=== PATIENT | male | born 1955 | race Caucasian/White ===

== ENCOUNTER 2018-02-09 13:23 | Inpatient (IN) | payer MEDICARE, MEDICAID, SELFPAY ==
[2018-02-09] VITALS (22 sets, daily range): BP systolic 91–143; BP diastolic 47–75; PULSE 83–105; RESP 16–24; TEMP 36–37.1; O2SAT 92–99
--- NOTE | 2018-02-09 13:55 | DI.RAD_ITS ---
SYMPTOMS/DIAGNOSIS: COUGH, SHORTNESS OF BREATH, ? PNEUMONIA PA AND LATERAL CHEST: The heart is not enlarged. The lungs appear hyperinflated consistent with COPD. No pulmonary consolidation or pleural effusion. No change from examination of 07/23/17. CONCLUSION: No evidence of acute disease.
--- NOTE | 2018-02-09 13:58 | ED.GENADUL_ITS ---
Discharge Plan Disposition Patient Disposition: [facility] INPATIENT Condition: Stable Discharge Details Chief Complaint: SOB Clinical Impression: Acute exacerbation of chronic obstructive pulmonary disease (COPD) Primary Care Provider: DANITA ROMERO ED Provider: Joya Degroot Home Meds and New Rx's Prescriptions: No Action multivitamin [Men's Multi-Vitamin] 1 EACH tablet 1 ea PO DAILY RF: 0 citalopram 40 MG tablet 20 mg PO DAILY RF: 0 tamsulosin 0.4 MG capsule 0.4 mg PO DAILY RF: 0 budesonide-formoterol [Symbicort] 10.2 GM HFA aerosol inhaler 2 puff Inhalation BID RF: 0 ipratropium-albuterol 3 ML solution for nebulization 3 ml Inhalation Q4H PRN (Reason: dyspnea or wheezing) Qty: 0 RF: 0 aspirin [Aspir-81] 81 MG tablet,delayed release (DR/EC) 81 mg PO DAILY AM RF: 0 metoprolol succinate 100 MG tablet extended release 24 hr 100 mg PO DAILY RF: 0 acetaminophen 325 MG tablet 650 mg PO PRN PRNRF: 0 clonazepam 1 MG tablet 1 mg PO BID RF: 0 melatonin 3 MG tablet 3 mg PO HS RF: 0 docusate sodium [Colace] 100 MG capsule 100 mg PO BID RF: 0 rosuvastatin [Crestor] 20 MG tablet 80 mg PO 1800 RF: 0 acetylcysteine 600 MG capsule 600 mg PO BID RF: 0 lisinopril 10 MG tablet 20 mg PO DAILY RF: 0 mupirocin 22 GM ointment 1 applic Topical TID RF: 0 guaifenesin [Mucinex] 600 MG tablet extended release 12hr 1,200 mg PO BID Qty: 14 RF: 0 rivaroxaban [Xarelto] 20 MG tablet 20 mg PO DAILY Qty: 30 RF: 0 loratadine 10 MG tablet 10 mg PO HS PRN PRNQty: 30 RF: 0 clopidogrel [Plavix] 75 mg Tablet 75 mg PO DAILY RF: 0 Medical Decision Making 62-year-old male with a history of COPD chronically on 2 L of home O2 who presents for worsening shortness of breath, and cough for the past few days. Last on redness on his Zithromax 1 month ago. Restarted prednisone 60mg yesterday and today and took 1 dose of clindamycin at home left over today. Family hypertensive. Heart rate 102. Normal respiratory rate, oxygen saturation on 2 L and no fever. Patient unable to speak in full sentences. He has mild respiratory distress. Patient states he cannot take albuterol due to tachycardia. Is an IV, labs, EKG , chest x-ray and give a dose of Xopenex and 60 g IV Solu-Medrol. EKG notes a rate of 82, sinus, no acute ST elevation or depression. QTc 423. QRS 110. 1520 --patient denies any relief after Xopenex. Labs reviewed and notes normal white blood cell count. Normal electrolytes. Troponin negative. 1725 --pt denies any relief after 2 xopenex. Labs and imaging reviewed. White blood cell count 10. Electrolytes within normal limits. Troponin negative. Chest x-ray negative. Patient states he feels like he has a difficult time talking and states this is usually the start of a significant COPD exacerbation. Patient does not feel comfortable going home. Discussed with respiratory and they will use patient's Atrovent inhaler with spacer for treatment. Will admit for observation, IV steroids, and continued neb treatments as needed. 1930 --delay in reaching hospitalist - lost pager - accepts pt for admission. Patient admits to mainly clear sputum but states it has been occasionally green. Although he has no fever and normal white blood cell count, will give a dose of Levaquin IV. There is an interaction with Celexa and Levaquin for risk of QT prolongation which can be monitored on telemetry. HPI General Mode of arrival: ambulatory . Date/Time Provider Initiated Documentation: 02/09/18 13:25 . Limitations to Documentation: no limitations . Information obtained by: patient . HPI Narrative: 62-year-old male with a history of COPD chronically on 2 L of home O2 who presents for worsening shortness of breath, and cough for the past few days. States he was recently treated with Zithromax and prednisone 1 month ago. States he is followed at the [facility] and he thought he had 3 refills on his prednisone and Zithromax but only had a refill on his prednisone. States he restarted prednisone yesterday and took 60 mg yesterday and 60 mg a day. States he had clindamycin left over from previous prescription and took 1 dose this morning. He admits to left-sided chest pain that occurs with coughing. He denies any chest pain at present. He denies any known fever. Past medical history: CAD, COPD, PVD, depression, hypertension, atrial for ablation, hyperlipidemia, anxiety, BPH Surgical history: Previous tracheostomy with reversal, G-tube with reversal, knee surgery, 1 cardiac stent Social history: Quit tobacco 3 years ago, denies alcohol or drugs Medications: See list Allergies: Albuterol (tachycardia) [facility] Home Medications Medication Instructions Recorded Confirmed citalopram 20 mg PO DAILY 05/09/15 02/09/18 multivitamin [Men's Multi-Vitamin] 1 ea PO DAILY 05/09/15 02/09/18 tamsulosin 0.4 mg PO DAILY 05/09/15 02/09/18 budesonide-formoterol [Symbicort] 2 puff INHALATION BID 11/25/15 02/09/18 ipratropium-albuterol 3 ml INHALATION Q4H PRN #0 11/28/15 02/09/18 aspirin [Aspir-81] 81 mg PO DAILY AM 07/19/16 02/09/18 acetaminophen 650 mg PO PRN PRN 06/16/17 02/09/18 acetylcysteine 600 mg PO BID 06/16/17 02/09/18 clonazepam 1 mg PO BID 06/16/17 02/09/18 docusate sodium [Colace] 100 mg PO BID 06/16/17 02/09/18 melatonin 3 mg PO HS 06/16/17 02/09/18 rosuvastatin [Crestor] 80 mg PO 1800 06/16/17 02/09/18 guaifenesin [Mucinex] 1,200 mg PO BID #14 tabcr 06/23/17 02/09/18 lisinopril 20 mg PO DAILY tab 06/23/17 02/09/18 mupirocin 1 applic TOPICAL TID tube 06/23/17 02/09/18 rivaroxaban [Xarelto] 20 mg PO DAILY #30 tablet 06/23/17 02/09/18 loratadine 10 mg PO HS PRN PRN #30 tab 07/23/17 02/09/18 metoprolol succinate 100 mg PO DAILY 09/05/17 02/09/18 clopidogrel [Plavix] 75 mg PO DAILY 02/09/18 02/09/18 Previous Rx's Medication Instructions Recorded ipratropium-albuterol 3 ml INHALATION Q4H PRN #0 11/28/15 guaifenesin [Mucinex] 1,200 mg PO BID #14 tabcr 06/23/17 lisinopril 20 mg PO DAILY tab 06/23/17 mupirocin 1 applic TOPICAL TID tube 06/23/17 rivaroxaban [Xarelto] 20 mg PO DAILY #30 tablet 06/23/17 loratadine 10 mg PO HS PRN PRN #30 tab 07/23/17 Allergies Allergy/AdvReac Type Severity Reaction Status Date / Time albuterol Allergy Verified 02/09/18 13:34 General Stated Complaint: SOB DANETTE: 2 Review of Systems Review of Systems All systems reviewed & are unremarkable except as noted in HPI and below Constitutional Denies chills, Denies excessive sweating, Denies fatigue, Denies fever(s), Denies weakness and Denies weight loss Eyes Reports system reviewed and no additional complaints, except as docu and Denies blurry vision ENT Denies vertigo, Denies dizziness, Denies otalgia, Denies nasal congestion, Denies sore throat and Denies throat swelling Cardiovascular Denies chest pain, Denies syncope, Denies rapid heart rate and Reports dyspnea Respiratory Reports chest congestion, Reports cough and Reports dyspnea Gastrointestinal Denies abdominal pain, Denies diarrhea and Denies vomiting Genitourinary Denies hematuria, Denies dysuria and Denies flank pain Musculoskeletal Denies back pain and Denies joint swelling Integumentary/Breasts Denies lesions and Denies rash Neurologic Denies behavioral changes, Denies confusion, Denies vertigo, Denies dizziness, Denies syncope and Denies weakness Psychiatric Denies behavioral changes, Denies confusion and Denies depression Endocrine Denies excessive sweating and Denies fatigue Hematologic/Lymphatic Denies easy bruising and Denies lymphadenopathy Allergic/Immunologic Denies throat swelling [facility] Medical History Anxiety Atrial fibrillation BPH (benign prostatic hyperplasia) COPD (chronic obstructive pulmonary disease) with emphysema Depression Essential hypertension Social History Smoking/Tobacco Use Status: Current every day Surgical History Arthroplasty of knee Gastrostomy Tube Placement tracheostomy Exam Const General: cooperative and healthy appearing Orientation: alert and awake [facility] Head: normal to inspection Ears: hearing grossly normal bilaterally and external ears normal General nose exam: external nose normal Face and sinus: normal facial exam Mouth: oral mucosae normal Eyes General: appearance normal, both eyes and all related structures Eyelids: eyelids normal EOM: EOM intact bilaterally Neck Neck: normal visual inspection Lymphatic: no lymphadenopathy noted Chest Chest: normal inspection of the chest Resp Effort & Inspection: not able to speak in complete sentences Auscultation: diminished lung sounds bilaterally Cardio Rate: tachycardic Rhythm: regular rhythm GI Inspection: normal to inspection Palpation: soft, not firm, no guarding, no hepatosplenomegaly, no masses and nontender Auscultation: normal bowel sounds Skin General skin exam: no rashes or lesions noted Neuro General: alert and awake Cognition: normal cognition Speech: speech normal Gait: normal gait Motor: muscle tone normal throughout Sensory Exam: no sensory deficits noted Extrem General: normal to inspection, full ROM and no edema Psych Appearance: grossly normal Mental Status: mental status grossly normal Speech and Movement: speech and movement normal Affect: normal affect Thought Process: normal Course Vital Signs Temperature 96.8 F L 02/09/18 13:29 Pulse 102 H 02/09/18 13:29 Respiratory Rate 20 02/09/18 13:29 Blood Pressure 143/75 H 02/09/18 13:29 Pulse Oximetry 97 02/09/18 13:29 Temperature 96.8 F L 02/09/18 13:29 Temperature Source Skin 02/09/18 13:29 Pulse 102 H 02/09/18 13:29 Respiratory Rate 20 02/09/18 13:29 Respiratory Effort 02/09/18 13:29 Blood Pressure 143/75 H 02/09/18 13:29 Blood Pressure Position Sitting 02/09/18 13:29 Pulse Oximetry 97 02/09/18 13:29 Oxygen Delivery Method Nasal Cannula 02/09/18 13:29 Oxygen Flow Rate 2.5 02/09/18 13:29 Pain Level 0 02/09/18 13:29
[2018-02-09 14:28] LABS: Abs Immature Grans 0.01 k/cumm (0.0-0.09); Absolute Lymphocyte Count 0.36 k/cumm (1.2-3.4); Absolute Monocyte Count 0.11 k/cumm (0.11-0.7); HCT 35.1 % (40.0-50.0); HGB 11.5 g/dL (13.5-17.5); Immature Grans % 0.1; Lymphocytes % 3.4; Mean Corp. HGB Concentration 32.8 g/dL (32.0-36.0); Mean Corpuscular Hemoglobin 30.4 pg (27.0-33.0); Mean Corpuscular Volume 92.9 fL (80-95); Mean Platelet Volume 9.3 fL (8.0-11.0); Neutrophils % 95.5; Platelet Count 258 x1000/uL (130-400); RBC 3.78 m/cumm (4.50-6.00); RBC Distribution Width 13.5 % (11.8-14.1); White Blood Cell Count 10.48 k/cumm (4.4-10.8)
[2018-02-09] MEDS: Levalbuterol 1.25 MG/3 ML UPD VIAL UPD ×2 (14:35→15:42)
[2018-02-09] MEDS: methylPREDNISolone SUCC 125 MG VIAL 60 MG IVP (14:36)
[2018-02-09 14:42] LABS: ALT 43 U/L (12-78); AST 30 U/L (15-37); Albumin 3.5 g/dL (3.4-5.0); Alkaline Phosphatase 74 U/L (46-116); Anion Gap 9.2 mmol/L (3-11); BUN 16 mg/dL (7-18); Bilirubin, Total 0.2 mg/dL (0.2-1.0); CO2 28.8 mmol/L (21.0-32.0); CREATININE 1.06 mg/dL (0.70-1.30); Chloride 98 mmol/L (98-107); Glucose 171 mg/dL (70-100); Magnesium 1.8 mg/dL (1.8-2.4); Potassium 4.5 mmol/L (3.5-5.1); Sodium 136 mmol/L (136-145)
[2018-02-09 14:45] LABS: Troponin I < 0.02 ng/mL (0.00-0.06)
[2018-02-09] MEDS: Normal Saline 250 ML IV (16:39)
--- NOTE | 2018-02-09 18:31 | RESPIRATORY ---
Worked with patient using spacer with his Atrovent inhaler. He stated he uses this inhaler at home without the spacer. I strongly encouraged his to iuse the spacer in the future. His technique with the spacer was adequate.
[2018-02-09] MEDS: LEVOFLOXACIN 750 MG/150 ML BAG 150 MG IVPB (20:23)
[2018-02-09 20:55] LABS: Hemoglobin A1C 5.6 % (4.5-6.2)
--- NOTE | 2018-02-09 21:26 | HPE_ITS ---
Date of service: 02/09/18 Time of Service: 21:25 Assessment and Plan (1) COPD exacerbation: Current visit: Yes Status: Acute continue prn xopenex aerosol treatments, iv solumedrol, po levaquin w/ close telemetry monitoring given his concomittant use of Citalopram for anxiety/ depression. encourage use of Acapella for mobilization of sputum. Per patient he is current on his influenza and pneumovax vaccines. continue his home dose of Symbicort (2) Acute purulent bronchitis: Current visit: Yes Status: Deleted as above History of Present Illness Chief Complaint: shortness of breath Narrative: 62-year-old male with a history of COPD chronically on 2 L of oxygen at home presents with worsening shortness of breath and increased cough for last few days. Patient started on prednisone 60 mg yesterday and took another dose today as well as started 1 dose of clindamycin today that was left over from a previous prescription. He states that his primary care provider had previously given him a standing prescription for prednisone and azithromycin but there is no refills on the azithromycin. Patient has been intolerant of albuterol due to severe tachycardia. Does use Atrovent at home as well as Symbicort. Workup in the emergency room revealed that he is afebrile chest x- ray showed no acute infiltrates and CBC showed no leukocytosis. Rest of his labs were unremarkable. He was treated in the emergency room with Xopenex aerosol treatments as well as his Atrovent inhaler. Patient was started on Levaquin in the emergency room For an acute purulent bronchitis. He is now admitted on observation status for treatment of COPD exacerbation. Patient has been under evaluation for potential lung transplant. He has been awaiting word on his final tests as to whether or not he will be accepted Review of Systems Constitutional Denies chills and Denies fever(s) Cardiovascular Reports system reviewed and no additional complaints, except as docu, Reports dyspnea and Reports dyspnea on exertion Respiratory Reports as per HPI, Reports change in phlegm color, Reports chest congestion, Reports cough, Denies hemoptysis, Reports excessive phlegm production, Reports dyspnea, Reports dyspnea on exertion and Reports wheezing Gastrointestinal Reports system reviewed and no additional complaints, except as docu Genitourinary Reports system reviewed and no additional complaints, except as docu Musculoskeletal Reports system reviewed and no additional complaints, except as docu Integumentary/Breasts Reports system reviewed and no additional complaints, except as docu Neurologic Reports system reviewed and no additional complaints, except as docu Psychiatric Reports system reviewed and no additional complaints, except as docu Endocrine Reports system reviewed and no additional complaints, except as docu Hematologic/Lymphatic Reports system reviewed and no additional complaints, except as docu Allergic/Immunologic Reports system reviewed and no additional complaints, except as docu and Reports wheezing PFSH Medical History Anxiety Atrial fibrillation BPH (benign prostatic hyperplasia) COPD (chronic obstructive pulmonary disease) with emphysema Depression Essential hypertension Social History marital status: Smoking/Tobacco Use Status: Former Tobacco Use how long ago did patient quit smokin years ago Surgical History Arthroplasty of knee Gastrostomy Tube Placement tracheostomy Meds Home Medications Medication Instructions Recorded Confirmed Type citalopram 20 mg PO DAILY 05/09/15 02/09/18 History multivitamin [Men's Multi-Vitamin] 1 ea PO DAILY 05/09/15 02/09/18 History tamsulosin 0.4 mg PO DAILY 05/09/15 02/09/18 History budesonide-formoterol [Symbicort] 2 puff INHALATION BID 11/25/15 02/09/18 History ipratropium-albuterol 3 ml INHALATION Q4H PRN #0 11/28/15 02/09/18 Rx aspirin [Aspir-81] 81 mg PO DAILY AM 07/19/16 02/09/18 History acetaminophen 650 mg PO PRN PRN 06/16/17 02/09/18 History acetylcysteine 600 mg PO BID 06/16/17 02/09/18 History clonazepam 1 mg PO BID 06/16/17 02/09/18 History docusate sodium [Colace] 100 mg PO BID 06/16/17 02/09/18 History melatonin 3 mg PO HS 06/16/17 02/09/18 History rosuvastatin [Crestor] 80 mg PO 1800 06/16/17 02/09/18 History guaifenesin [Mucinex] 1,200 mg PO BID #14 tabcr 06/23/17 02/09/18 Rx lisinopril 20 mg PO DAILY tab 06/23/17 02/09/18 Rx mupirocin 1 applic TOPICAL TID tube 06/23/17 02/09/18 Rx rivaroxaban [Xarelto] 20 mg PO DAILY #30 tablet 06/23/17 02/09/18 Rx loratadine 10 mg PO HS PRN PRN #30 tab 07/23/17 02/09/18 Rx metoprolol succinate 100 mg PO DAILY 09/05/17 02/09/18 History clopidogrel [Plavix] 75 mg PO DAILY 02/09/18 02/09/18 History Allergies Allergy/AdvReac Type Severity Reaction Status Date / Time albuterol Allergy Verified 02/09/18 13:34 Exam Const General: cooperative and anxious Nutritional Appearance: average body habitus Orientation: alert and oriented x3 HENMT Head: normal to inspection, no palpable skull fracture, normocephalic and atraumatic Ears: hearing grossly normal bilaterally and TM's normal bilaterally General nose exam: external nose normal, nares normal, nasal mucous membranes and turbinates normal and no nasal discharge Face and sinus: normal facial exam Mouth: oral mucosae normal Teeth and gingiva: dentures Throat: posterior oropharynx normal Eyes General: appearance normal, both eyes and all related structures Visual Cortes: normal visual cortes by confrontation Alignment and Position: alignment normal Periorbital: periorbital findings normal Eyelids: eyelids normal Conjunctivae: conjunctivae normal Sclera: sclerae normal Cornea: corneas normal Pupils: PERRL EOM: EOM intact bilaterally Neck Neck: normal visual inspection, full ROM, no lymphadenopathy, trachea midline and no JVD Thyroid: thyroid normal Carotids: normal carotid upstroke and bruit bilaterally Lymphatic: no lymphadenopathy noted Chest Chest: normal inspection of the chest Resp Effort & Inspection: able to speak in complete sentences and tachypneic Auscultation: wheezes expiratory wheezes and scattered wheezes Cardio Jugular venous pressure: no JVD Palpation: normal PMI Rate: regular rate Rhythm: regular rhythm Heart Sounds: S1 normal and S2 normal Bruits: carotid bruit bilaterally Pulses: normal peripheral pulses GI Inspection: normal to inspection Palpation: soft, no hepatosplenomegaly and nontender Percussion: normal to percussion Auscultation: normal bowel sounds Extrem General: normal to inspection, full ROM, normal capillary refill, no joint enlargement and no clubbing, cyanosis or edema Psych Appearance: grossly normal and well kempt Mental Status: mental status grossly normal Speech and Movement: speech and movement normal Mood: congruent mood Affect: anxious affect Attitude: cooperative Thought Process: normal Thought Content: normal Insight: insight good Judgment: judgment good Results Imaging Chest x-ray: report reviewed (PA AND LATERAL CHEST: The heart is not enlarged. The lungs appear hyperinflated consistent with COPD. No pulmonary consolidation or pleural effusion. No change from examination of 07/23/17. CONCLUSION: No evidence of acute disease.) Labs : 02/09/18 14:20 02/09/18 14:20 Laboratory Results - last 24 hr 02/09/18 02/09/18 02/09/18 14:20 14:20 14:20 WBC 10.48 RBC 3.78 L Hgb 11.5 L Hct 35.1 L MCV 92.9 MCH 30.4 MCHC 32.8 RDW 13.5 Plt Count 258 MPV 9.3 Immature Gran % 0.1 Neutrophils % 95.5 Lymphocytes % 3.4 Monocytes % 1.0 Eosinophils % 0.0 Basophils % 0.0 Absolute Neutrophils 10.00 H Absolute Lymphocytes 0.36 L Absolute Monocytes 0.11 Absolute Eosinophils 0.00 Absolute Basophils 0.00 Sodium 136 Potassium 4.5 Chloride 98 Carbon Dioxide 28.8 Anion Gap 9.2 BUN 16 Creatinine 1.06 Estimated GFR/1.73 m2 >= 60.00 Glucose 171 H Hemoglobin A1c 5.6 Calcium 9.0 Magnesium 1.8 Total Bilirubin 0.2 AST 30 ALT 43 Alkaline Phosphatase 74 Troponin I < 0.02 Total Protein 7.0 Albumin 3.5 Last Vital Signs Temp 36.7 C 02/09/18 20:32 Pulse 92 H 02/09/18 20:32 Resp 16 02/09/18 20:32 BP 130/56 L 02/09/18 20:32 Pulse Ox 96 02/09/18 20:32
[2018-02-09] MEDS: Budesonide/Formoterol 160/4.5 6 GM 60 PUFF INH IH (22:06)
[2018-02-09] MEDS: clonazePAM 1 MG TAB PO (22:07)
[2018-02-09] MEDS: Melatonin 3 MG TAB PO (22:07)
[2018-02-09] MEDS: Normal Saline Flush 10 ML SYR IVP ×2 (22:09→23:10)
[2018-02-09] MEDS: methylPREDNISolone SUCC 125 MG VIAL 80 MG IVP (23:11)
[2018-02-09] MEDS: guaiFENesin 600 MG TABCR 1200 MG PO (23:11)
[2018-02-10] MEDS: methylPREDNISolone SUCC 125 MG VIAL 80 MG IVP ×3 (06:05→22:52)
[2018-02-10] MEDS: Normal Saline Flush 10 ML SYR IVP ×2 (06:05→22:53)
[2018-02-10 07:52] VITALS: BP 116/69; PULSE 87; RESP 20; TEMP 36.2; O2SAT 95
[2018-02-10] MEDS: Lisinopril 10 MG TAB 20 MG PO (07:54)
[2018-02-10] MEDS: clonazePAM 1 MG TAB PO ×2 (07:55→19:23)
[2018-02-10] MEDS: Multivitamin TAB 1 TAB PO (07:55)
[2018-02-10] MEDS: Citalopram 20 MG TAB PO (07:55)
[2018-02-10] MEDS: Clopidogrel 75 MG TAB PO (07:55)
[2018-02-10] MEDS: guaiFENesin 600 MG TABCR 1200 MG PO ×2 (07:55→19:23)
[2018-02-10] MEDS: Metoprolol CR 100 MG TABCR PO (07:55)
[2018-02-10] MEDS: Tamsulosin 0.4 MG CAPCR PO (07:55)
[2018-02-10] MEDS: Nystatin 500000 UNITS/5 ML SUSP 5ML CUP PO ×3 (07:56→19:24)
--- NOTE | 2018-02-10 07:58 | PDOC.CMIN ---
Care Management Initial Assess REASON FOR HOSPITALIZATION:: COPD Exacerbation PAST MEDICAL HISTORY/PAST SURGICAL HISTORY:: Severe COPD, Treated for pneumonia, Depression with anxiety disorder, H/O coronary artery disease, H/O hypertension, Benign prostatic hypertrophy, Rectal dysfunction, Seasonal allergies, (R) knee arthroscopy PREVIOUS FUNCTIONAL STATUS/SOCIAL/FAMILY SUPPORTS:: Javier resides with his , Claire in [place], [place]. He has a long history of hospitalizations and SNF stays for recovery due to end stage COPD. He is on disability, and has a good support system of family and friends. CURRENT FUNCTIONAL STATUS:: Javier is lying in bed, elevated when CM meets with him. He reports improvement, appears alert and oriented and is gracious and kind in interaction, reporting you all are all a blessing. He reports anticipating discharge tomorrow, 02/11/18. ADVANCE DIRECTIVES:: None on file at [facility]; Claire reports document is at home. Has patient been provided with information about the portal?: Yes Did the patient sign up for the portal?: No CODE STATUS:: Full Code INSURANCE COVERAGE / FINANCIAL ISSUES:: Medicare CURRENT HOME[facility]COMMUNITY [facility] [place]. PRIMARY CARE PHYSICIAN:: Marvin Hallman POTENTIAL DISCHARGE NEEDS:: Evaluation for further needs. PATIENT/FAMILY EDUCATION NEEDS:: Review of instructions, discuss Ask Me Three. ANTICIPATED BARRIERS TO DISCHARGE:: None identified. TRANSPORTATION:: Via private vehicle with his , Claire. PLAN:: Javier will return home when ready per MD. He will be evaluated for further needs prior to discharge; CM will continue to follow and support discharge planning considerations. He will follow up with his [facility] resume home O2 and plan of care as prescribed. Javier will transport via private vehicle with his , Claire.
--- NOTE | 2018-02-10 08:09 | INITIAL_ITS ---
Care Management Initial Assess REASON FOR HOSPITALIZATION:: COPD Exacerbation PAST MEDICAL HISTORY/PAST SURGICAL HISTORY:: Severe COPD, Treated for pneumonia , Depression with anxiety disorder, H/O coronary artery disease, H/O hypertension, Benign prostatic hypertrophy, Rectal dysfunction, Seasonal allergies, (R) knee arthroscopy PREVIOUS FUNCTIONAL STATUS/SOCIAL/FAMILY SUPPORTS:: Javier resides with his , Claire in [place], [place]. He has a long history of hospitalizations and SNF stays for recovery due to end stage COPD. He is on disability, and has a good support system of family and friends. CURRENT FUNCTIONAL STATUS:: Javier is lying in bed, elevated when CM meets with him. He reports improvement, appears alert and oriented and is gracious and kind in interaction, reporting you all are all a blessing. He reports anticipating discharge tomorrow, 02/11/18. ADVANCE DIRECTIVES:: None on file at [facility]; Claire reports document is at home. Has patient been provided with information about the portal?: Yes Did the patient sign up for the portal?: No CODE STATUS:: Full Code INSURANCE COVERAGE / FINANCIAL ISSUES:: Medicare CURRENT HOME/COMMUNITY SERVICES/EQUIPMENT:: [facility] in [place] PRIMARY CARE PHYSICIAN:: Marvin Hallman POTENTIAL DISCHARGE NEEDS:: Evaluation for further needs. PATIENT/FAMILY EDUCATION NEEDS:: Review of instructions, discuss Ask Me Three. ANTICIPATED BARRIERS TO DISCHARGE:: None identified. TRANSPORTATION:: Via private vehicle with his , Claire. PLAN:: Javier will return home when ready per MD. He will be evaluated for further needs prior to discharge; CM will continue to follow and support discharge planning considerations. He will follow up with his [facility] PCP resume home O2 and plan of care as prescribed. Javier will transport via private vehicle with his , Claire.
[2018-02-10 08:10] VITALS: O2SAT 95
[2018-02-10] MEDS: Budesonide/Formoterol 160/4.5 6 GM 60 PUFF INH IH ×2 (08:11→22:53)
[2018-02-10 08:44] VITALS: PULSE 86
[2018-02-10 10:02] VITALS: RESP 8
[2018-02-10] MEDS: Levalbuterol 1.25 MG/3 ML UPD VIAL UPD (10:02)
--- NOTE | 2018-02-10 12:39 | W.PM.PROGNOT ---
Date of Service Date of service: 02/10/18 Time of Service: 12:40 Assessment and Plan (1) COPD exacerbation: Current visit: Yes Status: Acute Improving with Xopenex aerosol treatments, iv solumedrol, levaquin, will continue this therapy. He is on telemetry monitoring given his concomittant use of Citalopram for anxiety/depression, a prolonged QT noted. Encourage use of Acapella for mobilization of sputum, working with respiratory therapy. (2) Coronary artery disease: Current visit: No Status: Chronic Stable. Continue chronic cardiac regimen. Rosuvastatin changed to 40 mg as this day is the maximum dose. (3) Essential hypertension: Current visit: No Status: Chronic Blood pressure controlled, continue chronic medication. (4) Anemia: Current visit: No Status: Acute Mild anemia, stable from last hemoglobin drawn in June. A likely contributing to her shortness of breath. (5) DVT prophylaxis: Current visit: Yes Status: Acute On rivaroxaban chronically. Subjective Patient reports: no new complaints, feels better, tolerating a regular diet and shortness of breath; denies diarrhea, nausea, vomiting and fever Interval history since last seen: Feeling significantly better than when he came in, but still not back to normal. He feels short of breath when up to use the bathroom and when speaking in long sentences. He denies fevers, but is coughing up some green sputum. Exam Narrative Exam Narrative: General: Alert and oriented, sitting up, mildly dyspneic with full sentences. HEENT: Moist mucous membranes, oropharynx benign Lungs: Diffuse diminished breath sounds bilaterally. No wheezes or rales. Cardia vascular: Regular rate and rhythm, no murmurs. Abdomen: Soft, nontender, nondistended Extremities: No cyanosis, clubbing, or edema. Nontender. Objective Objective Clinical Data: Abnormal lab results 02/09/18 02/09/18 Range/Units 14:20 14:20 RBC 3.78 L (4.50-6.00) m/cumm Hgb 11.5 L (13.5-17.5) g/dL Hct 35.1 L (40.0-50.0) % Absolute Neutrophils 10.00 H (1.2-6.7) k/cumm Absolute Lymphocytes 0.36 L (1.2-3.4) k/cumm Glucose 171 H (70-100) mg/dL Vital Signs Temperature 36.2 C L 02/10/18 07:52 Temperature Source Tympanic 02/10/18 07:52 Pulse 86 02/10/18 08:44 Pulse Rhythm Regular 02/10/18 07:59 Pulse 92 H 02/09/18 15:31 Respiratory Rate 20 02/10/18 07:52 Respiratory Effort Incrsd Work of Breathing 02/09/18 20:48 Respiratory Depth Normal 02/10/18 07:59 Respiratory Pattern Normal 02/10/18 07:59 Blood Pressure 116/69 02/10/18 07:52 Blood Pressure Mean 60 02/09/18 15:30 Blood Pressure Position Sitting 02/09/18 13:29 Pulse Oximetry 95 02/10/18 08:10 Oxygen Delivery Method Room Air 02/10/18 08:10 Oxygen Flow Rate 0 02/10/18 08:10 Pain Level 0 02/10/18 07:52 Intake & Output 02/09/18 02/10/18 02/10/18 23:59 11:59 23:59 Intake Total 400 / 400 Balance 400 / 400 Weight 61.235 kg Intake: IV 400 / 400 Other: Urine Appearance Clear Laboratory Results WBC 10.48 k/cumm (4.4-10.8) 02/09/18 14:20 RBC 3.78 m/cumm (4.50-6.00) L 02/09/18 14:20 Hgb 11.5 g/dL (13.5-17.5) L 02/09/18 14:20 Hct 35.1 % (40.0-50.0) L 02/09/18 14:20 MCV 92.9 fL (80-95) 02/09/18 14:20 MCH 30.4 pg (27.0-33.0) 02/09/18 14:20 MCHC 32.8 g/dL (32.0-36.0) 02/09/18 14:20 RDW 13.5 % (11.8-14.1) 02/09/18 14:20 Plt Count 258 x1000/uL (130-400) 02/09/18 14:20 MPV 9.3 fL (8.0-11.0) 02/09/18 14:20 Immature Gran % 0.1 02/09/18 14:20 Neutrophils % 95.5 02/09/18 14:20 Lymphocytes % 3.4 02/09/18 14:20 Monocytes % 1.0 02/09/18 14:20 Eosinophils % 0.0 02/09/18 14:20 Basophils % 0.0 02/09/18 14:20 Absolute Neutrophils 10.00 k/cumm (1.2-6.7) H 02/09/18 14:20 Absolute Lymphocytes 0.36 k/cumm (1.2-3.4) L 02/09/18 14:20 Absolute Monocytes 0.11 k/cumm (0.11-0.7) 02/09/18 14:20 Absolute Eosinophils 0.00 k/cumm (0.0-0.7) 02/09/18 14:20 Absolute Basophils 0.00 k/cumm (0.0-0.2) 02/09/18 14:20 Sodium 136 mmol/L (136-145) 02/09/18 14:20 Potassium 4.5 mmol/L (3.5-5.1) 02/09/18 14:20 Chloride 98 mmol/L (98-107) 02/09/18 14:20 Carbon Dioxide 28.8 mmol/L (21.0-32.0) 02/09/18 14:20 Anion Gap 9.2 mmol/L (3-11) 02/09/18 14:20 BUN 16 mg/dL (7-18) 02/09/18 14:20 Creatinine 1.06 mg/dL (0.70-1.30) 02/09/18 14:20 Estimated GFR/1.73 m2 >= 60.00 (mL/min/1.73m2) 02/09/18 14:20 Glucose 171 mg/dL (70-100) H 02/09/18 14:20 Hemoglobin A1c 5.6 % (4.5-6.2) 02/09/18 14:20 Calcium 9.0 mg/dL (8.5-10.1) 02/09/18 14:20 Magnesium 1.8 mg/dL (1.8-2.4) 02/09/18 14:20 Total Bilirubin 0.2 mg/dL (0.2-1.0) 02/09/18 14:20 AST 30 U/L (15-37) 02/09/18 14:20 ALT 43 U/L (12-78) 02/09/18 14:20 Alkaline Phosphatase 74 U/L (46-116) 02/09/18 14:20 Troponin I < 0.02 ng/mL (0.00-0.06) 02/09/18 14:20 Total Protein 7.0 g/dL (6.4-8.2) 02/09/18 14:20 Albumin 3.5 g/dL (3.4-5.0) 02/09/18 14:20
--- NOTE | 2018-02-10 13:11 | PHARADMIT ---
Addendum entered by Sandip Meléndez III 02/11/18 10:27: Pharmacy Note Subjective COPD improving. Objective VS-OK No Labs, Wgt-60.8 kg No BM yet Assessment Steroid taper to PO, Levaquin PO continues Xarelto continues, Plan Continue acapella with RT Original Note: Admission Pharmacy Clinical Review COPD EXACERBATION Code Status Full Code Current Weight 61.235 kg Renally Cleared and Narrow Therapeutic Index Meds CRCL ~50ML/MIN QTc Value / Action Taken 423 BP Control, Fever 116/69 AFEBRILE Electrolytes reviewed OK DVT Prophylaxis RIVAROXABAN Opiate Usage / Scheduled Bowel Regimen Ordered NO/PRN Plt/SCr for Heparin / Enoxaparin 258/1.06 INR for Warfarin NA H/H stable, WBC/Bands 11.5/35.1 WBC 10.48 Antibiotic appropriateness LEVOFLOXACIN PO Cultures and Sensitivities NA Surgical ABX d/c within 24 hr NA DM control / Insulin Dosing NA Heart Failure (Check EF%) (RADHA's, B-Block, Diuretics) IV to PO Switch Home Meds Reviewed Home Meds Not Ordered ipratropium-albuterol 3 ml INHALATION Q4H PRN #0 11/28/15 acetylcysteine 600 mg PO BID 06/16/17 [History Confirmed 02/09/18] mupirocin 1 applic TOPICAL TID tube 06/23/17 [Rx Confirmed 02/09/18] Comments Pt ON LUNG TRANSPLANT LIST, home med list stated crestor 80mg... changed to 40mg with MD permission
[2018-02-10 15:57] VITALS: BP 132/71; PULSE 92; PULSE 94; RESP 22; TEMP 36.6; O2SAT 96
[2018-02-10] MEDS: Rosuvastatin 10 MG TAB 40 MG PO (17:26)
[2018-02-10] MEDS: Rivaroxaban 10 MG TABLET 20 MG PO (17:26)
[2018-02-10] MEDS: LEVOFLOXACIN 500 MG, LEVOFLOXACIN 250 MG 750 MG PO (19:23)
[2018-02-10] MEDS: Melatonin 3 MG TAB PO (22:52)
[2018-02-11] VITALS (8 sets, daily range): BP systolic 96–140; BP diastolic 53–76; PULSE 61–82; RESP 17–20; TEMP 36–36.7; O2SAT 96–98
[2018-02-11] MEDS: methylPREDNISolone SUCC 125 MG VIAL 80 MG IVP ×3 (06:03→23:55)
[2018-02-11] MEDS: Normal Saline Flush 10 ML SYR IVP ×4 (06:04→23:56)
[2018-02-11] MEDS: Budesonide/Formoterol 160/4.5 6 GM 60 PUFF INH IH ×2 (08:59→20:01)
[2018-02-11] MEDS: Lisinopril 10 MG TAB 20 MG PO (09:41)
[2018-02-11] MEDS: Citalopram 20 MG TAB PO (09:41)
[2018-02-11] MEDS: Multivitamin TAB 1 TAB PO (09:41)
[2018-02-11] MEDS: Nystatin 500000 UNITS/5 ML SUSP 5ML CUP PO ×3 (09:41→20:00)
[2018-02-11] MEDS: Clopidogrel 75 MG TAB PO (09:42)
[2018-02-11] MEDS: guaiFENesin 600 MG TABCR 1200 MG PO ×2 (09:42→20:00)
[2018-02-11] MEDS: Metoprolol CR 100 MG TABCR PO (09:42)
[2018-02-11] MEDS: Docusate Sodium 100 MG CAP PO (09:42)
[2018-02-11] MEDS: Tamsulosin 0.4 MG CAPCR PO (09:42)
[2018-02-11] MEDS: clonazePAM 1 MG TAB PO ×2 (09:42→20:01)
--- NOTE | 2018-02-11 12:35 | W.PM.PROGNOT ---
Date of Service Date of service: 02/11/18 Time of Service: 12:35 Assessment and Plan (1) COPD exacerbation: Current visit: Yes Status: Acute Continues to improve with Xopenex aerosol treatments, iv solumedrol, levaquin. will continue this therapy. He is on telemetry due to use of Levaquin with citalopram to monitor QT. QTc this morning is not prolonged after 2 days of therapy, will discontinue telemetry. Encourage use of Acapella for mobilization of sputum, working with respiratory therapy. Restarted Spiriva this morning. After discussion with patient and Indira from respiratory therapy who knows the patient well, we will plan to observe again overnight, and transition to oral steroids overnight with likely discharge tomorrow. (2) Coronary artery disease: Current visit: No Status: Chronic Stable. Continue chronic cardiac regimen. (3) Essential hypertension: Current visit: No Status: Chronic Blood pressure controlled, continue chronic medication. (4) Anemia: Current visit: No Status: Acute Mild anemia, stable. Not likely contributing to his shortness of breath. (5) DVT prophylaxis: Current visit: Yes Status: Acute On rivaroxaban chronically. Subjective Patient reports: no new complaints, feels better, tolerating a regular diet and shortness of breath; denies nausea, vomiting and fever Interval history since last seen: Patient states he continues to feel better, but is short of breath with a lot of speaking or any walking. He does not feel right at his baseline, is not sure about going home today given this. Respiratory therapy, not getting his Spiriva, which he gets as an outpatient. Exam Narrative Exam Narrative: General: Alert and oriented, sitting up, less dyspneic with full sentences. HEENT: Moist mucous membranes, oropharynx benign Lungs: Diffuse diminished breath sounds bilaterally, but improved air movement. No wheezes or rales. Cardia vascular: Regular rate and rhythm, no murmurs. Abdomen: Soft, nontender, nondistended Extremities: No cyanosis, clubbing, or edema. Nontender. Objective Objective Clinical Data: Vital Signs Temperature 36.1 C L 02/11/18 07:40 Temperature Source Tympanic 02/11/18 07:40 Pulse 61 02/11/18 07:40 Pulse Rhythm Regular 02/11/18 05:30 Pulse 92 H 02/09/18 15:31 Respiratory Rate 18 02/11/18 07:40 Respiratory Effort 02/11/18 05:30 Respiratory Depth Normal 02/11/18 05:30 Respiratory Pattern Normal 02/11/18 05:30 Blood Pressure 133/57 L 02/11/18 07:40 Blood Pressure Mean 60 02/09/18 15:30 Blood Pressure Position Sitting 02/09/18 13:29 Pulse Oximetry 96 02/11/18 07:40 Oxygen Delivery Method Nasal Cannula 02/11/18 07:40 Oxygen Flow Rate 2 02/11/18 07:40 Pain Level 0 02/11/18 07:40 Intake & Output 02/10/18 02/11/18 02/11/18 23:59 11:59 23:59 Intake Total 560 / 560 960 / 960 Balance 560 / 560 960 / 960 Weight 60.8 kg Intake: IV Oral 540 / 540 960 / 960 Other: Comment voiding independently throughout shift Laboratory Results WBC 10.48 k/cumm (4.4-10.8) 02/09/18 14:20 RBC 3.78 m/cumm (4.50-6.00) L 02/09/18 14:20 Hgb 11.5 g/dL (13.5-17.5) L 02/09/18 14:20 Hct 35.1 % (40.0-50.0) L 02/09/18 14:20 MCV 92.9 fL (80-95) 02/09/18 14:20 MCH 30.4 pg (27.0-33.0) 02/09/18 14:20 MCHC 32.8 g/dL (32.0-36.0) 02/09/18 14:20 RDW 13.5 % (11.8-14.1) 02/09/18 14:20 Plt Count 258 x1000/uL (130-400) 02/09/18 14:20 MPV 9.3 fL (8.0-11.0) 02/09/18 14:20 Immature Gran % 0.1 02/09/18 14:20 Neutrophils % 95.5 02/09/18 14:20 Lymphocytes % 3.4 02/09/18 14:20 Monocytes % 1.0 02/09/18 14:20 Eosinophils % 0.0 02/09/18 14:20 Basophils % 0.0 02/09/18 14:20 Absolute Neutrophils 10.00 k/cumm (1.2-6.7) H 02/09/18 14:20 Absolute Lymphocytes 0.36 k/cumm (1.2-3.4) L 02/09/18 14:20 Absolute Monocytes 0.11 k/cumm (0.11-0.7) 02/09/18 14:20 Absolute Eosinophils 0.00 k/cumm (0.0-0.7) 02/09/18 14:20 Absolute Basophils 0.00 k/cumm (0.0-0.2) 02/09/18 14:20 Sodium 136 mmol/L (136-145) 02/09/18 14:20 Potassium 4.5 mmol/L (3.5-5.1) 02/09/18 14:20 Chloride 98 mmol/L (98-107) 02/09/18 14:20 Carbon Dioxide 28.8 mmol/L (21.0-32.0) 02/09/18 14:20 Anion Gap 9.2 mmol/L (3-11) 02/09/18 14:20 BUN 16 mg/dL (7-18) 02/09/18 14:20 Creatinine 1.06 mg/dL (0.70-1.30) 02/09/18 14:20 Estimated GFR/1.73 m2 >= 60.00 (mL/min/1.73m2) 02/09/18 14:20 Glucose 171 mg/dL (70-100) H 02/09/18 14:20 Hemoglobin A1c 5.6 % (4.5-6.2) 02/09/18 14:20 Calcium 9.0 mg/dL (8.5-10.1) 02/09/18 14:20 Magnesium 1.8 mg/dL (1.8-2.4) 02/09/18 14:20 Total Bilirubin 0.2 mg/dL (0.2-1.0) 02/09/18 14:20 AST 30 U/L (15-37) 02/09/18 14:20 ALT 43 U/L (12-78) 02/09/18 14:20 Alkaline Phosphatase 74 U/L (46-116) 02/09/18 14:20 Troponin I < 0.02 ng/mL (0.00-0.06) 02/09/18 14:20 Total Protein 7.0 g/dL (6.4-8.2) 02/09/18 14:20 Albumin 3.5 g/dL (3.4-5.0) 02/09/18 14:20
[2018-02-11] MEDS: Aspirin E.C. 81 MG TABEC PO (13:14)
--- NOTE | 2018-02-11 15:04 | PDOC.CMPRO ---
- If Service Date Differs Date of service: 02/11/18 Time of Service: 15:04 Care Management Progress Note S/O: Javier is doing well this afternoon, his Claire is in the room with him. Javier remains on telemetry at this time, and states that he continues to feel short of breath with activity. Javier is feeling better and hopeful that he will be able to return home this weekend. No change in DC plan at this time. A: 62 y/o male admitted 02/09/18 for COPD exacerbation. P: Javier will return home with no anticipated services once medically cleared. He will F/U with PCP and plan of care as prescribed. [facility] at [place]. lCaire to transport.
--- NOTE | 2018-02-11 15:38 | RESPIRATORY ---
02/11/18- RT Navigator discussed with Pt the [facility] and made an COPD Action Plan with him and his , Claire. Pt will give copy to his PCP, Dr. [place] at the [place] at his next appt.
[2018-02-11] MEDS: Rivaroxaban 10 MG TABLET 20 MG PO (16:46)
[2018-02-11] MEDS: Rosuvastatin 10 MG TAB 40 MG PO (17:56)
[2018-02-11] MEDS: LEVOFLOXACIN 500 MG, LEVOFLOXACIN 250 MG 750 MG PO (20:00)
[2018-02-11] MEDS: Melatonin 3 MG TAB PO (22:14)
[2018-02-12 07:40] VITALS: BP 110/71; PULSE 70; RESP 19; TEMP 37.1; O2SAT 96
[2018-02-12] MEDS: Budesonide/Formoterol 160/4.5 6 GM 60 PUFF INH IH (07:55)
--- NOTE | 2018-02-12 08:23 | PDOC.CMDIS ---
- If Service Date Differs Date of service: 02/12/18 Time of Service: 08:23 LACE Index Scoring Tool - Questions: Length of Stay (in days): 4 - 6 Acuity (Admit via E.D.?): Yes Comorbidities: Chronic Pulmonary Disease E.D. Visits: 5 - Answers: Total Score: 13 Risk of Readmission: High Risk Care Management Discharge Reason for Hospitalization: COPD Exacerbation Discharge Plan: Javier feels that he is ready to return home his spouse will be picking him up at time of discharge. Javier will resume DME services including home oxygen at time of discharge. He denies any addtional needs or services. Patient/Family Education Needs: Discharge education, limitations, follow-up plan of care, ask me 3 discussion and self-management. Services Needed at Discharge: DME Agency
[2018-02-12] MEDS: guaiFENesin 600 MG TABCR 1200 MG PO (08:24)
[2018-02-12] MEDS: Nystatin 500000 UNITS/5 ML SUSP 5ML CUP PO (08:24)
[2018-02-12] MEDS: Normal Saline Flush 10 ML SYR IVP (08:24)
[2018-02-12] MEDS: methylPREDNISolone SUCC 125 MG VIAL 80 MG IVP (08:24)
[2018-02-12] MEDS: clonazePAM 1 MG TAB PO (08:25)
[2018-02-12] MEDS: Multivitamin TAB 1 TAB PO (08:25)
[2018-02-12] MEDS: Lisinopril 10 MG TAB 20 MG PO (08:25)
[2018-02-12] MEDS: Tamsulosin 0.4 MG CAPCR PO (08:25)
[2018-02-12] MEDS: Metoprolol CR 100 MG TABCR PO (08:25)
[2018-02-12] MEDS: predniSONE 20 MG TAB 60 MG PO (08:25)
[2018-02-12] MEDS: Citalopram 20 MG TAB PO (08:25)
[2018-02-12] MEDS: Clopidogrel 75 MG TAB PO (08:25)
[2018-02-12] MEDS: Aspirin E.C. 81 MG TABEC PO (08:25)
--- NOTE | 2018-02-12 12:30 | DSE_ITS ---
Date of service: 02/12/18 Time of Service: 12:21 DS: Diagnosis Discharge Diagnosis (1) COPD exacerbation: Status: Acute Discharge Plan Disposition Patient Disposition: HOME Condition: Stable Discharge Details Reason For Visit: CODP EXACERBATION Admit Date/Time: 02/11/18 07:40 Admit Provider: Shane Vieira Attending Provider: Shane Vieira Primary Care Provider: DANITA ROMERO Hospital Course Hospital Course: CC: Dyspnea HPI: 62-year-old man with a prior history of COPD chronically on home Oxygen therapy presents to [facility] Emergency Department with worsening shortness of breath and increased cough. Mr. Bautista has a significant history of COPD, with prior respiratory distress requiring intubation and mechanical ventilation. Has been trached in the past for this. He reported at time of admission initating prednisone the day prior along with 1 dose of clindamycin that he had left over from a previous prescription. He states that his primary care provider had previously given him a standing orders for prednisone and azithromycin, but there is no refills on the antibiotic left. He also reported an intolerance of albuterol due to severe tachycardia/Afib. Workup in the emergency room was notable for a lack of fever, chest x-ray that, showed no acute infiltrates, and a CBC without leukocytosis. He was treated in the emergency department with Xopenexas well as his ownAtrovent inhaler. Patient was started on Levaquin for a reported acute purulent bronchitis, and referred for admission or treatment of a presumed COPD exacerbation. Hospital Course: (1) COPD exacerbation: Has Continued to improve with Xopenex nebs, steroids, and antibiotic therapy given his complaint of a purulent cough. He was maintained on telemetry due to use of Levaquin with his home SSRI therapy without mention of QT prolongation after 2 days of therapy. Plan will be for discharge home with a slow prednisone taper and completion of antibiotic course, along with resumption of his home Oxygen. (2) Coronary artery disease: Quiescent. The patient was maintained on his chronic cardiac regimen. (3) Essential hypertension: Continue chronic medication. (4) Disposition: Appears safe for discharge. Encouraged to return to the hospital if he experiences any worsening symptoms. Home Meds and New Rx's Prescriptions: New levofloxacin 500 mg tablet 500 mg PO DAILY Qty: 5 RF: 0 prednisone 10 mg tablet 10 mg PO DAILY Qty: 45 RF: 0 Continue multivitamin [Men's Multi-Vitamin] 1 EACH tablet 1 ea PO DAILY RF: 0 citalopram 40 MG tablet 20 mg PO DAILY RF: 0 tamsulosin 0.4 MG capsule 0.4 mg PO DAILY RF: 0 budesonide-formoterol [Symbicort] 10.2 GM HFA aerosol inhaler 2 puff Inhalation BID RF: 0 ipratropium-albuterol 3 ML solution for nebulization 3 ml Inhalation Q4H PRN (Reason: dyspnea or wheezing) Qty: 0 RF: 0 aspirin [Aspir-81] 81 MG tablet,delayed release (DR/EC) 81 mg PO DAILY AM RF: 0 metoprolol succinate 100 MG tablet extended release 24 hr 100 mg PO DAILY RF: 0 acetaminophen 325 MG tablet 650 mg PO PRN PRNRF: 0 clonazepam 1 MG tablet 1 mg PO BID RF: 0 melatonin 3 MG tablet 3 mg PO HS RF: 0 docusate sodium [Colace] 100 MG capsule 100 mg PO BID RF: 0 rosuvastatin [Crestor] 20 MG tablet 80 mg PO 1800 RF: 0 acetylcysteine 600 MG capsule 600 mg PO BID RF: 0 lisinopril 10 MG tablet 20 mg PO DAILY RF: 0 mupirocin 22 GM ointment 1 applic Topical TID RF: 0 guaifenesin [Mucinex] 600 MG tablet extended release 12hr 1,200 mg PO BID Qty: 14 RF: 0 rivaroxaban [Xarelto] 20 MG tablet 20 mg PO DAILY Qty: 30 RF: 0 loratadine 10 MG tablet 10 mg PO HS PRN PRNQty: 30 RF: 0 clopidogrel [Plavix] 75 mg Tablet 75 mg PO DAILY RF: 0 Discharge Instructions Instructions: COPD (Chronic Obstructive Pulmonary Disease) (DC), COPD (Chronic Obstructive Pulmonary Disease) (GEN) Additional Instructions: Please see your Primary doctor in 1 week, and your multiskill operator within 2 weeks of discharge. Activity:: No strenuous Activity Equipment/Supplies:: No Equipment Needed Diet:: Heart Healthy Discharge Orders Discharge Orders: Discharge Order (Routine); Ordered 02/12/18 Ordered By: Marcelo Vieira Exam Narrative Exam Narrative: General: Patient appears comfortable, AAOX3, NAD Neck: Supple CV: Regular, nontachycardic, S1S2, No rubs, murmurs, or gallops. Pulmonary: Decreased breath sounds diffusely but Clear to auscultation bilaterally, no wheezing noted with good air entry. Abdomen: + Bowel Sounds, soft, nontender, nondistended Vascular: No lower extremity edema Psych: Normal mood and affect. DS: Data Vitals/I&O Vitals and I&O: Vital Signs Temperature 37.1 C 02/12/18 07:40 Temperature Source Tympanic 02/12/18 07:40 Pulse 70 02/12/18 07:40 Pulse Rhythm Regular 02/12/18 08:32 Pulse 92 H 02/09/18 15:31 Respiratory Rate 19 02/12/18 07:40 Respiratory Effort 02/12/18 08:32 Respiratory Depth Normal 02/12/18 08:32 Respiratory Pattern Normal 02/12/18 08:32 Blood Pressure 110/71 02/12/18 07:40 Blood Pressure Mean 60 02/09/18 15:30 Blood Pressure Position Sitting 02/09/18 13:29 Pulse Oximetry 96 02/12/18 07:40 Oxygen Delivery Method Nasal Cannula 02/12/18 07:40 Oxygen Flow Rate 2 02/12/18 07:40 Pain Level 0 02/12/18 07:40 Intake & Output 02/11/18 02/12/18 02/12/18 23:59 11:59 23:59 Intake Total 740 / 740 Balance 740 / 740 Intake: IV Oral 740 / 740 Other: Comment toilets independently, denies abnormality Voiding Methods Toilet Completed studies during hospitalization [Text1]: PA AND LATERAL CHEST: The heart is not enlarged. The lungs appear hyperinflated consistent with COPD. No pulmonary consolidation or pleural effusion. No change from examination of 07/23/17. CONCLUSION: No evidence of acute disease. [facility] Medical History Anxiety Atrial fibrillation BPH (benign prostatic hyperplasia) COPD (chronic obstructive pulmonary disease) with emphysema Depression Essential hypertension Social History marital status: Smoking/Tobacco Use Status: Former Tobacco Use how long ago did patient quit smokin years ago Surgical History Arthroplasty of knee Gastrostomy Tube Placement tracheostomy
== END 2018-02-12 14:30 | disposition home or self-care (01) | DRG 192 ==
LOC: ER 19:49 → MS 20:42
PROVIDERS: Admitting Provider Internal Medicine; Emergency Provider Physician Assistant; PCP Surgery Vascular Surgery; Referring Provider Internal Medicine; Visit Provider Internal Medicine
DX: J44.1 Chronic obstructive pulmonary disease with (acute) exacerbation (principal)
CPT/HCPCS: 36415; 80053; 93005; 94640; 96361; 96374; 96375; 99219; 99232; 99239; 99285; 71046; 83036; 83735; 84484; 85025; 93010; G0378; J1956; J2930; J7512; J7614

== ENCOUNTER 2018-06-23 11:33 | Inpatient (IN) | payer MEDICARE, SELFPAY ==
[2018-06-23] VITALS (57 sets, daily range): BP systolic 69–126; BP diastolic 38–83; PULSE 79–139; RESP 4–30; TEMP 36.6–37.6; O2SAT 92–100
--- NOTE | 2018-06-23 12:15 | W.ED.GENAD ---
Discharge Plan Disposition Patient Disposition: [facility] INPATIENT Condition: Fair Discharge Details Chief Complaint: SOB Clinical Impression: COPD with acute exacerbation, Hypotension Primary Care Provider: DANITA ROMERO ED Provider: Joya Degroot Home Meds and New Rx's Prescriptions: No Action multivitamin [Men's Multi-Vitamin] 1 EACH tablet 1 ea PO DAILY RF: 0 citalopram 40 MG tablet 20 mg PO DAILY RF: 0 tamsulosin 0.4 MG capsule 0.4 mg PO DAILY RF: 0 Symbicort 10.2 GM HFA aerosol inhaler 2 puff Inhalation BID RF: 0 ipratropium-albuterol 3 ML solution for nebulization 3 ml Inhalation Q4H PRN (Reason: dyspnea or wheezing) Qty: 0 RF: 0 metoprolol succinate 100 MG tablet extended release 24 hr 100 mg PO DAILY RF: 0 acetaminophen 325 MG tablet 650 mg PO PRN PRNRF: 0 clonazepam 1 MG tablet 1 mg PO BID RF: 0 melatonin 3 MG tablet 3 mg PO HS RF: 0 docusate sodium [Colace] 100 MG capsule 100 mg PO BID RF: 0 rosuvastatin [Crestor] 20 MG tablet 80 mg PO 1800 RF: 0 acetylcysteine 600 MG capsule 600 mg PO BID RF: 0 lisinopril 10 MG tablet 20 mg PO DAILY RF: 0 guaifenesin [Mucinex] 600 MG tablet extended release 12hr 1,200 mg PO BID Qty: 14 RF: 0 Xarelto 20 MG tablet 20 mg PO DAILY Qty: 30 RF: 0 clopidogrel [Plavix] 75 mg Tablet 75 mg PO DAILY RF: 0 Medical Decision Making 62-year-old male with a history of COPD chronically on 2 L of home O2, atrial fibrillation on Xarelto, hypertension, anxiety and depression who presents with cough with yellow sputum and shortness of breath for the past few days, with worsening shortness of breath since 330 this morning. Finished Z-Maco today for symptoms. His baseline oxygen saturation is between 94-96% on 2 L. Oxygen saturation 96% on 2 L on arrival. Blood pressure 99/83. Respiratory rate 28. Patient able to speak in full sentences. He has diffuse wheezing and rhonchi throughout. No lower extremity edema. No crackles, rales. Patient unable to tolerate albuterol due to tachycardia. Will give a dose of Xopenex, Solu-Medrol, labs, EKG, chest x-ray and bolus IV fluids. EKG notes a rate of 102, sinus, no acute ST findings. QTc 435. QRS 92. 1308 -- labs reviewed. Normal white blood cell count. Normal electrolytes. Troponin negative. BNP 427. Influenza negative. Patient appears more comfortable. He is eating chocolate in the room. He is requesting another neb treatment. 1400 --imaging reviewed and appears unremarkable. Pt feels a little better. Breath sounds mildly improved, still diminished with wheezing throughout. O2 sat 96% on 2 L. is concerned about pt being home alone tomorrow. Systolic BP improved to high 90s, but now low again. Repeat BP 83/57. Upon review of vitals since arrival, system blood pressures 60s-70s. I do not have a source for his hypotension at this point, but it may be dehydration as it was fluid responsive. He did have a fever 101 this morning at home. He has a normal white blood cell count, negative influenza, negative chest x-ray. Will obtain a urinalysis, lactate and blood cultures. Will admit for observations, nebs and fluids. 1515 -- d/w hospitalist -accepts pt for admission. Medical Records Medical records reviewed: Yes I reviewed the patient's medical records. Imaging Data Radiologic Study: Radiologist's impression: PA AND LATERAL CHEST: The heart is normal in size. The lungs are clear. The mediastinal structures and pleura appear intact. SUMMARY: No evidence of acute cardiopulmonary disease. Lab Data Lab results reviewed: Yes I reviewed the patient's lab results. 06/23/18 12:30 Nasopharynx Influenza Types A,B Antigen - Final Laboratory Tests Range/Units 06/23/18 06/23/18 06/23/18 12:54 12:54 12:54 WBC (4.4-10.8) k/cumm 5.48 RBC (4.50-6.00) m/cumm 3.51 L Hgb (13.5-17.5) g/dL 10.3 L Hct (40.0-50.0) % 33.1 L MCV (80-95) fL 94.3 MCH (27.0-33.0) pg 29.3 MCHC (32.0-36.0) g/dL 31.1 L RDW (11.8-14.1) % 13.8 Plt Count (130-400) x1000/uL 169 MPV (8.0-11.0) fL 10.0 Immature Gran % 0.2 Neutrophils % 72.1 Lymphocytes % 10.9 Monocytes % 16.4 Eosinophils % 0.2 Basophils % 0.2 Absolute Neutrophils (1.2-6.7) k/cumm 3.95 Absolute Lymphocytes (1.2-3.4) k/cumm 0.60 L Absolute Monocytes (0.11-0.7) k/cumm 0.90 H Absolute Eosinophils (0.0-0.7) k/cumm 0.01 Absolute Basophils (0.0-0.2) k/cumm 0.01 Sodium (136-145) mmol/L 141 Potassium (3.5-5.1) mmol/L 3.9 Chloride (98-107) mmol/L 101 Carbon Dioxide (21.0-32.0) mmol/L 32.1 H Anion Gap (3-11) mmol/L 7.9 BUN (7-18) mg/dL 12 Creatinine (0.70-1.30) mg/dL 0.89 Estimated GFR/1.73 m2 (mL/min/1.73m2) >= 60.00 Glucose (70-100) mg/dL 84 Calcium (8.5-10.1) mg/dL 8.4 L Magnesium (1.8-2.4) mg/dL 1.6 L Total Bilirubin (0.2-1.0) mg/dL 0.4 AST (15-37) U/L 28 ALT (12-78) U/L 33 Alkaline Phosphatase (46-116) U/L 72 Troponin I (0.00-0.06) ng/mL < 0.02 NT-Pro-B Natriuret Pep ( - 299) pg/mL 427 H Total Protein (6.4-8.2) g/dL 5.9 L Albumin (3.4-5.0) g/dL 3.1 L ECG Data Attestation: I personally reviewed and interpreted this ECG (s) as follows: Interpretation: Rate of 102, sinus, no acute ST elevation or depression. QTc 435. QRS 92. HPI General Mode of arrival: ambulatory. Date/Time Provider Initiated Documentation: 04/04/19 11:54. Limitations to Documentation: no limitations. Information obtained by: patient. HPI Narrative: Patient is a 62-year-old male with a history of COPD chronically on 2 L of home O2, atrial fibrillation on Xarelto who presents with shortness of breath since 330 this morning. Admits to intermittent fevers over the past few days, T-max of 101 this morning. Also admits to occasional chest pain with coughing. States he has been occasionally coughing up yellow sputum. He states he was exposed to cold like symptoms with a family member recently and he developed some cough and shortness of breath over the last few days for which she finished a Z-Maco today. Patient states he has a standing prescription for Z-Maco as needed. He states his oxygen saturation is chronically 94-96% on 2 L. He states he has been eating and drinking normally. He states he did receive the flu shot this year. Related Data Home Medications Medication Instructions Recorded Confirmed citalopram 20 mg PO DAILY 05/09/15 06/23/18 multivitamin [Men's Multi-Vitamin] 1 ea PO DAILY 05/09/15 06/23/18 tamsulosin 0.4 mg PO DAILY 05/09/15 06/23/18 Symbicort 2 puff INHALATION BID 11/25/15 06/23/18 ipratropium-albuterol 3 ml INHALATION Q4H PRN #0 11/28/15 06/23/18 acetaminophen 650 mg PO PRN PRN 06/16/17 06/23/18 acetylcysteine 600 mg PO BID 06/16/17 02/09/18 clonazepam 1 mg PO BID 06/16/17 06/23/18 docusate sodium [Colace] 100 mg PO BID 06/16/17 06/23/18 melatonin 3 mg PO HS 06/16/17 06/23/18 rosuvastatin [Crestor] 80 mg PO 1800 06/16/17 06/23/18 Xarelto 20 mg PO DAILY #30 tablet 06/23/17 06/23/18 guaifenesin [Mucinex] 1,200 mg PO BID #14 tabcr 06/23/17 02/09/18 lisinopril 20 mg PO DAILY tab 06/23/17 06/23/18 metoprolol succinate 100 mg PO DAILY 06/17/18 04/04/19 clopidogrel [Plavix] 75 mg PO DAILY 02/09/18 02/09/18 Previous Rx's Medication Instructions Recorded ipratropium-albuterol 3 ml INHALATION Q4H PRN #0 11/28/15 Xarelto 20 mg PO DAILY #30 tablet 06/23/17 guaifenesin [Mucinex] 1,200 mg PO BID #14 tabcr 06/23/17 lisinopril 20 mg PO DAILY tab 06/23/17 Allergies Allergy/AdvReac Type Severity Reaction Status Date / Time albuterol Allergy Verified 02/09/18 13:34 General Stated Complaint: SOB DANETTE: 2 Review of Systems Review of Systems All systems reviewed & are unremarkable except as noted in HPI and below Constitutional Reports as per HPI, Denies chills and Reports fever(s) Eyes Denies blurry vision ENT Denies dizziness, Denies sore throat and Denies throat swelling Cardiovascular Denies chest pain and Reports dyspnea Respiratory Denies cough and Reports dyspnea Gastrointestinal Denies abdominal pain, Denies diarrhea and Denies vomiting Genitourinary Denies hematuria and Denies dysuria Musculoskeletal Denies back pain and Denies numbness Integumentary/Breasts Denies lesions and Denies rash Neurologic Denies dizziness, Denies focal weakness and Denies numbness Allergic/Immunologic Denies throat swelling PFSH Medical History Anxiety Atrial fibrillation BPH (benign prostatic hyperplasia) COPD (chronic obstructive pulmonary disease) with emphysema Depression Essential hypertension Surgical History Arthroplasty of knee Gastrostomy Tube Placement tracheostomy Social History Smoking/Tobacco Use Status: Former Tobacco Use Alcohol Intake: never Drug use: Never Do you feel safe at home: Yes Do you feel safe in your relationship?: Yes Exam Const General: cooperative and no acute distress HENMT Head: normal to inspection Face and sinus: normal facial exam Eyes General: appearance normal, both eyes and all related structures Pupils: PERRL EOM: EOM intact bilaterally Neck Neck: normal visual inspection and No submandibular swelling Lymphatic: no lymphadenopathy noted Chest Chest: normal inspection of the chest and no tenderness Resp Effort & Inspection: normal respiratory effort and able to speak in complete sentences Auscultation: rhonchi upper bilaterally and lower bilaterally and wheezes expiratory wheezes and inspiratory wheezes Cardio Rate: tachycardic Rhythm: regular rhythm GI Inspection: normal to inspection Palpation: soft, not firm, not rigid and nontender Auscultation: normal bowel sounds Male General Exam: Yes normal external exam Skin General skin exam: no rashes or lesions noted Neuro General: alert, awake and oriented x3 Cognition: normal cognition Speech: speech normal Motor: muscle tone normal throughout Sensory Exam: no sensory deficits noted Extrem General: normal to inspection, full ROM and no edema Psych Appearance: grossly normal Mental Status: mental status grossly normal Speech and Movement: speech and movement normal Affect: normal affect Course Vital Signs Temperature 98.1 F 06/23/18 11:40 Pulse 102 H 06/23/18 11:40 Respiratory Rate 28 H 06/23/18 11:40 Blood Pressure 99/83 L 06/23/18 11:40 Pulse Oximetry 96 06/23/18 11:40 Temperature 98.1 F 06/23/18 11:40 Temperature Source Temporal Artery Scan 06/23/18 11:40 Pulse 102 H 06/23/18 11:40 Respiratory Rate 28 H 06/23/18 11:40 Respiratory Effort Pursed Lip 06/23/18 11:44 Blood Pressure 99/83 L 06/23/18 11:40 Blood Pressure Position Sitting 06/23/18 11:40 Pulse Oximetry 96 06/23/18 11:40 Oxygen Delivery Method Nasal Cannula 06/23/18 11:40 Oxygen Flow Rate 2.5 06/23/18 11:40 Pain Level 0 06/23/18 11:40
[2018-06-23] MEDS: methylPREDNISolone SUCC 125 MG VIAL IVP (12:26)
[2018-06-23] MEDS: Levalbuterol 1.25 MG/3 ML UPD VIAL UPD ×3 (12:26→14:49)
[2018-06-23] MEDS: Normal Saline 250 ML IV (12:27)
[2018-06-23 13:15] LABS: Abs Immature Grans 0.01 k/cumm (0.0-0.09); Absolute Basophil Count 0.01 k/cumm (0.0-0.2); Absolute Eosinophil Count 0.01 k/cumm (0.0-0.7); Absolute Neutrophil Count 3.95 k/cumm (1.2-6.7); Basophils % 0.2; Eosinophils % 0.2; HCT 33.1 % (40.0-50.0); HGB 10.3 g/dL (13.5-17.5); Immature Grans % 0.2; Lymphocytes % 10.9; Mean Corp. HGB Concentration 31.1 g/dL (32.0-36.0); Mean Corpuscular Hemoglobin 29.3 pg (27.0-33.0); Mean Corpuscular Volume 94.3 fL (80-95); Monocytes % 16.4; Neutrophils % 72.1; Platelet Count 169 x1000/uL (130-400); RBC 3.51 m/cumm (4.50-6.00); RBC Distribution Width 13.8 % (11.8-14.1); White Blood Cell Count 5.48 k/cumm (4.4-10.8)
[2018-06-23 13:23] LABS: ALT 33 U/L (12-78); AST 28 U/L (15-37); Albumin 3.1 g/dL (3.4-5.0); Alkaline Phosphatase 72 U/L (46-116); Anion Gap 7.9 mmol/L (3-11); BUN 12 mg/dL (7-18); Bilirubin, Total 0.4 mg/dL (0.2-1.0); CO2 32.1 mmol/L (21.0-32.0); CREATININE 0.89 mg/dL (0.70-1.30); Calcium 8.4 mg/dL (8.5-10.1); Chloride 101 mmol/L (98-107); Glucose 84 mg/dL (70-100); Potassium 3.9 mmol/L (3.5-5.1); Sodium 141 mmol/L (136-145); Total Protein 5.9 g/dL (6.4-8.2)
[2018-06-23 13:29] LABS: Magnesium 1.6 mg/dL (1.8-2.4); NT-proBNP 427 pg/mL
[2018-06-23 13:30] LABS: Troponin I < 0.02 ng/mL (0.00-0.06)
--- NOTE | 2018-06-23 13:38 | NUR.NOTE ---
Nursing Note: Pt off unit to XR. neb tx given.
--- NOTE | 2018-06-23 13:52 | DI.RAD_ITS ---
SYMPTOMS/DIAGNOSIS: SHORTNESS OF BREATH, HYPOXIA, ? ACUTE DISEASE PA AND LATERAL CHEST: The heart is normal in size. The lungs are clear. The mediastinal structures and pleura appear intact. SUMMARY: No evidence of acute cardiopulmonary disease.
--- NOTE | 2018-06-23 14:34 | NUR.NOTE ---
Nursing Note: after 250cc bolus pt had rest of liter for a total of 1 liter infused
[2018-06-23 16:27] LABS: Bilirubin Negative (Negative); Blood Negative (Negative); Clarity Clear; Glucose Negative (Negative); Ketones Trace mg/dL (Negative); Leukocyte Esterase Negative (Negative); Nitrite Negative (Negative); Urobilinogen 0.2 EU/dL (Up TO 0.2)
--- NOTE | 2018-06-23 16:38 | NUR.NOTE ---
Nursing Note: Pt given turkey sandwich.
[2018-06-23 17:14] LABS: Lactate-non-spesis 1.5 mmol/l (0.6-1.4)
--- NOTE | 2018-06-23 19:31 | W.PM.HP.N ---
Date of service: 06/23/18 Time of Service: 19:31 Assessment and Plan (1) COPD exacerbation: Current visit: Yes Status: Chronic Evidence of acute exacerbation of underlying chronic obstructive pulmonary disease. Patient is oxygen dependent at baseline, and apparently on a transplant list out of [place]. His COPD is significant and potentially end-stage. Currently with reported worsening dyspnea, cough, and fever, but with negative appearance for chest x-ray. Urinalysis was negative. Blood cultures have been drawn. Patient is also hypotensive at time of admission. Suspect potential pulmonary source - given recent antibiotic use with azithromycin as an outpatient (just concluded his course today) will cover broadly with levofloxacin, and given history of MRSA will cover with Levaquin as well. As he reports an intolerance to albuterol, will ensure Xopenex instead. High-dose IV steroids ordered as well. Sputum cultures if able. Monitor symptoms closely. (2) Atrial fibrillation: Current visit: Yes Status: Chronic Continue beta-lizet, anticoagulation with rivaroxaban. (3) Coronary artery disease: Current visit: Yes Status: Chronic Appears quiescent. Patient will be maintained on his chronic cardiac regimen. (4) BPH (benign prostatic hyperplasia): Current visit: Yes Status: Chronic Continue alpha-lizet. (5) DVT prophylaxis: Current visit: Yes Status: Chronic On chronic anticoagulation. Will initiate PPI therapy for GI prophylaxis as well. History of Present Illness Chief Complaint: Fever, dyspnea Narrative: Very pleasant 62-year-old man with a prior medical history significant for COPD on home oxygen therapy, admitted from [facility] Emergency Department with acute onset dyspnea and fevers. Mr. Bautista has a significant history of Oxygen dependent COPD, with prior respiratory distress requiring intubation and mechanical ventilation. Has been trached in the past for this. He also reported an intolerance of albuterol due to severe tachycardia/Afib. He presented to the ED with complaints of onset of dyspnea worse than his baseline, essentially overnight, along with a fever documented at home as per his . Workup in the emergency room was notable for a lack of fever, chest x-ray that, showed no acute infiltrates, and a CBC without leukocytosis. He was however noted to be significantly hypotensive. His lactate was minimally elevated, and his urinalysis was negative for any evidence of infection. He was referred for admission for further evaluation and treatment. Review of Systems Review of Systems All systems reviewed & are unremarkable except as noted in HPI and below PFSH Medical History BPH (benign prostatic hyperplasia) (Chronic) History of MRSA infection (Chronic) DVT prophylaxis (Chronic) COPD exacerbation (Chronic) Anemia (Chronic) History of depression (Chronic) Essential hypertension (Chronic) Coronary artery disease (Chronic) Bronchiectasis (Chronic) COPD (chronic obstructive pulmonary disease) (Chronic) Anxiety Atrial fibrillation BPH (benign prostatic hyperplasia) COPD (chronic obstructive pulmonary disease) with emphysema Depression Essential hypertension Surgical History Arthroplasty of knee Gastrostomy Tube Placement tracheostomy Social History Smoking/Tobacco Use Status: Former Tobacco Use Alcohol Intake: never Drug use: Never Do you feel safe at home: Yes Do you feel safe in your relationship?: Yes Meds Home Medications Medication Instructions Recorded Confirmed Type citalopram 20 mg PO DAILY 05/09/15 06/23/18 History multivitamin [Men's Multi-Vitamin] 1 ea PO DAILY 05/09/15 06/23/18 History tamsulosin 0.4 mg PO DAILY 05/09/15 06/23/18 History Symbicort 2 puff INHALATION BID 11/25/15 06/23/18 History ipratropium-albuterol 3 ml INHALATION Q4H PRN #0 11/28/15 06/23/18 Rx acetaminophen 650 mg PO PRN PRN 06/16/17 06/23/18 History acetylcysteine 600 mg PO BID 06/16/17 02/09/18 History clonazepam 1 mg PO BID 06/16/17 06/23/18 History docusate sodium [Colace] 100 mg PO BID 06/16/17 06/23/18 History melatonin 3 mg PO HS 06/16/17 06/23/18 History rosuvastatin [Crestor] 80 mg PO 1800 06/16/17 06/23/18 History Xarelto 20 mg PO DAILY #30 tablet 06/23/17 06/23/18 Rx guaifenesin [Mucinex] 1,200 mg PO BID #14 tabcr 06/23/17 02/09/18 Rx lisinopril 20 mg PO DAILY tab 06/23/17 06/23/18 Rx metoprolol succinate 100 mg PO DAILY 09/05/17 06/23/18 History clopidogrel [Plavix] 75 mg PO DAILY 02/09/18 02/09/18 History Allergies Allergy/AdvReac Type Severity Reaction Status Date / Time albuterol Allergy Verified 02/09/18 13:34 Exam Narrative Exam Narrative: General: Patient appears comfortable, AAOX3, NAD Neck: Supple CV: Regular, nontachycardic, S1S2, No rubs, murmurs, or gallops. Pulmonary: Significantly decreased breath sounds diffusely but Clear to auscultation bilaterally. Mild diffuse wheezing noted. Abdomen: + Bowel Sounds, soft, nontender, nondistended Vascular: No lower extremity edema Neuro: CN II-XII Grossly intact. No focal deficits. Psych: Normal mood and affect. Results Labs : 06/23/18 12:54 06/23/18 12:54 Laboratory Results - last 24 hr 06/23/18 06/23/18 06/23/18 12:54 12:54 12:54 WBC 5.48 RBC 3.51 L Hgb 10.3 L Hct 33.1 L MCV 94.3 MCH 29.3 MCHC 31.1 L RDW 13.8 Plt Count 169 MPV 10.0 Immature Gran % 0.2 Neutrophils % 72.1 Lymphocytes % 10.9 Monocytes % 16.4 Eosinophils % 0.2 Basophils % 0.2 Absolute Neutrophils 3.95 Absolute Lymphocytes 0.60 L Absolute Monocytes 0.90 H Absolute Eosinophils 0.01 Absolute Basophils 0.01 Sodium 141 Potassium 3.9 Chloride 101 Carbon Dioxide 32.1 H Anion Gap 7.9 BUN 12 Creatinine 0.89 Estimated GFR/1.73 m2 >= 60.00 Glucose 84 Lactate Calcium 8.4 L Magnesium 1.6 L Total Bilirubin 0.4 AST 28 ALT 33 Alkaline Phosphatase 72 Troponin I < 0.02 NT-Pro-B Natriuret Pep 427 H Total Protein 5.9 L Albumin 3.1 L Urine Color Urine Clarity Urine pH Ur Specific [place] Urine Protein Urine Ketones Urine Blood Urine Nitrite Urine Bilirubin Urine Urobilinogen Ur Leukocyte Esterase Urine Glucose 06/23/18 06/23/18 16:16 17:01 WBC RBC Hgb Hct MCV MCH MCHC RDW Plt Count MPV Immature Gran % Neutrophils % Lymphocytes % Monocytes % Eosinophils % Basophils % Absolute Neutrophils Absolute Lymphocytes Absolute Monocytes Absolute Eosinophils Absolute Basophils Sodium Potassium Chloride Carbon Dioxide Anion Gap BUN Creatinine Estimated GFR/1.73 m2 Glucose Lactate 1.5 H Calcium Magnesium Total Bilirubin AST ALT Alkaline Phosphatase Troponin I NT-Pro-B Natriuret Pep Total Protein Albumin Urine Color Yellow Urine Clarity Clear Urine pH 6.0 Ur Specific [place] 1.010 Urine Protein Negative Urine Ketones Trace H Urine Blood Negative Urine Nitrite Negative Urine Bilirubin Negative Urine Urobilinogen 0.2 Ur Leukocyte Esterase Negative Urine Glucose Negative Last Vital Signs Temp 36.6 C 06/23/18 19:28 Pulse 82 06/23/18 19:28 Resp 22 06/23/18 19:28 BP 126/70 06/23/18 19:28 Pulse Ox 96 06/23/18 19:28
[2018-06-23] MEDS: guaiFENesin 600 MG TABCR 1200 MG PO (20:26)
[2018-06-23] MEDS: clonazePAM 1 MG TAB PO (20:26)
[2018-06-23] MEDS: Docusate Sodium 100 MG CAP PO (20:26)
[2018-06-23] MEDS: Levalbuterol 0.63 MG/3 ML UPD VIAL UPD ×2 (20:27→23:46)
[2018-06-23] MEDS: methylPREDNISolone SUCC 125 MG VIAL 60 MG IVP (21:05)
[2018-06-23] MEDS: Normal Saline Flush 10 ML SYR IVP ×2 (21:07→21:34)
[2018-06-23] MEDS: Melatonin 3 MG TAB PO (21:07)
[2018-06-23] MEDS: levoFLOXacin 750 MG/150 ML BAG 100 MG IVPB (21:33)
[2018-06-23] MEDS: VANCOMYCIN 1,000 MG in Normal Saline 250 ML 166.667 MG IVPB (23:17)
[2018-06-23] MEDS: Rosuvastatin 10 MG TAB 80 MG PO (23:45)
[2018-06-24] VITALS (18 sets, daily range): BP systolic 112–121; BP diastolic 62–68; PULSE 74–105; RESP 3–22; TEMP 35.9–36.9; O2SAT 85–98
[2018-06-24] MEDS: Budesonide/Formoterol 160/4.5 6 GM 60 PUFF INH IH ×3 (01:16→17:00)
[2018-06-24] MEDS: methylPREDNISolone SUCC 125 MG VIAL 60 MG IVP ×3 (03:51→21:17)
[2018-06-24] MEDS: Levalbuterol 0.63 MG/3 ML UPD VIAL UPD ×6 (03:52→23:50)
[2018-06-24] MEDS: Normal Saline Flush 10 ML SYR IVP ×4 (03:52→12:11)
[2018-06-24 06:56] LABS: Abs Immature Grans 0.01 k/cumm (0.0-0.09); Absolute Basophil Count 0.01 k/cumm (0.0-0.2); Absolute Lymphocyte Count 0.28 k/cumm (1.2-3.4); Absolute Monocyte Count 0.18 k/cumm (0.11-0.7); Basophils % 0.1; HCT 35.4 % (40.0-50.0); HGB 11.3 g/dL (13.5-17.5); Immature Grans % 0.1; Lymphocytes % 3.6; Mean Corp. HGB Concentration 31.9 g/dL (32.0-36.0); Mean Corpuscular Hemoglobin 30.1 pg (27.0-33.0); Mean Corpuscular Volume 94.4 fL (80-95); Mean Platelet Volume 9.8 fL (8.0-11.0); Monocytes % 2.3; Neutrophils % 93.9; Platelet Count 187 x1000/uL (130-400); RBC 3.75 m/cumm (4.50-6.00); RBC Distribution Width 13.7 % (11.8-14.1); White Blood Cell Count 7.74 k/cumm (4.4-10.8)
[2018-06-24 07:01] LABS: Absolute Neutrophil Count 7.27 k/cumm (1.2-6.7)
[2018-06-24 07:03] LABS: Anion Gap 6.7 mmol/L (3-11); BUN 12 mg/dL (7-18); CO2 32.3 mmol/L (21.0-32.0); CREATININE 0.82 mg/dL (0.70-1.30); Calcium 8.7 mg/dL (8.5-10.1); Chloride 102 mmol/L (98-107); Glucose 135 mg/dL (70-100); Magnesium 1.9 mg/dL (1.8-2.4); Potassium 4.1 mmol/L (3.5-5.1); Sodium 141 mmol/L (136-145)
[2018-06-24] MEDS: Pantoprazole 40 MG VIAL IVP (08:22)
[2018-06-24] MEDS: Rivaroxaban 10 MG TABLET 20 MG PO (08:23)
[2018-06-24] MEDS: clonazePAM 1 MG TAB PO ×2 (08:23→21:13)
[2018-06-24] MEDS: Docusate Sodium 100 MG CAP PO ×2 (08:23→21:13)
[2018-06-24] MEDS: Tamsulosin 0.4 MG CAPCR PO (08:23)
[2018-06-24] MEDS: Lisinopril 10 MG TAB 20 MG PO (08:24)
[2018-06-24] MEDS: guaiFENesin 600 MG TABCR 1200 MG PO ×2 (08:25→21:13)
[2018-06-24] MEDS: Clopidogrel 75 MG TAB PO (08:25)
[2018-06-24] MEDS: Citalopram 20 MG TAB PO (08:25)
[2018-06-24] MEDS: VANCOMYCIN 1,000 MG in Normal Saline 250 ML 166.667 MG IVPB ×3 (08:26→23:49)
[2018-06-24] MEDS: Multivitamin TAB 1 TAB PO (08:26)
[2018-06-24] MEDS: Metoprolol CR 100 MG TABCR PO (08:26)
--- NOTE | 2018-06-24 10:42 | PHARADMIT ---
Addendum entered by Sasha Garcia 07/04/18 16:31: Pharmacy Note Subjective looking much better/slept all night per morning report Objective BP-144/74 other VS okay wbc-15.14(up) Assessment PO K+ replacement given repeat chest xray due to increased WBC, negative per progress note Plan continue to watch VS, labs and for med changes. watch for change to PO steroids prior to discharge Addendum entered by Lana Dalton 07/03/18 13:46: Pharmacy Note Subjective new breathing treatment machine trilogy(sp?) started and pt tolerated last night with good results Objective bp 141/73, wt stable Assessment updrafts have been retimed to be during waking hours for pt compliance, linezolid stopped Plan Md plans to start to wean steroids and change to PO with a slow taper Addendum entered by Sandip Meléndez III 07/01/18 16:16: Pharmacy Note Subjective MD notes MRSA clearing with Linezolid Day3, following 7 days Vanco & 6 days Levaquin. Requiring BiPAP and multiple updrafts and steroids Objective BP-172/78 Lytes,SCr, H&H,Plts,WBC-OK Assessment On Symbicort, Pulmicort, Xopenex and MAUREEN Atovent. Linezolid switched to PO today and to continue through Wednesday evening. Plan MD reports patient is better today and will possibly be discharged home on . Addendum entered by Yudelka Hein 06/26/18 10:17: Pharmacy Note Subjective Severe end stage COPD, c/o cough, MD would like us to order plain Ipratropium for nebs without Albuterol-on order for Wednesday (? allergy to Albuterol, using Xopenex in the short term) per RT-tight,wheezy, Sats goal 88% Micro sputum: MRSA (Nare screening was negative, has a history of MRSA) Objective BP 167/75, afebrile, weight up 2.9kg in 2 days, I/O +, lytes ok, BG 138 Assessment BP seems to fluctuate lilian since was so hypotensive on admission, maybe steroids & inhalations driving this, no BP med adjustments at this time Pt is on Vanco/Levaquin-maybe d/c Levaquin? although depends on respiratory status Added Tessalon, Robitussin w/codeine IVF's dc'd Protonix IV to oral due to shortage Plan Midline consult for Wednesday-difficult IV access Is on Lung transplant list Vanco trough ordered for Wednesday06/27/18 @ 0700, watch weight/I&O Original Note: Admission Pharmacy Clinical Review ACUTE COPD EXCERBATION, HYPOTENSION Code Status Full Code Current Weight Wgt- 62 kg Renally Cleared and Narrow Therapeutic Index Meds CrCl~ 80 mL/min Meds-OK QTc Value / Action Taken QTc-435 na BP Control, Fever BP- 112/62 Tmax- 36.6C Electrolytes reviewed Na- 141 K+4.1 Mag-1.9 DVT Prophylaxis Plavix, Xarelto, Opiate Usage / Scheduled Bowel Regimen Ordered No Yes Plt/SCr for Heparin / Enoxaparin Plts-187 SCr-0.82 INR for Warfarin NA H/H stable, WBC/Bands H&H- 11.3/35.4 WBC- 7.74 Antibiotic appropriateness Levaquin, Vancomycin Cultures and Sensitivities Nose-MRSA, Blood -Pending, Flu-neg Surgical ABX d/c within 24 hr NA DM control / Insulin Dosing BG- 135 Heart Failure (Check EF%) (RADHA's, B-Block, Diuretics) Lisinopril, Toprol-XL, IV to PO Switch No Home Meds Reviewed Yes Home Meds Not Ordered Ordered Comments
[2018-06-24] MEDS: LORazepam 1 MG TAB PO (13:05)
[2018-06-24 14:21] LABS: Lactate-non-spesis 1.8 mmol/l (0.6-1.4)
--- NOTE | 2018-06-24 15:01 | PGE_ITS ---
Date of Service Date of service: 06/24/18 Time of Service: 14:51 Assessment and Plan (1) COPD exacerbation: Current visit: Yes Status: Chronic Evidence of acute exacerbation of underlying chronic obstructive pulmonary disease. Patient is oxygen dependent at baseline and with significant underlying disease, with very little apparent reserve despite relatively young age. Currently with reported worsening dyspnea, cough, and fever, but with negative appearance on chest x-ray. Urinalysis was negative. Blood cultures have been drawn and still pending. Influenza negative, and sputum cultures pending. Patient was also significantly hypotensive at time of admission (Systolic in the 60's) now improved. Suspect potential pulmonary source - given recent antibiotic use with azithromycin as an outpatient (just concluded his course on day of admission) will cover broadly with levofloxacin, and given history of MRSA will cover with Levaquin as well. As he reports an intolerance to albuterol, will ensure Xopenex instead. High-dose IV steroids and inhaled budesonide ordered as well. Ensure BiPAP if and as needed. Monitor symptoms closely as patient has a history of rapid decompensation. (2) Atrial fibrillation: Current visit: Yes Status: Chronic Continue beta-lizet, anticoagulation with rivaroxaban. (3) Coronary artery disease: Current visit: Yes Status: Chronic Appears quiescent. Patient will be maintained on his chronic cardiac regimen. (4) BPH (benign prostatic hyperplasia): Current visit: Yes Status: Chronic Continue alpha-lizet. (5) DVT prophylaxis: Current visit: Yes Status: Chronic On chronic anticoagulation. Continue PPI therapy for GI prophylaxis as well. Subjective Interval history since last seen: Fever, dyspnea Narrative: Very pleasant 62-year-old man with a prior medical history significant for COPD on home oxygen therapy, admitted from [facility] ED with acute onset dyspnea and fevers. Mr. 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 Has been trached in the past for this, and is currently on a transplant list per verbal history. He also reported an intolerance of albuterol due to severe tachycardia/Afib. He presented to the ED with complaints of onset of dyspnea overnight that was worse than his baseline, along with a fever documented at home as per his . Workup in the emergency room was notable for a lack of fever, chest x-ray that showed no acute infiltrates, and a CBC without leukocytosis. He was however noted to be significantly hypotensive. His lactate was minimally elevated, and his urinalysis was negative for any evidence of infection. He was referred for admission for further evaluation and treatment. This morning Mr. Bautista reports minimal improvement in his symptoms. He remains on IVFs, antibiotics, and steroids. No overnight events reported. Remains afebrile. Exam Narrative Exam Narrative: General: Patient appears comfortable but anxious appearing, AAOX3, NAD Neck: Supple CV: Regular, mildly tachycardic, S1S2, No rubs, murmurs, or gallops. Pulmonary: Significantly decreased breath sounds diffusely with diffuse wheezing noted, essentially unchanged from prior exam. Abdomen: + Bowel Sounds, soft, nontender, nondistended Vascular: No lower extremity edema Psych: Normal mood and affect. Objective Objective Clinical Data: Abnormal lab results 06/23/18 06/23/18 06/24/18 Range/Units 16:16 17:01 06:40 RBC (4.50-6.00) m/cumm Hgb (13.5-17.5) g/dL Hct (40.0-50.0) % MCHC (32.0-36.0) g/dL Absolute Neutrophils (1.2-6.7) k/cumm Absolute Lymphocytes (1.2-3.4) k/cumm Carbon Dioxide 32.3 H (21.0-32.0) mmol/L Glucose 135 H (70-100) mg/dL Lactate 1.5 H (0.6-1.4) mmol/l Urine Ketones Trace H (Negative) mg/dL 06/24/18 06/24/18 06/24/18 Range/Units 06:40 06:40 14:10 RBC 3.75 L (4.50-6.00) m/cumm Hgb 11.3 L (13.5-17.5) g/dL Hct 35.4 L (40.0-50.0) % MCHC 31.9 L (32.0-36.0) g/dL Absolute Neutrophils 7.27 H (1.2-6.7) k/cumm Absolute Lymphocytes 0.28 L (1.2-3.4) k/cumm Carbon Dioxide (21.0-32.0) mmol/L Glucose (70-100) mg/dL Lactate 2.0 H 1.8 H (0.6-1.4) mmol/l Urine Ketones (Negative) mg/dL Vital Signs Temperature 36.5 C 06/24/18 08:00 Temperature Source Tympanic 06/24/18 08:00 Pulse 100 H 06/24/18 13:42 Pulse Rhythm Regular 06/24/18 11:35 Pulse 81 06/23/18 16:00 Respiratory Rate 20 06/24/18 13:42 Respiratory Effort 06/24/18 11:35 Respiratory Depth Shallow 06/24/18 11:35 Respiratory Pattern Normal 06/24/18 11:35 Blood Pressure 112/62 06/24/18 08:00 Blood Pressure Mean 68 06/23/18 15:47 Blood Pressure Position Sitting 06/23/18 11:40 Pulse Oximetry 96 06/24/18 13:42 Oxygen Delivery Method Nasal Cannula 06/24/18 13:08 Oxygen Flow Rate 2 06/24/18 13:08 Fraction of Inspired Oxygen (FIO2) 30 06/24/18 13:42 Pain Level 2 06/24/18 03:30 Comment 06/24/18 03:30 Intake & Output 06/23/18 06/24/18 06/24/18 23:59 11:59 23:59 Intake Total 250 / 250 960 / 960 Output Total 480 / 480 Balance 250 / 250 960 / 480 -480 / 480 Weight 61.235 kg 62 kg Intake: IV 250 / 250 250 / 250 Oral 710 / 710 Output: Urine 480 / 480 Other: Urine Color Pale Urine Appearance Clear Clear Clear Urine Odor None Comment patient is indepandant, denies symptoms Voiding Methods Urinal Laboratory Results WBC 7.74 k/cumm (4.4-10.8) D 06/24/18 06:40 RBC 3.75 m/cumm (4.50-6.00) L 06/24/18 06:40 Hgb 11.3 g/dL (13.5-17.5) L 06/24/18 06:40 Hct 35.4 % (40.0-50.0) L 06/24/18 06:40 MCV 94.4 fL (80-95) 06/24/18 06:40 MCH 30.1 pg (27.0-33.0) 06/24/18 06:40 MCHC 31.9 g/dL (32.0-36.0) L 06/24/18 06:40 RDW 13.7 % (11.8-14.1) 06/24/18 06:40 Plt Count 187 x1000/uL (130-400) 06/24/18 06:40 MPV 9.8 fL (8.0-11.0) 06/24/18 06:40 Immature Gran % 0.1 06/24/18 06:40 Neutrophils % 93.9 06/24/18 06:40 Lymphocytes % 3.6 06/24/18 06:40 Monocytes % 2.3 06/24/18 06:40 Eosinophils % 0.0 06/24/18 06:40 Basophils % 0.1 06/24/18 06:40 Absolute Neutrophils 7.27 k/cumm (1.2-6.7) H 06/24/18 06:40 Absolute Lymphocytes 0.28 k/cumm (1.2-3.4) L 06/24/18 06:40 Absolute Monocytes 0.18 k/cumm (0.11-0.7) 06/24/18 06:40 Absolute Eosinophils 0.00 k/cumm (0.0-0.7) 06/24/18 06:40 Absolute Basophils 0.01 k/cumm (0.0-0.2) 06/24/18 06:40 Sodium 141 mmol/L (136-145) 06/24/18 06:40 Potassium 4.1 mmol/L (3.5-5.1) 06/24/18 06:40 Chloride 102 mmol/L (98-107) 06/24/18 06:40 Carbon Dioxide 32.3 mmol/L (21.0-32.0) H 06/24/18 06:40 Anion Gap 6.7 mmol/L (3-11) 06/24/18 06:40 BUN 12 mg/dL (7-18) 06/24/18 06:40 Creatinine 0.82 mg/dL (0.70-1.30) 06/24/18 06:40 Estimated GFR/1.73 m2 >= 60.00 (mL/min/1.73m2) 06/24/18 06:40 Glucose 135 mg/dL (70-100) H 06/24/18 06:40 Lactate 1.8 mmol/l (0.6-1.4) H 06/24/18 14:10 Calcium 8.7 mg/dL (8.5-10.1) 06/24/18 06:40 Magnesium 1.9 mg/dL (1.8-2.4) 06/24/18 06:40 Total Bilirubin 0.4 mg/dL (0.2-1.0) 06/23/18 12:54 AST 28 U/L (15-37) 06/23/18 12:54 ALT 33 U/L (12-78) 06/23/18 12:54 Alkaline Phosphatase 72 U/L (46-116) 06/23/18 12:54 Troponin I < 0.02 ng/mL (0.00-0.06) 06/23/18 12:54 NT-Pro-B Natriuret Pep 427 pg/mL (-299) H 06/23/18 12:54 Total Protein 5.9 g/dL (6.4-8.2) L 06/23/18 12:54 Albumin 3.1 g/dL (3.4-5.0) L 06/23/18 12:54 Urine Color Yellow (Yellow) 06/23/18 16:16 Urine Clarity Clear 06/23/18 16:16 Urine pH 6.0 (5-8) 06/23/18 16:16 Ur Specific [place] 1.010 (1.005-1.025) 06/23/18 16:16 Urine Protein Negative mg/dL (Negative) 06/23/18 16:16 Urine Ketones Trace mg/dL (Negative) H 06/23/18 16:16 Urine Blood Negative (Negative) 06/23/18 16:16 Urine Nitrite Negative (Negative) 06/23/18 16:16 Urine Bilirubin Negative (Negative) 06/23/18 16:16 Urine Urobilinogen 0.2 EU/dL (Up TO 0.2) 06/23/18 16:16 Ur Leukocyte Esterase Negative (Negative) 06/23/18 16:16 Urine Glucose Negative mg/dL (Negative) 06/23/18 16:16
--- NOTE | 2018-06-24 15:35 | NUR.NOTE ---
Nursing Note: 1300 found patient sitting upright in bed face was deep red colored, could not speak attempting to clear with a cough, sat 85 percent. paged rt, while awaiting them encouraged patient to reapply bipap, he adamantly refused had him breath in through nose, and exhale through purse lips, after a few tries, he is able to bring up a large amount ofg thick yellow sputum. RT arrives, patient is put on bipap, and given 1 mg ativan,. both had positive effect patient is calmer with a good respiratory effort
--- NOTE | 2018-06-24 16:17 | PDOC.CMIN ---
Care Management Initial Assess REASON FOR HOSPITALIZATION:: Acute COPD Exacerbation PAST MEDICAL HISTORY/PAST SURGICAL HISTORY:: Severe COPD, Treated for pneumonia, Depression with anxiety disorder, H/O coronary artery disease, H/O hypertension, Benign prostatic hypertrophy, Rectal dysfunction, Seasonal allergies, (R) knee arthroscopy PREVIOUS FUNCTIONAL STATUS/SOCIAL/FAMILY SUPPORTS:: Javier resides with his , Claire in [place], [place]. He has a long history of hospitalizations and SNF stays for recovery due to end stage COPD. He is on disability, and has a good support system of family and friends. CURRENT FUNCTIONAL STATUS:: Javier is lying in bed, elevated with BIPAP on, eyes closed when CM enters the room. ADVANCE DIRECTIVES:: None on file at [facility]; Claire reports document is at home. Has patient been provided with information about the portal?: Yes Did the patient sign up for the portal?: No CODE STATUS:: Full Code INSURANCE COVERAGE / FINANCIAL ISSUES:: Medicare CURRENT HOME/COMMUNITY SERVICES/EQUIPMENT:: [facility] in [place]. PRIMARY CARE PHYSICIAN:: Marvin Hallman POTENTIAL DISCHARGE NEEDS:: Evaluation for further needs. PATIENT/FAMILY EDUCATION NEEDS:: Review of instructions, discuss Ask Me Three. ANTICIPATED BARRIERS TO DISCHARGE:: None identified. TRANSPORTATION:: Via private vehicle with his , Claire. PLAN:: Javier will return home when ready per MD. He will be evaluated for further needs prior to discharge; CM will continue to follow and support discharge planning considerations. He will follow up with his [facility] PCP, resume home O2 and plan of care as prescribed. Javier will transport via private vehicle with his , Claire.
--- NOTE | 2018-06-24 16:54 | INITIAL_ITS ---
Care Management Initial Assess REASON FOR HOSPITALIZATION:: Acute COPD Exacerbation PAST MEDICAL HISTORY/PAST SURGICAL HISTORY:: Severe COPD, Treated for pneumonia, Depression with anxiety disorder, H/O coronary artery disease, H/O hypertension, Benign prostatic hypertrophy, Rectal dysfunction, Seasonal allergies, (R) knee arthroscopy PREVIOUS FUNCTIONAL STATUS/SOCIAL/FAMILY SUPPORTS:: Javier resides with his , Claire in [place], [place]. He has a long history of hospitalizations and SNF stays for recovery due to end stage COPD. He is on disability, and has a good support system of family and friends. CURRENT FUNCTIONAL STATUS:: Javier is lying in bed, elevated with BIPAP on, eyes closed when CM enters the room. ADVANCE DIRECTIVES:: None on file at [facility]; Claire reports document is at home. Has patient been provided with information about the portal?: Yes Did the patient sign up for the portal?: No CODE STATUS:: Full Code INSURANCE COVERAGE / FINANCIAL ISSUES:: Medicare CURRENT HOME/COMMUNITY SERVICES/EQUIPMENT:: [facility]: [facility] in [place]. [facility]. PRIMARY CARE PHYSICIAN:: Marvin Hallman POTENTIAL DISCHARGE NEEDS:: Evaluation for further needs. PATIENT/FAMILY EDUCATION NEEDS:: Review of instructions, discuss Ask Me Three. ANTICIPATED BARRIERS TO DISCHARGE:: None identified. TRANSPORTATION:: Via private vehicle with his , Claire. PLAN:: Javier will return home when ready per MD. He will be evaluated for further needs prior to discharge; CM will continue to follow and support discharge planning considerations. He will follow up with his [facility] PCP, resume home O2 and plan of care as prescribed. Javier will transport via private vehicle with his , Claire.
[2018-06-24] MEDS: Melatonin 3 MG TAB PO (21:13)
[2018-06-24] MEDS: Rosuvastatin 10 MG TAB 80 MG PO (21:14)
[2018-06-24] MEDS: levoFLOXacin 750 MG/150 ML BAG 100 MG IVPB (21:17)
[2018-06-25] VITALS (14 sets, daily range): BP systolic 129–161; BP diastolic 60–77; PULSE 60–90; RESP 12–21; TEMP 34–37.1; O2SAT 92–98
[2018-06-25] MEDS: methylPREDNISolone SUCC 125 MG VIAL 60 MG IVP ×3 (03:55→20:03)
[2018-06-25] MEDS: Normal Saline Flush 10 ML SYR IVP ×3 (03:55→20:02)
[2018-06-25] MEDS: Levalbuterol 0.63 MG/3 ML UPD VIAL UPD ×5 (04:07→20:02)
[2018-06-25] MEDS: Budesonide 0.5 MG/2 ML UPD VIAL UPD ×2 (04:07→16:32)
[2018-06-25 07:26] LABS: Lactate-non-spesis 0.7 mmol/l (0.6-1.4)
[2018-06-25 07:30] LABS: Abs Immature Grans 0.03 k/cumm (0.0-0.09); Absolute Monocyte Count 0.44 k/cumm (0.11-0.7); HCT 32.8 % (40.0-50.0); HGB 10.3 g/dL (13.5-17.5); Immature Grans % 0.2; Lymphocytes % 2.5; Mean Corp. HGB Concentration 31.4 g/dL (32.0-36.0); Mean Corpuscular Hemoglobin 30.2 pg (27.0-33.0); Mean Corpuscular Volume 96.2 fL (80-95); Mean Platelet Volume 9.7 fL (8.0-11.0); Monocytes % 3.4; Neutrophils % 93.9; Platelet Count 193 x1000/uL (130-400); RBC 3.41 m/cumm (4.50-6.00); White Blood Cell Count 12.97 k/cumm (4.4-10.8)
[2018-06-25 07:40] LABS: Anion Gap 6.1 mmol/L (3-11); BUN 17 mg/dL (7-18); CO2 31.9 mmol/L (21.0-32.0); CREATININE 0.75 mg/dL (0.70-1.30); Calcium 8.6 mg/dL (8.5-10.1); Chloride 105 mmol/L (98-107); Glucose 132 mg/dL (70-100); Magnesium 2.1 mg/dL (1.8-2.4); Potassium 4.2 mmol/L (3.5-5.1); Sodium 143 mmol/L (136-145)
[2018-06-25 07:43] LABS: Vancomycin, Trough 19.9 ug/mL (10.0-20.0)
[2018-06-25 07:48] LABS: Absolute Lymphocyte Count 0.32 k/cumm (1.2-3.4); Absolute Neutrophil Count 12.18 k/cumm (1.2-6.7)
[2018-06-25] MEDS: Budesonide/Formoterol 160/4.5 6 GM 60 PUFF INH IH ×2 (07:56→20:02)
[2018-06-25] MEDS: VANCOMYCIN 1,000 MG in Normal Saline 250 ML 166.67 MG IVPB ×2 (08:34→16:09)
[2018-06-25] MEDS: Pantoprazole 40 MG VIAL IVP (08:35)
[2018-06-25] MEDS: Normal Saline 1,000 ML 150 ML IV (08:35)
[2018-06-25] MEDS: Docusate Sodium 100 MG CAP PO ×2 (08:35→20:04)
[2018-06-25] MEDS: guaiFENesin 600 MG TABCR 1200 MG PO ×2 (08:35→20:03)
[2018-06-25] MEDS: Multivitamin TAB 1 TAB PO (08:35)
[2018-06-25] MEDS: Citalopram 20 MG TAB PO (08:36)
[2018-06-25] MEDS: clonazePAM 1 MG TAB PO ×2 (08:36→20:03)
[2018-06-25] MEDS: Rivaroxaban 10 MG TABLET 20 MG PO (08:36)
[2018-06-25] MEDS: Lisinopril 10 MG TAB 20 MG PO (08:36)
[2018-06-25] MEDS: Tamsulosin 0.4 MG CAPCR PO (08:36)
[2018-06-25] MEDS: Metoprolol CR 100 MG TABCR PO (08:36)
[2018-06-25] MEDS: Clopidogrel 75 MG TAB PO (08:36)
--- NOTE | 2018-06-25 11:40 | W.PM.PROGNOT ---
Date of Service Date of service: 06/25/18 Time of Service: 11:40 Assessment and Plan (1) COPD exacerbation: Current visit: Yes Status: Chronic Slow to improve. Continues to require intermittent BiPAP/high flow NC. Will continue vancomycin/levofloxacin, solumedrol at current dose, symbicort, pulmicort, prn xopenex. Continue mucinex; add a capella and reculture sputum. I have inquired with the pharmacy re addition of atrovent nebs (without the albuterol). They will get back to me. (2) Acute on chronic respiratory failure with hypoxia and hypercapnia: Current visit: Yes Status: Acute As above (3) Bronchiectasis: Current visit: Yes Status: Chronic As above (4) Atrial fibrillation: Current visit: Yes Status: Chronic Continue beta-lizet, anticoagulation with rivaroxaban. HR reasonable. (5) Coronary artery disease: Current visit: Yes Status: Chronic Appears quiescent. Patient will be maintained on his chronic cardiac regimen. (6) BPH (benign prostatic hyperplasia): Current visit: Yes Status: Chronic Continue alpha-lizet. (7) DVT prophylaxis: Current visit: Yes Status: Chronic On chronic anticoagulation. Continue PPI therapy for GI prophylaxis as well. (8) Discharge planning issues: Current visit: Yes Status: Acute Discussed with case management. Patient may benefit from inpatient pulmonary rehab on discharge. Ultimately, awaiting a lung transplant. Full code. Subjective Interval history since last seen: Mr Bautista states he is feeling a little better today. Shortness of breath is a little better. Spent the night on BiPAP and got sleep. Desaturated to 81% on 2 1/2 L while ambulating to the bathroom. Continues to alternate between BiPAP and heated humidified high flow NC during the day. He states he continues to cough up green sputum, but sputum production has been difficult. He reports dizziness when his oxygen is low and when he is coughing. He reports rib cage pain when coughing. Denies nausea. Exam Narrative Exam Narrative: General: very pleasant middle aged male, in bed, wearing BiPAP. With it on, able to speak in 2-3 word phrases before needing to take a breath HEENT: EOMI, MMM Heart: RRR, tachycardic, distant heart sounds Lungs: Diminished breath sounds B with expiratory wheezing; coughs whenever trying to take a deep breath GI: Abdomen is soft, mildly distended, nontender, + BS Extremities: no edema/clubbing/cyanosis Objective Objective Clinical Data: Abnormal lab results 06/24/18 06/25/18 06/25/18 Range/Units 14:10 07:15 07:15 WBC 12.97 H D (4.4-10.8) k/cumm RBC 3.41 L (4.50-6.00) m/cumm Hgb 10.3 L (13.5-17.5) g/dL Hct 32.8 L (40.0-50.0) % MCV 96.2 H (80-95) fL MCHC 31.4 L (32.0-36.0) g/dL Absolute Neutrophils 12.18 H (1.2-6.7) k/cumm Absolute Lymphocytes 0.32 L (1.2-3.4) k/cumm Glucose 132 H (70-100) mg/dL Lactate 1.8 H (0.6-1.4) mmol/l Vital Signs Temperature 36.3 C L 06/25/18 07:26 Temperature Source Tympanic 06/25/18 07:26 Pulse 90 06/25/18 07:26 Pulse Rhythm Regular 06/25/18 11:11 Pulse 81 06/23/18 16:00 Respiratory Rate 20 06/25/18 09:55 Respiratory Effort Labored 06/25/18 11:11 Respiratory Depth Shallow 06/25/18 11:11 Respiratory Pattern Irregular 06/25/18 11:11 Blood Pressure 133/70 06/25/18 07:26 Blood Pressure Mean 68 06/23/18 15:47 Blood Pressure Position Sitting 06/23/18 11:40 Pulse Oximetry 95 06/25/18 09:55 Oxygen Delivery Method Hi Flow Nasal Cannula 06/25/18 08:00 Oxygen Flow Rate 45 06/25/18 08:00 Fraction of Inspired Oxygen (FIO2) 30 06/25/18 09:55 Pain Level 2 06/24/18 03:30 Comment 06/24/18 03:30 Intake & Output 06/24/18 06/24/18 06/25/18 11:59 23:59 11:59 Intake Total 1210 / 2090 880 / 2090 700 / 700 Output Total 480 / 480 Balance 1210 / 1610 400 / 1610 700 / 700 Weight 62 kg Intake: IV 500 / 900 400 / 900 250 / 250 Oral 710 / 1190 480 / 1190 450 / 450 Output: Urine 480 / 480 Other: Urine Color Pale Urine Appearance Clear Clear Clear Urine Odor None Comment patient is indepandant, denies symptoms Stool Size Moderate Stool Characteristics Formed Voiding Methods Urinal Toilet Laboratory Results WBC 12.97 k/cumm (4.4-10.8) H D 06/25/18 07:15 RBC 3.41 m/cumm (4.50-6.00) L 06/25/18 07:15 Hgb 10.3 g/dL (13.5-17.5) L 06/25/18 07:15 Hct 32.8 % (40.0-50.0) L 06/25/18 07:15 MCV 96.2 fL (80-95) H 06/25/18 07:15 MCH 30.2 pg (27.0-33.0) 06/25/18 07:15 MCHC 31.4 g/dL (32.0-36.0) L 06/25/18 07:15 RDW 14.0 % (11.8-14.1) 06/25/18 07:15 Plt Count 193 x1000/uL (130-400) 06/25/18 07:15 MPV 9.7 fL (8.0-11.0) 06/25/18 07:15 Immature Gran % 0.2 06/25/18 07:15 Neutrophils % 93.9 06/25/18 07:15 Lymphocytes % 2.5 06/25/18 07:15 Monocytes % 3.4 06/25/18 07:15 Eosinophils % 0.0 06/25/18 07:15 Basophils % 0.0 06/25/18 07:15 Absolute Neutrophils 12.18 k/cumm (1.2-6.7) H 06/25/18 07:15 Absolute Lymphocytes 0.32 k/cumm (1.2-3.4) L 06/25/18 07:15 Absolute Monocytes 0.44 k/cumm (0.11-0.7) 06/25/18 07:15 Absolute Eosinophils 0.00 k/cumm (0.0-0.7) 06/25/18 07:15 Absolute Basophils 0.00 k/cumm (0.0-0.2) 06/25/18 07:15 Sodium 143 mmol/L (136-145) 06/25/18 07:15 Potassium 4.2 mmol/L (3.5-5.1) 06/25/18 07:15 Chloride 105 mmol/L (98-107) 06/25/18 07:15 Carbon Dioxide 31.9 mmol/L (21.0-32.0) 06/25/18 07:15 Anion Gap 6.1 mmol/L (3-11) 06/25/18 07:15 BUN 17 mg/dL (7-18) 06/25/18 07:15 Creatinine 0.75 mg/dL (0.70-1.30) 06/25/18 07:15 Estimated GFR/1.73 m2 >= 60.00 (mL/min/1.73m2) 06/25/18 07:15 Glucose 132 mg/dL (70-100) H 06/25/18 07:15 Lactate 0.7 mmol/l (0.6-1.4) 06/25/18 07:15 Calcium 8.6 mg/dL (8.5-10.1) 06/25/18 07:15 Magnesium 2.1 mg/dL (1.8-2.4) 06/25/18 07:15 Total Bilirubin 0.4 mg/dL (0.2-1.0) 06/23/18 12:54 AST 28 U/L (15-37) 06/23/18 12:54 ALT 33 U/L (12-78) 06/23/18 12:54 Alkaline Phosphatase 72 U/L (46-116) 06/23/18 12:54 Troponin I < 0.02 ng/mL (0.00-0.06) 06/23/18 12:54 NT-Pro-B Natriuret Pep 427 pg/mL (-299) H 06/23/18 12:54 Total Protein 5.9 g/dL (6.4-8.2) L 06/23/18 12:54 Albumin 3.1 g/dL (3.4-5.0) L 06/23/18 12:54 Urine Color Yellow (Yellow) 06/23/18 16:16 Urine Clarity Clear 06/23/18 16:16 Urine pH 6.0 (5-8) 06/23/18 16:16 Ur Specific [place] 1.010 (1.005-1.025) 06/23/18 16:16 Urine Protein Negative mg/dL (Negative) 06/23/18 16:16 Urine Ketones Trace mg/dL (Negative) H 06/23/18 16:16 Urine Blood Negative (Negative) 06/23/18 16:16 Urine Nitrite Negative (Negative) 06/23/18 16:16 Urine Bilirubin Negative (Negative) 06/23/18 16:16 Urine Urobilinogen 0.2 EU/dL (Up TO 0.2) 06/23/18 16:16 Ur Leukocyte Esterase Negative (Negative) 06/23/18 16:16 Urine Glucose Negative mg/dL (Negative) 06/23/18 16:16 Vancomycin Trough 19.9 ug/mL (10.0-20.0) 06/25/18 07:15
--- NOTE | 2018-06-25 13:07 | IN_ITS ---
Date of service: 06/25/18 Time of Service: 12:40 PT Notes Inpatient Physical Therapy Evaluation Date: 06/25/18 Referring Doctor: Lisa Martino MD PT Orders: PT CONSULT: Evaluate and Treat Precautions: Standard Patient Profile/Admitting Diagnosis: Orders received for this 62-year-old individual with a history of COPD and oxygen dependence at home. He states that he was becoming more short of breath at home for the last few days and was taken to the emergency department with an acute COPD exacerbation. Patient is on the lung transplant list and is awaiting word. PMHX: Medical History BPH (benign prostatic hyperplasia) (Chronic) History of MRSA infection (Chronic) DVT prophylaxis (Chronic) COPD exacerbation (Chronic) Anemia (Chronic) History of depression (Chronic) Essential hypertension (Chronic) Coronary artery disease (Chronic) Bronchiectasis (Chronic) COPD (chronic obstructive pulmonary disease) (Chronic) Anxiety Atrial fibrillation BPH (benign prostatic hyperplasia) COPD (chronic obstructive pulmonary disease) with emphysema Depression Essential hypertension Surgical History Arthroplasty of knee Gastrostomy Tube Placement tracheostomy Social History/Home Situation: Patient lives in [place] with his and their grandchild Equipment Owned/DME: Walker at baseline and supplemental oxygen Subjective: Patient states he may be feeling a little bit better today Objective: Patient lying supine with head of bed elevated has continuous warm airflow delivered via nasal cannula Mental Status: Well oriented and alert to person place and time Pain: 0 out of 10 ROM: Right Upper Extremity: Within functional limits Left Upper Extremity: Within functional limits Right Lower Extremity:Within functional limits Left Lower Extremity: Within functional limits Strength: Right Upper Extremity: 4Plus out of 5 globally Left Upper Extremity: 4Plus out of 5 globally Right Lower Extremity: 4Plus out of 5 globally Left Lower Extremity: 4Plus out of 5 globally Bed Mobility/Transfers: Patient is able to maneuver his own bedding and obtain a sitting position on the side of the bed under contact-guard assist Sit-stand: Contact-guard assist Stand-sit: Contact-guard assist Gait: Patient able to ambulate in place for 30 seconds with use of 2 wheeled walker and contact-guard assist. She participates in this 3 times During his assessment patient had O2 saturation levels from 91-94% Balance: Static Sitting: Good Dynamic Sitting: Good Static Standing: Fair Dynamic Standing: Poor Special Tests: Mobility Limitations Standardized Measure [facility] AM-PAC 6 clicks Basic Mobility Inpatient Short Form: Raw Score: 18 Standardized Score: 43.63 CMS Score:46.58% CMS Modifier: CK Informed Consent/Education: Patient instructed in purpose of PT consult and plan of care. ASSESSMENT: Patient is a 62-year-old male with a history of COPD Admitted with acute COPD exacerbation Patient presents with the following impairment level findings: Desaturation with activity, activity intolerance, ambulation intolerance, assist needed for transfers and gait Pt will benefit from skilled therapy intervention in order to remedy their functional limitations and restore patient to a more appropriate and stable functional level. Impairments are contributing to the following functional limitations: AMPAC score 46.58% Patient is assessed as a moderate complexity initial evaluation 971 based on the following: History: see above Examination: see above Presentation: Evolving Decision Making: Moderate based on the AMPAC at 46.58% Goals: Goals X1 week 1. Supine-Sit Independent and restored to baseline 2. Sit-Supine Independent and restored to baseline 3. Sit-Stand Independent and restored to baseline 4. Stand-Sit Independent and restored to baseline 5. Bed-Chair Independent and restored to baseline 6. Gait Supervision with 2WW up to 50 feet and restored to baseline Plan of Care/Treatment Plan: 1-2x/day, 7 days/week x 1 week. Plan of care has been reviewed with the [employer] providing the service under Physical Therapy direction. Initiate Physical Therapy intervention for strengthening, bed mobility, transfers, gait, stairs, balance training, use of assistive device. DISCHARGE RECOMMENDATIONS: To home in the care of his once medically stable TREATMENT CODE/TIME: Moderate complexity initial evaluation [id number] 12:40pm 20 minutes of direct patient care
[2018-06-25] MEDS: LORazepam 1 MG TAB PO (14:07)
--- NOTE | 2018-06-25 14:29 | PDOC.CMPRO ---
Care Management Progress Note S/O: Javier was lying in bed, BIPAP on, he was able to speak with the mask on. He was agreeable to possibility of acute rehab at [facility], but verbalized understanding that he may not be ready for rehab level of care for a few more days. Javier stated I will miss my family, and spoke in some length about his love for his and her [id number] teenager-currently residing with them. He also reported wanting to be in his best physical health as he is nearing the top of the lung transplant list. CM will continue to follow. A: 62 year old male admitted to [facility] 06/23/18 for Acute COPD Exacerbation, Hypotension P: Javier will return home when ready per [id number] pulmonary rehab. He will be evaluated for further needs prior to discharge; CM will continue to follow and support discharge planning considerations. He will follow up with his [facility] P[facility], resume home O2 and plan of care as prescribed. Javier will transport via private vehicle with his , Claire.
--- NOTE | 2018-06-25 16:41 | NUR.NOTE ---
Nursing Note: Had concern that the 1600 dose of vanco was too close since the previous dose was nearly 2 hours late due to not having access for the patient. Spoke to Thu at [facility] pharmacy, gave her the information including the trough today of 19.9. She said it was okay to administer the dose
--- NOTE | 2018-06-25 16:48 | CMPROGNOTE_ITS ---
Care Management Progress Note S/O: Javier was lying in bed, BIPAP on, he was able to speak with the mask on. He was agreeable to possibility of acute rehab at [facility], but verbalized understanding that he may not be ready for rehab level of care for a few more days. Javier stated I will miss my family, and spoke in some length about his love for his and her [id number] teenager-currently residing with them. He also reported wanting to be in his best physical health as he is nearing the top of the lung transplant list. CM will continue to follow. A: 62 year old male admitted to [facility] 06/23/18 for Acute COPD Exacerbation, Hypotension P: Javier will return home when ready per [id number] pulmonary rehab. He will be evaluated for further needs prior to discharge; CM will continue to follow and support discharge planning considerations. He will [facility] with [facility], resume home O2 and plan of care as prescribed. Javier will transport via private vehicle with his , Claire.
--- NOTE | 2018-06-25 18:42 | NUR.NOTE ---
Nursing Note: 1800 patient has a situation where he starts to tcough, and is unable to clear the secretion, he desats to 80, I speak to RT he has me increase oxygen on the hi flow to 10 liters patient briefly recovers to 90, then continues to have difficulty clearing the secretion, and decreases to 84-85, patient is given support, and manages to evacuate a large yellow thick sputim about 2 cm in diameter, patient again is coached to breath in through the nose, and out through the mouth, he recovers to 95. RT checks patient and flow on hi flow is reduced to 5 L, patient remains comfortable afterwards
[2018-06-25] MEDS: levoFLOXacin 750 MG/150 ML BAG 100 MG IVPB (20:02)
[2018-06-25] MEDS: Rosuvastatin 10 MG TAB 80 MG PO (20:03)
[2018-06-25] MEDS: Melatonin 3 MG TAB PO (21:04)
[2018-06-26] VITALS (15 sets, daily range): BP systolic 132–167; BP diastolic 66–80; PULSE 68–93; RESP 12–23; TEMP 34–37.3; O2SAT 92–98
[2018-06-26] MEDS: VANCOMYCIN 1,000 MG in Normal Saline 250 ML 166.67 MG IVPB (00:24)
[2018-06-26] MEDS: methylPREDNISolone SUCC 125 MG VIAL 60 MG IVP ×3 (04:01→19:39)
[2018-06-26] MEDS: Budesonide 0.5 MG/2 ML UPD VIAL UPD ×2 (04:02→16:16)
[2018-06-26] MEDS: Normal Saline Flush 10 ML SYR IVP ×4 (04:02→15:37)
[2018-06-26 07:04] LABS: Abs Immature Grans 0.02 k/cumm (0.0-0.09); Absolute Monocyte Count 0.48 k/cumm (0.11-0.7); HCT 32.6 % (40.0-50.0); HGB 10.3 g/dL (13.5-17.5); Immature Grans % 0.2; Lymphocytes % 2.8; Mean Corp. HGB Concentration 31.6 g/dL (32.0-36.0); Mean Corpuscular Hemoglobin 30.6 pg (27.0-33.0); Mean Corpuscular Volume 96.7 fL (80-95); Mean Platelet Volume 9.3 fL (8.0-11.0); Monocytes % 4.5; Neutrophils % 92.5; Platelet Count 183 x1000/uL (130-400); RBC 3.37 m/cumm (4.50-6.00); RBC Distribution Width 14.2 % (11.8-14.1)
[2018-06-26] MEDS: Levalbuterol 0.63 MG/3 ML UPD VIAL UPD ×4 (07:12→19:36)
[2018-06-26] MEDS: Budesonide/Formoterol 160/4.5 6 GM 60 PUFF INH IH ×2 (07:13→19:35)
[2018-06-26 07:17] LABS: Anion Gap 3.7 mmol/L (3-11); BUN 20 mg/dL (7-18); CO2 34.3 mmol/L (21.0-32.0); CREATININE 0.69 mg/dL (0.70-1.30); Calcium 8.6 mg/dL (8.5-10.1); Chloride 107 mmol/L (98-107); Glucose 138 mg/dL (70-100); Magnesium 2.4 mg/dL (1.8-2.4); Sodium 145 mmol/L (136-145)
--- NOTE | 2018-06-26 08:12 | CMPROGNOTE_ITS ---
Care Management Progress Note S/O: Javier remains quite pleasant in interaction and reports his appreciation for his care. He remains on BIPAP and continues to work with PT. CM faxed referral to [facility] and will await review with admissions when available likely tomorrow; undetermined when Javier will be ready medically. CM will continue to follow. A: 62 year old male admitted to [facility] 06/23/18 for Acute COPD Exacerbation, Hypotension P: Javier will return home when ready per [id number] pulmonary rehab (referral faxed to [facility]). He will be continue to be evaluated and work with PT; CM will continue to follow and support discharge planning considerations. He will follow up with his [facility], resume home O2 and plan of care as prescribed. Javier will transport via private vehicle with his , Claire.
[2018-06-26] MEDS: Multivitamin TAB 1 TAB PO (08:28)
[2018-06-26] MEDS: Pantoprazole 40 MG TABCR PO (08:28)
[2018-06-26] MEDS: VANCOMYCIN 1,000 MG in Normal Saline 250 ML 166.667 MG IVPB ×2 (08:28→15:36)
[2018-06-26] MEDS: guaiFENesin 600 MG TABCR 1200 MG PO ×2 (08:28→19:38)
[2018-06-26] MEDS: Docusate Sodium 100 MG CAP PO ×2 (08:29→19:39)
[2018-06-26] MEDS: Tamsulosin 0.4 MG CAPCR PO (08:29)
[2018-06-26] MEDS: Citalopram 20 MG TAB PO (08:29)
[2018-06-26] MEDS: Lisinopril 10 MG TAB 20 MG PO (08:29)
[2018-06-26] MEDS: Rivaroxaban 10 MG TABLET 20 MG PO (08:29)
[2018-06-26] MEDS: Clopidogrel 75 MG TAB PO (08:29)
[2018-06-26] MEDS: clonazePAM 1 MG TAB PO ×2 (08:29→19:38)
[2018-06-26] MEDS: Metoprolol CR 100 MG TABCR PO (08:29)
[2018-06-26] MEDS: Benzonatate 200 MG CAP PO ×3 (10:13→19:38)
[2018-06-26] MEDS: LORazepam 1 MG TAB PO ×2 (10:13→13:11)
--- NOTE | 2018-06-26 10:51 | PGE_ITS ---
Date of Service Date of service: 06/26/18 Time of Service: 10:49 Assessment and Plan (1) COPD exacerbation: Current visit: Yes Status: Chronic MRSA in sputum. Improving. Continues to require intermittent BiPAP/high flow NC - but this is working, so we will continue the same plan for the next 24 hours. Will continue vancomycin/levofloxacin, solumedrol at current dose, symbicort, pulmicort, prn xopenex. Continue mucinex; add tessalon perles. Pharmacy placed an order for atrovent nebs. (2) Acute on chronic respiratory failure with hypoxia and hypercapnia: Current visit: Yes Status: Acute As above (3) Bronchiectasis: Current visit: Yes Status: Chronic As above (4) Atrial fibrillation: Current visit: Yes Status: Chronic Continue beta-lizet, anticoagulation with rivaroxaban. HR reasonable, remains in NSR. (5) Coronary artery disease: Current visit: Yes Status: Chronic Appears quiescent. Patient will be maintained on his chronic cardiac regimen. (6) BPH (benign prostatic hyperplasia): Current visit: Yes Status: Chronic Continue alpha-lizet. (7) DVT prophylaxis: Current visit: Yes Status: Chronic On chronic anticoagulation with xarelto. Continue PPI therapy for GI prophylaxis as well. (8) Discharge planning issues: Current visit: Yes Status: Acute Discussed with case management. Patient may benefit from inpatient pulmonary rehab on discharge. Ultimately, awaiting a lung transplant. Full code. Subjective Interval history since last seen: Mr Bautista states he is feeling better. He states he does feel tired, but breathing is slowly getting better. He noticed he can speak in longer phrases now without getting short of breath. He did still feel out of breath after going to the bathroom. He denies dizziness, chest pain, nausea, vomiting. Cough remains productive of green sputum. Sputum culture from yesterday came back with MRSA (on vancomycin/levofloxacin; speciation pending). He states he is open to the idea of inpatient pulmonary rehab, but he is worried his family might be against it. He would like to have a bigger meeting about this with case management. Exam Narrative Exam Narrative: General: very pleasant middle aged male, sitting up in bed, wearing humidified heated high flow NC. With it on, able to speak in 5-7 word phrases before needing to take a breath; looks better HEENT: EOMI, MMM Heart: RRR, distant heart sounds, no m/r/g Lungs: Diminished breath sounds B with quiet expiratory wheezing in B upper lung cortes posteriorly; coughs whenever trying to take a deep breath GI: Abdomen is soft, mildly distended, nontender, + BS Extremities: no edema/clubbing/cyanosis Objective Objective Clinical Data: Abnormal lab results 06/26/18 06/26/18 Range/Units 06:15 06:15 RBC 3.37 L (4.50-6.00) m/cumm Hgb 10.3 L (13.5-17.5) g/dL Hct 32.6 L (40.0-50.0) % MCV 96.7 H (80-95) fL MCHC 31.6 L (32.0-36.0) g/dL RDW 14.2 H (11.8-14.1) % Absolute Neutrophils 9.80 H (1.2-6.7) k/cumm Absolute Lymphocytes 0.30 L (1.2-3.4) k/cumm Carbon Dioxide 34.3 H (21.0-32.0) mmol/L BUN 20 H (7-18) mg/dL Creatinine 0.69 L (0.70-1.30) mg/dL Glucose 138 H (70-100) mg/dL Vital Signs Temperature 36.5 C 06/26/18 07:15 Temperature Source Tympanic 06/26/18 07:15 Pulse 76 06/26/18 07:15 Pulse Rhythm Regular 06/26/18 09:20 Pulse 81 06/23/18 16:00 Respiratory Rate 22 06/26/18 07:15 Respiratory Effort Labored 06/26/18 09:20 Respiratory Depth Shallow 06/26/18 09:20 Respiratory Pattern Irregular 06/26/18 09:20 Blood Pressure 167/75 H 06/26/18 07:15 Blood Pressure Mean 68 06/23/18 15:47 Blood Pressure Position Sitting 06/23/18 11:40 Pulse Oximetry 98 06/26/18 07:15 Oxygen Delivery Method Hi Flow Nasal Cannula 06/26/18 07:15 Oxygen Flow Rate 45 06/26/18 07:10 Fraction of Inspired Oxygen (FIO2) 29 06/26/18 07:10 Pain Level 0 06/26/18 04:00 Comment 06/26/18 04:00 Intake & Output 06/25/18 06/25/18 06/26/18 11:59 23:59 11:59 Intake Total 950 / 3190 2240 / 3190 600 / 600 Output Total 905 / 905 300 / 300 Balance 950 / 2285 1335 / 2285 300 / 300 Weight 64.9 kg Intake: IV 500 / 1900 1400 / 1900 250 / 250 Oral 450 / 1290 840 / 1290 350 / 350 Output: Urine 905 / 905 300 / 300 Other: Urine Color Straw Yellow Urine Appearance Clear Clear Clear Urine Odor Normal None Voiding Methods Toilet Urinal Urinal Laboratory Results WBC 10.60 k/cumm (4.4-10.8) 06/26/18 06:15 RBC 3.37 m/cumm (4.50-6.00) L 06/26/18 06:15 Hgb 10.3 g/dL (13.5-17.5) L 06/26/18 06:15 Hct 32.6 % (40.0-50.0) L 06/26/18 06:15 MCV 96.7 fL (80-95) H 06/26/18 06:15 MCH 30.6 pg (27.0-33.0) 06/26/18 06:15 MCHC 31.6 g/dL (32.0-36.0) L 06/26/18 06:15 RDW 14.2 % (11.8-14.1) H 06/26/18 06:15 Plt Count 183 x1000/uL (130-400) 06/26/18 06:15 MPV 9.3 fL (8.0-11.0) 06/26/18 06:15 Immature Gran % 0.2 06/26/18 06:15 Neutrophils % 92.5 06/26/18 06:15 Lymphocytes % 2.8 06/26/18 06:15 Monocytes % 4.5 06/26/18 06:15 Eosinophils % 0.0 06/26/18 06:15 Basophils % 0.0 06/26/18 06:15 Absolute Neutrophils 9.80 k/cumm (1.2-6.7) H 06/26/18 06:15 Absolute Lymphocytes 0.30 k/cumm (1.2-3.4) L 06/26/18 06:15 Absolute Monocytes 0.48 k/cumm (0.11-0.7) 06/26/18 06:15 Absolute Eosinophils 0.00 k/cumm (0.0-0.7) 06/26/18 06:15 Absolute Basophils 0.00 k/cumm (0.0-0.2) 06/26/18 06:15 Sodium 145 mmol/L (136-145) 06/26/18 06:15 Potassium 4.0 mmol/L (3.5-5.1) 06/26/18 06:15 Chloride 107 mmol/L (98-107) 06/26/18 06:15 Carbon Dioxide 34.3 mmol/L (21.0-32.0) H 06/26/18 06:15 Anion Gap 3.7 mmol/L (3-11) 06/26/18 06:15 BUN 20 mg/dL (7-18) H 06/26/18 06:15 Creatinine 0.69 mg/dL (0.70-1.30) L 06/26/18 06:15 Estimated GFR/1.73 m2 >= 60.00 (mL/min/1.73m2) 06/26/18 06:15 Glucose 138 mg/dL (70-100) H 06/26/18 06:15 Lactate 0.7 mmol/l (0.6-1.4) 06/25/18 07:15 Calcium 8.6 mg/dL (8.5-10.1) 06/26/18 06:15 Magnesium 2.4 mg/dL (1.8-2.4) 06/26/18 06:15 Total Bilirubin 0.4 mg/dL (0.2-1.0) 06/23/18 12:54 AST 28 U/L (15-37) 06/23/18 12:54 ALT 33 U/L (12-78) 06/23/18 12:54 Alkaline Phosphatase 72 U/L (46-116) 06/23/18 12:54 Troponin I < 0.02 ng/mL (0.00-0.06) 06/23/18 12:54 NT-Pro-B Natriuret Pep 427 pg/mL (-299) H 06/23/18 12:54 Total Protein 5.9 g/dL (6.4-8.2) L 06/23/18 12:54 Albumin 3.1 g/dL (3.4-5.0) L 06/23/18 12:54 Urine Color Yellow (Yellow) 06/23/18 16:16 Urine Clarity Clear 06/23/18 16:16 Urine pH 6.0 (5-8) 06/23/18 16:16 Ur Specific [place] 1.010 (1.005-1.025) 06/23/18 16:16 Urine Protein Negative mg/dL (Negative) 06/23/18 16:16 Urine Ketones Trace mg/dL (Negative) H 06/23/18 16:16 Urine Blood Negative (Negative) 06/23/18 16:16 Urine Nitrite Negative (Negative) 06/23/18 16:16 Urine Bilirubin Negative (Negative) 06/23/18 16:16 Urine Urobilinogen 0.2 EU/dL (Up TO 0.2) 06/23/18 16:16 Ur Leukocyte Esterase Negative (Negative) 06/23/18 16:16 Urine Glucose Negative mg/dL (Negative) 06/23/18 16:16 Vancomycin Trough 19.9 ug/mL (10.0-20.0) 06/25/18 07:15
--- NOTE | 2018-06-26 12:04 | PT.INTREAT ---
Date of service: 06/26/18 Time of Service: 12:04 PT Notes Inpatient Physical Therapy Treatment Note [facility] Date: 06/26/18 PRECAUTIONS: Monitor SaO2 SUBJECTIVE: Javier is agreeable to participating in PT. OBJECTIVE: PAIN: No complaints of pain. BED MOBILITY/TRANSFERS Supine?sit: I Sit-stand: S Stand-sit: S GAIT Assistive Device: No AD Weight bearing: Full Assist: SBA Distance: 30' x3 VITALS: SaO2: 94-98% on 6L O2 via NC with gait and ther ex THEREX: Patient completed a standing lower extremity strengthening program, as per flow sheet. Patient also performed functional sit-to-and exercise x15. Patient tolerated a progression in ther ex program today, modifications made to repetitions and exercises are noted on flow sheet. ASSESSMENT: Patient tolerated session well, requiring seated rests between activities due to SOB. Patient would benefit from continued conditioning for improved activity tolerance and mobility. PLAN: Continue with PT's POC TREATMENT CODE/TIME: 30 minutes; 60962, [id number]
[2018-06-26] MEDS: levoFLOXacin 750 MG/150 ML BAG 100 MG IVPB (19:35)
[2018-06-26] MEDS: Melatonin 3 MG TAB PO (19:38)
[2018-06-26] MEDS: Rosuvastatin 10 MG TAB 80 MG PO (19:38)
[2018-06-27] VITALS (22 sets, daily range): BP systolic 133–174; BP diastolic 73–82; PULSE 75–107; RESP 4–32; TEMP 36.3–37.4; O2SAT 89–96
[2018-06-27] MEDS: VANCOMYCIN 1,000 MG in Normal Saline 250 ML 167 MG IVPB ×2 (00:33→21:36)
[2018-06-27] MEDS: Normal Saline Flush 10 ML SYR IVP ×4 (00:34→19:33)
[2018-06-27] MEDS: Levalbuterol 0.63 MG/3 ML UPD VIAL UPD ×6 (00:44→23:28)
[2018-06-27] MEDS: methylPREDNISolone SUCC 125 MG VIAL 60 MG IVP (04:17)
[2018-06-27 07:28] LABS: Abs Immature Grans 0.02 k/cumm (0.0-0.09); Absolute Basophil Count 0.01 k/cumm (0.0-0.2); Absolute Lymphocyte Count 0.34 k/cumm (1.2-3.4); Absolute Monocyte Count 0.38 k/cumm (0.11-0.7); Absolute Neutrophil Count 6.69 k/cumm (1.2-6.7); Basophils % 0.1; HCT 32.8 % (40.0-50.0); HGB 10.3 g/dL (13.5-17.5); Immature Grans % 0.3; Lymphocytes % 4.6; Mean Corp. HGB Concentration 31.4 g/dL (32.0-36.0); Mean Corpuscular Hemoglobin 30.4 pg (27.0-33.0); Mean Corpuscular Volume 96.8 fL (80-95); Mean Platelet Volume 9.2 fL (8.0-11.0); Monocytes % 5.1; Neutrophils % 89.9; Platelet Count 181 x1000/uL (130-400); RBC 3.39 m/cumm (4.50-6.00); RBC Distribution Width 13.9 % (11.8-14.1); White Blood Cell Count 7.44 k/cumm (4.4-10.8)
[2018-06-27 07:37] LABS: Anion Gap 3.9 mmol/L (3-11); BUN 20 mg/dL (7-18); CO2 36.1 mmol/L (21.0-32.0); Calcium 8.6 mg/dL (8.5-10.1); Chloride 106 mmol/L (98-107); Glucose 138 mg/dL (70-100); Magnesium 2.4 mg/dL (1.8-2.4); Potassium 3.9 mmol/L (3.5-5.1); Sodium 146 mmol/L (136-145)
[2018-06-27 07:44] LABS: Vancomycin, Trough 23.4 ug/mL (10.0-20.0)
[2018-06-27] MEDS: Budesonide 0.5 MG/2 ML UPD VIAL UPD ×2 (08:05→17:05)
[2018-06-27] MEDS: Budesonide/Formoterol 160/4.5 6 GM 60 PUFF INH IH ×2 (08:05→19:33)
[2018-06-27] MEDS: clonazePAM 1 MG TAB PO ×2 (08:08→19:32)
[2018-06-27] MEDS: Docusate Sodium 100 MG CAP PO ×2 (08:08→19:32)
[2018-06-27] MEDS: Tamsulosin 0.4 MG CAPCR PO (08:08)
[2018-06-27] MEDS: Lisinopril 10 MG TAB 20 MG PO (08:08)
[2018-06-27] MEDS: Rivaroxaban 10 MG TABLET 20 MG PO (08:08)
[2018-06-27] MEDS: Metoprolol CR 100 MG TABCR PO (08:08)
[2018-06-27] MEDS: Benzonatate 200 MG CAP PO ×3 (08:08→19:32)
[2018-06-27] MEDS: Clopidogrel 75 MG TAB PO (08:08)
[2018-06-27] MEDS: guaiFENesin 600 MG TABCR 1200 MG PO ×2 (08:09→19:31)
[2018-06-27] MEDS: Pantoprazole 40 MG TABCR PO (08:09)
[2018-06-27] MEDS: Citalopram 20 MG TAB PO (08:09)
[2018-06-27] MEDS: Multivitamin TAB 1 TAB PO (08:09)
[2018-06-27] MEDS: LORazepam 1 MG TAB PO (11:11)
[2018-06-27] MEDS: VANCOMYCIN 1,000 MG in Normal Saline 250 ML 166.667 MG IVPB (11:50)
[2018-06-27] MEDS: methylPREDNISolone SUCC 40 MG VIAL IVP ×2 (11:50→19:32)
[2018-06-27] MEDS: Ipratropium 0.5 MG/2.5 ML UPD VIAL UPD ×3 (13:23→23:28)
--- NOTE | 2018-06-27 14:50 | OT.INIE ---
Occupational Therapy Notes Inpatient Occupational Therapy Evaluation Date: 06/27/18 Referring Doctor: Lisa Martino MD OT Orders: Eval and Treat Precautions: Contact precaution PATIENT PROFILE/ADMITTING DIAGNOSIS: Pt is a 62 year old male who was admitted through the ER for acute COPD exacerbation. He is O2 dependent at home. Past Medical History: Medical History BPH (benign prostatic hyperplasia) (Chronic) History of MRSA infection (Chronic) DVT prophylaxis (Chronic) COPD exacerbation (Chronic) Anemia (Chronic) History of depression (Chronic) Essential hypertension (Chronic) Coronary artery disease (Chronic) Bronchiectasis (Chronic) COPD (chronic obstructive pulmonary disease) (Chronic) Anxiety Atrial fibrillation BPH (benign prostatic hyperplasia) COPD (chronic obstructive pulmonary disease) with emphysema Depression Essential hypertension Surgical History Arthroplasty of knee Gastrostomy Tube Placement tracheostomy Social History/Home Situation: Pt lives in a private home with his and 16 year old step granddaughter. Pt was (I) with all ADLs at baseline, and states that his is there to (A) as needed. Equipment owned/DME: grab bars, FWW, shower bench, O2 SUBJECTIVE: Pt was sitting in bed when OT arrived. He was agreeable to OT consult and states that he likes to be as (I) as possible. OBJECTIVE: General Observation: o2 nasal cannula, pleasant Mental Status: A&Ox3 Pain: no c/o pain ROM: RUE WFL L UE WFL STRENGTH: RUE 4+/5 globally LUE 4+/5 globally FUNCTIONAL MOBILITY/ADLS: Transfers Supine-sit I Sit-supine I Sit-Stand S Stand-sit S, FWW Bed-Chair S Chair-bed S BATHING standing at sink in bathroom with FWW Bathing UE (I) Bathing LE (I) DRESSING Standing at sink Dressing UE Min (A) [facility] gown Dressing LE (I) with (B) socks and underwear GROOMING (I) standing at sink with FWW for hair and teeth TOILETING (I) on toilet BALANCE: Static sitting Normal Dynamic Sitting Normal Static Standing Normal Dynamic Standing Normal SPECIAL TESTS: Daily Activity Limitations Standardized Measure [employer] AM -PAC ?6 clicks? Daily Activity Inpatient Short Form: Raw score: 23 Standardized score: 51.12 CMS score: 15.86% INFORMED CONSENT/EDUCATION: Pt instructed in purpose of OT Consult and plan of care. ASSESSMENT: Patient is a 62-year-old male referred to occupational therapy services with diagnosis of acute COPD exacerbation. Patient presents with clinical signs and symptoms consistent with dx, as demonstrated by the following impairment level findings: decreased functional activity tolerance. Pt was seen for OT evaluation only. He was functionally (I) in all ADLs. OT recommends that pt return home with when medically cleared per MD. Patient is assessed as a Moderate 53820 complexity based on the following: History: See Above Examination: See Above Presentation: Evolving Decision Making: Moderate decision making GOALS N/A PLAN OF CARE/TREATMENT PLAN: OT consult only DISCHARGE RECOMMENDATIONS Home with when medically cleared per MD. TREATMENT TIME/MINUTES/CODES 65747, [id number], 40 minutes (10:20) Myla Winter OTR/L [facility]
--- NOTE | 2018-06-27 14:55 | PT.INTREAT ---
Date of service: 06/27/18 Time of Service: 14:55 PT Notes Inpatient Physical Therapy Treatment Note [facility] Date: 06/27/18 SUBJECTIVE: Javier states that he felt really good after yesterday's PT session. OBJECTIVE: PAIN: No c/o pain BED MOBILITY/TRANSFERS Supine-sit: I Sit-supine: I Sit-stand: I Stand-sit: I GAIT Assistive Device: No AD Weight bearing: Full Assist: S Distance: 30' x2 + 30' + 30' x2 in am; 30' x5 + 30' x2 in pm Deviation: 6L O2 via NC; seated rest x2 in am; Seated rest x1 in pm THEREX: Patient completed an UE and LE strengthening program, in a standing position, as per flow sheet. Patient was able to tolerate a slight progression in his ther ex program. Patient requires seated rest between each exercise due to SOB. ASSESSMENT: Continues to demonstrate independence with bed mobility and transfers at this time. Patient was able to tolerate a progression in gait distance and activity tolerance today without use of assistive device, requiring supervision only. Patient continues to require seated rest due to increased fatigue and SOB. Patient would benefit from continued conditioning for improved activity tolerance and cardiovascular endurance. Continue with PTs POC PLAN: Continue with PTs POC TREATMENT CODE/TIME: Session 1: 35 minutes; 38925, [id number] Session 2: 35 minutes; 33201 x2, 18545
--- NOTE | 2018-06-27 14:56 | OTIE_ITS ---
Occupational Therapy Notes Inpatient Occupational Therapy Evaluation Date: 06/27/18 Referring Doctor: Lisa Martino MD OT Orders: Eval and Treat Precautions: Contact precaution PATIENT PROFILE/ADMITTING DIAGNOSIS: Pt is a 62 year old male who was admitted through the ER for acute COPD exacerbation. He is O2 dependent at home. Past Medical History: Medical History BPH (benign prostatic hyperplasia) (Chronic) History of MRSA infection (Chronic) DVT prophylaxis (Chronic) COPD exacerbation (Chronic) Anemia (Chronic) History of depression (Chronic) Essential hypertension (Chronic) Coronary artery disease (Chronic) Bronchiectasis (Chronic) COPD (chronic obstructive pulmonary disease) (Chronic) Anxiety Atrial fibrillation BPH (benign prostatic hyperplasia) COPD (chronic obstructive pulmonary disease) with emphysema Depression Essential hypertension Surgical History Arthroplasty of knee Gastrostomy Tube Placement tracheostomy Social History/Home Situation: Pt lives in a private home with his and 16 year old step granddaughter. Pt was (I) with all ADLs at baseline, and states that his is there to (A) as needed. Equipment owned/DME: grab bars, FWW, shower bench, O2 SUBJECTIVE: Pt was sitting in bed when OT arrived. He was agreeable to OT consult and states that he likes to be as (I) as possible. OBJECTIVE: General Observation: o2 nasal cannula, pleasant Mental Status: A&Ox3 Pain: no c/o pain ROM: RUE WFL L UE WFL STRENGTH: RUE 4+/5 globally LUE 4+/5 globally FUNCTIONAL MOBILITY/ADLS: Transfers Supine-sit I Sit-supine I Sit-Stand S Stand-sit S, FWW Bed-Chair S Chair-bed S BATHING standing at sink in bathroom with FWW Bathing UE (I) Bathing LE (I) DRESSING Standing at sink Dressing UE Min (A) [facility] gown Dressing LE (I) with (B) socks and underwear GROOMING (I) standing at sink with FWW for hair and teeth TOILETING (I) on toilet BALANCE: Static sitting Normal Dynamic Sitting Normal Static Standing Normal Dynamic Standing Normal SPECIAL TESTS: Daily Activity Limitations Standardized Measure [employer] AM -PAC ?6 clicks? Daily Activity Inpatient Short Form: Raw score: 23 Standardized score: 51.12 CMS score: 15.86% INFORMED CONSENT/EDUCATION: Pt instructed in purpose of OT Consult and plan of care. ASSESSMENT: Patient is a 62-year-old male referred to occupational therapy services with diagnosis of acute COPD exacerbation. Patient presents with clinical signs and symptoms consistent with dx, as demonstrated by the following impairment level findings: decreased functional activity tolerance. Pt was seen for OT evaluation only. He was functionally (I) in all ADLs. OT recommends that pt return home with when medically cleared per MD. Patient is assessed as a Moderate 76036 complexity based on the following: History: See Above Examination: See Above Presentation: Evolving Decision Making: Moderate decision making GOALS N/A PLAN OF CARE/TREATMENT PLAN: OT consult only DISCHARGE RECOMMENDATIONS Home with when medically cleared per MD. TREATMENT TIME/MINUTES/CODES 06356, 31215, 40 minutes (10:20) Myla Winter OTR/L [facility]
--- NOTE | 2018-06-27 15:03 | PTTR_ITS ---
Date of service: 06/27/18 Time of Service: 14:55 PT Notes Inpatient Physical Therapy Treatment Note [facility] Date: 06/27/18 SUBJECTIVE: Javier states that he felt really good after yesterday's PT session. OBJECTIVE: PAIN: No c/o pain BED MOBILITY/TRANSFERS Supine-sit: I Sit-supine: I Sit-stand: I Stand-sit: I GAIT Assistive Device: No AD Weight bearing: Full Assist: S Distance: 30' x2 + 30' + 30' x2 in am; 30' x5 + 30' x2 in pm Deviation: 6L O2 via NC; seated rest x2 in am; Seated rest x1 in pm THEREX: Patient completed an UE and LE strengthening program, in a standing position, as per flow sheet. Patient was able to tolerate a slight progression in his ther ex program. Patient requires seated rest between each exercise due to SOB. ASSESSMENT: Continues to demonstrate independence with bed mobility and transfers at this time. Patient was able to tolerate a progression in gait distance and activity tolerance today without use of assistive device, requiring supervision only. Patient continues to require seated rest due to increased fatigue and SOB. Patient would benefit from continued conditioning for improved activity tolerance and cardiovascular endurance. Continue with PTs POC PLAN: Continue with PTs POC TREATMENT CODE/TIME: Session 1: 35 minutes; 22492, 02949 Session 2: 35 minutes; 17186 x2, [id number]
--- NOTE | 2018-06-27 15:23 | PDOC.CMPRO ---
Care Management Progress Note S/O: Javier remains quite pleasant in interaction; CM met with Javier and his , Claire regarding disposition; preference will be to return home and follow up with inpatient rehab when closer to surgical intervention. He remains on respiratory support and continues to work with PT. CM will continue to follow. A: 62 year old male admitted to [facility] 06/23/18 for Acute COPD Exacerbation, Hypotension P: Javier will return home when ready per MD. He will continue to be evaluated and work with PT; CM will continue to follow and support discharge planning considerations. He will follow [facility] with [facility], resume home O2 and plan of care as prescribed. Javier will transport via private vehicle with his , Claire.
--- NOTE | 2018-06-27 15:28 | CMPROGNOTE_ITS ---
Care Management Progress Note S/O: Javier remains quite pleasant in interaction; CM met with Javier and his , Claire regarding disposition; preference will be to return home and follow up with inpatient rehab when closer to surgical intervention. He remains on respiratory support and continues to work with PT. CM will continue to follow. A: 62 year old male admitted to [facility] 06/23/18 for Acute COPD Exacerbation, Hypotension P: Javier will return home when ready per MD. He will continue to be evaluated and work with PT; CM will continue to follow and support discharge planning considerations. He will follow up with his [facility] PCP, resume home O2 and plan of care as prescribed. Javier will transport via private vehicle with his , Claire.
--- NOTE | 2018-06-27 17:54 | PGE_ITS ---
Date of Service Date of service: 06/27/18 Time of Service: 15:00 Assessment and Plan (1) COPD exacerbation: Current visit: Yes Status: Chronic MRSA in sputum. Sensitivities not yet back. Improving. Continues to require intermittent BiPAP/high flow NC. Will continue vancomycin/levofloxacin, start to taper solumedrol, continue symbicort, pulmicort, prn xopenex, antitussives. We now have atrovent nebs - these were prescribed. (2) Acute on chronic respiratory failure with hypoxia and hypercapnia: Current visit: Yes Status: Acute As above (3) Bronchiectasis: Current visit: Yes Status: Chronic As above (4) Atrial fibrillation: Current visit: Yes Status: Chronic Continue beta-lizet, anticoagulation with rivaroxaban. HR reasonable, remains in NSR. (5) Coronary artery disease: Current visit: Yes Status: Chronic Appears quiescent. Patient will be maintained on his chronic cardiac regimen. (6) BPH (benign prostatic hyperplasia): Current visit: Yes Status: Chronic Continue alpha-lizet. (7) DVT prophylaxis: Current visit: Yes Status: Chronic On chronic anticoagulation with xarelto. Continue PPI therapy for GI prophylaxis as well. (8) Discharge planning issues: Current visit: Yes Status: Acute Discussed with case management. No options for inpatient pulmonary rehab in our area, per case management. Ultimately, awaiting a lung transplant. Full code. Subjective Interval history since last seen: Mr Bautista thinks he is doing a little bit better today. He did exert himself more today - his O2 remained stable (per him) while on 6L of O2 with exertion. He is determined to get better. He denies dizziness, chest pain, nausea, vomiting. He continues to bring up a lot of green sputum. Exam Narrative Exam Narrative: General: very pleasant middle aged male, sitting up in bed, wearing humidified heated high flow NC. Speaking in 4-5 words today before taking a breath, but he admits that it's because he is thinking about his breathing. When distracted, he can speak an entire sentence without getting short of breath HEENT: EOMI, MMM Heart: RRR, distant heart sounds, no m/r/g Lungs: Diminished breath sounds B with almost no wheezing today; coughs whenever trying to take a deep breath GI: Abdomen is soft, mildly distended, nontender, + BS Extremities: no edema/clubbing/cyanosis Objective Objective Clinical Data: Abnormal lab results 06/27/18 06/27/18 06/27/18 Range/Units 07:08 07:14 07:14 RBC 3.39 L (4.50-6.00) m/cumm Hgb 10.3 L (13.5-17.5) g/dL Hct 32.8 L (40.0-50.0) % MCV 96.8 H (80-95) fL MCHC 31.4 L (32.0-36.0) g/dL Absolute Lymphocytes 0.34 L (1.2-3.4) k/cumm Sodium 146 H (136-145) mmol/L Carbon Dioxide 36.1 H (21.0-32.0) mmol/L BUN 20 H (7-18) mg/dL Glucose 138 H (70-100) mg/dL Vancomycin Trough 23.4 H* (10.0-20.0) ug/mL Vital Signs Temperature 37.3 C 06/27/18 16:11 Temperature Source Tympanic 06/27/18 16:11 Pulse 80 06/27/18 16:50 Pulse Rhythm Regular 06/27/18 09:24 Pulse 81 06/23/18 16:00 Respiratory Rate 24 06/27/18 16:50 Respiratory Effort Incrsd Work of Breathing 06/27/18 09:24 Respiratory Depth Deep 06/27/18 09:24 Respiratory Pattern Tachypnea 06/27/18 09:24 Blood Pressure 170/77 H 06/27/18 16:11 Blood Pressure Mean 68 06/23/18 15:47 Blood Pressure Position Sitting 06/23/18 11:40 Pulse Oximetry 92 L 06/27/18 16:50 Oxygen Delivery Method Hi Flow System 06/27/18 16:50 Oxygen Flow Rate 35 06/27/18 16:50 Fraction of Inspired Oxygen (FIO2) 27 06/27/18 16:50 Pain Level 0 06/27/18 07:16 Comment 06/26/18 04:00 Intake & Output 06/26/18 06/27/18 06/27/18 23:59 11:59 23:59 Intake Total 1660 / 2260 350 / 750 400 / 750 Output Total 500 / 500 Balance 0 / 1960 -150 / 250 400 / 250 Weight 64.7 kg Intake: IV 750 / 1000 250 / 650 400 / 650 Oral 910 / 1260 100 / 100 Output: Urine 500 / 500 Other: Urine Color Yellow Urine Appearance Clear Clear Voiding Methods Toilet Urinal Laboratory Results WBC 7.44 k/cumm (4.4-10.8) 06/27/18 07:14 RBC 3.39 m/cumm (4.50-6.00) L 06/27/18 07:14 Hgb 10.3 g/dL (13.5-17.5) L 06/27/18 07:14 Hct 32.8 % (40.0-50.0) L 06/27/18 07:14 MCV 96.8 fL (80-95) H 06/27/18 07:14 MCH 30.4 pg (27.0-33.0) 06/27/18 07:14 MCHC 31.4 g/dL (32.0-36.0) L 06/27/18 07:14 RDW 13.9 % (11.8-14.1) 06/27/18 07:14 Plt Count 181 x1000/uL (130-400) 06/27/18 07:14 MPV 9.2 fL (8.0-11.0) 06/27/18 07:14 Immature Gran % 0.3 06/27/18 07:14 Neutrophils % 89.9 06/27/18 07:14 Lymphocytes % 4.6 06/27/18 07:14 Monocytes % 5.1 06/27/18 07:14 Eosinophils % 0.0 06/27/18 07:14 Basophils % 0.1 06/27/18 07:14 Absolute Neutrophils 6.69 k/cumm (1.2-6.7) 06/27/18 07:14 Absolute Lymphocytes 0.34 k/cumm (1.2-3.4) L 06/27/18 07:14 Absolute Monocytes 0.38 k/cumm (0.11-0.7) 06/27/18 07:14 Absolute Eosinophils 0.00 k/cumm (0.0-0.7) 06/27/18 07:14 Absolute Basophils 0.01 k/cumm (0.0-0.2) 06/27/18 07:14 Sodium 146 mmol/L (136-145) H 06/27/18 07:14 Potassium 3.9 mmol/L (3.5-5.1) 06/27/18 07:14 Chloride 106 mmol/L (98-107) 06/27/18 07:14 Carbon Dioxide 36.1 mmol/L (21.0-32.0) H 06/27/18 07:14 Anion Gap 3.9 mmol/L (3-11) 06/27/18 07:14 BUN 20 mg/dL (7-18) H 06/27/18 07:14 Creatinine 0.80 mg/dL (0.70-1.30) 06/27/18 07:14 Estimated GFR/1.73 m2 >= 60.00 (mL/min/1.73m2) 06/27/18 07:14 Glucose 138 mg/dL (70-100) H 06/27/18 07:14 Lactate 0.7 mmol/l (0.6-1.4) 06/25/18 07:15 Calcium 8.6 mg/dL (8.5-10.1) 06/27/18 07:14 Magnesium 2.4 mg/dL (1.8-2.4) 06/27/18 07:14 Total Bilirubin 0.4 mg/dL (0.2-1.0) 06/23/18 12:54 AST 28 U/L (15-37) 06/23/18 12:54 ALT 33 U/L (12-78) 06/23/18 12:54 Alkaline Phosphatase 72 U/L (46-116) 06/23/18 12:54 Troponin I < 0.02 ng/mL (0.00-0.06) 06/23/18 12:54 NT-Pro-B Natriuret Pep 427 pg/mL (-299) H 06/23/18 12:54 Total Protein 5.9 g/dL (6.4-8.2) L 06/23/18 12:54 Albumin 3.1 g/dL (3.4-5.0) L 06/23/18 12:54 Urine Color Yellow (Yellow) 06/23/18 16:16 Urine Clarity Clear 06/23/18 16:16 Urine pH 6.0 (5-8) 06/23/18 16:16 Ur Specific [place] 1.010 (1.005-1.025) 06/23/18 16:16 Urine Protein Negative mg/dL (Negative) 06/23/18 16:16 Urine Ketones Trace mg/dL (Negative) H 06/23/18 16:16 Urine Blood Negative (Negative) 06/23/18 16:16 Urine Nitrite Negative (Negative) 06/23/18 16:16 Urine Bilirubin Negative (Negative) 06/23/18 16:16 Urine Urobilinogen 0.2 EU/dL (Up TO 0.2) 06/23/18 16:16 Ur Leukocyte Esterase Negative (Negative) 06/23/18 16:16 Urine Glucose Negative mg/dL (Negative) 06/23/18 16:16 Vancomycin Trough 23.4 ug/mL (10.0-20.0) H* 06/27/18 07:08
[2018-06-27] MEDS: Rosuvastatin 10 MG TAB 80 MG PO (19:30)
[2018-06-27] MEDS: levoFLOXacin 750 MG/150 ML BAG 100 MG IVPB (19:33)
[2018-06-27] MEDS: Melatonin 3 MG TAB PO (21:36)
[2018-06-28] VITALS (17 sets, daily range): BP systolic 148–185; BP diastolic 69–87; PULSE 66–97; RESP 1–28; TEMP 34–36.8; O2SAT 4–98
[2018-06-28] MEDS: Levalbuterol 0.63 MG/3 ML UPD VIAL UPD ×6 (03:19→23:02)
[2018-06-28] MEDS: Budesonide 0.5 MG/2 ML UPD VIAL UPD ×2 (03:19→16:14)
[2018-06-28] MEDS: methylPREDNISolone SUCC 40 MG VIAL IVP ×3 (03:20→19:42)
[2018-06-28] MEDS: Normal Saline Flush 10 ML SYR IVP ×5 (03:20→19:42)
[2018-06-28] MEDS: Ipratropium 0.5 MG/2.5 ML UPD VIAL UPD ×4 (06:34→23:02)
[2018-06-28 07:40] LABS: Anion Gap 2.9 mmol/L (3-11); BUN 22 mg/dL (7-18); CO2 36.1 mmol/L (21.0-32.0); CREATININE 0.77 mg/dL (0.70-1.30); Calcium 8.5 mg/dL (8.5-10.1); Chloride 107 mmol/L (98-107); Glucose 135 mg/dL (70-100); Magnesium 2.5 mg/dL (1.8-2.4); Potassium 3.8 mmol/L (3.5-5.1); Sodium 146 mmol/L (136-145)
[2018-06-28] MEDS: Budesonide/Formoterol 160/4.5 6 GM 60 PUFF INH IH ×2 (08:00→19:43)
--- NOTE | 2018-06-28 08:04 | CMPROGNOTE_ITS ---
- If Service Date Differs Date of service: 06/28/18 Time of Service: 08:03 Care Management Progress Note S/O: Javier was sitting up in bed, smiling and conversant with CM during visit. We discussed his planned lung transplant and the travel arrangements that it will require. He continues to receive respiratory support with Acapella, Bipap, updraft treatments etc. A: 62 year old male admitted to [facility] 06/23/18 for Acute COPD Exacerbation, Hypotension P: Javier will return home when ready per MD. He will continue to be evaluated and work with PT; CM will continue to follow and support discharge planning considerations. He will [facility] with [facility], resume home O2 and plan of care as prescribed. Javier will transport via private vehicle with his , Claire.
[2018-06-28] MEDS: VANCOMYCIN 1,000 MG in Normal Saline 250 ML 166.667 MG IVPB (08:10)
[2018-06-28] MEDS: Citalopram 20 MG TAB PO (08:11)
[2018-06-28] MEDS: Rivaroxaban 10 MG TABLET 20 MG PO (08:11)
[2018-06-28] MEDS: Docusate Sodium 100 MG CAP PO ×2 (08:11→19:42)
[2018-06-28] MEDS: Lisinopril 10 MG TAB 20 MG PO (08:11)
[2018-06-28] MEDS: guaiFENesin 600 MG TABCR 1200 MG PO ×2 (08:12→19:41)
[2018-06-28] MEDS: Tamsulosin 0.4 MG CAPCR PO (08:12)
[2018-06-28] MEDS: Pantoprazole 40 MG TABCR PO (08:12)
[2018-06-28] MEDS: Metoprolol CR 100 MG TABCR PO (08:12)
[2018-06-28] MEDS: Multivitamin TAB 1 TAB PO (08:12)
[2018-06-28] MEDS: clonazePAM 1 MG TAB PO ×2 (08:12→19:42)
[2018-06-28] MEDS: Clopidogrel 75 MG TAB PO (08:12)
[2018-06-28] MEDS: Benzonatate 200 MG CAP PO ×3 (08:12→19:42)
[2018-06-28] MEDS: LORazepam 1 MG TAB PO (09:44)
--- NOTE | 2018-06-28 11:52 | PT.INTREAT ---
Date of service: 06/28/18 Time of Service: 11:52 PT Notes Inpatient Physical Therapy Treatment Note [facility] Date: 06/28/17 PRECAUTIONS: Contact SUBJECTIVE: Javier states that he felt tired after PT yesterday. OBJECTIVE: PAIN: No c/o pain BED MOBILITY/TRANSFERS Supine-sit: I Sit-supine: I Sit-stand: I Stand-sit: I GAIT Assistive Device: No AD Weight bearing: Full Assist: S in a.m.; I in p.m. Distance: 30' x6 + 10' in a.m.; 30' x7 in p.m. Deviation: Seated rest x1, SOB VITALS: SaO2: 97-98% in a.m., 94-98% in p.m. on 6L O2 via NC with activity THEREX: Patient completed timed marching in place as well as functional [id number] exercises in a.m., as per flow sheet. In p.m., he completed an UE strengthening program with green Theraband as well as functional ehq-va-[id number] exercises, as per flow sheet. He continues to require significant rests between exercises due to SOB. ASSESSMENT: Patient tolerated session with c/o SOB with activity. He was able to tolerate a progression in gait distance without use of assistive device. He was also able to demonstrate an increased tolerance in general conditioning activities. Patient would benefit from continued conditioning for improved cardiovascular endurance and activity tolerance. PLAN: Continue with PT's POC TREATMENT CODE/TIME: Session 1: 40 minutes; 83232 x2, [id number] Session 2: 45 minutes; 51452, [id number] x2
--- NOTE | 2018-06-28 11:56 | PTTR_ITS ---
Date of service: 06/28/18 Time of Service: 11:52 PT Notes Inpatient Physical Therapy Treatment Note [facility] Date: 06/28/17 PRECAUTIONS: Contact SUBJECTIVE: Javier states that he felt tired after PT yesterday. OBJECTIVE: PAIN: No c/o pain BED MOBILITY/TRANSFERS Supine-sit: I Sit-supine: I Sit-stand: I Stand-sit: I GAIT Assistive Device: No AD Weight bearing: Full Assist: S in a.m.; I in p.m. Distance: 30' x6 + 10' in a.m.; 30' x7 in p.m. Deviation: Seated rest x1, SOB VITALS: SaO2: 97-98% in a.m., 94-98% in p.m. on 6L O2 via NC with activity THEREX: Patient completed timed marching in place as well as functional pnw-mf-qifif exercises in a.m., as per flow sheet. In p.m., he completed an UE strengthening program with green Theraband as well as functional [id number]-qo-[id number] exercises, as per flow sheet. He continues to require significant rests between exercises due to SOB. ASSESSMENT: Patient tolerated session with c/o SOB with activity. He was able to tolerate a progression in gait distance without use of assistive device. He was also able to demonstrate an increased tolerance in general conditioning activities. Patient would benefit from continued conditioning for improved cardiovascular endurance and activity tolerance. PLAN: Continue with PT's POC TREATMENT CODE/TIME: Session 1: 40 minutes; 94017 x2, [id number] Session 2: 45 minutes; 72390, 92825 x2
[2018-06-28 17:45] LABS: Vancomycin, Trough 18.4 ug/mL (10.0-20.0)
[2018-06-28] MEDS: VANCOMYCIN 1,000 MG in Normal Saline 250 ML 166.67 MG IVPB (17:57)
--- NOTE | 2018-06-28 18:54 | PGE_ITS ---
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 Not sensitive to floroquinolones but is sensitive to vancomycin. Improving slowly. I am considering changing abx to linezolid. Continues to require intermittent BiPAP/high flow NC. Will continue vancomycin. Levofloxacin d/c'ed. No change to steroid dose. Continue symbicort, pulmicort, prn xopenex, scheduled atrovent, antitussives. (2) Acute on chronic respiratory failure with hypoxia and hypercapnia: Current visit: Yes Status: Acute As above (3) Bronchiectasis: Current visit: Yes Status: Chronic As above (4) Atrial fibrillation: Current visit: Yes Status: Chronic Continue beta-lizet, anticoagulation with rivaroxaban. HR reasonable, remains in NSR. (5) Coronary artery disease: Current visit: Yes Status: Chronic Appears quiescent. Patient will be maintained on his chronic cardiac regimen. (6) BPH (benign prostatic hyperplasia): Current visit: Yes Status: Chronic Continue alpha-lizet. (7) DVT prophylaxis: Current visit: Yes Status: Chronic On chronic anticoagulation with xarelto. Continue PPI therapy for GI prophylaxis as well. (8) Discharge planning issues: Current visit: Yes Status: Acute Discussed with case management. No options for inpatient pulmonary rehab in our area, per case management. Refuses home health PT. Ultimately, awaiting a lung transplant. Full code. Subjective Interval history since last seen: Feels much better today, he states. Per PT, he is doing well as well. Does require O2 up to 6L with activity. Denies dizziness, chest pain, nausea, vomiting. Color of sputum is clearing up; cough is less productive. He states he is not interested in home PT. He states he does a lot of cleaning at home and so he gets his exercise. 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 We talked about how he may want to stay away from these irritants. He verbalized understanding. Exam Narrative Exam Narrative: General: very pleasant middle aged male, sitting up in bed, wearing humidified heated high flow NC. Speaking in longer sentences, less short of breath HEENT: EOMI, MMM Heart: RRR, distant heart sounds, no m/r/g Lungs: Diminished breath sounds B with very quiet/tight expiratory wheezing GI: Abdomen is soft, mildly distended, nontender, + BS Extremities: no edema/clubbing/cyanosis Objective Objective Clinical Data: Abnormal lab results 06/28/18 Range/Units 06:56 Sodium 146 H (136-145) mmol/L Carbon Dioxide 36.1 H (21.0-32.0) mmol/L Anion Gap 2.9 L (3-11) mmol/L BUN 22 H (7-18) mg/dL Glucose 135 H (70-100) mg/dL Magnesium 2.5 H (1.8-2.4) mg/dL Vital Signs Temperature 36.4 C L 06/28/18 16:06 Temperature Source Tympanic 06/28/18 16:06 Pulse 73 06/28/18 18:13 Pulse Rhythm Regular 06/28/18 08:33 Pulse 81 06/23/18 16:00 Respiratory Rate 22 06/28/18 16:06 Respiratory Effort Incrsd Work of Breathing 06/28/18 08:33 Respiratory Depth Deep 06/28/18 08:33 Respiratory Pattern Tachypnea 06/28/18 08:33 Blood Pressure 148/74 H 06/28/18 16:06 Blood Pressure Mean 68 06/23/18 15:47 Blood Pressure Position Sitting 06/23/18 11:40 Pulse Oximetry 93 L 06/28/18 16:06 Oxygen Delivery Method Hi Flow System 06/28/18 18:11 Oxygen Flow Rate 35 06/28/18 18:11 Fraction of Inspired Oxygen (FIO2) 29 06/28/18 18:11 Pain Level 0 06/27/18 07:16 Comment 06/26/18 04:00 Intake & Output 06/27/18 06/28/18 06/28/18 23:59 11:59 23:59 Intake Total 400 / 750 1250 / 1250 Output Total 450 / 450 Balance 400 / 250 800 / 800 Weight 64 kg Intake: IV 400 / 650 650 / 650 Oral 600 / 600 Output: Urine 450 / 450 Other: Urine Color Yellow Urine Appearance Clear Clear Urine Odor Normal Voiding Methods Toilet Urinal Laboratory Results WBC 7.44 k/cumm (4.4-10.8) 06/27/18 07:14 RBC 3.39 m/cumm (4.50-6.00) L 06/27/18 07:14 Hgb 10.3 g/dL (13.5-17.5) L 06/27/18 07:14 Hct 32.8 % (40.0-50.0) L 06/27/18 07:14 MCV 96.8 fL (80-95) H 06/27/18 07:14 MCH 30.4 pg (27.0-33.0) 06/27/18 07:14 MCHC 31.4 g/dL (32.0-36.0) L 06/27/18 07:14 RDW 13.9 % (11.8-14.1) 06/27/18 07:14 Plt Count 181 x1000/uL (130-400) 06/27/18 07:14 MPV 9.2 fL (8.0-11.0) 06/27/18 07:14 Immature Gran % 0.3 06/27/18 07:14 Neutrophils % 89.9 06/27/18 07:14 Lymphocytes % 4.6 06/27/18 07:14 Monocytes % 5.1 06/27/18 07:14 Eosinophils % 0.0 06/27/18 07:14 Basophils % 0.1 06/27/18 07:14 Absolute Neutrophils 6.69 k/cumm (1.2-6.7) 06/27/18 07:14 Absolute Lymphocytes 0.34 k/cumm (1.2-3.4) L 06/27/18 07:14 Absolute Monocytes 0.38 k/cumm (0.11-0.7) 06/27/18 07:14 Absolute Eosinophils 0.00 k/cumm (0.0-0.7) 06/27/18 07:14 Absolute Basophils 0.01 k/cumm (0.0-0.2) 06/27/18 07:14 Sodium 146 mmol/L (136-145) H 06/28/18 06:56 Potassium 3.8 mmol/L (3.5-5.1) 06/28/18 06:56 Chloride 107 mmol/L (98-107) 06/28/18 06:56 Carbon Dioxide 36.1 mmol/L (21.0-32.0) H 06/28/18 06:56 Anion Gap 2.9 mmol/L (3-11) L 06/28/18 06:56 BUN 22 mg/dL (7-18) H 06/28/18 06:56 Creatinine 0.77 mg/dL (0.70-1.30) 06/28/18 06:56 Estimated GFR/1.73 m2 >= 60.00 (mL/min/1.73m2) 06/28/18 06:56 Glucose 135 mg/dL (70-100) H 06/28/18 06:56 Lactate 0.7 mmol/l (0.6-1.4) 06/25/18 07:15 Calcium 8.5 mg/dL (8.5-10.1) 06/28/18 06:56 Magnesium 2.5 mg/dL (1.8-2.4) H 06/28/18 06:56 Total Bilirubin 0.4 mg/dL (0.2-1.0) 06/23/18 12:54 AST 28 U/L (15-37) 06/23/18 12:54 ALT 33 U/L (12-78) 06/23/18 12:54 Alkaline Phosphatase 72 U/L (46-116) 06/23/18 12:54 Troponin I < 0.02 ng/mL (0.00-0.06) 06/23/18 12:54 NT-Pro-B Natriuret Pep 427 pg/mL (-299) H 06/23/18 12:54 Total Protein 5.9 g/dL (6.4-8.2) L 06/23/18 12:54 Albumin 3.1 g/dL (3.4-5.0) L 06/23/18 12:54 Urine Color Yellow (Yellow) 06/23/18 16:16 Urine Clarity Clear 06/23/18 16:16 Urine pH 6.0 (5-8) 06/23/18 16:16 Ur Specific [place] 1.010 (1.005-1.025) 06/23/18 16:16 Urine Protein Negative mg/dL (Negative) 06/23/18 16:16 Urine Ketones Trace mg/dL (Negative) H 06/23/18 16:16 Urine Blood Negative (Negative) 06/23/18 16:16 Urine Nitrite Negative (Negative) 06/23/18 16:16 Urine Bilirubin Negative (Negative) 06/23/18 16:16 Urine Urobilinogen 0.2 EU/dL (Up TO 0.2) 06/23/18 16:16 Ur Leukocyte Esterase Negative (Negative) 06/23/18 16:16 Urine Glucose Negative mg/dL (Negative) 06/23/18 16:16 Vancomycin Trough 18.4 ug/mL (10.0-20.0) 06/28/18 17:10
[2018-06-28] MEDS: Rosuvastatin 10 MG TAB 80 MG PO (19:41)
[2018-06-28] MEDS: Melatonin 3 MG TAB PO (23:02)
[2018-06-29] VITALS (16 sets, daily range): BP systolic 160–192; BP diastolic 74–89; PULSE 42–85; RESP 4–20; TEMP 34–37.2; O2SAT 86–98
[2018-06-29] MEDS: VANCOMYCIN 1,000 MG in Normal Saline 250 ML 167 MG IVPB (03:56)
[2018-06-29] MEDS: Normal Saline Flush 10 ML SYR IVP ×6 (03:57→23:30)
[2018-06-29] MEDS: Levalbuterol 0.63 MG/3 ML UPD VIAL UPD ×6 (03:57→23:28)
[2018-06-29] MEDS: methylPREDNISolone SUCC 40 MG VIAL IVP ×3 (03:57→19:42)
[2018-06-29] MEDS: Budesonide 0.5 MG/2 ML UPD VIAL UPD ×2 (03:57→16:28)
[2018-06-29] MEDS: Ipratropium 0.5 MG/2.5 ML UPD VIAL UPD ×4 (05:53→23:40)
[2018-06-29 07:17] LABS: BUN 18 mg/dL (7-18); CREATININE 0.72 mg/dL (0.70-1.30); Calcium 8.3 mg/dL (8.5-10.1); Chloride 107 mmol/L (98-107); Glucose 130 mg/dL (70-100); Magnesium 2.5 mg/dL (1.8-2.4); Potassium 3.8 mmol/L (3.5-5.1); Sodium 146 mmol/L (136-145)
[2018-06-29] MEDS: Budesonide/Formoterol 160/4.5 6 GM 60 PUFF INH IH ×2 (07:19→19:47)
[2018-06-29] MEDS: Pantoprazole 40 MG TABCR PO (09:20)
[2018-06-29] MEDS: Lisinopril 10 MG TAB 20 MG PO (09:21)
[2018-06-29] MEDS: Metoprolol CR 100 MG TABCR PO (09:21)
[2018-06-29] MEDS: Multivitamin TAB 1 TAB PO (09:21)
[2018-06-29] MEDS: clonazePAM 1 MG TAB PO ×2 (09:21→19:46)
[2018-06-29] MEDS: Docusate Sodium 100 MG CAP PO ×2 (09:21→19:47)
[2018-06-29] MEDS: Citalopram 20 MG TAB PO (09:21)
[2018-06-29] MEDS: guaiFENesin 600 MG TABCR 1200 MG PO ×2 (09:21→19:46)
[2018-06-29] MEDS: Clopidogrel 75 MG TAB PO (09:21)
[2018-06-29] MEDS: Tamsulosin 0.4 MG CAPCR PO (09:21)
[2018-06-29] MEDS: Benzonatate 200 MG CAP PO ×3 (09:22→19:46)
[2018-06-29] MEDS: Rivaroxaban 10 MG TABLET 20 MG PO (09:22)
--- NOTE | 2018-06-29 10:27 | PDOC.CMPRO ---
Care Management Progress Note S/O: Javier remains on IV ABX and continues to receive respiratory support with Acapella, Bipap, updraft treatments etc. He remains pleasant in interaction, he is uninterested in additional home supports at this time though he is receptive to ongoing discussion. He was sitting up on the side of his bed, and continues to show improvement in respiratory function. CM will continue to follow. A: 62 year old male admitted to [facility] 06/23/18 for Acute COPD Exacerbation, Hypotension P: Javier will return home when ready per MD. He will continue to be evaluated and work with PT; CM will continue to follow and support discharge planning considerations. He will [facility] with [facility], resume home O2 and plan of care as prescribed. Javier will transport via private vehicle with his , Claire.
--- NOTE | 2018-06-29 10:31 | CMPROGNOTE_ITS ---
Care Management Progress Note S/O: Javier remains on IV ABX and continues to receive respiratory support with Acapella, Bipap, updraft treatments etc. He remains pleasant in interaction, he is uninterested in additional home supports at this time though he is receptive to ongoing discussion. He was sitting up on the side of his bed, and continues to show improvement in respiratory function. CM will continue to follow. A: 62 year old male admitted to [facility] 06/23/18 for Acute COPD Exacerbation, Hypotension P: Javier will return home when ready per MD. He will continue to be evaluated and work with PT; CM will continue to follow and support discharge planning considerations. He will follow [facility] with his [facility], resume home O2 and plan of care as prescribed. Javier will transport via private vehicle with his , Claire.
[2018-06-29] MEDS: amLODIPine 5 MG TAB PO (12:11)
[2018-06-29] MEDS: LINEZOLID 600 MG/300 ML BAG 300 MG IVPB ×2 (12:33→23:32)
[2018-06-29 12:58] LABS: HCO3 37 mmol/L (22-28); pCO2 52 mmHg (34-47); pH 7.46 (7.35-7.45); pO2 75 mmHg (83-108); sO2 96 % (94-98); tCO2 34 mmol/L (22-29)
[2018-06-29 13:00] LABS: FIO2 28 %; Site Left Radial
[2018-06-29 13:01] LABS: BE > 10.0 mmol/L (-3-3)
--- NOTE | 2018-06-29 15:43 | PT.INTREAT ---
Date of service: 06/29/18 Time of Service: 15:43 PT Notes Inpatient Physical Therapy Treatment Note [facility] Date: 06/29/18 PRECAUTIONS: Monitor SaO2 SUBJECTIVE: Javier states that he is feeling tired today, although reports that he felt good after yesterday's PT sessions. OBJECTIVE: Session 2: Per RT Indira, had patient perform exercise on high flow, where oxygen saturations were measured between 70-90% with activity, and patient demonstrates symptoms of severe difficulty with breathing and significant SOB. RT Dav, was called into room to assess patient at this time. Per RT Dav, patient to remain on 5L O2 via NC with activity. PAIN: No complaints of pain BED MOBILITY/TRANSFERS Supine-sit: I Sit-supine: I Sit-stand: I Stand-sit: I Bed-Chair: I Chair-bed: I GAIT Assistive Device: No AD Weight bearing: Full Assist: I Distance: 30' x7 in a.m.; 30' x4 in p.m. VITALS: Session 1: SaO2: 92-98% on 6L O2 via NC with activity; Session 2: SaO2: 70-90% on high flow via NC with activity, 93?98 on 5L O2 via NC with activity THEREX: Patient completed timed marching exercise for 75 sec, followed by 75 sec rest, x3 in a.m.; patient completed upper extremity strengthening exercises with green Theraband and functional sit?to?stand exercises, as per flow sheet, and p.m. ASSESSMENT: Patient continues to require significant rest between exercises and following in room ambulation due to SOB. Patient would benefit from continued conditioning for improved cardiovascular endurance and activity tolerance. PLAN: Continue with PTs POC TREATMENT CODE/TIME: Session 1: 30 minutes; [id number] x2 Session 2: 30 minutes; 22333, [id number]
--- NOTE | 2018-06-29 15:56 | PTTR_ITS ---
Date of service: 06/29/18 Time of Service: 15:43 PT Notes Inpatient Physical Therapy Treatment Note [facility] Date: 06/29/18 PRECAUTIONS: Monitor SaO2 SUBJECTIVE: Javier states that he is feeling tired today, although reports that trina knapp felt good after yesterday's PT sessions. OBJECTIVE: Session 2: Per RT Indira, had patient perform exercise on high flow, where oxygen saturations were measured between 70-90% with activity, and patient demonstrates symptoms of severe difficulty with breathing and significant SOB. RT Dav, was called into room to assess patient at this time. Per RT Dav, patient to remain on 5L O2 via NC with activity. PAIN: No complaints of pain BED MOBILITY/TRANSFERS Supine-sit: I Sit-supine: I Sit-stand: I Stand-sit: I Bed-Chair: I Chair-bed: I GAIT Assistive Device: No AD Weight bearing: Full Assist: I Distance: 30' x7 in a.m.; 30' x4 in p.m. VITALS: Session 1: SaO2: 92-98% on 6L O2 via NC with activity; Session 2: SaO2: 70-90% on high flow via NC with activity, 93?98 on 5L O2 via NC with activity THEREX: Patient completed timed marching exercise for 75 sec, followed by 75 sec rest, x3 in a.m.; patient completed upper extremity strengthening exercises with green Theraband and functional sit?to?stand exercises, as per flow sheet, and p.m. ASSESSMENT: Patient continues to require significant rest between exercises and following in room ambulation due to SOB. Patient would benefit from continued conditioning for improved cardiovascular endurance and activity tolerance. PLAN: Continue with PTs POC TREATMENT CODE/TIME: Session 1: 30 minutes; 55589 x2 Session 2: 30 minutes; 00710, 27819
[2018-06-29] MEDS: Rosuvastatin 10 MG TAB 80 MG PO (19:56)
[2018-06-29] MEDS: Melatonin 3 MG TAB PO (19:56)
--- NOTE | 2018-06-29 20:00 | W.PM.PROGNOT ---
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 Not sensitive to floroquinolones but is sensitive to vancomycin. Abx changed to linezolid today. Continues to require intermittent BiPAP/high flow NC. On discharge, will need trilogy. Taper steroids - transition to PO. Continue symbicort, pulmicort, prn xopenex, scheduled atrovent, antitussives. (2) Acute on chronic respiratory failure with hypoxia and hypercapnia: Current visit: Yes Status: Acute As above (3) Bronchiectasis: Current visit: Yes Status: Chronic As above (4) Atrial fibrillation: Current visit: Yes Status: Chronic Continue beta-lizet, anticoagulation with rivaroxaban. HR reasonable, remains in NSR. D/c tele. (5) Coronary artery disease: Current visit: Yes Status: Chronic Appears quiescent. Patient will be maintained on his chronic cardiac regimen. (6) BPH (benign prostatic hyperplasia): Current visit: Yes Status: Chronic Continue alpha-lizet. (7) DVT prophylaxis: Current visit: Yes Status: Chronic On chronic anticoagulation with xarelto. Continue PPI therapy for GI prophylaxis as well. (8) Discharge planning issues: Current visit: Yes Status: Acute Discussed with case management. No options for inpatient pulmonary rehab in our area, per case management. Refuses home health PT. Will need trilogy. Ultimately, awaiting a lung transplant. Full code. Anticipated discharge in 24 hours. Subjective Interval history since last seen: Mr Bautsita is doing much better today. Cough is clearing up. Working with PT, the patient never desatted on 6L of O2. Denies dizziness, chest pain, shortness of breath, nausea, vomiting. Agrees to trilogy at outpatient. Exam Narrative Exam Narrative: General: very pleasant middle aged male, sitting in a chair (taking a break during PT). A&Ox3, NAD, speaking in full sentences. HEENT: EOMI, MMM Heart: RRR, distant heart sounds, no m/r/g Lungs: Diminished breath sounds B. No wheezing heard today. GI: Abdomen is soft, mildly distended, nontender, + BS Extremities: no edema/clubbing/cyanosis Objective Objective Clinical Data: Abnormal lab results 06/29/18 06/29/18 Range/Units 06:10 12:59 pCO2 52 H (34-47) mmHg pO2 75 L (83-108) mmHg ABG pH 7.46 H (7.35-7.45) ABG HCO3 37 H (22-28) mmol/L ABG Total CO2 34 H (22-29) mmol/L ABG Base Excess > 10.0 H (-3-3) mmol/L Sodium 146 H (136-145) mmol/L Carbon Dioxide 36.0 H (21.0-32.0) mmol/L Glucose 130 H (70-100) mg/dL Calcium 8.3 L (8.5-10.1) mg/dL Magnesium 2.5 H (1.8-2.4) mg/dL Vital Signs Temperature 36.5 C 06/29/18 19:31 Temperature Source Tympanic 06/29/18 19:31 Pulse 84 06/29/18 19:31 Pulse Rhythm Regular 06/29/18 16:18 Pulse 81 06/23/18 16:00 Respiratory Rate 19 06/29/18 19:31 Respiratory Effort Incrsd Work of Breathing 06/29/18 16:18 Respiratory Depth Deep 06/29/18 16:18 Respiratory Pattern Normal 06/29/18 16:18 Blood Pressure 164/84 H 06/29/18 19:31 Blood Pressure Mean 68 06/23/18 15:47 Blood Pressure Position Sitting 06/23/18 11:40 Pulse Oximetry 86 L 06/29/18 19:36 Oxygen Delivery Method Hi Flow System 06/29/18 19:36 Oxygen Flow Rate 6 06/29/18 12:00 Fraction of Inspired Oxygen (FIO2) 28 06/29/18 08:15 Pain Level 0 06/29/18 16:13 Comment 06/29/18 12:00 Intake & Output 06/28/18 06/29/18 06/29/18 23:59 11:59 23:59 Intake Total 250 / 1500 650 / 1350 700 / 1350 Output Total 800 / 800 Balance 250 / 1050 -150 / 550 700 / 550 Weight 64.8 kg Intake: IV 250 / 900 250 / 550 300 / 550 Oral 400 / 800 400 / 800 Output: Urine 800 / 800 Other: Urine Color Yellow Straw Urine Appearance Clear Clear Clear Urine Odor Normal Stool Size Moderate Stool Characteristics Soft Formed Brown Voiding Methods Toilet Urinal Toilet Laboratory Results WBC 7.44 k/cumm (4.4-10.8) 06/27/18 07:14 RBC 3.39 m/cumm (4.50-6.00) L 06/27/18 07:14 Hgb 10.3 g/dL (13.5-17.5) L 06/27/18 07:14 Hct 32.8 % (40.0-50.0) L 06/27/18 07:14 MCV 96.8 fL (80-95) H 06/27/18 07:14 MCH 30.4 pg (27.0-33.0) 06/27/18 07:14 MCHC 31.4 g/dL (32.0-36.0) L 06/27/18 07:14 RDW 13.9 % (11.8-14.1) 06/27/18 07:14 Plt Count 181 x1000/uL (130-400) 06/27/18 07:14 MPV 9.2 fL (8.0-11.0) 06/27/18 07:14 Immature Gran % 0.3 06/27/18 07:14 Neutrophils % 89.9 06/27/18 07:14 Lymphocytes % 4.6 06/27/18 07:14 Monocytes % 5.1 06/27/18 07:14 Eosinophils % 0.0 06/27/18 07:14 Basophils % 0.1 06/27/18 07:14 Absolute Neutrophils 6.69 k/cumm (1.2-6.7) 06/27/18 07:14 Absolute Lymphocytes 0.34 k/cumm (1.2-3.4) L 06/27/18 07:14 Absolute Monocytes 0.38 k/cumm (0.11-0.7) 06/27/18 07:14 Absolute Eosinophils 0.00 k/cumm (0.0-0.7) 06/27/18 07:14 Absolute Basophils 0.01 k/cumm (0.0-0.2) 06/27/18 07:14 Sample Site Left radial 06/29/18 12:59 pCO2 52 mmHg (34-47) H 06/29/18 12:59 pO2 75 mmHg (83-108) L 06/29/18 12:59 O2 Saturation 96 % (94-98) 06/29/18 12:59 ABG pH 7.46 (7.35-7.45) H 06/29/18 12:59 ABG HCO3 37 mmol/L (22-28) H 06/29/18 12:59 ABG Total CO2 34 mmol/L (22-29) H 06/29/18 12:59 ABG Base Excess > 10.0 mmol/L (-3-3) H 06/29/18 12:59 FiO2 28 % 06/29/18 12:59 Sodium 146 mmol/L (136-145) H 06/29/18 06:10 Potassium 3.8 mmol/L (3.5-5.1) 06/29/18 06:10 Chloride 107 mmol/L (98-107) 06/29/18 06:10 Carbon Dioxide 36.0 mmol/L (21.0-32.0) H 06/29/18 06:10 Anion Gap 3.0 mmol/L (3-11) 06/29/18 06:10 BUN 18 mg/dL (7-18) 06/29/18 06:10 Creatinine 0.72 mg/dL (0.70-1.30) 06/29/18 06:10 Estimated GFR/1.73 m2 >= 60.00 (mL/min/1.73m2) 06/29/18 06:10 Glucose 130 mg/dL (70-100) H 06/29/18 06:10 Lactate 0.7 mmol/l (0.6-1.4) 06/25/18 07:15 Calcium 8.3 mg/dL (8.5-10.1) L 06/29/18 06:10 Magnesium 2.5 mg/dL (1.8-2.4) H 06/29/18 06:10 Total Bilirubin 0.4 mg/dL (0.2-1.0) 06/23/18 12:54 AST 28 U/L (15-37) 06/23/18 12:54 ALT 33 U/L (12-78) 06/23/18 12:54 Alkaline Phosphatase 72 U/L (46-116) 06/23/18 12:54 Troponin I < 0.02 ng/mL (0.00-0.06) 06/23/18 12:54 NT-Pro-B Natriuret Pep 427 pg/mL (-299) H 06/23/18 12:54 Total Protein 5.9 g/dL (6.4-8.2) L 06/23/18 12:54 Albumin 3.1 g/dL (3.4-5.0) L 06/23/18 12:54 Urine Color Yellow (Yellow) 06/23/18 16:16 Urine Clarity Clear 06/23/18 16:16 Urine pH 6.0 (5-8) 06/23/18 16:16 Ur Specific [place] 1.010 (1.005-1.025) 06/23/18 16:16 Urine Protein Negative mg/dL (Negative) 06/23/18 16:16 Urine Ketones Trace mg/dL (Negative) H 06/23/18 16:16 Urine Blood Negative (Negative) 06/23/18 16:16 Urine Nitrite Negative (Negative) 06/23/18 16:16 Urine Bilirubin Negative (Negative) 06/23/18 16:16 Urine Urobilinogen 0.2 EU/dL (Up TO 0.2) 06/23/18 16:16 Ur Leukocyte Esterase Negative (Negative) 06/23/18 16:16 Urine Glucose Negative mg/dL (Negative) 06/23/18 16:16 Vancomycin Trough 18.4 ug/mL (10.0-20.0) 06/28/18 17:10
[2018-06-30] VITALS (20 sets, daily range): BP systolic 160–183; BP diastolic 78–87; PULSE 62–85; RESP 2–24; TEMP 34–37.5; O2SAT 91–97
[2018-06-30] MEDS: Levalbuterol 0.63 MG/3 ML UPD VIAL UPD ×6 (04:10→23:40)
[2018-06-30] MEDS: Budesonide 0.5 MG/2 ML UPD VIAL UPD ×2 (04:10→18:37)
[2018-06-30] MEDS: Ipratropium 0.5 MG/2.5 ML UPD VIAL UPD ×4 (05:58→23:39)
[2018-06-30] MEDS: Budesonide/Formoterol 160/4.5 6 GM 60 PUFF INH IH ×2 (07:35→20:38)
[2018-06-30 07:41] LABS: Anion Gap 2.8 mmol/L (3-11); BUN 18 mg/dL (7-18); CO2 37.2 mmol/L (21.0-32.0); CREATININE 0.69 mg/dL (0.70-1.30); Calcium 8.4 mg/dL (8.5-10.1); Chloride 104 mmol/L (98-107); Glucose 100 mg/dL (70-100); Magnesium 2.5 mg/dL (1.8-2.4); Potassium 3.8 mmol/L (3.5-5.1); Sodium 144 mmol/L (136-145)
[2018-06-30] MEDS: Tamsulosin 0.4 MG CAPCR PO (08:26)
[2018-06-30] MEDS: Pantoprazole 40 MG TABCR PO (08:26)
[2018-06-30] MEDS: clonazePAM 1 MG TAB PO ×2 (08:26→20:23)
[2018-06-30] MEDS: guaiFENesin 600 MG TABCR 1200 MG PO ×2 (08:26→20:23)
[2018-06-30] MEDS: predniSONE 20 MG TAB 40 MG PO (08:26)
[2018-06-30] MEDS: Metoprolol CR 100 MG TABCR PO (08:26)
[2018-06-30] MEDS: Lisinopril 10 MG TAB 20 MG PO (08:27)
[2018-06-30] MEDS: Multivitamin TAB 1 TAB PO (08:27)
[2018-06-30] MEDS: Benzonatate 200 MG CAP PO ×3 (08:27→20:23)
[2018-06-30] MEDS: Rivaroxaban 10 MG TABLET 20 MG PO (08:27)
[2018-06-30] MEDS: amLODIPine 5 MG TAB PO (08:27)
[2018-06-30] MEDS: Clopidogrel 75 MG TAB PO (08:27)
[2018-06-30] MEDS: Docusate Sodium 100 MG CAP PO ×2 (08:28→20:22)
[2018-06-30] MEDS: Normal Saline Flush 10 ML SYR IVP ×5 (08:28→21:21)
--- NOTE | 2018-06-30 09:16 | PDOC.CMPRO ---
Care Management Progress Note S/O: Javier continues to receive respiratory support with Bipap/high flow NC and per MD will require Trilogy unit upon discharge; coordinated by RT. He remains pleasant in interaction, and uninterested in additional home supports at this time. His steroids are being tapered and he was switched to orals yesterday. He remains on IV ABX for MRSA; switched to Linezolid Q12 yesterday. CM will continue to follow. A: 62 year old male admitted to [facility] 06/23/18 for Acute COPD Exacerbation, Hypotension P: Javier will return home when ready per MD. He will continue to be evaluated and work with PT; CM will continue to follow and support discharge planning considerations. [facility] will [facility], resume home O2, with new orders for Trilogy unit and plan of care as prescribed. Javier will transport via private vehicle with his , Claire.
--- NOTE | 2018-06-30 09:19 | CMPROGNOTE_ITS ---
Care Management Progress Note S/O: Javier continues to receive respiratory support with Bipap/high flow NC and per MD will require Trilogy unit upon discharge; coordinated by RT. He remains pleasant in interaction, and uninterested in additional home supports at this time. His steroids are being tapered and he was switched to orals yesterday. He remains on IV ABX for MRSA; switched to Linezolid Q12 yesterday. CM will continue to follow. A: 62 year old male admitted to [facility] 06/23/18 for Acute COPD Exacerbation, Hypotension P: Javier will return home when ready per MD. He will continue to be evaluated and work with PT; CM will continue to follow and support discharge planning considerations. He will follow [facility] with his [facility], resume home O2, with new o rders for Trilogy unit and plan of care as prescribed. Javier will transport via private vehicle with his , Claire.
[2018-06-30] MEDS: LINEZOLID 600 MG/300 ML BAG 300 MG IVPB ×2 (11:52→23:39)
[2018-06-30] MEDS: LORazepam 1 MG TAB PO (14:18)
[2018-06-30] MEDS: methylPREDNISolone SUCC 40 MG VIAL IVP ×2 (14:38→21:20)
--- NOTE | 2018-06-30 15:37 | PT.INNT ---
Date of service: 06/30/18 Time of Service: 15:37 PT Notes 06/30/18 Held both morning and afternoon PT sessions today, per Respiratory Therapy advisement. Will attempt to resume PT services tomorrow morning, if appropriate.
--- NOTE | 2018-06-30 19:44 | W.PM.PROGNOT ---
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 Continue linezolid - the sputum is clearing up. Continues to require intermittent BiPAP/high flow NC. On discharge, will need trilogy. Increase steroids - appears taper was too rapid. Continue symbicort, pulmicort, prn xopenex, scheduled atrovent, antitussives. (2) Acute on chronic respiratory failure with hypoxia and hypercapnia: Current visit: Yes Status: Acute As above (3) Bronchiectasis: Current visit: Yes Status: Chronic As above (4) Atrial fibrillation: Current visit: Yes Status: Chronic Continue beta-lizet, anticoagulation with rivaroxaban. HR down to 40's last night and reports palpitations during the day. Now that tele unit is available, will resume. (5) Bradycardia: Current visit: Yes Status: Acute Given this as well as reports of palpitations, will put back on tele. (6) Coronary artery disease: Current visit: Yes Status: Chronic Appears quiescent. Patient will be maintained on his chronic cardiac regimen. No ACS per EKG. (7) BPH (benign prostatic hyperplasia): Current visit: Yes Status: Chronic Continue alpha-lizet. (8) DVT prophylaxis: Current visit: Yes Status: Chronic On chronic anticoagulation with xarelto. Continue PPI therapy for GI prophylaxis as well. (9) Discharge planning issues: Current visit: Yes Status: Acute Discussed with case management. No options for inpatient pulmonary rehab in our area, per case management. Refuses home health PT. Will need trilogy. Ultimately, awaiting a lung transplant. Full code. Not ready for discharge (worse). Subjective Interval history since last seen: Mr Bautista thinks he took a step backwards today as far as his breathing. He is anxious and having difficulty with the humidified heated high flow - he says he can't get used to it. He denies dizziness, chest pain unless he coughs, nausea, vomiting. Overnight, evidently found to have HR in the 40's. Today, reports palpitations. Exam Narrative Exam Narrative: General: very pleasant middle aged male, in bed, appears anxious and more short of breath today, pauses to breathe after 2-3 words. Coughs up clear sputum in front of me. HEENT: EOMI, MMM Heart: RRR, distant heart sounds, no m/r/g Lungs: Quiet wheezing on expiration B GI: Abdomen is soft, mildly distended, nontender, + BS Extremities: no edema/clubbing/cyanosis Objective Objective Clinical Data: Abnormal lab results 06/30/18 Range/Units 06:00 Carbon Dioxide 37.2 H (21.0-32.0) mmol/L Anion Gap 2.8 L (3-11) mmol/L Creatinine 0.69 L (0.70-1.30) mg/dL Calcium 8.4 L (8.5-10.1) mg/dL Magnesium 2.5 H (1.8-2.4) mg/dL Vital Signs Temperature 36.7 C 06/30/18 07:12 Temperature Source Tympanic 06/30/18 07:12 Pulse 74 06/30/18 07:12 Pulse Rhythm Regular 06/30/18 17:00 Pulse 81 06/23/18 16:00 Respiratory Rate 12 06/30/18 14:45 Respiratory Effort Incrsd Work of Breathing 06/30/18 17:00 Respiratory Depth Deep 06/30/18 17:00 Respiratory Pattern Normal 06/30/18 17:00 Blood Pressure 160/78 H 06/30/18 07:12 Blood Pressure Mean 68 06/23/18 15:47 Blood Pressure Position Sitting 06/23/18 11:40 Pulse Oximetry 95 06/30/18 14:45 Oxygen Delivery Method Hi Flow System 06/30/18 18:51 Oxygen Flow Rate 45 06/30/18 18:51 Fraction of Inspired Oxygen (FIO2) 29 06/30/18 18:51 Pain Level 0 06/30/18 07:12 Comment 06/30/18 03:11 Intake & Output 06/29/18 06/30/18 06/30/18 23:59 11:59 23:59 Intake Total 1360 / 2010 300 / 1050 750 / 1050 Output Total 1800 / 1800 Balance 1360 / 1210 -1500 / -750 750 / -750 Weight 63.2 kg Intake: IV 320 / 570 300 / 300 Oral 1040 / 1440 750 / 750 Output: Urine 1800 / 1800 Other: Urine Color Pale Yellow Urine Appearance Clear Clear Clear Comment pt voiding independently in the toilet pt voiding independently in the toilet Stool Size Moderate Small Stool Characteristics Soft Formed Formed Brown Brown Voiding Methods Toilet Urinal Toilet Laboratory Results WBC 7.44 k/cumm (4.4-10.8) 06/27/18 07:14 RBC 3.39 m/cumm (4.50-6.00) L 06/27/18 07:14 Hgb 10.3 g/dL (13.5-17.5) L 06/27/18 07:14 Hct 32.8 % (40.0-50.0) L 06/27/18 07:14 MCV 96.8 fL (80-95) H 06/27/18 07:14 MCH 30.4 pg (27.0-33.0) 06/27/18 07:14 MCHC 31.4 g/dL (32.0-36.0) L 06/27/18 07:14 RDW 13.9 % (11.8-14.1) 06/27/18 07:14 Plt Count 181 x1000/uL (130-400) 06/27/18 07:14 MPV 9.2 fL (8.0-11.0) 06/27/18 07:14 Immature Gran % 0.3 06/27/18 07:14 Neutrophils % 89.9 06/27/18 07:14 Lymphocytes % 4.6 06/27/18 07:14 Monocytes % 5.1 06/27/18 07:14 Eosinophils % 0.0 06/27/18 07:14 Basophils % 0.1 06/27/18 07:14 Absolute Neutrophils 6.69 k/cumm (1.2-6.7) 06/27/18 07:14 Absolute Lymphocytes 0.34 k/cumm (1.2-3.4) L 06/27/18 07:14 Absolute Monocytes 0.38 k/cumm (0.11-0.7) 06/27/18 07:14 Absolute Eosinophils 0.00 k/cumm (0.0-0.7) 06/27/18 07:14 Absolute Basophils 0.01 k/cumm (0.0-0.2) 06/27/18 07:14 Sample Site Left radial 06/29/18 12:59 pCO2 52 mmHg (34-47) H 06/29/18 12:59 pO2 75 mmHg (83-108) L 06/29/18 12:59 O2 Saturation 96 % (94-98) 06/29/18 12:59 ABG pH 7.46 (7.35-7.45) H 06/29/18 12:59 ABG HCO3 37 mmol/L (22-28) H 06/29/18 12:59 ABG Total CO2 34 mmol/L (22-29) H 06/29/18 12:59 ABG Base Excess > 10.0 mmol/L (-3-3) H 06/29/18 12:59 FiO2 28 % 06/29/18 12:59 Sodium 144 mmol/L (136-145) 06/30/18 06:00 Potassium 3.8 mmol/L (3.5-5.1) 06/30/18 06:00 Chloride 104 mmol/L (98-107) 06/30/18 06:00 Carbon Dioxide 37.2 mmol/L (21.0-32.0) H 06/30/18 06:00 Anion Gap 2.8 mmol/L (3-11) L 06/30/18 06:00 BUN 18 mg/dL (7-18) 06/30/18 06:00 Creatinine 0.69 mg/dL (0.70-1.30) L 06/30/18 06:00 Estimated GFR/1.73 m2 >= 60.00 (mL/min/1.73m2) 06/30/18 06:00 Glucose 100 mg/dL (70-100) 06/30/18 06:00 Lactate 0.7 mmol/l (0.6-1.4) 06/25/18 07:15 Calcium 8.4 mg/dL (8.5-10.1) L 06/30/18 06:00 Magnesium 2.5 mg/dL (1.8-2.4) H 06/30/18 06:00 Total Bilirubin 0.4 mg/dL (0.2-1.0) 06/23/18 12:54 AST 28 U/L (15-37) 06/23/18 12:54 ALT 33 U/L (12-78) 06/23/18 12:54 Alkaline Phosphatase 72 U/L (46-116) 06/23/18 12:54 Troponin I < 0.02 ng/mL (0.00-0.06) 06/23/18 12:54 NT-Pro-B Natriuret Pep 427 pg/mL (-299) H 06/23/18 12:54 Total Protein 5.9 g/dL (6.4-8.2) L 06/23/18 12:54 Albumin 3.1 g/dL (3.4-5.0) L 06/23/18 12:54 Urine Color Yellow (Yellow) 06/23/18 16:16 Urine Clarity Clear 06/23/18 16:16 Urine pH 6.0 (5-8) 06/23/18 16:16 Ur Specific [place] 1.010 (1.005-1.025) 06/23/18 16:16 Urine Protein Negative mg/dL (Negative) 06/23/18 16:16 Urine Ketones Trace mg/dL (Negative) H 06/23/18 16:16 Urine Blood Negative (Negative) 06/23/18 16:16 Urine Nitrite Negative (Negative) 06/23/18 16:16 Urine Bilirubin Negative (Negative) 06/23/18 16:16 Urine Urobilinogen 0.2 EU/dL (Up TO 0.2) 06/23/18 16:16 Ur Leukocyte Esterase Negative (Negative) 06/23/18 16:16 Urine Glucose Negative mg/dL (Negative) 06/23/18 16:16 Vancomycin Trough 18.4 ug/mL (10.0-20.0) 06/28/18 17:10
[2018-06-30] MEDS: Melatonin 3 MG TAB PO (20:22)
[2018-06-30] MEDS: ROSUVASTATIN 20 MG TAB 40 MG PO (20:22)
[2018-06-30] MEDS: Polyethylene Glycol 3350 17 GM PACKET PO (20:29)
[2018-07-01] VITALS (25 sets, daily range): BP systolic 157–184; BP diastolic 69–82; PULSE 41–87; RESP 2–24; TEMP 36.3–37.4; O2SAT 94–99
[2018-07-01] MEDS: Levalbuterol 0.63 MG/3 ML UPD VIAL UPD ×6 (03:42→23:46)
[2018-07-01] MEDS: Budesonide 0.5 MG/2 ML UPD VIAL UPD ×2 (03:42→15:49)
[2018-07-01] MEDS: Ipratropium 0.5 MG/2.5 ML UPD VIAL UPD ×4 (05:20→23:47)
[2018-07-01] MEDS: methylPREDNISolone SUCC 40 MG VIAL IVP ×3 (05:21→21:24)
[2018-07-01 07:29] LABS: Abs Immature Grans 0.25 k/cumm (0.0-0.09); HGB 10.6 g/dL (13.5-17.5); Mean Corp. HGB Concentration 32.1 g/dL (32.0-36.0); Mean Corpuscular Hemoglobin 30.2 pg (27.0-33.0); Mean Platelet Volume 9.3 fL (8.0-11.0); Platelet Count 274 x1000/uL (130-400); RBC 3.51 m/cumm (4.50-6.00); RBC Distribution Width 13.6 % (11.8-14.1); White Blood Cell Count 9.98 k/cumm (4.4-10.8)
[2018-07-01 07:59] LABS: Absolute Neutrophil Count 8.48 k/cumm (1.2-6.7); Anion Gap 4.1 mmol/L (3-11); BUN 18 mg/dL (7-18); CO2 35.9 mmol/L (21.0-32.0); CREATININE 0.76 mg/dL (0.70-1.30); Calcium 8.3 mg/dL (8.5-10.1); Chloride 104 mmol/L (98-107); Glucose 115 mg/dL (70-100); Magnesium 2.3 mg/dL (1.8-2.4); Potassium 3.7 mmol/L (3.5-5.1); Sodium 144 mmol/L (136-145)
[2018-07-01 08:00] LABS: Acanthocytes 1+; Diff Comment Manual Differential; Polychromasia Present
[2018-07-01 08:01] LABS: Poikilocytes 1+
[2018-07-01] MEDS: Metoprolol CR 100 MG TABCR PO (08:28)
[2018-07-01] MEDS: guaiFENesin 600 MG TABCR 1200 MG PO ×2 (08:28→20:35)
[2018-07-01] MEDS: Pantoprazole 40 MG TABCR PO (08:28)
[2018-07-01] MEDS: Tamsulosin 0.4 MG CAPCR PO (08:28)
[2018-07-01] MEDS: Multivitamin TAB 1 TAB PO (08:28)
[2018-07-01] MEDS: amLODIPine 5 MG TAB PO (08:28)
[2018-07-01] MEDS: clonazePAM 1 MG TAB PO ×2 (08:28→20:36)
[2018-07-01] MEDS: Benzonatate 200 MG CAP PO ×3 (08:29→20:37)
[2018-07-01] MEDS: Lisinopril 10 MG TAB 20 MG PO (08:29)
[2018-07-01] MEDS: Clopidogrel 75 MG TAB PO (08:29)
[2018-07-01] MEDS: Rivaroxaban 10 MG TABLET 20 MG PO (08:29)
[2018-07-01] MEDS: Docusate Sodium 100 MG CAP PO ×2 (08:30→20:36)
[2018-07-01] MEDS: Normal Saline Flush 10 ML SYR IVP ×3 (10:52→20:39)
[2018-07-01] MEDS: Linezolid 600 MG TAB PO ×2 (10:52→21:23)
--- NOTE | 2018-07-01 12:15 | DI.RAD_ITS ---
SYMPTOMS/DIAGNOSIS: NEW CRACKLES, ? CHF PORTABLE AP CHEST: The heart is not enlarged. The lungs are clear and well expanded. CONCLUSION: No evidence of acute process.
--- NOTE | 2018-07-01 12:29 | PGE_ITS ---
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 s/p 7 days of vancomycin (sensitive to it, but slow to progress) and 6 days of levofloxacin (to which his MRSA was resistant). Continues to require intermittent BiPAP/high flow NC. On discharge, will need trilogy. Continue solumedrol 40 mg IV Q 8 hrs, symbicort, pulmicort, prn + scheduled xopenex, scheduled atrovent, antitussives. Javier requires the usage of non-invasive ventilation via the Trilogy due to chronic respiratory failure secondary to Severe COPD. An initial blood gas upon admission was refused by the patient due to a prior bad experience. High flow nasal cannula and NIV therapy via the Amy Draeger was initiated alternating between 2 modes of therapy per patients comfort. The patient finally agreed to ABG on 06/29/18, which revealed hypercapnia with PCO2 elevated to 52.3 mmHg. Currently, the patient continues to have periods of shortness of breath, lethargy, weakness, and is currently unable to meet with demands of ADLs. NIV is medically necessary for this patient upon discharge as it will allow for a variety of settings that will better meet his current disease progression. The Trilogy will allow for 2 different NIV prescriptions, one to utilize while sleeping (AVAPS AE) and one to use during the wakefulness/daytime (MPV-SIP). AVAPS-AE will assist the patient with meeting his demands of tidal volume and minute ventilation by allowing for the following: longer expiratory times to reduce the effects of flow limitations and air trapping, decrease his work of breathing, increase his oxygenation, improve his overall quality of life. Given his current disease and his worsening respiratory status, standard bi-level therapy will not meet his ventilatory needs. It is medically necessary that he use NIV therapy via The trilogy to 24 hours daily (AVAPS-AE/MPV). Failure to receive NIV ventilation may result in serious medical consequences. The Trilogy can be utilized to support his current needs through NIV but can also be transitioned to Invasive if there is a need in the future as the patient has a prior medical history of a tracheostomy. The trilogy also operates on a battery which will allow him to use the therapy during power outages or medical appointments as a lapse in usage or an interruption in therapy may lead to life threatening consequences. (2) Acute on chronic respiratory failure with hypoxia and hypercapnia: Current visit: Yes Status: Acute As above (3) Bronchiectasis: Current visit: Yes Status: Chronic As above (4) Atrial fibrillation: Current visit: Yes Status: Chronic Continue beta-lizet, anticoagulation with rivaroxaban. HR very stable overnight -d/c tele. (5) Bradycardia: Current visit: Yes Status: Resolved Not noted on tele overnight. D/c tele. (6) Coronary artery disease: Current visit: Yes Status: Chronic Appears quiescent. Patient will be maintained on his chronic cardiac regimen. No ACS per EKG. (7) BPH (benign prostatic hyperplasia): Current visit: Yes Status: Chronic Continue alpha-lizet. (8) DVT prophylaxis: Current visit: Yes Status: Chronic On chronic anticoagulation with xarelto. Continue PPI therapy for GI prophylaxis as well. (9) Discharge planning issues: Current visit: Yes Status: Acute No options for inpatient pulmonary rehab in our area, per case management. Refuses home health PT. Will need trilogy - see above Ultimately, awaiting a lung transplant. Full code. Improving slowly - will likely be discharged home on Wednesday. *Transfer to a tertiary care facility would not provide any additional treatment benefit to this patient as he is already improving. Subjective Interval history since last seen: Mr Bautista says today is a better today. He got good sleep, is able to speak in longer sentences. He denies dizziness, chest pain, shortness of breath, nausea, vomiting. He would like to go back on the BiPAP after lunch. Exam Narrative Exam Narrative: General: very pleasant middle aged male, sitting up in bed, appears anxious receiving breathing treatment; speaking in longer sentences, faster HEENT: EOMI, MMM Heart: RRR, distant heart sounds, no m/r/g Lungs: I am not sure that I am hearing any wheezing today at all; very diminished breath sounds B GI: Abdomen is soft, mildly distended, nontender, + BS Extremities: no edema/clubbing/cyanosis Objective Objective Clinical Data: Abnormal lab results 07/01/18 07/01/18 Range/Units 06:40 06:40 RBC 3.51 L (4.50-6.00) m/cumm Hgb 10.6 L (13.5-17.5) g/dL Hct 33.0 L (40.0-50.0) % Absolute Neutrophils 8.48 H (1.2-6.7) k/cumm Absolute Lymphocytes 0.70 L (1.2-3.4) k/cumm Carbon Dioxide 35.9 H (21.0-32.0) mmol/L Glucose 115 H (70-100) mg/dL Calcium 8.3 L (8.5-10.1) mg/dL Vital Signs Temperature 36.3 C L 07/01/18 07:32 Temperature Source Tympanic 07/01/18 07:32 Pulse 83 07/01/18 12:03 Pulse Rhythm Regular 07/01/18 08:00 Pulse 81 06/23/18 16:00 Respiratory Rate 24 07/01/18 12:01 Respiratory Effort 07/01/18 08:00 Respiratory Depth Deep 07/01/18 08:00 Respiratory Pattern Normal 07/01/18 08:00 Blood Pressure 184/69 H 07/01/18 07:32 Blood Pressure Mean 68 06/23/18 15:47 Blood Pressure Position Sitting 06/23/18 11:40 Pulse Oximetry 97 07/01/18 12:03 Oxygen Delivery Method Hi Flow System 07/01/18 12:01 Oxygen Flow Rate 45 07/01/18 12:01 Fraction of Inspired Oxygen (FIO2) 28 07/01/18 12:01 Pain Level 0 07/01/18 03:30 Comment 07/01/18 03:30 Intake & Output 06/30/18 07/01/18 07/01/18 23:59 11:59 23:59 Intake Total 1080 / 1380 850 / 850 Output Total 525 / 525 Balance 1080 / -420 325 / 325 Weight 63.2 kg Intake: IV 330 / 630 300 / 300 Oral 750 / 750 550 / 550 Output: Urine 525 / 525 Other: Urine Color Yellow Urine Appearance Clear Clear Comment pt voiding independently in the toilet Stool Size Small Stool Characteristics Formed Brown Voiding Methods Toilet Laboratory Results WBC 9.98 k/cumm (4.4-10.8) 07/01/18 06:40 RBC 3.51 m/cumm (4.50-6.00) L 07/01/18 06:40 Hgb 10.6 g/dL (13.5-17.5) L 07/01/18 06:40 Hct 33.0 % (40.0-50.0) L 07/01/18 06:40 MCV 94.0 fL (80-95) 07/01/18 06:40 MCH 30.2 pg (27.0-33.0) 07/01/18 06:40 MCHC 32.1 g/dL (32.0-36.0) 07/01/18 06:40 RDW 13.6 % (11.8-14.1) 07/01/18 06:40 Plt Count 274 x1000/uL (130-400) 07/01/18 06:40 MPV 9.3 fL (8.0-11.0) 07/01/18 06:40 Immature Gran % See Differential 07/01/18 06:40 Neutrophils % 84.0 07/01/18 06:40 Band Neutrophils % 1.0 % 07/01/18 06:40 Lymphocytes % 7.0 07/01/18 06:40 Monocytes % 7.0 07/01/18 06:40 Eosinophils % 0.0 07/01/18 06:40 Basophils % 0.0 07/01/18 06:40 Metamyelocytes % 1.0 % 07/01/18 06:40 Absolute Neutrophils 8.48 k/cumm (1.2-6.7) H 07/01/18 06:40 Absolute Lymphocytes 0.70 k/cumm (1.2-3.4) L 07/01/18 06:40 Absolute Monocytes 0.70 k/cumm (0.11-0.7) 07/01/18 06:40 Absolute Eosinophils 0.00 k/cumm (0.0-0.7) 07/01/18 06:40 Absolute Basophils 0.00 k/cumm (0.0-0.2) 07/01/18 06:40 Differential Comment Manual differential 07/01/18 06:40 RBC Morphology See below 07/01/18 06:40 Polychromasia Present 07/01/18 06:40 Poikilocytosis 1+ 07/01/18 06:40 Acanthocytes (Spur) 1+ 07/01/18 06:40 Sample Site Left radial 06/29/18 12:59 pCO2 52 mmHg (34-47) H 06/29/18 12:59 pO2 75 mmHg (83-108) L 06/29/18 12:59 O2 Saturation 96 % (94-98) 06/29/18 12:59 ABG pH 7.46 (7.35-7.45) H 06/29/18 12:59 ABG HCO3 37 mmol/L (22-28) H 06/29/18 12:59 ABG Total CO2 34 mmol/L (22-29) H 06/29/18 12:59 ABG Base Excess > 10.0 mmol/L (-3-3) H 06/29/18 12:59 FiO2 28 % 06/29/18 12:59 Sodium 144 mmol/L (136-145) 07/01/18 06:40 Potassium 3.7 mmol/L (3.5-5.1) 07/01/18 06:40 Chloride 104 mmol/L (98-107) 07/01/18 06:40 Carbon Dioxide 35.9 mmol/L (21.0-32.0) H 07/01/18 06:40 Anion Gap 4.1 mmol/L (3-11) 07/01/18 06:40 BUN 18 mg/dL (7-18) 07/01/18 06:40 Creatinine 0.76 mg/dL (0.70-1.30) 07/01/18 06:40 Estimated GFR/1.73 m2 >= 60.00 (mL/min/1.73m2) 07/01/18 06:40 Glucose 115 mg/dL (70-100) H 07/01/18 06:40 Lactate 0.7 mmol/l (0.6-1.4) 06/25/18 07:15 Calcium 8.3 mg/dL (8.5-10.1) L 07/01/18 06:40 Magnesium 2.3 mg/dL (1.8-2.4) 07/01/18 06:40 Total Bilirubin 0.4 mg/dL (0.2-1.0) 06/23/18 12:54 AST 28 U/L (15-37) 06/23/18 12:54 ALT 33 U/L (12-78) 06/23/18 12:54 Alkaline Phosphatase 72 U/L (46-116) 06/23/18 12:54 Troponin I < 0.02 ng/mL (0.00-0.06) 06/23/18 12:54 NT-Pro-B Natriuret Pep 427 pg/mL (-299) H 06/23/18 12:54 Total Protein 5.9 g/dL (6.4-8.2) L 06/23/18 12:54 Albumin 3.1 g/dL (3.4-5.0) L 06/23/18 12:54 Urine Color Yellow (Yellow) 06/23/18 16:16 Urine Clarity Clear 06/23/18 16:16 Urine pH 6.0 (5-8) 06/23/18 16:16 Ur Specific [place] 1.010 (1.005-1.025) 06/23/18 16:16 Urine Protein Negative mg/dL (Negative) 06/23/18 16:16 Urine Ketones Trace mg/dL (Negative) H 06/23/18 16:16 Urine Blood Negative (Negative) 06/23/18 16:16 Urine Nitrite Negative (Negative) 06/23/18 16:16 Urine Bilirubin Negative (Negative) 06/23/18 16:16 Urine Urobilinogen 0.2 EU/dL (Up TO 0.2) 06/23/18 16:16 Ur Leukocyte Esterase Negative (Negative) 06/23/18 16:16 Urine Glucose Negative mg/dL (Negative) 06/23/18 16:16 Vancomycin Trough 18.4 ug/mL (10.0-20.0) 06/28/18 17:10
--- NOTE | 2018-07-01 13:55 | MERGE_ITS ---
*[facility]* *[facility]* [address] [place] [address] Date of study: 07/01/2018 Transthoracic Echocardiography M-mode, complete 2D, complete spectral Doppler, and color Doppler *STUDY CONCLUSIONS* Summary: 1. Left ventricle: The cavity size was normal. Wall thickness was normal. Systolic function was normal. The estimated ejection fraction was 60-65%. Wall motion was normal; there were no regional wall motion abnormalities. Findings consistent with diastolic dysfunction. Average of medial and lateral annulus E velocity: 0.077m/sec. Ratio of mitral valve peak E velocity to average of medial and lateral annulus peak E velocity: 13. 2. Right ventricle: The cavity size was normal. Wall thickness was normal. Systolic function was normal. 3. Pulmonary arteries: Pulmonary systolic pressure was increased, in the range of 50mm Hg to 55mm Hg. *PATIENT PRESENTATION* Height: 167.6cm ((66in) ) S/D Pressure: 172 / 82 Weight: 63kg ((138.7lb) ) BSA: 1.72m^2 Test start time: 02:00 PM. Test stop time: 03:00 PM. CONSULTING Marvin Hallman PERFORMING Unknown PERFORMING [facility] RECOVERY UNIT OPERATOR Karine Sabillon RT (R)(CT), [facility] Md Marcelino FRANCISCO ORDERING Lisa Martino Yelena A *PROCEDURE DATA* Procedure information: The patient was identified by two identifiers. This study was interpreted by [facility]. Pertinent images and digital data are archived for permanent storage and are available for subsequent review. Comparison was made to the study of 03/09/2016. Study status: Routine. Transthoracic echocardiography. M-mode, complete 2D, complete spectral Doppler, and color Doppler. A Transthoracic Echocardiogram was performed. Scanning was performed from the parasternal, apical, subcostal, and suprasternal notch acoustic windows. Images were obtained using an [id number] cardiac ultrasound machine. Image quality was adequate. Study completion: The patient tolerated the procedure well. There were no complications. History: PMH: Chronic hypoxic respiratory failure, r/o pulm HTN. *CARDIAC ANATOMY* Left ventricle: The cavity size was normal. Wall thickness was normal. Systolic function was normal. The estimated ejection fraction was 60-65%. Wall motion was normal; there were no regional wall motion abnormalities. Findings consistent with diastolic dysfunction. Aortic valve: Trileaflet; normal thickness leaflets. Mobility was not restricted. Doppler: Transvalvular velocity was within the normal range. There was no stenosis. There was no significant regurgitation. VTI ratio of LVOT to aortic valve: 0.69. Valve area (VTI): 2.4cm^2. Indexed valve area (VTI): 1.4cm^2/m^2. Peak velocity ratio of LVOT to aortic valve: 0.58. Valve area (Vmax): 2cm^2. Indexed valve area (Vmax): 1.1cm^2/m^2. Mean velocity ratio of LVOT to aortic valve: 0.69. Valve area (Vmean): 2.4cm^2. Indexed valve area (Vmean): 1.4cm^2/m^2. Mean gradient (S): 4.1mm Hg. Peak gradient (S): 9.6mm Hg. Aorta: Aortic root: The aortic root was normal in size. Ascending aorta: The ascending aorta was normal in size. Mitral valve: Structurally normal valve. Mobility was not restricted. Doppler: Transvalvular velocity was within the normal range. There was no evidence for stenosis. There was trivial regurgitation. Valve area by pressure half-time: 4.7cm^2. Indexed valve area by pressure half-time: 2.7cm^2/m^2. Peak gradient (D): 4.2mm Hg. Left atrium: The atrium was normal in size. Right ventricle: The cavity size was normal. Wall thickness was normal. Systolic function was normal. Pulmonic valve: Structurally normal valve. The pulmonary valve appears to be grossly normal. Doppler: Transvalvular velocity was within the normal range. There was no evidence for stenosis. There was trivial regurgitation. Peak gradient (S): 5.1mm Hg. Tricuspid valve: Structurally normal valve. Doppler: Transvalvular velocity was within the normal range. There was no evidence for stenosis. There was trivial regurgitation. Pulmonary artery: Pulmonary systolic pressure was increased, in the range of 50mm Hg to 55mm Hg. Right atrium: The atrium was normal in size. Pericardium: There was no pericardial effusion. Systemic veins: Inferior vena cava: Well visualized. The vessel was patent and normal in size. The respirophasic diameter changes were in the normal range (greater than or equal to 50%). Baseline ECG: Normal sinus rhythm. Measurements Left ventricle Value Reference LV ID, ED, PLAX 4.3 cm 3.5 - 6.0 LV ID, ES, PLAX 2.4 cm 2.1 - 4.0 LV PW thickness, ED, PLAX 1.1 cm LV end-diastolic volume, 1-p A2C 78 ml LV ejection fraction, 1-p A2C 64 % LV end-diastolic volume, 1-p A4C 62 ml LV ejection fraction, 1-p A4C 61 % LV e', lateral 0.083 m/sec LV E/e', lateral 12 LV e', medial 0.071 m/sec LV E/e', medial 14 LV e', average 0.077 m/sec LV E/e', average 13 Ventricular septum Value Reference IVS thickness, ED, PLAX 0.8 cm LVOT Value Reference LVOT ID, A-P 2.1 cm LVOT area 3.4 cm^2 LVOT peak velocity, S 0.9 m/sec LVOT mean velocity, S 0.65 m/sec LVOT VTI, S 19.4 cm LVOT peak gradient, S 3.2 mm Hg LVOT mean gradient, S 1.9 mm Hg Stroke volume (SV), LVOT DP 66 ml Stroke index (SV/bsa), LVOT DP 39 ml/m^2 Aortic valve Value Reference Aortic valve peak velocity, S 1.5 m/sec Aortic valve mean velocity, S 0.94 m/sec Aortic valve VTI, S 28.0 cm Aortic mean gradient, S 4.1 mm Hg Aortic peak gradient, S 9.6 mm Hg VTI ratio, LVOT/AV 0.69 Aortic valve area, VTI 2.4 cm^2 Velocity ratio, peak, LVOT/AV 0.58 Aortic valve area, peak velocity 2 cm^2 Velocity ratio, mean, LVOT/AV 0.69 Aortic valve area, mean velocity 2.4 cm^2 Aortic valve area/bsa, mean velocity 1.4 cm^2/m^2 Aorta Value Reference Aortic root ID, ED 3.3 cm Left atrium Value Reference LA ID, A-P, ES 3.3 cm LA ID/bsa, A-P 1.9 cm/m^2 <=2.2 LA area, ES, A4C 12.4 cm^2 8.8 - 23.4 LA area, ES, A2C 16 cm^2 LA volume/bsa, ES, 1-p A4C 19 ml/m^2 LA volume, ES, 2-p 39 ml LA volume/bsa, ES, 2-p 23 ml/m^2 LA/aortic root ratio 1.01 Mitral valve Value Reference Mitral E-wave peak velocity 1.02 m/sec Mitral A-wave peak velocity 0.79 m/sec Mitral deceleration time 163 ms 150 - 230 Mitral pressure half-time 47 ms Mitral peak gradient, D 4.2 mm Hg Mitral E/A ratio, peak 1.29 Mitral valve area, PHT, DP 4.7 cm^2 Tricuspid valve Value Reference Tricuspid regurg peak velocity 3.5 m/sec Tricuspid peak RV-RA gradient 49.1 mm Hg Right atrium Value Reference RA area, ES, A4C 9.7 cm^2 8.3 - 19.5 Pulmonic valve Value Reference Pulmonic peak gradient, S 5.1 mm Hg Legend: (L) and (H) jese values outside specified reference range. I have personally reviewed the images and have reviewed and edited the reported findings. Electronically signed by Unruly Weller 07/01/2018 16:28
--- NOTE | 2018-07-01 15:10 | CHAPLAIN ---
Javier was pleasant and easily engaged in conversation when I visited. He told me about his new membership into the [employer] in [place], [place]. He began attending after his became a member, and said he has found a good spiritual home there. He enjoys his interaction with the proj mgr, and his Mackenzie. has been in to visit Javier here. Javier said he is grateful that he has been led back to the place of the [facility].
[2018-07-01] MEDS: Furosemide 20 MG TAB PO (15:15)
--- NOTE | 2018-07-01 18:40 | PT.INPN ---
Date of service: 07/01/18 Time of Service: 11:19 PT Notes Inpatient Physical Therapy Progress Note Date: 07/01/2018 Dates of Service: 06/25/18 through 07/01/18 Referring Doctor: Lisa Martino MD PT Orders: PT CONSULT: Evaluate and Treat Precautions: Standard Subjective: Patient states that he slept better last night than the previous night. He reports that the congestion in his chest has very much decreased right now, states that he brought a lot of stuff which has helped significantly. Objective: Patient lying supine with head of bed elevated with continuous high airflow delivered via nasal cannula Mental Status: Alert and oriented x3 Pain: 0/10 VS: 172/78 mmHg, 86 bpm, 21 cpm, 94% on high flow via NC ROM: Right Upper Extremity: Within functional limits Left Upper Extremity: Within functional limits Right Lower Extremity:Within functional limits Left Lower Extremity: Within functional limits Strength: Right Upper Extremity: 4Plus out of 5 globally on initial evaluation Left Upper Extremity: 4Plus out of 5 globally on initial evaluation Right Lower Extremity: 4Plus out of 5 globally on initial evaluation Left Lower Extremity: 4Plus out of 5 globally on initial evaluation BED MOBILITY/TRANSFERS Rolling independent Supine to sit supervision Sit to supine supervision Sit to stand NT. Nursing staff stated that patient was able to tolerate walking to the bathroom via the level airflow oxygen supplementation via NC and required very little assist. Stand to sit NT Bed to chair NT Chair to bed NT Gait: NT. ASSESSMENT: Patient is a 62-year-old male with a history of COPD admitted with acute COPD exacerbation. He has been put on hold on 06/30/2018 due to significant desaturation event, reports of palpitations, and bradycardia. Patient ultimately awaiting lung transplant. patient presents with the following impairment level findings: Desaturation with activity, activity intolerance, ambulation intolerance, assist needed for transfers and gait. He will benefit from skilled therapy intervention in order to remedy their functional limitations and restore patient to a more appropriate and stable functional level. Impairments are contributing to the following functional limitations: AMPAC score 46.58% Patient is assessed as a moderate complexity initial evaluation 971 based on the following: History: see above Examination: see above Presentation: Evolving Decision Making: Moderate based on the AMPAC at 46.58% Goals: Goals X1 week 1. Supine-Sit Independent and restored to baseline 2. Sit-Supine Independent and restored to baseline 3. Sit-Stand Independent and restored to baseline 4. Stand-Sit Independent and restored to baseline 5. Bed-Chair Independent and restored to baseline 6. Gait Supervision with 2WW up to 50 feet and restored to baseline Plan of Care/Treatment Plan: 1-2x/day, 7 days/week x 1 week. Plan of care has been reviewed with the SENIOR WEB DEVELOPER providing the service under Physical Therapy direction. Initiate Physical Therapy intervention for strengthening, bed mobility, transfers, gait, stairs, balance training, use of assistive device. DISCHARGE RECOMMENDATIONS: Patient will benefit from home health physical therapy services in order to maximize activity tolerance, evaluate home safety, and reduce fall risk. TREATMENT CODE/TIME: 60570 16 minutes beginning at 11:19 AM.
--- NOTE | 2018-07-01 18:58 | PDOC.CMPRO ---
Care Management Progress Note S/O: Javier continues to be closely monitored. Dr. Martino ordered a Palliative Care consult for him today. He also switched to oral Zyvok which MD reports he will remain on until Wednesday. CM will continue to follow. A: 62 year old male admitted to [facility] 06/23/18 for Acute COPD Exacerbation, Hypotension P: Javier will return home when ready per MD. He will continue to be evaluated and work with PT; CM will continue to follow and support discharge planning considerations. He will [facility] with [facility], resume home O2, with new orders for Trilogy unit and plan of care as prescribed. Javier will transport via private vehicle with his , Claire.
--- NOTE | 2018-07-01 19:18 | CMPROGNOTE_ITS ---
Care Management Progress Note S/O: Javier continues to be closely monitored. Dr. Martino ordered a Palliative Care consult for him today. He also switched to oral Zyvok which MD reports he will remain on until Wednesday. CM will continue to follow. A: 62 year old male admitted to [facility] 06/23/18 for Acute COPD Exacerbation, Hypotension P: Javier will return home when ready per MD. He will continue to be evaluated and work with PT; CM will continue to follow and support discharge planning considerations. He will follow up with his [facility], resume home O2, with new orders for Trilogy unit and plan of care as prescribed. Javier will transport via private vehicle with his , Claire.
[2018-07-01] MEDS: ROSUVASTATIN 20 MG TAB 40 MG PO (20:36)
[2018-07-01] MEDS: Budesonide/Formoterol 160/4.5 6 GM 60 PUFF INH IH (20:39)
[2018-07-01] MEDS: Melatonin 3 MG TAB PO (21:23)
[2018-07-02] VITALS (13 sets, daily range): BP systolic 147–174; BP diastolic 74–92; PULSE 69–85; RESP 8–24; TEMP 36.2–37.2; O2SAT 94–99
[2018-07-02] MEDS: Levalbuterol 0.63 MG/3 ML UPD VIAL UPD ×4 (04:22→20:41)
[2018-07-02] MEDS: Budesonide 0.5 MG/2 ML UPD VIAL UPD ×2 (05:07→20:41)
[2018-07-02] MEDS: Normal Saline Flush 10 ML SYR IVP ×4 (05:28→21:08)
[2018-07-02] MEDS: methylPREDNISolone SUCC 40 MG VIAL IVP ×3 (05:28→21:08)
[2018-07-02] MEDS: Ipratropium 0.5 MG/2.5 ML UPD VIAL UPD ×3 (05:29→19:19)
[2018-07-02 07:27] LABS: Abs Immature Grans 0.33 k/cumm (0.0-0.09); HCT 34.9 % (40.0-50.0); Mean Corp. HGB Concentration 31.5 g/dL (32.0-36.0); Mean Corpuscular Hemoglobin 29.7 pg (27.0-33.0); Mean Corpuscular Volume 94.3 fL (80-95); Mean Platelet Volume 9.6 fL (8.0-11.0); Platelet Count 302 x1000/uL (130-400); RBC Distribution Width 13.7 % (11.8-14.1); White Blood Cell Count 11.64 k/cumm (4.4-10.8)
[2018-07-02 07:38] LABS: Anion Gap 3.4 mmol/L (3-11); BUN 22 mg/dL (7-18); CO2 36.6 mmol/L (21.0-32.0); CREATININE 0.84 mg/dL (0.70-1.30); Calcium 8.3 mg/dL (8.5-10.1); Chloride 105 mmol/L (98-107); Glucose 120 mg/dL (70-100); Magnesium 2.4 mg/dL (1.8-2.4); Potassium 3.7 mmol/L (3.5-5.1); Sodium 145 mmol/L (136-145)
[2018-07-02] MEDS: Budesonide/Formoterol 160/4.5 6 GM 60 PUFF INH IH (07:48)
[2018-07-02 08:00] LABS: Absolute Lymphocyte Count 1.28 k/cumm (1.2-3.4); Absolute Monocyte Count 1.05 k/cumm (0.11-0.7); Atypical Lymphocytes % 3
[2018-07-02 08:01] LABS: Anisocytosis 2+; Diff Comment Manual Differential; Other Cells 0; Promyelocytes % 0 %
[2018-07-02 08:02] LABS: Polychromasia Present
[2018-07-02 08:05] LABS: Poikilocytes 2+
[2018-07-02] MEDS: clonazePAM 1 MG TAB PO ×2 (08:32→20:40)
[2018-07-02] MEDS: Docusate Sodium 100 MG CAP PO (08:32)
[2018-07-02] MEDS: Clopidogrel 75 MG TAB PO (08:32)
[2018-07-02] MEDS: Rivaroxaban 10 MG TABLET 20 MG PO (08:33)
[2018-07-02] MEDS: guaiFENesin 600 MG TABCR 1200 MG PO ×2 (08:33→20:40)
[2018-07-02] MEDS: amLODIPine 5 MG TAB PO (08:33)
[2018-07-02] MEDS: Metoprolol CR 100 MG TABCR PO (08:33)
[2018-07-02] MEDS: Benzonatate 200 MG CAP PO ×3 (08:34→20:40)
[2018-07-02] MEDS: Lisinopril 10 MG TAB 20 MG PO (08:34)
[2018-07-02] MEDS: Multivitamin TAB 1 TAB PO (08:35)
[2018-07-02] MEDS: Tamsulosin 0.4 MG CAPCR PO (08:35)
[2018-07-02] MEDS: Pantoprazole 40 MG TABCR PO (08:36)
[2018-07-02] MEDS: LORazepam 1 MG TAB PO (08:39)
[2018-07-02] MEDS: Citalopram 20 MG TAB PO (10:20)
[2018-07-02] MEDS: POTASSIUM CHLORIDE 20 MEQ, POTASSIUM CHLORIDE 10 MEQ 30 MEQ PO (12:00)
--- NOTE | 2018-07-02 12:13 | PT.INNT ---
Date of service: 07/02/18 Time of Service: 12:00 PT Notes no treatment today. Pt was educated on new breathing system, Trilogy unit. I will check in with him tomorrow AM.
--- NOTE | 2018-07-02 17:59 | PDOC.CMPRO ---
Care Management Progress Note S/O: Javier is very pleased with the Trilegy machine that was delivered today. [facility] spent time with him teachng about the machine and how to properly use it. He feels this will greatly improve the quality of his life. A: 62 year old male admitted to [facility] 06/23/18 for Acute COPD Exacerbation, Hypotension P: Javier will return home when ready per MD. He will follow up with his [facility], resume home O2, with new orders for Trilogy unit and plan of care as prescribed. Javier will transport via private vehicle with his , Claire.
--- NOTE | 2018-07-02 18:00 | PGE_ITS ---
Date of Service Date of service: 07/02/18 Time of Service: 17:57 Assessment and Plan (1) COPD exacerbation: Current visit: Yes Status: Chronic Evidence of acute exacerbation of underlying chronic obstructive pulmonary disease. Patient is oxygen dependent at baseline and with significant underlying disease, with very little reserve despite relatively young age. Currently with reported worsening dyspnea, cough, and fever, but with negative appearance on chest x-ray. Influenza, Urinalysis, and Blood Cultures negative. Sputum Cultures with evidence of MRSA. Patient was also significantly hypotensive at time of admission (Systolic in the 60's). Suspect potential pulmonary source - patient underwent treatment with a 7 day course of Vancomycin, then 3 days of Linezolid (also with 6 days of Levofloxacin initially). Also on nebs - due to reported intolence, will ensure Xopenex instead. High-dose IV steroids and inhaled budesonide, Ipratropium, and combination IGC/LABA as well. Now utilizing Trilogy. Appears very slowly improving. (2) Atrial fibrillation: Current visit: Yes Status: Chronic Continue beta-lizet, anticoagulation with rivaroxaban. (3) Coronary artery disease: Current visit: Yes Status: Chronic Appears quiescent. Patient will be maintained on his chronic cardiac regimen consisting of BB, RADHA-I, high potency statin, and Clopidogrel. (4) BPH (benign prostatic hyperplasia): Current visit: Yes Status: Chronic Continue alpha-lizet. (5) DVT prophylaxis: Current visit: Yes Status: Chronic On chronic anticoagulation. Continue PPI therapy for GI prophylaxis as well. Subjective Interval history since last seen: Very pleasant 62-year-old man with a prior medical history significant for COPD on home oxygen therapy, admitted from [facility] ED with acute onset dyspnea and fevers. Mr. 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 Has been trached in the past for this, and is currently on a transplant list per verbal history. He also reported an intolerance of albuterol due to severe tachycardia/Afib. He presented to the ED with complaints of onset of dyspnea overnight that was worse than his baseline, along with a fever documented at home as per his . Workup in the emergency room was notable for a lack of fever, chest x-ray that showed no acute infiltrates, and a CBC without leukocytosis. He was however noted to be significantly hypotensive. His lactate was minimally elevated, and his urinalysis was negative for any evidence of infection. He was referred for admission for further evaluation and treatment. Since admission the patient has made very slow progress despite treatment. This morning Mr. Bautista reports improvement in his symptoms since admission, but not yet at baseline. He remains on nebs, antibiotics, and steroids. No overnight events reported. Remains afebrile. Exam Narrative Exam Narrative: General: Patient appears comfortable but anxious appearing, AAOX3, NAD Neck: Supple CV: Regular, mildly tachycardic, S1S2, No rubs, murmurs, or gallops. Pulmonary: Significantly decreased breath sounds diffusely with now minimal and improved wheezing noted, improved since last exam. Abdomen: + Bowel Sounds, soft, nontender, nondistended Vascular: No lower extremity edema Psych: Normal mood and affect. Objective Objective Clinical Data: Abnormal lab results 07/02/18 07/02/18 Range/Units 05:50 05:50 WBC 11.64 H (4.4-10.8) k/cumm RBC 3.70 L (4.50-6.00) m/cumm Hgb 11.0 L (13.5-17.5) g/dL Hct 34.9 L (40.0-50.0) % MCHC 31.5 L (32.0-36.0) g/dL Absolute Neutrophils 9.20 H (1.2-6.7) k/cumm Absolute Monocytes 1.05 H (0.11-0.7) k/cumm Carbon Dioxide 36.6 H (21.0-32.0) mmol/L BUN 22 H (7-18) mg/dL Glucose 120 H (70-100) mg/dL Calcium 8.3 L (8.5-10.1) mg/dL Vital Signs Temperature 36.7 C 07/02/18 15:25 Temperature Source Tympanic 07/02/18 15:25 Pulse 69 07/02/18 16:48 Pulse Rhythm Regular 07/02/18 15:17 Pulse 81 06/23/18 16:00 Respiratory Rate 15 07/02/18 16:48 Respiratory Effort Incrsd Work of Breathing 07/02/18 15:17 Respiratory Depth Normal 07/02/18 15:17 Respiratory Pattern Normal 07/02/18 15:17 Blood Pressure 147/87 H 07/02/18 15:25 Blood Pressure Mean 68 06/23/18 15:47 Blood Pressure Position Sitting 06/23/18 11:40 Pulse Oximetry 97 07/02/18 16:48 Oxygen Delivery Method Nasal Cannula 07/02/18 16:48 Oxygen Flow Rate 3 07/02/18 16:48 Fraction of Inspired Oxygen (FIO2) 30 07/02/18 05:44 Pain Level 0 07/02/18 07:20 Comment 07/01/18 03:30 Intake & Output 07/01/18 07/02/18 07/02/18 23:59 11:59 23:59 Intake Total 1130 / 1980 540 / 1030 490 / 1030 Output Total 450 / 450 Balance 1130 / 1455 90 / 580 490 / 580 Weight 61.8 kg Intake: IV Oral 1130 / 1680 540 / 1020 480 / 1020 Output: Urine 450 / 450 Other: Urine Color Yellow Comment pt voiding independently in the toilet Pt voiding ad annie in toilet. Urine not seen by nursing at this time. Pt denies sx. Stool Size Large Moderate Stool Characteristics Soft Soft Brown Formed Brown Voiding Methods Toilet Toilet Laboratory Results WBC 11.64 k/cumm (4.4-10.8) H 07/02/18 05:50 RBC 3.70 m/cumm (4.50-6.00) L 07/02/18 05:50 Hgb 11.0 g/dL (13.5-17.5) L 07/02/18 05:50 Hct 34.9 % (40.0-50.0) L 07/02/18 05:50 MCV 94.3 fL (80-95) 07/02/18 05:50 MCH 29.7 pg (27.0-33.0) 07/02/18 05:50 MCHC 31.5 g/dL (32.0-36.0) L 07/02/18 05:50 RDW 13.7 % (11.8-14.1) 07/02/18 05:50 Plt Count 302 x1000/uL (130-400) 07/02/18 05:50 MPV 9.6 fL (8.0-11.0) 07/02/18 05:50 Immature Gran % See Differential 07/02/18 05:50 Neutrophils % 79.0 07/02/18 05:50 Band Neutrophils % 1.0 % 07/01/18 06:40 Lymphocytes % 8.0 07/02/18 05:50 Atypical Lymphs % 3 07/02/18 05:50 Monocytes % 9.0 07/02/18 05:50 Eosinophils % 0.0 07/02/18 05:50 Basophils % 0.0 07/02/18 05:50 Metamyelocytes % 0.0 % 07/02/18 05:50 Myelocytes % 1.0 % 07/02/18 05:50 Promyelocytes % 0 % 07/02/18 05:50 Absolute Neutrophils 9.20 k/cumm (1.2-6.7) H 07/02/18 05:50 Absolute Lymphocytes 1.28 k/cumm (1.2-3.4) 07/02/18 05:50 Absolute Monocytes 1.05 k/cumm (0.11-0.7) H 07/02/18 05:50 Absolute Eosinophils 0.00 k/cumm (0.0-0.7) 07/02/18 05:50 Absolute Basophils 0.00 k/cumm (0.0-0.2) 07/02/18 05:50 Differential Comment Manual differential 07/02/18 05:50 Other Cell Type 0 07/02/18 05:50 RBC Morphology See below 07/02/18 05:50 Polychromasia Present 07/02/18 05:50 Poikilocytosis 2+ 07/02/18 05:50 Anisocytosis 2+ 07/02/18 05:50 Acanthocytes (Spur) 1+ 07/01/18 06:40 Sample Site Left radial 06/29/18 12:59 pCO2 52 mmHg (34-47) H 06/29/18 12:59 pO2 75 mmHg (83-108) L 06/29/18 12:59 O2 Saturation 96 % (94-98) 06/29/18 12:59 ABG pH 7.46 (7.35-7.45) H 06/29/18 12:59 ABG HCO3 37 mmol/L (22-28) H 06/29/18 12:59 ABG Total CO2 34 mmol/L (22-29) H 06/29/18 12:59 ABG Base Excess > 10.0 mmol/L (-3-3) H 06/29/18 12:59 FiO2 28 % 06/29/18 12:59 Sodium 145 mmol/L (136-145) 07/02/18 05:50 Potassium 3.7 mmol/L (3.5-5.1) 07/02/18 05:50 Chloride 105 mmol/L (98-107) 07/02/18 05:50 Carbon Dioxide 36.6 mmol/L (21.0-32.0) H 07/02/18 05:50 Anion Gap 3.4 mmol/L (3-11) 07/02/18 05:50 BUN 22 mg/dL (7-18) H 07/02/18 05:50 Creatinine 0.84 mg/dL (0.70-1.30) 07/02/18 05:50 Estimated GFR/1.73 m2 >= 60.00 (mL/min/1.73m2) 07/02/18 05:50 Glucose 120 mg/dL (70-100) H 07/02/18 05:50 Lactate 0.7 mmol/l (0.6-1.4) 06/25/18 07:15 Calcium 8.3 mg/dL (8.5-10.1) L 07/02/18 05:50 Magnesium 2.4 mg/dL (1.8-2.4) 07/02/18 05:50 Total Bilirubin 0.4 mg/dL (0.2-1.0) 06/23/18 12:54 AST 28 U/L (15-37) 06/23/18 12:54 ALT 33 U/L (12-78) 06/23/18 12:54 Alkaline Phosphatase 72 U/L (46-116) 06/23/18 12:54 Troponin I < 0.02 ng/mL (0.00-0.06) 06/23/18 12:54 NT-Pro-B Natriuret Pep 427 pg/mL (-299) H 06/23/18 12:54 Total Protein 5.9 g/dL (6.4-8.2) L 06/23/18 12:54 Albumin 3.1 g/dL (3.4-5.0) L 06/23/18 12:54 Urine Color Yellow (Yellow) 06/23/18 16:16 Urine Clarity Clear 06/23/18 16:16 Urine pH 6.0 (5-8) 06/23/18 16:16 Ur Specific [place] 1.010 (1.005-1.025) 06/23/18 16:16 Urine Protein Negative mg/dL (Negative) 06/23/18 16:16 Urine Ketones Trace mg/dL (Negative) H 06/23/18 16:16 Urine Blood Negative (Negative) 06/23/18 16:16 Urine Nitrite Negative (Negative) 06/23/18 16:16 Urine Bilirubin Negative (Negative) 06/23/18 16:16 Urine Urobilinogen 0.2 EU/dL (Up TO 0.2) 06/23/18 16:16 Ur Leukocyte Esterase Negative (Negative) 06/23/18 16:16 Urine Glucose Negative mg/dL (Negative) 06/23/18 16:16 Vancomycin Trough 18.4 ug/mL (10.0-20.0) 06/28/18 17:10
--- NOTE | 2018-07-02 18:03 | CMPROGNOTE_ITS ---
Care Management Progress Note S/O: Javier is very pleased with the Trilegy machine that was delivered today. Legal Service Specialist spent time with him teachng about the machine and how to properly use it. He feels this will greatly improve the quality of his life. A: 62 year old male admitted to [facility] 06/23/18 for Acute COPD Exacerbation, Hypotension P: Javier will return home when ready per MD. He will [facility], resume home O2, with new orders for Trilogy unit and plan of care as prescribed. Javier will transport via private vehicle with his , Claire.
--- NOTE | 2018-07-02 18:06 | RESPIRATORY ---
07/02/18-Indira Holt, RT with [facility] came today to set Pt up on home Triology Bipap unit. She trilaed the pt on three different connectors..Med full faced mask, Sm. Nasal bar and Sip n' Puff mouthpiece. Pt tolerated all well. For Bipap settings are as follows: AVAPS-AE, epap min 5, epap max 10, PS min 5, PS max 15, max PS total=20, VT 250, Breath Rate Auto on a passive circuit and 2.5 LPM bleed in. For Sip N' Puff or Recovery mode: MPV (Mouth Piece Ventilation) on passive circuit.PC 8 CM with 2.5 LPM bleed in.
[2018-07-02] MEDS: ROSUVASTATIN 20 MG TAB 40 MG PO (20:40)
[2018-07-02] MEDS: Melatonin 3 MG TAB PO (21:08)
[2018-07-03] VITALS (11 sets, daily range): BP systolic 141–156; BP diastolic 73–84; PULSE 62–76; RESP 1–20; TEMP 36.3–36.6; O2SAT 92–96
[2018-07-03] MEDS: methylPREDNISolone SUCC 40 MG VIAL IVP ×2 (06:40→18:11)
[2018-07-03] MEDS: Levalbuterol 0.63 MG/3 ML UPD VIAL UPD ×4 (07:33→19:56)
[2018-07-03] MEDS: Budesonide 0.5 MG/2 ML UPD VIAL UPD ×2 (07:40→19:57)
[2018-07-03 07:51] LABS: Abs Immature Grans 0.27 k/cumm (0.0-0.09); HCT 33.8 % (40.0-50.0); HGB 10.7 g/dL (13.5-17.5); Mean Corp. HGB Concentration 31.7 g/dL (32.0-36.0); Mean Corpuscular Hemoglobin 30.1 pg (27.0-33.0); Mean Corpuscular Volume 95.2 fL (80-95); Mean Platelet Volume 9.4 fL (8.0-11.0); Platelet Count 296 x1000/uL (130-400); RBC 3.55 m/cumm (4.50-6.00); RBC Distribution Width 13.8 % (11.8-14.1); White Blood Cell Count 12.92 k/cumm (4.4-10.8)
[2018-07-03 07:58] LABS: Anion Gap 1.7 mmol/L (3-11); BUN 25 mg/dL (7-18); CO2 35.3 mmol/L (21.0-32.0); CREATININE 0.72 mg/dL (0.70-1.30); Calcium 8.2 mg/dL (8.5-10.1); Chloride 108 mmol/L (98-107); Glucose 107 mg/dL (70-100); Magnesium 2.4 mg/dL (1.8-2.4); Potassium 4.3 mmol/L (3.5-5.1); Sodium 145 mmol/L (136-145)
[2018-07-03] MEDS: clonazePAM 1 MG TAB PO ×2 (08:18→19:57)
[2018-07-03] MEDS: Clopidogrel 75 MG TAB PO (08:18)
[2018-07-03] MEDS: Multivitamin TAB 1 TAB PO (08:18)
[2018-07-03] MEDS: Citalopram 20 MG TAB PO (08:18)
[2018-07-03] MEDS: Docusate Sodium 100 MG CAP PO ×2 (08:18→19:57)
[2018-07-03] MEDS: Rivaroxaban 10 MG TABLET 20 MG PO (08:19)
[2018-07-03] MEDS: Lisinopril 10 MG TAB 20 MG PO (08:19)
[2018-07-03] MEDS: Tamsulosin 0.4 MG CAPCR PO (08:19)
[2018-07-03] MEDS: Pantoprazole 40 MG TABCR PO (08:19)
[2018-07-03] MEDS: amLODIPine 5 MG TAB PO (08:19)
[2018-07-03] MEDS: Metoprolol CR 100 MG TABCR PO (08:19)
[2018-07-03] MEDS: Benzonatate 200 MG CAP PO ×3 (08:19→19:57)
[2018-07-03] MEDS: guaiFENesin 600 MG TABCR 1200 MG PO ×2 (08:19→19:57)
[2018-07-03 08:27] LABS: Absolute Lymphocyte Count 0.78 k/cumm (1.2-3.4); Absolute Monocyte Count 1.03 k/cumm (0.11-0.7); Absolute Neutrophil Count 10.85 k/cumm (1.2-6.7); Diff Comment Manual Differential; Poikilocytes 1+
[2018-07-03] MEDS: Normal Saline Flush 10 ML SYR IVP ×2 (09:41→18:11)
--- NOTE | 2018-07-03 11:25 | PT.INTREAT ---
Date of service: 07/03/18 Time of Service: 09:45 PT Notes Inpatient Physical Therapy Treatment Note [facility] Date: 07/03/18 SUBJECTIVE: Javier states that he slept really well last night with the use of his Trilogy unit. He is hoping to go home tomorrow. OBJECTIVE: [] BED MOBILITY/TRANSFERS Supine-sit: I Sit-supine: I Sit-stand: I Stand-sit: I GAIT Deferred ambulation today, as he wanted to conserve his energy to go to shower, which was happening in about 20 min. THEREX: performed global strength and conditioning routine with energy conservation cues. Monitored his O2 sats, which ranged from 93%-95%. See flowsheet for specific ex details. ASSESSMENT: tolerated session very well. Gives good effort. PLAN: will continue to progress his strength and endurance following PT POC. TREATMENT CODE/TIME: 15 min. TPx1.
[2018-07-03] MEDS: Ipratropium 0.5 MG/2.5 ML UPD VIAL UPD ×2 (13:30→17:50)
--- NOTE | 2018-07-03 14:30 | W.PM.PROGNOT ---
Date of Service Date of service: 07/03/18 Time of Service: 14:30 Assessment and Plan (1) COPD exacerbation: Current visit: Yes Status: Chronic Evidence of acute exacerbation of underlying chronic obstructive pulmonary disease. Patient is oxygen dependent at baseline and with significant underlying disease, with very little reserve despite relatively young age. Previously with reported worsening dyspnea, cough, and fever, but with negative appearance on chest x-ray. Influenza, Urinalysis, and Blood Cultures negative. Sputum Cultures with evidence of MRSA. Patient was also significantly hypotensive at time of admission (Systolic in the 60's). Suspect potential pulmonary source - patient underwent treatment with a 7 day course of Vancomycin, then 3 days of Linezolid (also with 6 days of Levofloxacin initially). Also on nebs - due to reported intolence, continue Xopenex instead. High-dose IV steroids and inhaled budesonide, Ipratropium, and combination IGC/LABA as well. Now utilizing Trilogy. Appears to be slowly improving. Plan is for continuation of above treatment, with plans for transition to oral prednisone upon discharge. Will benefit from use of NIPPV in the form of Trilogy. Appears improved. (2) Atrial fibrillation: Current visit: Yes Status: Chronic Continue beta-lizet, anticoagulation with rivaroxaban. (3) Coronary artery disease: Current visit: Yes Status: Chronic Appears quiescent. Patient will be maintained on his chronic cardiac regimen consisting of BB, RADHA-I, high potency statin, and Clopidogrel. (4) BPH (benign prostatic hyperplasia): Current visit: Yes Status: Chronic Continue alpha-lizet. (5) DVT prophylaxis: Current visit: Yes Status: Chronic On chronic anticoagulation. Continue PPI therapy for GI prophylaxis as well. Subjective Interval history since last seen: Very pleasant 62-year-old man with a prior medical history significant for COPD on home oxygen therapy, admitted from [facility] ED with acute onset dyspnea and fevers. Mr. 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 Has been trached in the past for this, and is currently on a transplant list per verbal history. He also reported an intolerance of albuterol due to severe tachycardia/Afib. He presented to the ED with complaints of onset of dyspnea overnight that was worse than his baseline, along with a fever documented at home as per his . Workup in the emergency room was notable for a lack of fever, chest x-ray that showed no acute infiltrates, and a CBC without leukocytosis. He was however noted to be significantly hypotensive. His lactate was minimally elevated, and his urinalysis was negative for any evidence of infection. He was referred for admission for further evaluation and treatment. Since admission the patient has made slow but definitive progress, now appears improved with initiation of Trilogy. This morning Mr. Bautista confirms improvement in his symptoms as well, but not yet at baseline. He remains on nebs, antibiotics, and steroids. No overnight events reported. Remains afebrile. Exam Narrative Exam Narrative: General: Patient appears comfortable and less anxious appearing, AAOX3, NAD Neck: Supple CV: Regular, mildly tachycardic, S1S2, No rubs, murmurs, or gallops. Pulmonary: Significantly decreased breath sounds diffusely with now minimal and improved wheezing noted, improved since last exam. Abdomen: + Bowel Sounds, soft, nontender, nondistended Vascular: No lower extremity edema Psych: Normal mood and affect. Objective Objective Clinical Data: Abnormal lab results 07/03/18 07/03/18 Range/Units 07:00 07:00 WBC 12.92 H (4.4-10.8) k/cumm RBC 3.55 L (4.50-6.00) m/cumm Hgb 10.7 L (13.5-17.5) g/dL Hct 33.8 L (40.0-50.0) % MCV 95.2 H (80-95) fL MCHC 31.7 L (32.0-36.0) g/dL Absolute Neutrophils 10.85 H (1.2-6.7) k/cumm Absolute Lymphocytes 0.78 L (1.2-3.4) k/cumm Absolute Monocytes 1.03 H (0.11-0.7) k/cumm Chloride 108 H (98-107) mmol/L Carbon Dioxide 35.3 H (21.0-32.0) mmol/L Anion Gap 1.7 L (3-11) mmol/L BUN 25 H (7-18) mg/dL Glucose 107 H (70-100) mg/dL Calcium 8.2 L (8.5-10.1) mg/dL Vital Signs Temperature 36.5 C 07/03/18 11:20 Temperature Source Tympanic 07/03/18 11:20 Pulse 96 H 07/03/18 13:30 Pulse Rhythm Regular 07/03/18 08:16 Pulse 81 06/23/18 16:00 Respiratory Rate 18 07/03/18 13:30 Respiratory Effort Accessory Muscle Use 07/03/18 08:16 Respiratory Depth Normal 07/03/18 08:16 Respiratory Pattern Normal 07/03/18 08:16 Blood Pressure 141/73 H 07/03/18 11:20 Blood Pressure Mean 68 06/23/18 15:47 Blood Pressure Position Sitting 06/23/18 11:40 Pulse Oximetry 74 L 07/03/18 13:30 Oxygen Delivery Method Nasal Cannula 07/03/18 13:30 Oxygen Flow Rate 2.5 07/03/18 13:30 Fraction of Inspired Oxygen (FIO2) 30 07/02/18 05:44 Pain Level 0 07/03/18 11:20 Comment 07/01/18 03:30 Intake & Output 07/02/18 07/03/18 07/03/18 23:59 11:59 23:59 Intake Total 800 / 1340 380 / 620 240 / 620 Output Total 350 / 350 Balance 800 / 890 30 / 270 240 / 270 Weight 61.1 kg Intake: IV 20 / 20 40 / 40 Oral 780 / 1320 340 / 580 240 / 580 Output: Urine 350 / 350 Other: Urine Color Yellow Urine Appearance Clear Comment pt gets up AD OLEG to void. pt gets up AD OLEG to void. Stool Size Moderate Stool Characteristics Soft Formed Brown Voiding Methods Toilet Urinal Laboratory Results WBC 12.92 k/cumm (4.4-10.8) H 07/03/18 07:00 RBC 3.55 m/cumm (4.50-6.00) L 07/03/18 07:00 Hgb 10.7 g/dL (13.5-17.5) L 07/03/18 07:00 Hct 33.8 % (40.0-50.0) L 07/03/18 07:00 MCV 95.2 fL (80-95) H 07/03/18 07:00 MCH 30.1 pg (27.0-33.0) 07/03/18 07:00 MCHC 31.7 g/dL (32.0-36.0) L 07/03/18 07:00 RDW 13.8 % (11.8-14.1) 07/03/18 07:00 Plt Count 296 x1000/uL (130-400) 07/03/18 07:00 MPV 9.4 fL (8.0-11.0) 07/03/18 07:00 Immature Gran % See Differential 07/03/18 07:00 Neutrophils % 84.0 07/03/18 07:00 Band Neutrophils % 1.0 % 07/01/18 06:40 Lymphocytes % 6.0 07/03/18 07:00 Atypical Lymphs % 3 07/02/18 05:50 Monocytes % 8.0 07/03/18 07:00 Eosinophils % 0.0 07/03/18 07:00 Basophils % 0.0 07/03/18 07:00 Metamyelocytes % 2.0 % 07/03/18 07:00 Myelocytes % 1.0 % 07/02/18 05:50 Promyelocytes % 0 % 07/02/18 05:50 Absolute Neutrophils 10.85 k/cumm (1.2-6.7) H 07/03/18 07:00 Absolute Lymphocytes 0.78 k/cumm (1.2-3.4) L 07/03/18 07:00 Absolute Monocytes 1.03 k/cumm (0.11-0.7) H 07/03/18 07:00 Absolute Eosinophils 0.00 k/cumm (0.0-0.7) 07/03/18 07:00 Absolute Basophils 0.00 k/cumm (0.0-0.2) 07/03/18 07:00 Differential Comment Manual differential 07/03/18 07:00 Other Cell Type 0 07/02/18 05:50 RBC Morphology See below 07/03/18 07:00 Polychromasia Present 07/02/18 05:50 Poikilocytosis 1+ 07/03/18 07:00 Anisocytosis 2+ 07/02/18 05:50 Acanthocytes (Spur) 1+ 07/01/18 06:40 Sample Site Left radial 06/29/18 12:59 pCO2 52 mmHg (34-47) H 06/29/18 12:59 pO2 75 mmHg (83-108) L 06/29/18 12:59 O2 Saturation 96 % (94-98) 06/29/18 12:59 ABG pH 7.46 (7.35-7.45) H 06/29/18 12:59 ABG HCO3 37 mmol/L (22-28) H 06/29/18 12:59 ABG Total CO2 34 mmol/L (22-29) H 06/29/18 12:59 ABG Base Excess > 10.0 mmol/L (-3-3) H 06/29/18 12:59 FiO2 28 % 06/29/18 12:59 Sodium 145 mmol/L (136-145) 07/03/18 07:00 Potassium 4.3 mmol/L (3.5-5.1) 07/03/18 07:00 Chloride 108 mmol/L (98-107) H 07/03/18 07:00 Carbon Dioxide 35.3 mmol/L (21.0-32.0) H 07/03/18 07:00 Anion Gap 1.7 mmol/L (3-11) L 07/03/18 07:00 BUN 25 mg/dL (7-18) H 07/03/18 07:00 Creatinine 0.72 mg/dL (0.70-1.30) 07/03/18 07:00 Estimated GFR/1.73 m2 >= 60.00 (mL/min/1.73m2) 07/03/18 07:00 Glucose 107 mg/dL (70-100) H 07/03/18 07:00 Lactate 0.7 mmol/l (0.6-1.4) 06/25/18 07:15 Calcium 8.2 mg/dL (8.5-10.1) L 07/03/18 07:00 Magnesium 2.4 mg/dL (1.8-2.4) 07/03/18 07:00 Total Bilirubin 0.4 mg/dL (0.2-1.0) 06/23/18 12:54 AST 28 U/L (15-37) 06/23/18 12:54 ALT 33 U/L (12-78) 06/23/18 12:54 Alkaline Phosphatase 72 U/L (46-116) 06/23/18 12:54 Troponin I < 0.02 ng/mL (0.00-0.06) 06/23/18 12:54 NT-Pro-B Natriuret Pep 427 pg/mL (-299) H 06/23/18 12:54 Total Protein 5.9 g/dL (6.4-8.2) L 06/23/18 12:54 Albumin 3.1 g/dL (3.4-5.0) L 06/23/18 12:54 Urine Color Yellow (Yellow) 06/23/18 16:16 Urine Clarity Clear 06/23/18 16:16 Urine pH 6.0 (5-8) 06/23/18 16:16 Ur Specific [place] 1.010 (1.005-1.025) 06/23/18 16:16 Urine Protein Negative mg/dL (Negative) 06/23/18 16:16 Urine Ketones Trace mg/dL (Negative) H 06/23/18 16:16 Urine Blood Negative (Negative) 06/23/18 16:16 Urine Nitrite Negative (Negative) 06/23/18 16:16 Urine Bilirubin Negative (Negative) 06/23/18 16:16 Urine Urobilinogen 0.2 EU/dL (Up TO 0.2) 06/23/18 16:16 Ur Leukocyte Esterase Negative (Negative) 06/23/18 16:16 Urine Glucose Negative mg/dL (Negative) 06/23/18 16:16 Vancomycin Trough 18.4 ug/mL (10.0-20.0) 06/28/18 17:10
--- NOTE | 2018-07-03 15:58 | PDOC.CMPRO ---
Care Management Progress Note S/O: Javier is very pleased with the Trilegy machine that was delivered yesterday. Stated he had the best night's sleep of his life.Water Project Manager will set up the unit in his home and spend more time educating he and his on the use of the machine when discharged. He feels this will greatly improve the quality of his life. A: 62 year old male admitted to [facility] 06/23/18 for Acute COPD Exacerbation, Hypotension P: Javier will return home when ready per MD. He will [facility] with [facility], resume home O2, with new orders for Trilogy unit and plan of care as prescribed. Javier will transport via private vehicle with his , Claire.
--- NOTE | 2018-07-03 16:05 | CMPROGNOTE_ITS ---
Care Management Progress Note S/O: Javier is very pleased with the Trilegy machine that was delivered yesterday. Stated he had the best night's sleep of his life.Vending Supervisor will set up the unit in his home and spend more time educating he and his on the use of the machine when discharged. He feels this will greatly improve the quality of his life. A: 62 year old male admitted to [facility] 06/23/18 for Acute COPD Exacerbation, Hypotension P: Javier will return home when ready per MD. He will follow up with his [facility], resume home O2, with new orders for Trilogy unit and plan of care as prescribed. Javier will transport via private vehicle with his , Claire.
[2018-07-03] MEDS: ROSUVASTATIN 20 MG TAB 40 MG PO (19:57)
[2018-07-03] MEDS: Melatonin 3 MG TAB PO (19:59)
[2018-07-04 03:25] VITALS: BP 146/84; PULSE 62; RESP 19; TEMP 36.4; O2SAT 96
[2018-07-04] MEDS: Ipratropium 0.5 MG/2.5 ML UPD VIAL UPD ×3 (06:55→17:43)
[2018-07-04] MEDS: methylPREDNISolone SUCC 40 MG VIAL IVP ×2 (06:55→18:06)
[2018-07-04] MEDS: Normal Saline Flush 10 ML SYR IVP ×2 (06:55→18:06)
[2018-07-04 07:00] VITALS: BP 190/95; PULSE 65; RESP 20; TEMP 36.1; O2SAT 96
[2018-07-04 07:15] VITALS: O2SAT 94
[2018-07-04] MEDS: Budesonide/Formoterol 160/4.5 6 GM 60 PUFF INH IH ×2 (07:15→20:34)
[2018-07-04 07:52] LABS: Abs Immature Grans 0.24 k/cumm (0.0-0.09); Absolute Lymphocyte Count 1.03 k/cumm (1.2-3.4); Absolute Monocyte Count 1.51 k/cumm (0.11-0.7); Basophils % 0.1; HCT 36.1 % (40.0-50.0); HGB 11.4 g/dL (13.5-17.5); Immature Grans % 1.6; Lymphocytes % 6.8; Mean Corp. HGB Concentration 31.6 g/dL (32.0-36.0); Mean Corpuscular Hemoglobin 29.8 pg (27.0-33.0); Mean Corpuscular Volume 94.5 fL (80-95); Mean Platelet Volume 9.6 fL (8.0-11.0); Neutrophils % 81.5; Platelet Count 308 x1000/uL (130-400); RBC 3.82 m/cumm (4.50-6.00); RBC Distribution Width 14.1 % (11.8-14.1); White Blood Cell Count 15.14 k/cumm (4.4-10.8)
[2018-07-04] MEDS: Rivaroxaban 10 MG TABLET 20 MG PO (07:52)
[2018-07-04] MEDS: guaiFENesin 600 MG TABCR 1200 MG PO ×2 (07:52→20:11)
[2018-07-04] MEDS: Multivitamin TAB 1 TAB PO (07:53)
[2018-07-04] MEDS: Metoprolol CR 100 MG TABCR PO (07:53)
[2018-07-04] MEDS: Clopidogrel 75 MG TAB PO (07:53)
[2018-07-04] MEDS: Docusate Sodium 100 MG CAP PO ×2 (07:53→20:12)
[2018-07-04] MEDS: Pantoprazole 40 MG TABCR PO (07:53)
[2018-07-04] MEDS: Lisinopril 10 MG TAB 20 MG PO (07:53)
[2018-07-04] MEDS: Benzonatate 200 MG CAP PO ×3 (07:53→20:11)
[2018-07-04] MEDS: Tamsulosin 0.4 MG CAPCR PO (07:54)
[2018-07-04] MEDS: amLODIPine 5 MG TAB PO (07:54)
[2018-07-04] MEDS: clonazePAM 1 MG TAB PO ×2 (07:54→20:12)
[2018-07-04] MEDS: Citalopram 20 MG TAB PO (07:54)
[2018-07-04] MEDS: Levalbuterol 0.63 MG/3 ML UPD VIAL UPD ×4 (07:57→20:34)
[2018-07-04 07:59] LABS: Absolute Basophil Count 0.02 k/cumm (0.0-0.2); Absolute Neutrophil Count 12.34 k/cumm (1.2-6.7)
[2018-07-04 08:09] LABS: BUN 21 mg/dL (7-18); CREATININE 0.72 mg/dL (0.70-1.30); Calcium 8.1 mg/dL (8.5-10.1); Chloride 107 mmol/L (98-107); Glucose 88 mg/dL (70-100); Magnesium 2.4 mg/dL (1.8-2.4); Potassium 3.9 mmol/L (3.5-5.1); Sodium 145 mmol/L (136-145)
[2018-07-04 08:14] LABS: Poikilocytes 1+; Polychromasia Present
--- NOTE | 2018-07-04 08:41 | PDOC.CMPRO ---
Care Management Progress Note S/O: Javier continues to make gains medically, he remains on nebs, ABX and steroids. Javier reports being happy with his new Trilogy machine. Per MD, Javier could be ready for discharge as soon as tomorrow; he will have pulse oximetry test with RT and PT today. CM will continue to follow. A: 62 year old male admitted to [facility] 06/23/18 for Acute COPD Exacerbation, Hypotension P: Javier will return home when ready per MD. He will continue to be evaluated and work with PT; CM will continue to follow and support discharge planning considerations. He will follow up with his [facility], resume home O2, new Trilogy unit and plan of care as prescribed. Javier will transport via private vehicle with his , Claire.
--- NOTE | 2018-07-04 08:47 | CMPROGNOTE_ITS ---
Care Management Progress Note S/O: Javier continues to make gains medically, he remains on nebs, ABX and steroids. Javier reports being happy with his new Trilogy machine. Per MD, Javier could be ready for discharge as soon as tomorrow; he will have pulse oximetry test with RT and PT today. CM will continue to follow. A: 62 year old male admitted to [facility] 06/23/18 for Acute COPD Exacerbation, Hypotension P: Javier will return home when ready per MD. He will continue to be evaluated and work with PT; CM will continue to follow and support discharge planning considerations. He will follow up with his [facility], resume home O2, new Trilogy unit and plan of care as prescribed. Javier will transport via private vehicle with his , Claire.
--- NOTE | 2018-07-04 09:19 | DI.RAD_ITS ---
SYMPTOM/DIAGNOSIS: WORSENING LEUKOCYTOSIS. PA AND LATERAL CHEST: 07/04/18 The heart is not enlarged. The lungs appear hyperinflated but clear. No pleural effusions seen. CONCLUSION: No evidence of acute disease.
[2018-07-04] MEDS: Budesonide 0.5 MG/2 ML UPD VIAL UPD ×2 (09:57→20:12)
[2018-07-04] MEDS: Potassium Chloride 10 MEQ TABCR PO (10:45)
--- NOTE | 2018-07-04 12:10 | PT.INTREAT ---
Date of service: 07/04/18 Time of Service: 12:10 PT Notes Inpatient Physical Therapy Treatment Note [facility] Date: 07/04/18 PRECAUTIONS: Monitor SaO2 SUBJECTIVE: Javier reports that he is feeling much better than he did at the end of last week. He is excited about the Trilogy machine that he has been using over the weekend. OBJECTIVE: PAIN: No c/o pain BED MOBILITY/TRANSFERS Supine-sit: I Sit-supine: I Sit-stand: I Stand-sit: I GAIT Assistive Device: No AD Weight bearing: Full Assist: I Distance: 30' x7 Deviation: Seated rest VITALS: SaO2: 96-98% on 4L O2 via NC with activity and at rest in a.m. THEREX: Patient completed an UE strengthening program, utilizing green Theraband, as per flow sheet in a.m. Patient completed a LE strengthening program in a standing position, as per flow sheet. Patient demonstrates SOB, requiring seated rests between exercises. ASSESSMENT: Patient tolerated session with c/o SOB with ther ex, requiring significant seated rest breaks between exercises in both a.m. and p.m. He would benefit from continued general conditioning for improved cardiovascular endurance and activity tolerance. PLAN: Continue with PT's POC TREATMENT CODE/TIME: Session 1: 30 minutes; 07620, [id number] Session 2: 30 mintues; [id number] x2
--- NOTE | 2018-07-04 15:16 | W.PM.PROGNOT ---
Date of Service Date of service: 07/04/18 Time of Service: 15:16 Assessment and Plan (1) COPD exacerbation: Current visit: Yes Status: Chronic Evidence of acute exacerbation of underlying chronic obstructive pulmonary disease. Patient is oxygen dependent at baseline and with significant underlying disease, with very little reserve despite relatively young age. Previously with reported worsening dyspnea, cough, and fever, but with negative appearance on chest x-ray. Influenza, Urinalysis, and Blood Cultures negative. Sputum Cultures with evidence of MRSA. Patient was also significantly hypotensive at time of admission (Systolic in the 60's). Suspect potential pulmonary source - patient underwent treatment with a 7 day course of Vancomycin, then 3 days of Linezolid (also with 6 days of Levofloxacin initially). Has improved siginificantly, but with mild but continued and worsening leukocytosis. CXR was repeated and again negative. He remains afebrile. Also on nebs - due to reported intolence of Albuterol (AFib), continue Xopenex instead. High-dose IV steroids and inhaled budesonide, Ipratropium, and combination IGC/LABA as well. Now utilizing Trilogy. Appears to be slowly improving. Plan is for continuation of above treatment, with plans for transition to oral prednisone upon discharge. Will benefit from use of NIPPV in the form of Trilogy. Appears improved. (2) Atrial fibrillation: Current visit: Yes Status: Chronic Continue beta-lizet, anticoagulation with rivaroxaban. (3) Coronary artery disease: Current visit: Yes Status: Chronic Appears quiescent. Patient will be maintained on his chronic cardiac regimen consisting of BB, RADHA-I, high potency statin, and Clopidogrel. (4) BPH (benign prostatic hyperplasia): Current visit: Yes Status: Chronic Continue alpha-lizet. (5) DVT prophylaxis: Current visit: Yes Status: Chronic On chronic anticoagulation. Continue PPI therapy for GI prophylaxis as well. Subjective Interval history since last seen: Very pleasant 62-year-old man with a prior medical history significant for COPD on home oxygen therapy, admitted from [facility] ED with acute onset dyspnea and fevers. Mr. 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 Has been trached in the past for this, and is currently on a transplant list per verbal history. He also reported an intolerance of albuterol due to severe tachycardia/Afib. He presented to the ED with complaints of onset of dyspnea overnight that was worse than his baseline, along with a fever documented at home as per his . Workup in the emergency room was notable for a lack of fever, chest x-ray that showed no acute infiltrates, and a CBC without leukocytosis. He was however noted to be significantly hypotensive. His lactate was minimally elevated, and his urinalysis was negative for any evidence of infection. He was referred for admission for further evaluation and treatment. Since admission the patient has made slow but definitive progress, now appears improved with initiation of Trilogy. This morning Mr. Bautista reports continued improvement in his symptoms as well, but not yet at baseline. He remains on nebs and steroids, having completed a course of antibiotics. His WBC is worse this morning. No overnight events reported. Remains afebrile. Exam Narrative Exam Narrative: General: Patient appears comfortable and less anxious, AAOX3, NAD Neck: Supple CV: Regular, mildly tachycardic, S1S2, No rubs, murmurs, or gallops. Pulmonary: Significantly decreased breath sounds diffusely with continued minimal diffuse wheezing, improved since last exam. Abdomen: + Bowel Sounds, soft, nontender, nondistended Vascular: No lower extremity edema Psych: Normal mood and affect. Objective Objective Clinical Data: Abnormal lab results 07/04/18 07/04/18 Range/Units 07:05 07:05 WBC 15.14 H (4.4-10.8) k/cumm RBC 3.82 L (4.50-6.00) m/cumm Hgb 11.4 L (13.5-17.5) g/dL Hct 36.1 L (40.0-50.0) % MCHC 31.6 L (32.0-36.0) g/dL Absolute Neutrophils 12.34 H (1.2-6.7) k/cumm Absolute Lymphocytes 1.03 L (1.2-3.4) k/cumm Absolute Monocytes 1.51 H (0.11-0.7) k/cumm Carbon Dioxide 35.0 H (21.0-32.0) mmol/L BUN 21 H (7-18) mg/dL Calcium 8.1 L (8.5-10.1) mg/dL Vital Signs Temperature 36.1 C L 07/04/18 07:00 Temperature Source Tympanic 07/04/18 07:00 Pulse 65 07/04/18 07:00 Pulse Rhythm Regular 07/04/18 11:38 Pulse 81 06/23/18 16:00 Respiratory Rate 20 07/04/18 07:00 Respiratory Effort Incrsd Work of Breathing 07/04/18 11:38 Respiratory Depth Normal 07/04/18 11:38 Respiratory Pattern Normal 07/04/18 11:38 Blood Pressure 190/95 H 07/04/18 07:00 Blood Pressure Mean 68 06/23/18 15:47 Blood Pressure Position Sitting 06/23/18 11:40 Pulse Oximetry 94 L 07/04/18 07:15 Oxygen Delivery Method Nasal Cannula 07/04/18 07:15 Oxygen Flow Rate 2 07/04/18 07:15 Fraction of Inspired Oxygen (FIO2) 30 07/02/18 05:44 Pain Level 0 07/04/18 07:00 Comment 07/01/18 03:30 Intake & Output 07/03/18 07/04/18 07/04/18 23:59 11:59 23:59 Intake Total 500 / 880 570 / 570 Balance 500 / 530 570 / 570 Weight 60.4 kg Intake: IV 20 60 30 / 30 Oral 480 / 820 540 / 540 Other: Comment pt gets up AD OLEG to void. Stool Size Moderate Stool Characteristics Formed Brown Voiding Methods Toilet Laboratory Results WBC 15.14 k/cumm (4.4-10.8) H 07/04/18 07:05 RBC 3.82 m/cumm (4.50-6.00) L 07/04/18 07:05 Hgb 11.4 g/dL (13.5-17.5) L 07/04/18 07:05 Hct 36.1 % (40.0-50.0) L 07/04/18 07:05 MCV 94.5 fL (80-95) 07/04/18 07:05 MCH 29.8 pg (27.0-33.0) 07/04/18 07:05 MCHC 31.6 g/dL (32.0-36.0) L 07/04/18 07:05 RDW 14.1 % (11.8-14.1) 07/04/18 07:05 Plt Count 308 x1000/uL (130-400) 07/04/18 07:05 MPV 9.6 fL (8.0-11.0) 07/04/18 07:05 Immature Gran % 1.6 07/04/18 07:05 Neutrophils % 81.5 07/04/18 07:05 Band Neutrophils % 1.0 % 07/01/18 06:40 Lymphocytes % 6.8 07/04/18 07:05 Atypical Lymphs % 3 07/02/18 05:50 Monocytes % 10.0 07/04/18 07:05 Eosinophils % 0.0 07/04/18 07:05 Basophils % 0.1 07/04/18 07:05 Metamyelocytes % 2.0 % 07/03/18 07:00 Myelocytes % 1.0 % 07/02/18 05:50 Promyelocytes % 0 % 07/02/18 05:50 Absolute Neutrophils 12.34 k/cumm (1.2-6.7) H 07/04/18 07:05 Absolute Lymphocytes 1.03 k/cumm (1.2-3.4) L 07/04/18 07:05 Absolute Monocytes 1.51 k/cumm (0.11-0.7) H 07/04/18 07:05 Absolute Eosinophils 0.00 k/cumm (0.0-0.7) 07/04/18 07:05 Absolute Basophils 0.02 k/cumm (0.0-0.2) 07/04/18 07:05 Differential Comment Comment 07/04/18 07:05 Other Cell Type 0 07/02/18 05:50 RBC Morphology See below 07/04/18 07:05 Polychromasia Present 07/04/18 07:05 Poikilocytosis 1+ 07/04/18 07:05 Anisocytosis 2+ 07/02/18 05:50 Acanthocytes (Spur) 1+ 07/01/18 06:40 Sample Site Left radial 06/29/18 12:59 pCO2 52 mmHg (34-47) H 06/29/18 12:59 pO2 75 mmHg (83-108) L 06/29/18 12:59 O2 Saturation 96 % (94-98) 06/29/18 12:59 ABG pH 7.46 (7.35-7.45) H 06/29/18 12:59 ABG HCO3 37 mmol/L (22-28) H 06/29/18 12:59 ABG Total CO2 34 mmol/L (22-29) H 06/29/18 12:59 ABG Base Excess > 10.0 mmol/L (-3-3) H 06/29/18 12:59 FiO2 28 % 06/29/18 12:59 Sodium 145 mmol/L (136-145) 07/04/18 07:05 Potassium 3.9 mmol/L (3.5-5.1) 07/04/18 07:05 Chloride 107 mmol/L (98-107) 07/04/18 07:05 Carbon Dioxide 35.0 mmol/L (21.0-32.0) H 07/04/18 07:05 Anion Gap 3.0 mmol/L (3-11) 07/04/18 07:05 BUN 21 mg/dL (7-18) H 07/04/18 07:05 Creatinine 0.72 mg/dL (0.70-1.30) 07/04/18 07:05 Estimated GFR/1.73 m2 >= 60.00 (mL/min/1.73m2) 07/04/18 07:05 Glucose 88 mg/dL (70-100) 07/04/18 07:05 Lactate 0.7 mmol/l (0.6-1.4) 06/25/18 07:15 Calcium 8.1 mg/dL (8.5-10.1) L 07/04/18 07:05 Magnesium 2.4 mg/dL (1.8-2.4) 07/04/18 07:05 Total Bilirubin 0.4 mg/dL (0.2-1.0) 06/23/18 12:54 AST 28 U/L (15-37) 06/23/18 12:54 ALT 33 U/L (12-78) 06/23/18 12:54 Alkaline Phosphatase 72 U/L (46-116) 06/23/18 12:54 Troponin I < 0.02 ng/mL (0.00-0.06) 06/23/18 12:54 NT-Pro-B Natriuret Pep 427 pg/mL (-299) H 06/23/18 12:54 Total Protein 5.9 g/dL (6.4-8.2) L 06/23/18 12:54 Albumin 3.1 g/dL (3.4-5.0) L 06/23/18 12:54 Urine Color Yellow (Yellow) 06/23/18 16:16 Urine Clarity Clear 06/23/18 16:16 Urine pH 6.0 (5-8) 06/23/18 16:16 Ur Specific [place] 1.010 (1.005-1.025) 06/23/18 16:16 Urine Protein Negative mg/dL (Negative) 06/23/18 16:16 Urine Ketones Trace mg/dL (Negative) H 06/23/18 16:16 Urine Blood Negative (Negative) 06/23/18 16:16 Urine Nitrite Negative (Negative) 06/23/18 16:16 Urine Bilirubin Negative (Negative) 06/23/18 16:16 Urine Urobilinogen 0.2 EU/dL (Up TO 0.2) 06/23/18 16:16 Ur Leukocyte Esterase Negative (Negative) 06/23/18 16:16 Urine Glucose Negative mg/dL (Negative) 06/23/18 16:16 Vancomycin Trough 18.4 ug/mL (10.0-20.0) 06/28/18 17:10
[2018-07-04 15:30] VITALS: BP 144/74; PULSE 72; RESP 19; TEMP 36.4; O2SAT 94
[2018-07-04 16:21] LABS: Bilirubin Negative (Negative); Blood Negative (Negative); Clarity Clear; Glucose Negative (Negative); Ketones Negative (Negative); Leukocyte Esterase Negative (Negative); Nitrite Negative (Negative); Urobilinogen 0.2 EU/dL (Up TO 0.2)
[2018-07-04 19:45] VITALS: BP 135/76; PULSE 72; RESP 20; TEMP 36.1; O2SAT 94
[2018-07-04] MEDS: ROSUVASTATIN 20 MG TAB 40 MG PO (20:11)
[2018-07-04] MEDS: Melatonin 3 MG TAB PO (21:06)
[2018-07-04 21:58] LABS: Bacteria Few HPF (Negative); Casts Negative LPF (Negative); Crystals Negative HPF (Negative); Epithelial Cells Negative HPF (Negative); Mucus Trace (Negative); Other Cells Negative (Negative); RBC Negative (0-2); WBC 0-2 HPF (0-5)
[2018-07-04 21:59] LABS: C & S Indicated? No
[2018-07-05 03:32] VITALS: BP 119/74; PULSE 64; RESP 21; TEMP 36.5; O2SAT 98
[2018-07-05] MEDS: Normal Saline Flush 10 ML SYR IVP (06:49)
[2018-07-05 06:50] VITALS: PULSE 70; RESP 20; RESP 8; O2SAT 93
[2018-07-05] MEDS: Ipratropium 0.5 MG/2.5 ML UPD VIAL UPD ×2 (06:50→12:00)
[2018-07-05] MEDS: methylPREDNISolone SUCC 40 MG VIAL IVP (06:50)
[2018-07-05 07:20] VITALS: PULSE 75; RESP 20; RESP 8; O2SAT 98
[2018-07-05 07:30] VITALS: O2SAT 94
[2018-07-05] MEDS: Budesonide/Formoterol 160/4.5 6 GM 60 PUFF INH IH (07:35)
[2018-07-05] MEDS: Levalbuterol 0.63 MG/3 ML UPD VIAL UPD ×2 (07:35→12:00)
[2018-07-05 07:37] VITALS: BP 161/83; PULSE 75; RESP 20; TEMP 36.8; O2SAT 98
[2018-07-05] MEDS: Clopidogrel 75 MG TAB PO (07:39)
[2018-07-05] MEDS: Lisinopril 10 MG TAB 20 MG PO (07:39)
[2018-07-05] MEDS: Rivaroxaban 10 MG TABLET 20 MG PO (07:39)
[2018-07-05] MEDS: guaiFENesin 600 MG TABCR 1200 MG PO (07:39)
[2018-07-05] MEDS: Benzonatate 200 MG CAP PO ×2 (07:39→14:24)
[2018-07-05] MEDS: Citalopram 20 MG TAB PO (07:39)
[2018-07-05] MEDS: Pantoprazole 40 MG TABCR PO (07:40)
[2018-07-05] MEDS: amLODIPine 5 MG TAB PO (07:40)
[2018-07-05] MEDS: Multivitamin TAB 1 TAB PO (07:40)
[2018-07-05] MEDS: clonazePAM 1 MG TAB PO (07:40)
[2018-07-05] MEDS: Tamsulosin 0.4 MG CAPCR PO (07:40)
[2018-07-05] MEDS: Docusate Sodium 100 MG CAP PO (07:40)
[2018-07-05] MEDS: Metoprolol CR 100 MG TABCR PO (07:40)
[2018-07-05 07:43] LABS: Abs Immature Grans 0.17 k/cumm (0.0-0.09); Absolute Basophil Count 0.01 k/cumm (0.0-0.2); Absolute Eosinophil Count 0.01 k/cumm (0.0-0.7); Absolute Lymphocyte Count 0.87 k/cumm (1.2-3.4); Absolute Monocyte Count 1.13 k/cumm (0.11-0.7); Basophils % 0.1; Eosinophils % 0.1; HCT 35.3 % (40.0-50.0); HGB 11.2 g/dL (13.5-17.5); Immature Grans % 1.2; Lymphocytes % 6.2; Mean Corp. HGB Concentration 31.7 g/dL (32.0-36.0); Mean Corpuscular Hemoglobin 30.2 pg (27.0-33.0); Mean Corpuscular Volume 95.1 fL (80-95); Mean Platelet Volume 9.3 fL (8.0-11.0); Neutrophils % 84.4; Platelet Count 275 x1000/uL (130-400); RBC 3.71 m/cumm (4.50-6.00); RBC Distribution Width 14.1 % (11.8-14.1); White Blood Cell Count 14.08 k/cumm (4.4-10.8)
[2018-07-05 07:49] LABS: Absolute Neutrophil Count 11.88 k/cumm (1.2-6.7)
[2018-07-05 07:52] LABS: Anion Gap 3.8 mmol/L (3-11); BUN 18 mg/dL (7-18); CO2 36.2 mmol/L (21.0-32.0); CREATININE 0.81 mg/dL (0.70-1.30); Calcium 8.2 mg/dL (8.5-10.1); Chloride 105 mmol/L (98-107); Glucose 101 mg/dL (70-100); Magnesium 2.2 mg/dL (1.8-2.4); Potassium 3.9 mmol/L (3.5-5.1); Sodium 145 mmol/L (136-145)
--- NOTE | 2018-07-05 08:08 | CMPROGNOTE_ITS ---
Care Management Progress Note S/O: Javier remains pleasant in interaction and continues to slowly improve. Javier continues to be treated, with plans for transition to oral prednisone upon discharge. Will benefit from use of NIPPV in the form of Trilogy per MD. CM will continue to follow. A: 62 year old male admitted to [facility] 06/23/18 for Acute COPD Exacerbation, Hypotension P: Javier will return home when ready per MD. He will continue to be evaluated and work with PT; CM will continue to follow and support discharge planning considerations. [facility] will [facility], resume home O2, new Trilogy unit and plan of care as prescribed. Javier will transport via private vehicle with his , Claire.
--- NOTE | 2018-07-05 08:58 | PDOC.CMDIS ---
LACE Index Scoring Tool - Questions: Length of Stay (in days): 7 - 13 Acuity (Admit via E.D.?): Yes Comorbidities: Chronic Pulmonary Disease E.D. Visits: 6 - Answers: Total Score: 14 Risk of Readmission: High Risk Care Management Discharge Reason for Hospitalization: Acute COPD Exacerbation Discharge Plan: Javier will return home when ready per MD. He will follow up with [facility], resume home O2, new Trilogy unit ([facility] providing Home unit set up) and plan of care as prescribed. Javier will transport via private vehicle with his , Claire. Patient/Family Education Needs: Review discharge instructions, discuss Ask Me Three. Services Needed at Discharge: DME Agency ([facility]), Oxygen Therapy (Resumption), Respiratory Care Services (Trilogy; [facility])
[2018-07-05] MEDS: Budesonide 0.5 MG/2 ML UPD VIAL UPD (10:14)
[2018-07-05 11:53] VITALS: BP 125/65; PULSE 76; RESP 20; TEMP 37; O2SAT 93
--- NOTE | 2018-07-05 13:02 | W.PM.DS.N ---
Date of service: 07/05/18 Time of Service: 13:13 DS: Diagnosis Discharge Diagnosis (1) COPD exacerbation: Status: Chronic Discharge Plan Disposition Patient Disposition: HOME Condition: Improving Discharge Details Reason For Visit: ACUTE COPD EXACERBATION, HYPOTENSION Admit Date/Time: 06/23/18 15:25 Admit Provider: Marcelo Vieira Attending Provider: Marcelo Vieira Primary Care Provider: DANITA ROMERO Hospital Course Hospital Course: CC: Fever, Dyspnea HPI: Very pleasant 62-year-old man with a prior medical history significant for COPD on home oxygen therapy, admitted from [facility] ED with acute onset dyspnea and fevers. Mr. Bautista has a significant history of Oxygen dependent, end-stage COPD, with prior respiratory distress requiring intubation and mechanical ventilation. Has been trached in the past for this, and [facility]. He also reported an intolerance of albuterol due to severe tachycardia/Afib. He presented to the ED with complaints of onset of dyspnea overnight that was worse than his baseline, along with a fever documented at home as per his . Workup in the emergency room was notable for a lack of fever, chest x-ray that showed no acute infiltrates, and a CBC without leukocytosis. He was however noted to be significantly hypotensive. His lactate was minimally elevated, and his urinalysis was negative for any evidence of infection. He was referred for admission for further evaluation and treatment. Since admission the patient has made slow but definitive progress, now appears improved with initiation of Trilogy. This morning Mr. Bautista reports continued improvement in his symptoms as well, and is ambulating with increase in energy. He remains on nebs and steroids, having completed a course of antibiotics. His WBC remains mildly elevated, down a little from yesterday morning, with repeat CXR and urinalysis negative for infection, and he remains afebrile. He reports improved and increased mobilization of mucous, noted to be nonpurulent. No overnight events reported. Remains afebrile. Hospital Course: (1) COPD exacerbation: Evidence of acute exacerbation of underlying chronic obstructive pulmonary disease. Patient is oxygen dependent at baseline and with significant underlying disease, with very little reserve despite relatively young age. Previously with reported worsening dyspnea, cough, and fever, but with negative appearance on chest x-ray. Influenza, Urinalysis, and Blood Cultures negative. Sputum Cultures with evidence of MRSA. Patient was also significantly hypotensive at time of admission (Systolic in the 60's). Suspect potential pulmonary source - patient underwent treatment with a 7 day course of Vancomycin, then 3 days of Linezolid (also with 6 days of Levofloxacin initially). Has improved siginificantly, but with mild but continued leukocytosis. CXR was repeated and again negative. He remains afebrile. Will repeat CBC as an outpatient, but may be on the basis of steroid therapy. Also on nebs - due to reported intolence of Albuterol (AFib) was maintained on Xopenex, which will be continued as outpatient. High-dose IV steroids and inhaled budesonide, Ipratropium, and combination IGC/LABA as well. Now utilizing Trilogy. Appears to be improving. Plan is for continuation of above treatment, with plans for a very slow taper of oral prednisone upon discharge, continuation of the use of NIPPV in the form of Trilogy, Nebs with Xopenex and Budesonide, and inhaler. Appears improved. Recommend follow-up with pulmonary within one week of discharge. (2) Atrial fibrillation: Continue beta-lizet, anticoagulation with rivaroxaban. (3) Coronary artery disease: Appears quiescent. Patient will be maintained on his chronic cardiac regimen consisting of BB, RADHA-I, high potency statin, and Clopidogrel. (4) BPH (benign prostatic hyperplasia): Continue alpha-lizet. (5) DVT prophylaxis: Patient was maintained on chronic anticoagulation with Rivaroxaban. He will also continue PPI therapy for GI prophylaxis. Home Meds and New Rx's Prescriptions: New benzonatate 200 mg Capsule 200 mg PO TID Qty: 21 RF: 0 levalbuterol HCl 0.63 mg/3 mL Solution For Nebulization 0.63 mg UPD Q4H Qty: 3 RF: 0 budesonide [Pulmicort] 0.5 mg/2 mL Suspension For Nebulization 0.5 mg UPD Q12H Qty: 1 RF: 0 ipratropium bromide 0.02 % Solution 0.5 mg UPD Q6H Qty: 1 RF: 0 pantoprazole 40 mg Tablet,Delayed Release (Dr/Ec) 40 mg PO DAILY Qty: 30 RF: 0 prednisone 10 mg tablet 10 mg PO DAILY Qty: 81 RF: 0 Continued multivitamin [Men's Multi-Vitamin] 1 EACH tablet 1 ea PO DAILY RF: 0 citalopram 40 MG tablet 20 mg PO DAILY RF: 0 tamsulosin 0.4 MG capsule 0.4 mg PO DAILY RF: 0 Symbicort 10.2 GM HFA aerosol inhaler 2 puff Inhalation BID RF: 0 metoprolol succinate 100 MG tablet extended release 24 hr 100 mg PO DAILY RF: 0 acetaminophen 325 MG tablet 650 mg PO PRN PRNRF: 0 clonazepam 1 MG tablet 1 mg PO BID RF: 0 melatonin 3 MG tablet 3 mg PO HS RF: 0 docusate sodium [Colace] 100 MG capsule 100 mg PO BID RF: 0 rosuvastatin [Crestor] 20 MG tablet 80 mg PO 1800 RF: 0 lisinopril 10 MG tablet 20 mg PO DAILY RF: 0 guaifenesin [Mucinex] 600 MG tablet extended release 12hr 1,200 mg PO BID Qty: 14 RF: 0 Xarelto 20 MG tablet 20 mg PO DAILY Qty: 30 RF: 0 clopidogrel [Plavix] 75 mg Tablet 75 mg PO DAILY RF: 0 Discontinued ipratropium-albuterol 3 ML solution for nebulization 3 ml Inhalation Q4H PRN (Reason: dyspnea or wheezing) Qty: 0 RF: 0 acetylcysteine 600 MG capsule 600 mg PO BID RF: 0 Discharge Instructions Instructions: COPD (Chronic Obstructive Pulmonary Disease) (DC) Stand Alone Forms: Nursing Discharge Form Referrals: [facility] ([place]) [Other] (The office will contact you to schedule a follow up appointment.) Pulmonary at [facility] ([facility]) [Other] - 07/19/18 3:00 pm Activity:: No Strenuous Activity Equipment/Supplies:: No Equipment Needed Diet:: Low Sodium Discharge Orders Discharge Orders: Discharge Order (Routine); Ordered 07/05/18 Ordered By: Marcelo Vieira Exam Narrative Exam Narrative: General: Patient appears comfortable and less anxious, AAOX3, NAD Neck: Supple CV: Regular, mildly tachycardic, S1S2, No rubs, murmurs, or gallops. Pulmonary: Significantly decreased breath sounds diffusely with minimal left sided wheezing, vastly and overall improved since initial exam. Abdomen: + Bowel Sounds, soft, nontender, nondistended Vascular: No lower extremity edema Psych: Normal mood and affect. DS: Data Vitals/I&O Vitals and I&O: Vital Signs Temperature 37 C 07/05/18 11:53 Temperature Source Tympanic 07/05/18 11:53 Pulse 76 07/05/18 11:53 Pulse Rhythm Regular 07/05/18 08:15 Pulse 81 06/23/18 16:00 Respiratory Rate 20 07/05/18 11:53 Respiratory Effort Non-Labored 07/05/18 08:15 Respiratory Depth Normal 07/05/18 08:15 Respiratory Pattern Normal 07/05/18 08:15 Blood Pressure 125/65 07/05/18 11:53 Blood Pressure Mean 68 06/23/18 15:47 Blood Pressure Position Sitting 06/23/18 11:40 Pulse Oximetry 93 L 07/05/18 11:53 Oxygen Delivery Method Room Air 07/05/18 11:53 Oxygen Flow Rate 0 07/05/18 11:53 Fraction of Inspired Oxygen (FIO2) 30 07/02/18 05:44 Pain Level 0 07/04/18 07:00 Comment 07/01/18 03:30 Intake & Output 07/04/18 07/05/18 07/05/18 23:59 11:59 23:59 Intake Total 360 / 930 440 / 440 Balance 360 / 930 440 / 440 Weight 60.6 kg Intake: Oral 360 / 900 440 / 440 Other: Urine Appearance Clear Comment voided in toilet Voiding Methods Toilet Completed studies during hospitalization [Text1]: Exam(s) 06/23/2018 a RAD:XR chest 2V PA & lateral SYMPTOMS/DIAGNOSIS: SHORTNESS OF BREATH, HYPOXIA, ? ACUTE DISEASE PA AND LATERAL CHEST: The heart is normal in size. The lungs are clear. The mediastinal structures and pleura appear intact. SUMMARY: No evidence of acute cardiopulmonary disease. Exam(s) 07/01 a RAD:XR portable chest AP SYMPTOMS/DIAGNOSIS: NEW CRACKLES, ? CHF PORTABLE AP CHEST: The heart is not enlarged. The lungs are clear and well expanded. CONCLUSION: No evidence of acute process. Exam(s) a US:US echocardiogram Date of study: 07/01/2018 Transthoracic Echocardiography M-mode, complete 2D, complete spectral Doppler, and color Doppler *STUDY CONCLUSIONS* Summary: 1. Left ventricle: The cavity size was normal. Wall thickness was normal. Systolic function was normal. The estimated ejection fraction was 60-65%. Wall motion was normal; there were no regional wall motion abnormalities. Findings consistent with diastolic dysfunction. Average of medial and lateral annulus E velocity: 0.077m/sec. Ratio of mitral valve peak E velocity to average of medial and lateral annulus peak E velocity: 13. 2. Right ventricle: The cavity size was normal. Wall thickness was normal. Systolic function was normal. 3. Pulmonary arteries: Pulmonary systolic pressure was increased, in the range of 50mm Hg to 55mm Hg. Exam(s) a RAD:XR chest 2V PA & lateral SYMPTOM/DIAGNOSIS: WORSENING LEUKOCYTOSIS. PA AND LATERAL CHEST: 07/04/18 The heart is not enlarged. The lungs appear hyperinflated but clear. No pleural effusions seen. CONCLUSION: No evidence of acute disease. Labs on day of discharge: Labs from last 24 hours 07/05/18 07/05/18 07/04/18 06:55 06:55 11:52 WBC 14.08 H RBC 3.71 L Hgb 11.2 L Hct 35.3 L MCV 95.1 H MCH 30.2 MCHC 31.7 L RDW 14.1 Plt Count 275 MPV 9.3 Immature Gran % 1.2 Neutrophils % 84.4 Lymphocytes % 6.2 Monocytes % 8.0 Eosinophils % 0.1 Basophils % 0.1 Absolute Neutrophils 11.88 H Absolute Lymphocytes 0.87 L Absolute Monocytes 1.13 H Absolute Eosinophils 0.01 Absolute Basophils 0.01 Sodium 145 Potassium 3.9 Chloride 105 Carbon Dioxide 36.2 H Anion Gap 3.8 BUN 18 Creatinine 0.81 Estimated GFR/1.73 m2 >= 60.00 Glucose 101 H Calcium 8.2 L Magnesium 2.2 Urine Color Yellow Urine Clarity Clear Urine pH 7.0 Ur Specific [place] 1.020 Urine Protein 30 H Urine Ketones Negative Urine Blood Negative Urine Nitrite Negative Urine Bilirubin Negative Urine Urobilinogen 0.2 Ur Leukocyte Esterase Negative Urine RBC Negative Urine WBC 0-2 Ur Epithelial Cells Negative Urine Crystals Negative Urine Bacteria Few Urine Casts Negative Urine Mucus Trace Urine Other Negative Ur Culture Indicated? No Urine Glucose Negative Sputum Culture Final 06/28/18-907 Day 1 Result ISOLATES BELOW DAY 1 GROWTH SCANT GROWTH ISOLATE 1 APPEARANCE Gram Positive [place] ISOLATE 1 ACTION SUSCEPTIBILITY TO FOLLOW DAY 1 GROWTH RARE GROWTH ISOLATE 2 APPEARANCE Normal Jolanta Day 2 Result ISOLATES BELOW DAY 2 GROWTH SCANT GROWTH ISOLATE 1 APPEARANCE Gram Positive [place] DAY 2 GROWTH RARE GROWTH ISOLATE 2 APPEARANCE Yeast DAY 3 GROWTH RARE GROWTH ISOLATE 3 APPEARANCE Normal Jolanta Day 3 Result ISOLATES BELOW DAY 3 GROWTH SCANT GROWTH ISOLATE 1 APPEARANCE Gram Positive [place] DAY 3 GROWTH RARE GROWTH ISOLATE 2 APPEARANCE Yeast DAY 3 GROWTH RARE GROWTH ISOLATE 3 APPEARANCE Normal Jolanta This Staphlyococcus aureus isolate is positive for penicillin binding protein 2a (PBP2a) which is a mechanism for a methicillin resistance (MRSA). Reported MRSA results to and read back from [facility] 06/26/18 at 0954 by KASSI Presumptive identification of [place] albicans based on gram stain and morphology. Organism 1 Staph aureus, MRSA GROWTH SCANT GROWTH Organism 2 [place] ALBICANS GROWTH RARE GROWTH Organism 3 NORMAL JOLANTA GROWTH RARE GROWTH S aur,MRSA RESULT Ciprofloxacin R Gentamicin S Trimethoprim/Sulfamethoxazole S Linezolid S Erythromycin R Oxacillin R Vancomycin S PFSH Medical History Atrial fibrillation (Chronic) BPH (benign prostatic hyperplasia) (Chronic) History of MRSA infection (Chronic) DVT prophylaxis (Chronic) COPD exacerbation (Chronic) Anemia (Chronic) History of depression (Chronic) Essential hypertension (Chronic) Coronary artery disease (Chronic) Bronchiectasis (Chronic) COPD (chronic obstructive pulmonary disease) (Chronic) Anxiety Atrial fibrillation BPH (benign prostatic hyperplasia) COPD (chronic obstructive pulmonary disease) with emphysema Depression Essential hypertension Surgical History Arthroplasty of knee Gastrostomy Tube Placement tracheostomy Social History Smoking/Tobacco Use Status: Former Tobacco Use Alcohol Intake: never Drug use: Never Do you feel safe at home: Yes Do you feel safe in your relationship?: Yes
[2018-07-05] MEDS: LORazepam 1 MG TAB PO (14:25)
--- NOTE | 2018-07-06 09:32 | PT.INDS ---
Date of service: 07/05/18 PT Notes Inpatient Physical Therapy Discharge Summary Dates: 07/05/2018 Dates of Service: 06/25/18 through 07/05/18 Referring Doctor: Lisa Martino MD PT Orders: PT CONSULT: Evaluate and Treat Precautions: Fall. Standard. Patient Profile/Admitting Diagnosis: Orders received for this 62-year-old individual with a history of COPD and oxygen dependence at home. He states that he was becoming more short of breath at home for the last few days and was taken to the emergency department with an acute COPD exacerbation. Patient is on the lung transplant list and is awaiting word. PMHX: Medical History BPH (benign prostatic hyperplasia) (Chronic) History of MRSA infection (Chronic) DVT prophylaxis (Chronic) COPD exacerbation (Chronic) Anemia (Chronic) History of depression (Chronic) Essential hypertension (Chronic) Coronary artery disease (Chronic) Bronchiectasis (Chronic) COPD (chronic obstructive pulmonary disease) (Chronic) Anxiety Atrial fibrillation BPH (benign prostatic hyperplasia) COPD (chronic obstructive pulmonary disease) with emphysema Depression Essential hypertension Surgical History Arthroplasty of knee Gastrostomy Tube Placement tracheostomy Social History/Home Situation: Patient lives in [place] with his and their grandchild Equipment Owned/DME: Walker at baseline and supplemental oxygen Subjective: Patient reports no pain nor headache he states he is comfortable with trilogy machine. He looks forward to going home. Objective: Patient lying supine with head of bed elevated has continuous warm airflow delivered via nasal cannula on 2.5 L/min Mental Status: Well oriented and alert to person place and time Pain: 0 out of 10 Subjective: Patient states that he slept better last night than the previous night. He reports that the congestion in his chest has very much decreased right now, states that he brought a lot of stuff which has helped significantly. Objective: Patient lying supine with head of bed elevated with continuous high airflow delivered via nasal cannula Mental Status: Alert and oriented x3 Pain: 0/10 VS: 172/78 mmHg, 86 bpm, 21 cpm, 94% on high flow via NC ROM: Right Upper Extremity: Within functional limits Left Upper Extremity: Within functional limits Right Lower Extremity:Within functional limits Left Lower Extremity: Within functional limits Strength: Right Upper Extremity: 4Plus out of 5 globally on initial evaluation Left Upper Extremity: 4Plus out of 5 globally on initial evaluation Right Lower Extremity: 4Plus out of 5 globally on initial evaluation Left Lower Extremity: 4Plus out of 5 globally on initial evaluation BED MOBILITY/TRANSFERS Rolling independent Supine to sit supervision Sit to supine supervision Sit to stand NT. Nursing staff stated that patient was able to tolerate walking to the bathroom via the level airflow oxygen supplementation via NC and required very little assist. Stand to sit NT Bed to chair NT Chair to bed NT Gait: Patient is independent with in room and short distance ambulation using no assistive device on continuous oxygen at 2.5 L/min via NC. Balance: Static Sitting: Good Dynamic Sitting: Good Static Standing: Fair Dynamic Standing: Poor ASSESSMENT: Patient is a 62-year-old male with a history of COPD admitted with acute COPD exacerbation. He has been put on hold on 06/30/2018 due to significant desaturation event, reports of palpitations, and bradycardia. Patient ultimately awaiting lung transplant. patient presents with the following impairment level findings: Desaturation with activity, activity intolerance, ambulation intolerance, assist needed for transfers and gait. He will benefit from skilled therapy intervention in order to remedy their functional limitations and restore patient to a more appropriate and stable functional level. Impairments are contributing to the following functional limitations: AMPAC score 46.58% Goals: Goals X1 week 1. Supine-Sit Independent and restored to baseline MET 2. Sit-Supine Independent and restored to baseline MET 3. Sit-Stand Independent and restored to baseline MET 4. Stand-Sit Independent and restored to baseline MET 5. Bed-Chair Independent and restored to baseline MET 6. Gait supervision with 2WW up to 50 feet and restored to baseline MET DISCHARGE RECOMMENDATIONS: Patient will benefit from home health physical therapy services in order to maximize activity tolerance, evaluate home safety, and reduce fall risk. Recommendations were given to patient today but he is firm with his decision of not having home health PT services at home. No equipment needs at this time. TREATMENT CODE/TIME: [id number] 23 minutes beginning at 10:49 AM. Thank you for this referral. Arely Bustos, PT, DPT, CLT [facility] SUBJECTIVE: [] OBJECTIVE: [] Pain: [] ROM: [] L UE: [] R UE: [] L LE: [] R LE: [] STRENGTH: L UE: [] R UE: [] L LE: [] R LE: [] BED MOBILITY/TRANSFERS: Supine-sit [] Sit-supine [] Sit-stand [] Stand-sit [] Bed-Chair [] Chair-bed [] GAIT: BALANCE: Static sitting Dynamic sitting Static standing Dynamic standing SPECIAL TESTS: [] ASSESSMENT: [] GOALS ( Met / Not Met): [] Goals: [] DISCHARGE PLAN/RECOMMENDATIONS: []
== END 2018-07-05 15:05 | disposition home or self-care (01) | DRG 190 ==
LOC: ER 16:49 → MS 17:26
PROVIDERS: Admitting Provider Internal Medicine; Emergency Provider Physician Assistant; PCP Surgery Vascular Surgery; Visit Provider Internal Medicine
DX: J44.1 Chronic obstructive pulmonary disease with (acute) exacerbation (principal); J96.21 Acute and chronic respiratory failure with hypoxia; J96.22 Acute and chronic respiratory failure with hypercapnia; I95.9 Hypotension, unspecified; D72.829 Elevated white blood cell count, unspecified; J47.9 Bronchiectasis, uncomplicated; B95.62 Methicillin resistant Staphylococcus aureus infection as the cause of diseases classified elsewhere; R00.2 Palpitations; I10 Essential (primary) hypertension; I48.91 Unspecified atrial fibrillation; I25.10 Atherosclerotic heart disease of native coronary artery without angina pectoris; R07.81 Pleurodynia; R53.1 Weakness; Z76.82 Awaiting organ transplant status; Z87.891 Personal history of nicotine dependence; Z99.81 Dependence on supplemental oxygen; Z79.01 Long term (current) use of anticoagulants
CPT/HCPCS: 36415; 36569; 80048; 80053; 82805; 87040; 87077; 87081; 87449; 93005; 93306; 94640; 96365; 96366; 97110; 97162; 97166; 97530; 97535; 99222; 99232; 99233; 99239; 99285; 36600; 71045; 71046; 80202; 81003; 81015; 83605; 83735; 83880; 84484; 85025; 87070; 87186; 87205; 93010; 94660; G0378; J1956; J2020; J2930; J7512; J7614; J7626; J7644

== ENCOUNTER 2018-07-18 14:35 | Inpatient (IN) | payer MEDICARE, SELFPAY ==
[2018-07-18] VITALS (113 sets, daily range): BP systolic 64–159; BP diastolic 38–104; PULSE 68–94; RESP 1–28; TEMP 36.4–36.9; O2SAT 86–100
--- NOTE | 2018-07-18 14:40 | DI.RAD_ITS ---
SYMPTOMS/DIAGNOSIS: SHORTNESS OF BREATH CHEST X-RAY, PORTABLE AP VIEW: Comparison is 07/04/18. The heart size and pulmonary vasculature are within normal limits. There is a new infiltrate in the left lower lobe. Pneumonia should be considered. The lungs are otherwise clear. No effusions or pneumothoraces are identified. The lungs appear hyperinflated suggesting underlying COPD. IMPRESSION: Left basilar infiltrate suspicious for pneumonia.
[2018-07-18] MEDS: Normal Saline 1,000 ML 1000 ML IV (14:44)
[2018-07-18] MEDS: Lactated Ringers 1,000 ML 1000 ML IV ×2 (15:14→16:11)
[2018-07-18 15:21] LABS: Abs Immature Grans 0.07 k/cumm (0.0-0.09); Absolute Basophil Count 0.01 k/cumm (0.0-0.2); Absolute Lymphocyte Count 0.61 k/cumm (1.2-3.4); Absolute Neutrophil Count 11.17 k/cumm (1.2-6.7); Basophils % 0.1; HCT 34.4 % (40.0-50.0); Immature Grans % 0.6; Lymphocytes % 4.8; Mean Corpuscular Hemoglobin 30.5 pg (27.0-33.0); Mean Corpuscular Volume 95.3 fL (80-95); Mean Platelet Volume 9.3 fL (8.0-11.0); Monocytes % 6.5; Platelet Count 206 x1000/uL (130-400); RBC 3.61 m/cumm (4.50-6.00); RBC Distribution Width 15.4 % (11.8-14.1); White Blood Cell Count 12.69 k/cumm (4.4-10.8)
[2018-07-18 15:23] LABS: Lactate-non-spesis 2.5 mmol/l (0.6-1.4)
[2018-07-18 15:27] LABS: Absolute Monocyte Count 0.82 k/cumm (0.11-0.7)
[2018-07-18] MEDS: Omnipaque 350 MG/ML 100 ML BTL IJ (15:35)
--- NOTE | 2018-07-18 15:35 | DI.CT_ITS ---
SYMPTOMS/DIAGNOSIS: LEFT FLANK/CHEST PAIN CT SCAN OF THE CHEST, ABDOMEN AND PELVIS: CT SCAN OF THE ABDOMEN AND PELVIS: Post contrast examination was performed. The liver is unremarkable. Superior mesenteric, splenic and portal veins are unremarkable. The gallbladder, pancreas, spleen and adrenal glands are unremarkable. The kidneys and ureters are unremarkable. There is mild diffuse thickening of the wall of the urinary bladder. No inflammatory changes are seen. This may represent chronic bladder outlet obstruction or neurogenic bladder. The prostate gland appears mildly enlarged. There is atherosclerosis of the abdominal aorta. There is ectasia of the abdominal aorta, but no aneurysmal dilatation is seen. Note is made of a retroaortic left renal vein. No significant abdominal or pelvic adenopathy, ascites or pneumoperitoneum is present. There is a moderate amount of stool seen in the right colon. There is a normal appendix present. No evidence of bowel obstruction or inflammation is seen. There are degenerative changes seen in the spine. IMPRESSION: No evidence of an acute abdomen. CT SCAN OF THE CHEST: There is atherosclerosis of the thoracic aorta, but no evidence of dissection or aneurysm. The heart size is within normal limits. No significant pericardial effusion is seen. Coronary artery calcifications are present. No significant thoracic adenopathy is identified. There is a small left pleural effusion. No right pleural effusion is seen. There is no evidence of a pneumothorax. The lungs appear hyperinflated with lucent areas suggesting underlying COPD. There is an area of consolidation in the left lower lobe suspicious for pneumonia. The tracheobronchial tree is unremarkable. There are degenerative changes seen in the spine. IMPRESSION: Left lower lobe pneumonia and small left pleural effusion. These findings were discussed with the Emergency Department on the date of the examination.
[2018-07-18] MEDS: Normal Saline Flush 10 ML SYR IVP ×2 (15:36→20:18)
[2018-07-18 15:42] LABS: ALT 33 U/L (12-78); AST 19 U/L (15-37); Albumin 2.2 g/dL (3.4-5.0); Alkaline Phosphatase 50 U/L (46-116); Anion Gap 4.6 mmol/L (3-11); BUN 19 mg/dL (7-18); Bilirubin, Total 0.6 mg/dL (0.2-1.0); CO2 33.4 mmol/L (21.0-32.0); CREATININE 1.88 mg/dL (0.70-1.30); Calcium 8.2 mg/dL (8.5-10.1); Chloride 99 mmol/L (98-107); Estimated GFR 36.42 (mL/min/1.73m2); Glucose 144 mg/dL (70-100); Potassium 4.3 mmol/L (3.5-5.1); Sodium 137 mmol/L (136-145); Total Protein 5.5 g/dL (6.4-8.2)
[2018-07-18 15:44] LABS: Troponin I < 0.02 ng/mL (0.00-0.06)
--- NOTE | 2018-07-18 15:50 | ED.GENADUL_ITS ---
Discharge Plan Disposition Condition: Improving Discharge Details Chief Complaint: GenMedical Admit Date/Time: 07/18/18 16:37 Admit Provider: Mareclo Vieira Attending Provider: Lisa Martino Primary Care Provider: DANITA ROMERO ED Provider: Jacklyn Benton Discharge Instructions Activity:: Activity as Tolerated Equipment/Supplies:: No Equipment Needed Diet:: As Tolerated Discharge Orders Discharge Orders: Discharge Order (Routine); Ordered 07/27/18 Ordered By: Leidy Nobles Discharge Data Discharge Date/Time-TO BE ENTERED AT DEPARTURE: 07/18/18 17:48 Medical Decision Making Javier Bautista is a 62 y/o man with h/o end stage COPD, afib, HTN, CAD who presented to the emergency department with left flank/lower left lateral rib pain and general malaise. Pt found to be severely hypotensive, with SBP in 60s. Mentating normally, breath sounds decreased b/l apparently at baseline per RT at bedside who knows Pt well, no resp distress. Concern for undifferentiated hypotension, bleeding vs sepsis vs other. Doubt PE, ACS, acute emergent aortic process. Bedside FAST neg. IV fluid hydration started emergently, in addition to levophed for episodic SBP 55. Plan for EKG, screening labs, portable CXR, CT chest/a/p, continue aggressive IVF, telemetry, will monitor . CXR with left baslilar infiltrate. CT c/a/p reported over the phone by radiology left lower lobe pneumonia, small left pleural effusion, otherwise negative for anything acute. Labs show increased lactate, mild SHERLYN. Pt continues to deny any resp distress, reports feeling significantly improved. MAP 60-65 after 3L IVF, levophed gtt @ 5mcg. Will continue IVF and levophed at this time. Suspect sepsis 2/2 pneumonia. Plan for admission to ICU. Pt verbalizes understanding of the plan and is amenable. Medical Records Medical records reviewed: Yes I reviewed the patient's medical records. Imaging Data Radiologic Study: Attestation: I personally reviewed and interpreted this imaging study as follows: Radiologist's impression: CHEST X-RAY, PORTABLE AP VIEW: Comparison is 07/04/18. The heart size and pulmonary vasculature are within normal limits. There is a new infiltrate in the left lower lobe. Pneumonia should be considered. The lungs are otherwise clear. No effusions or pneumothoraces are identified. The lungs appear hyperinflated suggesting underlying COPD. IMPRESSION: Left basilar infiltrate suspicious for pneumonia. CT SCAN OF THE CHEST, ABDOMEN AND PELVIS: CT SCAN OF THE ABDOMEN AND PELVIS: Post contrast examination was performed. The liver is unremarkable. Superior mesenteric, splenic and portal veins are unremarkable. The gallbladder, pancreas, spleen and adrenal glands are unremarkable. The kidneys and ureters are unremarkable. There is mild diffuse thickening of the wall of the urinary bladder. No inflammatory changes are seen. This may represent chronic bladder outlet obstruction or neurogenic bladder. The prostate gland appears mildly enlarged. There is atherosclerosis of the abdominal aorta. There is ectasia of the abdominal aorta, but no aneurysmal dilatation is seen. Note is made of a retroaortic left renal vein. No significant abdominal or pelvic adenopathy, ascites or pneumoperitoneum is present. There is a moderate amount of stool seen in the right colon. There is a normal appendix present. No evidence of bowel obstruction or inflammation is seen. There are degenerative changes seen in the spine. IMPRESSION: No evidence of an acute abdomen. CT SCAN OF THE CHEST: There is atherosclerosis of the thoracic aorta, but no evidence of dissection or aneurysm. The heart size is within normal limits. No significant pericardial effusion is seen. Coronary artery calcifications are present. No significant thoracic adenopathy is identified. There is a small left pleural effusion. No right pleural effusion is seen. There is no evidence of a pneumothorax. The lungs appear hyperinflated with lucent areas suggesting underlying COPD. There is an area of consolidation in the left lower lobe suspicious for pneumonia. The tracheobronchial tree is unremarkable. There are degenerative changes seen in the spine. IMPRESSION: Left lower lobe pneumonia and small left pleural effusion. Lab Data Lab results reviewed: Yes I reviewed the patient's lab results. ECG Data Attestation: I personally reviewed and interpreted this ECG (s) as follows: Interpretation: EKG shows sinus rhythm at 79, normal axis, no acute ischemic changes, nondiagnostic EKG HPI General Mode of arrival: EMS . Date/Time Provider Initiated Documentation: 07/18/18 14:40 . Limitations to Documentation: no limitations . Information obtained by: patient, RN notes reviewed and old records reviewed . HPI Narrative: Javier Bautista is a 62 y/o man with history of end-stage COPD on lung transplant list, atrial fibrillation, hypertension, coronary artery disease on Xarelto and Plavix presenting to the emergency department for malaise, left flank pain. Patient reports that he woke up this morning with left-sided flank pain. He reports the pain is much worse with movement or deep breathing. When he stays still he does not have any pain. Pain is not exertional. Patient reports that he also has felt unwell since waking this morning. Shortness of breath not worse than usual for him, but non-productive cough for 3 days. No fever. No vomiting, no diarrhea, no rash. Somewhat decreased p.o. intake yesterday and today secondary to decreased appetite. No recent travel. No dark or bloody stools. Related Data Home Medications Medication Instructions Recorded Confirmed citalopram 20 mg PO DAILY 05/09/15 07/18/18 multivitamin [Men's Multi-Vitamin] 1 ea PO DAILY 05/09/15 07/18/18 tamsulosin 0.4 mg PO DAILY 05/09/15 07/18/18 Symbicort 2 puff INHALATION BID 11/25/15 07/18/18 acetaminophen 650 mg PO PRN PRN 06/16/17 06/23/18 clonazepam 1 mg PO BID 06/16/17 07/18/18 docusate sodium [Colace] 100 mg PO BID 06/16/17 06/23/18 melatonin 3 mg PO HS 06/16/17 07/18/18 rosuvastatin [Crestor] 80 mg PO 1800 06/16/17 07/18/18 Xarelto 20 mg PO DAILY #30 tablet 06/23/17 07/18/18 lisinopril 20 mg PO DAILY tab 06/23/17 07/18/18 metoprolol succinate 100 mg PO DAILY 09/05/17 07/18/18 clopidogrel [Plavix] 75 mg PO DAILY 02/09/18 07/18/18 budesonide [Pulmicort] 0.5 mg UPD Q12H #1 pkg 07/05/18 ipratropium bromide 0.5 mg UPD Q6H #1 pkg 07/05/18 07/18/18 levalbuterol HCl 0.63 mg UPD Q4H #3 ml 07/05/18 pantoprazole 40 mg PO DAILY #30 tab 07/05/18 prednisone 10 mg PO DAILY #81 tab 07/05/18 07/18/18 benzonatate 100 mg PO TID #21 cap 07/27/18 furosemide [Lasix] 20 mg PO QAM #3 tab 07/27/18 ipratropium bromide 0.5 mg UPD Q6H 30 Days #300 ml 07/27/18 ipratropium-albuterol 3 ml IH Q6H PRN #300 ml 07/27/18 levalbuterol HCl 0.63 mg IH Q4H PRN #540 ml 07/27/18 levalbuterol HCl 0.63 mg UPD Q4H 30 Days #540 ml 07/27/18 prednisone 10 mg PO DAILY #80 tab 07/27/18 Previous Rx's Medication Instructions Recorded Xarelto 20 mg PO DAILY #30 tablet 06/23/17 lisinopril 20 mg PO DAILY tab 06/23/17 budesonide [Pulmicort] 0.5 mg UPD Q12H #1 pkg 07/05/18 ipratropium bromide 0.5 mg UPD Q6H #1 pkg 07/05/18 levalbuterol HCl 0.63 mg UPD Q4H #3 ml 07/05/18 pantoprazole 40 mg PO DAILY #30 tab 07/05/18 prednisone 10 mg PO DAILY #81 tab 07/05/18 benzonatate 100 mg PO TID #21 cap 07/27/18 furosemide [Lasix] 20 mg PO QAM #3 tab 07/27/18 ipratropium bromide 0.5 mg UPD Q6H 30 Days #300 ml 07/27/18 ipratropium-albuterol 3 ml IH Q6H PRN #300 ml 07/27/18 levalbuterol HCl 0.63 mg IH Q4H PRN #540 ml 07/27/18 levalbuterol HCl 0.63 mg UPD Q4H 30 Days #540 ml 07/27/18 prednisone 10 mg PO DAILY #80 tab 07/27/18 Allergies Allergy/AdvReac Type Severity Reaction Status Date / Time albuterol Allergy Verified 07/18/18 16:15 General Stated Complaint: GenMedical DANETTE: 2 Review of Systems Review of Systems Constitutional: denies fevers Eyes: denies eye pain ENT: denies facial pain, dental pain, sore throat Cardiovascular: denies chest pain Respiratory: Reports chronic SOB, cough over the past 3 days GI: denies abdominal pain, vomiting, diarrhea : Reports left flank pain, no dysuria or urinary symptoms MSK: denies back pain, neck pain, arthralgias, myalgias Skin: denies rash Neuro: denies headaches, numbness, weakness PFSH Medical History Atrial fibrillation (Chronic) BPH (benign prostatic hyperplasia) (Chronic) History of MRSA infection (Chronic) DVT prophylaxis (Chronic) COPD exacerbation (Acute) Anemia (Chronic) History of depression (Chronic) Essential hypertension (Chronic) Coronary artery disease (Chronic) Bronchiectasis (Chronic) COPD (chronic obstructive pulmonary disease) (Chronic) Anxiety Atrial fibrillation BPH (benign prostatic hyperplasia) COPD (chronic obstructive pulmonary disease) with emphysema Depression Essential hypertension Surgical History Arthroplasty of knee Gastrostomy Tube Placement tracheostomy Social History Smoking/Tobacco Use Status: Former Tobacco Use Alcohol Intake: never Drug use: Never Do you feel safe at home: Yes Do you feel safe in your relationship?: Yes Exam Narrative Exam Narrative: Constitutional: ill-appearing, pale, conversing normally HENT: head atraumatic/normocephalic/normal inspection, mucous membranes moist Eyes: conjunctiva normal, sclera normal, pupils 3mm b/l Neck: no stridor, normal ROM, trachea midline Chest: normal inspection, left lower lateral ribs in area of pain NTTP Resp: normal work of breathing, decreased breath sounds bilateral lower lobes, no wheezing, no rales or rhonchi Cardio: normal rate, normal rhythm, no murmur appreciated GI: abdomen soft, non-tender, non-distended, no CVA tenderness bilaterally Back: normal inspection Skin: Cool, dry, pale Neuro: alert, not altered, grossly non-focal, normal tone Ext: no edema Psych: normal mood, normal affect, normal behavior Course Vital Signs Temperature 36.6 C 07/18/18 14:38 Pulse 90 07/18/18 14:38 Respiratory Rate 20 07/18/18 14:38 Blood Pressure 72/40 L 07/18/18 14:38 Pulse Oximetry 86 L 07/18/18 14:38 Temperature 36.6 C 07/18/18 14:38 Temperature Source Temporal Artery Scan 07/18/18 14:38 Pulse 79 07/18/18 15:04 Pulse 76 07/18/18 15:00 Respiratory Rate 14 07/18/18 15:00 Respiratory Effort Non-Labored 07/18/18 15:09 Blood Pressure 67/42 L 07/18/18 15:04 Blood Pressure Mean 48 07/18/18 14:53 Blood Pressure Position Supine 07/18/18 14:38 Pulse Oximetry 92 L 07/18/18 14:53 Oxygen Delivery Method Nasal Cannula 07/18/18 14:38 Oxygen Flow Rate 3 07/18/18 14:38 Pain Level 0 07/18/18 14:38 Lab/Test Results Lab/Test Results: 07/18/18 14:12 Blood Blood Culture - Pending Laboratory Tests Range/Units 07/18/18 07/18/18 14:12 14:12 WBC (4.4-10.8) k/cumm 12.69 H RBC (4.50-6.00) m/cumm 3.61 L Hgb (13.5-17.5) g/dL 11.0 L Hct (40.0-50.0) % 34.4 L MCV (80-95) fL 95.3 H MCH (27.0-33.0) pg 30.5 MCHC (32.0-36.0) g/dL 32.0 RDW (11.8-14.1) % 15.4 H Plt Count (130-400) x1000/uL 206 MPV (8.0-11.0) fL 9.3 Immature Gran % 0.6 Neutrophils % 88.0 Lymphocytes % 4.8 Monocytes % 6.5 Eosinophils % 0.0 Basophils % 0.1 Absolute Neutrophils (1.2-6.7) k/cumm 11.17 H Absolute Lymphocytes (1.2-3.4) k/cumm 0.61 L Absolute Monocytes (0.11-0.7) k/cumm 0.82 H Absolute Eosinophils (0.0-0.7) k/cumm 0.00 Absolute Basophils (0.0-0.2) k/cumm 0.01 Lactate (0.6-1.4) mmol/l 2.5 H Critical Care Time Total Critical Care Time: 45 Attestation: I have a spent a total of 45 minutes of critical care time with this critically ill patient, including management of gtts, frequent bedside reassessments, and discussions with admitting team, Pt and family.
[2018-07-18] MEDS: CEFEPIME 2 GM in Normal Saline 100 ML IVPB (15:58)
[2018-07-18] MEDS: VANCOMYCIN 1,500 MG in Normal Saline 250 ML 166.6666 MG IVPB (16:02)
[2018-07-18] MEDS: Lactated Ringers 1,000 ML 150 ML IV (16:46)
--- NOTE | 2018-07-18 16:49 | HPE_ITS ---
Date of service: 07/18/18 Time of Service: 16:47 Assessment and Plan (1) HCAP (healthcare-associated pneumonia): Current visit: Yes Status: Acute Recent prolonged hospitalization and treatment of COPD exacerbation, during which time he received a course of antibiotic therapy with Vancomycin (MRSA in sputum), but without evidence of infiltrate by repeat imaging. Cover for HCAP with Vancomycin, Cefepime, and Levequin, and await Blood and Sputum Cultures. IVF's, Pressor support, and treatment of underlying pulmonary disease as below. Given evidence of sepsis may also benefit from adjunctive Glucocorticoids. (2) Sepsis: Current visit: Yes Status: Acute Based on significant hypotension, leukocytosis, and SHERLYN with pulmonary source, appears to be responding well to IV fluid resuscitation, antibiotics, and pressor therapy. Will need close monitoring in the ICU. For now continue with pressor support and maintain on IV fluids, and continue treatment of underlying infection. Recent ECHO reviewed, and with the exception of noted diastolic dysfunction and PHTN, appears fairly unremarkable. (3) SHERLYN (acute kidney injury): Current visit: Yes Status: Acute In setting of hypotension and illness, likely prerenal in etiology. Continue IVF's and Pressors as above, and maintain adequate flow with improved blood pressure/MAP >60. (4) COPD exacerbation: Current visit: No Status: Chronic No evidence of current exacerbation. Continue antibiotics, nebs with Xopenex due to reported intolence of Albuterol (AFib), inhaled budesonide, Ipratropium, and combination IGC/LABA. Now utilizing Trilogy. (5) Atrial fibrillation: Current visit: No Status: Chronic Continue BB with hold parameters, anticoagulation with rivaroxaban. (6) Coronary artery disease: Current visit: No Status: Chronic Appears quiescent, with ECG non-ischemic and unchanged, with Troponin negative. Patient will be maintained on his chronic cardiac regimen consisting of BB, high potency statin, and Clopidogrel. RADHA-I on hold given SHERLYN. (7) BPH (benign prostatic hyperplasia): Current visit: No Status: Chronic Continue alpha-lizet. (8) DVT prophylaxis: Current visit: No Status: Chronic Currently on chronic anticoagulation with Rivaroxaban. He will also continue PPI therapy for GI prophylaxis. (9) Advance directive on file: Current visit: Yes Status: Acute Full Code. 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 Mr. Bautista has a significant history of Oxygen dependent, end-stage COPD, with prior respiratory distress requiring intubation and mechanical ventilation. Has been trached in the past for this, and [facility]. He also reported an intolerance of albuterol due to severe tachycardia/Afib. Other history includes PAF on AC, CAD, and BPH. He was just hospitalized between 06/23 - 07/05/2018, and treated for a COPD Exacerbation, and at time of discharge felt vastly improved. He was also initiated on NIPPV with Trilogy during his last hospitalization. He was feeling well until 2 days ago when he started to feel some generalized malaise and increase in his cough. This morning he reported onset of left sided flank/chest wall pain. His work-up in the ED was significant for a mild leukocytosis, mildly elevated Lactic Acid, evidence of SHERLYN, and imaging evidence of a basilar infiltrate, confirmed with a CT of the chest showing a LLL PNA with a small left pleural effusion. CT of his abdomen was negative for acute pathology. He was also found to be significantly hypotensive, with systolic values in the 60's. Following IV Fluid bolus and initiation of antibiotic therapy, the patient was referred for admission for further evaluation and treatment. Review of Systems Review of Systems All systems reviewed & are unremarkable except as noted in HPI and below PFSH Medical History Atrial fibrillation (Chronic) BPH (benign prostatic hyperplasia) (Chronic) History of MRSA infection (Chronic) DVT prophylaxis (Chronic) COPD exacerbation (Chronic) Anemia (Chronic) History of depression (Chronic) Essential hypertension (Chronic) Coronary artery disease (Chronic) Bronchiectasis (Chronic) COPD (chronic obstructive pulmonary disease) (Chronic) Anxiety Atrial fibrillation BPH (benign prostatic hyperplasia) COPD (chronic obstructive pulmonary disease) with emphysema Depression Essential hypertension Social History Smoking/Tobacco Use Status: Former Tobacco Use Alcohol Intake: never Drug use: Never Do you feel safe at home: Yes Do you feel safe in your relationship?: Yes Meds Home Medications Medication Instructions Recorded Confirmed Type citalopram 20 mg PO DAILY 05/09/15 07/18/18 History multivitamin [Men's Multi-Vitamin] 1 ea PO DAILY 05/09/15 07/18/18 History tamsulosin 0.4 mg PO DAILY 05/09/15 07/18/18 History Symbicort 2 puff INHALATION BID 11/25/15 07/18/18 History acetaminophen 650 mg PO PRN PRN 06/16/17 06/23/18 History clonazepam 1 mg PO BID 06/16/17 07/18/18 History docusate sodium [Colace] 100 mg PO BID 06/16/17 06/23/18 History melatonin 3 mg PO HS 06/16/17 07/18/18 History rosuvastatin [Crestor] 80 mg PO 1800 06/16/17 07/18/18 History Xarelto 20 mg PO DAILY #30 tablet 06/23/17 07/18/18 Rx guaifenesin [Mucinex] 1,200 mg PO BID #14 tabcr 06/23/17 02/09/18 Rx lisinopril 20 mg PO DAILY tab 06/23/17 07/18/18 Rx metoprolol succinate 100 mg PO DAILY 09/05/17 07/18/18 History clopidogrel [Plavix] 75 mg PO DAILY 02/09/18 07/18/18 History benzonatate 200 mg PO TID #21 cap 07/05/18 Rx budesonide [Pulmicort] 0.5 mg UPD Q12H #1 pkg 07/05/18 Rx ipratropium bromide 0.5 mg UPD Q6H #1 pkg 07/05/18 07/18/18 Rx levalbuterol HCl 0.63 mg UPD Q4H #3 ml 07/05/18 Rx pantoprazole 40 mg PO DAILY #30 tab 07/05/18 Rx prednisone 10 mg PO DAILY #81 tab 07/05/18 07/18/18 Rx Allergies Allergy/AdvReac Type Severity Reaction Status Date / Time albuterol Allergy Verified 07/18/18 16:15 Exam Narrative Exam Narrative: General: Patient appears uncomfortable and acutely ill, AAOX3 Neck: Supple CV: Regular, nontachycardic, S1S2, No rubs, murmurs, or gallops. Pulmonary: Significantly and diffusely decreased breath sounds that appear at baseline with no wheezing, left basilar crackles. No rhonchi. Abdomen: + Bowel Sounds, soft, nontender, nondistended Vascular: No lower extremity edema Neurologic: CN II-XII grossly intact. No focal deficits. Psych: Normal mood and affect. Results Imaging Additional studies: Exam(s) a RAD:XR portable chest AP SYMPTOMS/DIAGNOSIS: SHORTNESS OF BREATH CHEST X-RAY, PORTABLE AP VIEW: Comparison is 07/04/18. The heart size and pulmonary vasculature are within normal limits. There is a new infiltrate in the left lower lobe. Pneumonia should be considered. The lungs are otherwise clear. No effusions or pneumothoraces are identified. The lungs appear hyperinflated suggesting u nderlying COPD. IMPRESSION: Left basilar infiltrate suspicious for pneumonia. Exam(s) a CT:CT chest/abd/pel w SYMPTOMS/DIAGNOSIS: LEFT FLANK/CHEST PAIN CT SCAN OF THE CHEST, ABDOMEN AND PELVIS: CT SCAN OF THE ABDOMEN AND PELVIS: Post contrast examination was performed. The liver is unremarkable. Superior mesenteric, splenic and portal veins are unremarkable. The gallbladder, pancreas, spleen and adrenal glands are unremarkable. The kidneys and ureters are unremarkable. There is mild diffuse thickening of the wall of the urinary bladder. No inflammatory changes are seen. This may represent chronic bladder outlet obstruction or neurogenic bladder. The prostate gland appears mildly enlarged. There is atherosclerosis of the abdominal aorta. There is ectasia of the abdominal aorta, but no aneurysmal dilatation is seen. Note is made of a retroaortic left renal vein. No significant abdominal or pelvic adenopathy, ascites or pneumoperitoneum is present. There is a moderate amount of stool seen in the right colon. There is a normal appendix present. No evidence of bowel obstruction or inflammation is seen. There are degenerative changes seen in the spine. IMPRESSION: No evidence of an acute abdomen. CT SCAN OF THE CHEST: There is atherosclerosis of the thoracic aorta, but no evidence of dissection or aneurysm. The heart size is within normal limits. No significant pericardial effusion is seen. Coronary artery calcifications are present. No significant thoracic adenopathy is identified. There is a small left pleural effusion. No right pleural effusion is seen. There is no evidence of a pneumothorax. The lungs appear hyperinflated with lucent areas suggesting underlying COPD. There is an area of consolidation in the left lower lobe suspicious for pneumonia. The tracheobronchial tree is unremarkable. There are degenerative changes seen in the spine. IMPRESSION: Left lower lobe pneumonia and small left pleural effusion. Labs : 07/18/18 14:12 07/18/18 14:12 Laboratory Results - last 24 hr 07/18/18 07/18/18 07/18/18 14:12 14:12 14:12 WBC 12.69 H RBC 3.61 L Hgb 11.0 L Hct 34.4 L MCV 95.3 H MCH 30.5 MCHC 32.0 RDW 15.4 H Plt Count 206 MPV 9.3 Immature Gran % 0.6 Neutrophils % 88.0 Lymphocytes % 4.8 Monocytes % 6.5 Eosinophils % 0.0 Basophils % 0.1 Absolute Neutrophils 11.17 H Absolute Lymphocytes 0.61 L Absolute Monocytes 0.82 H Absolute Eosinophils 0.00 Absolute Basophils 0.01 Sodium 137 Potassium 4.3 Chloride 99 Carbon Dioxide 33.4 H Anion Gap 4.6 BUN 19 H Creatinine 1.88 H Estimated GFR/1.73 m2 36.42 Glucose 144 H Lactate 2.5 H Calcium 8.2 L Total Bilirubin 0.6 AST 19 ALT 33 Alkaline Phosphatase 50 Troponin I < 0.02 Total Protein 5.5 L Albumin 2.2 L Last Vital Signs Temp 36.6 C 07/18/18 14:38 Pulse 76 07/18/18 16:36 Resp 14 07/18/18 16:36 BP 104/51 L 07/18/18 16:36 Pulse Ox 97 07/18/18 16:36
--- NOTE | 2018-07-18 16:57 | NUR.NOTE ---
Nursing Note: BP dropped to 95/45 with LR rate 150cc/hr--Dr Benton notified--increase rate to 250 cc/hr
--- NOTE | 2018-07-18 17:21 | NUR.NOTE ---
Nursing Note: 1715--BP 90/46 pulse 72--Dr Mayers Notified--increase Levophed to 7mcg/min
[2018-07-18 18:49] LABS: Bilirubin Negative (Negative); Blood Negative (Negative); Clarity Clear; Glucose Negative (Negative); Ketones Negative (Negative); Leukocyte Esterase Negative (Negative); Nitrite Negative (Negative); Urobilinogen 0.2 EU/dL (Up TO 0.2)
[2018-07-18] MEDS: levoFLOXacin 750 MG/150 ML BAG 100 MG IVPB (18:53)
[2018-07-18] MEDS: Hydrocortisone SOD SUC. 100 MG VIAL 50 MG IVP ×2 (18:54→23:40)
[2018-07-18] MEDS: Ipratropium 0.5 MG/2.5 ML UPD VIAL UPD (19:07)
[2018-07-18] MEDS: Budesonide/Formoterol 160/4.5 6 GM 60 PUFF INH IH (20:17)
[2018-07-18] MEDS: Pantoprazole 40 MG VIAL IVP (20:17)
[2018-07-18] MEDS: Benzonatate 100 MG CAP PO (20:17)
[2018-07-18] MEDS: Docusate Sodium 100 MG CAP PO (20:18)
[2018-07-18] MEDS: Lactated Ringers 1,000 ML 250 ML IV (20:18)
[2018-07-18] MEDS: Budesonide 0.5 MG/2 ML UPD VIAL UPD (20:18)
[2018-07-18] MEDS: clonazePAM 1 MG TAB PO (20:18)
[2018-07-18] MEDS: Levalbuterol 0.63 MG/3 ML UPD VIAL UPD (20:19)
[2018-07-18] MEDS: Melatonin 3 MG TAB PO (21:14)
[2018-07-18] MEDS: Normal Saline 1,000 ML 150 ML IV (22:05)
[2018-07-19] VITALS (77 sets, daily range): BP systolic 95–151; BP diastolic 46–81; PULSE 63–107; RESP 1–30; TEMP 36.4–36.6; O2SAT 92–100
[2018-07-19] MEDS: CEFEPIME 2 GM in Normal Saline 100 ML IVPB ×3 (04:04→19:34)
[2018-07-19] MEDS: Normal Saline 1,000 ML 150 ML IV (04:04)
[2018-07-19] MEDS: VANCOMYCIN 750 MG in Normal Saline 250 ML 250 MG IV (05:58)
[2018-07-19] MEDS: Normal Saline Flush 10 ML SYR IVP ×3 (05:58→20:10)
[2018-07-19] MEDS: Hydrocortisone SOD SUC. 100 MG VIAL 50 MG IVP (05:58)
[2018-07-19 07:31] LABS: Abs Immature Grans 0.02 k/cumm (0.0-0.09); Absolute Lymphocyte Count 0.47 k/cumm (1.2-3.4); Absolute Monocyte Count 0.47 k/cumm (0.11-0.7); HCT 30.4 % (40.0-50.0); HGB 9.5 g/dL (13.5-17.5); Immature Grans % 0.3; Lymphocytes % 6.4; Mean Corp. HGB Concentration 31.3 g/dL (32.0-36.0); Mean Corpuscular Volume 95.9 fL (80-95); Mean Platelet Volume 9.3 fL (8.0-11.0); Monocytes % 6.4; Neutrophils % 86.9; Platelet Count 195 x1000/uL (130-400); RBC 3.17 m/cumm (4.50-6.00); RBC Distribution Width 15.6 % (11.8-14.1); White Blood Cell Count 7.37 k/cumm (4.4-10.8)
[2018-07-19 07:34] LABS: Anion Gap 0.6 mmol/L (3-11); BUN 14 mg/dL (7-18); CO2 33.4 mmol/L (21.0-32.0); CREATININE 0.87 mg/dL (0.70-1.30); Chloride 106 mmol/L (98-107); Glucose 104 mg/dL (70-100); Magnesium 1.5 mg/dL (1.8-2.4); Potassium 4.1 mmol/L (3.5-5.1); Sodium 140 mmol/L (136-145)
[2018-07-19 08:23] LABS: Diff Comment RBC Morph Reviewed; Hypochromasia 1+; Polychromasia Present
[2018-07-19 08:24] LABS: Poikilocytes 2+
[2018-07-19] MEDS: Benzonatate 100 MG CAP PO ×3 (08:37→20:11)
[2018-07-19] MEDS: Multivitamin TAB 1 TAB PO (08:37)
[2018-07-19] MEDS: clonazePAM 1 MG TAB PO ×2 (08:37→20:11)
[2018-07-19] MEDS: Clopidogrel 75 MG TAB PO (08:38)
[2018-07-19] MEDS: Tamsulosin 0.4 MG CAPCR PO (08:39)
[2018-07-19] MEDS: Rivaroxaban 10 MG TABLET 20 MG PO (08:39)
[2018-07-19] MEDS: Docusate Sodium 100 MG CAP PO ×2 (08:39→20:10)
[2018-07-19] MEDS: predniSONE 10 MG TAB PO (08:39)
[2018-07-19] MEDS: Citalopram 20 MG TAB PO (08:39)
[2018-07-19] MEDS: Metoprolol CR 100 MG TABCR PO (08:40)
[2018-07-19 09:16] LABS: Lactate-non-spesis 1.9 mmol/l (0.6-1.4)
[2018-07-19] MEDS: Levalbuterol 0.63 MG/3 ML UPD VIAL UPD ×4 (09:43→20:10)
[2018-07-19] MEDS: Ipratropium 0.5 MG/2.5 ML UPD VIAL UPD ×3 (09:46→20:10)
[2018-07-19] MEDS: MAGNESIUM SULFATE 2 GM/50 ML BAG IVPB (09:47)
[2018-07-19] MEDS: Budesonide 0.5 MG/2 ML UPD VIAL UPD ×2 (09:56→20:10)
[2018-07-19] MEDS: Budesonide/Formoterol 160/4.5 6 GM 60 PUFF INH IH ×2 (09:59→20:09)
--- NOTE | 2018-07-19 10:36 | PHARADMIT ---
Addendum entered by Sandip Meléndez III 07/25/18 16:48: Pharmacy Note Subjective HCAP resolved, ABX discontinued Objective VS-OK Lytes,WBC,SCr,Plts-OK H&H-9.2/29.9 wgt-64.6kg BM today Assessment Steroids to PO taper. Plan Lasix continues watch I&Os & wgt Addendum entered by Sasha Garcia 07/24/18 14:31: Pharmacy Note Subjective day 7 abx Objective VS-okay H/H-9.5/31.0 Assessment vanco trough was 23.9 so dose changed to 1000 mg Q10 H to target a trough of 14.4 furosemide scheduled daily, IV steroid decreased yesterday Plan 7-10 days of abx per MD, vanco trough scheduled for 1500 tomorrow (cancel if abx discontinued) Addendum entered by Sandip Meléndez III 07/21/18 11:12: Pharmacy Note Subjective MD wants patient to receive 5 full days of IV ABX.(On Day#4). Objective VS-OK Lytes, SCr-0.76, H&H,Plts-OK WBC-6.91 Wgt-67.6 kg No BM Assessment Vancomycin trough (24.9) PREVIOUS TWO DOSES GIVEN LATE (1.5 & 1.25 HRS) dose re-timed. Cefepime & Levaquin continue also Plan Continue HCAP ABX coverage. Addendum entered by Sandip Meléndez III 07/20/18 14:08: Pharmacy Note Subjective HCAP covered with Cefepime, Vancomycin & Levaquin. Sepsis responded to abx and fluids, SHERLYN resolved,Off pressors. MD addressing Anemia now. Heme testing & lab test ordered. Objective VS-OK SCr-0.69 Mag-2.1 wbc-7.03 I&O (+1.78L) Wgt-67.6 kg No BM yet Assessment No med changes today Plan Awaiting new note Addendum entered by Yudelka Hein 07/19/18 15:51: Vanco trough ordered for 3am on 07/20/18 Original Note: Admission Pharmacy Clinical Review HCAP, Sepsis, End stage COPD Code Status Full Code Current Weight 65.1 kg Renally Cleared and Narrow Therapeutic Index Meds CrCl~78ml/min (was very poor on admission) QTc Value / Action Taken QTC 445 (Celexa BP Control, Fever BP 130/81 (on admission was 72/40) Afebrile weight up 65.1 (was dehydrated) Electrolytes reviewed K+ 4.1 Mag 1.5 (2gram IV x1) DVT Prophylaxis Xarelto 20mg daily for Afib Plavix Opiate Usage / Scheduled Bowel Regimen Ordered Plt/SCr for Heparin / Enoxaparin Plt 195 SCr 0.87 (was 1.88 on admission) INR for Warfarin H/H stable, WBC/Bands H/H 9.5/30.4 (dilutional likely now) Antibiotic appropriateness Triple: Levaquin, Vanco, Cefepime day#2...were really adjusted then re-adjusted this morning for improved clearance Previously had MRSA in sputum Cultures and Sensitivities Sputum pending Blood pending Surgical ABX d/c within 24 hr DM control / Insulin Dosing BG 104 Heart Failure (Check EF%) (RADHA's, B-Block, Diuretics) Norepinephrine infusion dc'd Toprol IV to PO Switch Home Meds Reviewed Crestor dose entered as 80mg daily, above recommended Max dose of 40mg/day, MD agreed to reduce dose to 40mg daily (same as last admission) Home Meds Not Ordered Lisinopril not ordered due to SHERLYN on admission, watch for restart if BP's normalize Comments last admission earlier this month Steroids via nebulizer, steroids via inhaler...intentional, same as last visit Pt is on oral Prednisone 10mg daily in addition to the IV Solu-cortef which is intentional, MD prefers to keep them on baseline home steroid in addition to IV
--- NOTE | 2018-07-19 11:50 | W.PM.PROGNOT ---
Date of Service Date of service: 07/19/18 Time of Service: 11:50 Assessment and Plan (1) HCAP (healthcare-associated pneumonia): Current visit: Yes Status: Acute Recent prolonged hospitalization and treatment of COPD exacerbation, during which time he received a course of antibiotic therapy with 7 days of Vancomycin as well as 3 days of Linezolid (MRSA in sputum), but without evidence of infiltrate by imaging. Cover for HCAP with Vancomycin, Cefepime, and Levequin, now day #2, and await Blood and Sputum Cultures. IVF's and treatment of underlying pulmonary disease as below. (2) Sepsis: Current visit: Yes Status: Acute Based on significant hypotension, leukocytosis, and SHERLYN with pulmonary source, appears to be responding well to IV fluid resuscitation, antibiotics, and initial pressor therapy. Currently off Levophed. For now continue with IV fluids but decrease rate, and continue treatment of underlying infection. Recent ECHO reviewed, and with the exception of noted diastolic dysfunction and PHTN, appears fairly unremarkable. (3) SHERLYN (acute kidney injury): Current visit: Yes Status: Acute In setting of hypotension and illness, likely prerenal in etiology. Resolved with hydration and normalization of blood pressure. (4) COPD exacerbation: Current visit: No Status: Chronic Initially without wheezing, now appears to have an exacerbation of his underlying COPD based on physical exam. Continue antibiotics, nebs with Xopenex due to reported intolence of Albuterol (AFib), inhaled budesonide, Ipratropium, and combination IGC/LABA. Start Solumedrol as well. Now utilizing Trilogy. (5) Atrial fibrillation: Current visit: No Status: Chronic Continue BB with hold parameters, anticoagulation with rivaroxaban. (6) Coronary artery disease: Current visit: No Status: Chronic Appears quiescent, with ECG non-ischemic and unchanged, with Troponin negative. Patient will be maintained on his chronic cardiac regimen consisting of BB, high potency statin, and Clopidogrel. RADHA-I on hold given initial SHERLYN. (7) BPH (benign prostatic hyperplasia): Current visit: No Status: Chronic Continue alpha-lizet. (8) DVT prophylaxis: Current visit: No Status: Chronic Currently on chronic anticoagulation with Rivaroxaban. He will also continue PPI therapy for GI prophylaxis. (9) Advance directive on file: Current visit: Yes Status: Acute Full Code. Subjective Interval history since last seen: Very pleasant 62-year-old man with a prior medical history significant for End Stage COPD on home oxygen therapy, admitted from [facility] Emergency Department with a diagnosis of Sepsis with Pulmonary Source. Mr. Bautista has a significant history of Oxygen dependent, end-stage COPD, with prior respiratory distress requiring intubation and mechanical ventilation. Has been trached in the past for this, and is [facility]. He also reported an intolerance of albuterol due to severe tachycardia/Afib. Other history includes PAF on AC, CAD, and BPH. He was just hospitalized between 06/23 - 07/05/2018 here at [facility], and treated for a COPD Exacerbation. At time of discharge he felt vastly improved and at or near his baseline. He was also initiated on NIPPV with Trilogy during his last hospitalization. He had 3 CXRs performed during his hospitalization, the last being on the day prior to his discharge, with all being negative for any acute process. He was feeling well until 2 days prior to his admission when he started to feel some generalized malaise and increase in his cough. On the morning of admission he reported onset of left sided flank/chest wall pain. His work-up in the ED was significant for a mild leukocytosis, mildly elevated Lactic Acid, evidence of SHERLYN, and imaging evidence of a basilar infiltrate, confirmed with a CT of the chest showing a LLL PNA with a small left pleural effusion. CT of his abdomen was negative for acute pathology. He was also found to be significantly hypotensive, with systolic values in the 60's. Following IV Fluid bolus and initiation of antibiotic therapy, the patient was referred for admission for further evaluation and treatment. The patient's blood pressure has normalized since his admission, and he is now off pressor therapy and remains on broad spectrum antibiotics. He feels vastly improved. No overnight events were reported. He remains afebrile. Exam Narrative Exam Narrative: General: Patient appears uncomfortable and acutely ill, AAOX3 Neck: Supple CV: Regular, nontachycardic, S1S2, No rubs, murmurs, or gallops. Pulmonary: Diffusely decreased breath sounds, now with mild wheezing, left basilar crackles continued. No rhonchi. Abdomen: + Bowel Sounds, soft, nontender, nondistended Vascular: No lower extremity edema Psych: Normal mood and affect. Objective Objective Clinical Data: Abnormal lab results 07/18/18 07/18/18 07/18/18 Range/Units 14:12 14:12 14:12 WBC 12.69 H (4.4-10.8) k/cumm RBC 3.61 L (4.50-6.00) m/cumm Hgb 11.0 L (13.5-17.5) g/dL Hct 34.4 L (40.0-50.0) % MCV 95.3 H (80-95) fL MCHC (32.0-36.0) g/dL RDW 15.4 H (11.8-14.1) % Absolute Neutrophils 11.17 H (1.2-6.7) k/cumm Absolute Lymphocytes 0.61 L (1.2-3.4) k/cumm Absolute Monocytes 0.82 H (0.11-0.7) k/cumm Carbon Dioxide 33.4 H (21.0-32.0) mmol/L Anion Gap (3-11) mmol/L BUN 19 H (7-18) mg/dL Creatinine 1.88 H (0.70-1.30) mg/dL Glucose 144 H (70-100) mg/dL Lactate 2.5 H (0.6-1.4) mmol/l Calcium 8.2 L (8.5-10.1) mg/dL Magnesium (1.8-2.4) mg/dL Total Protein 5.5 L (6.4-8.2) g/dL Albumin 2.2 L (3.4-5.0) g/dL 07/19/18 07/19/18 07/19/18 Range/Units 06:34 06:34 09:10 WBC (4.4-10.8) k/cumm RBC 3.17 L (4.50-6.00) m/cumm Hgb 9.5 L (13.5-17.5) g/dL Hct 30.4 L (40.0-50.0) % MCV 95.9 H (80-95) fL MCHC 31.3 L (32.0-36.0) g/dL RDW 15.6 H (11.8-14.1) % Absolute Neutrophils (1.2-6.7) k/cumm Absolute Lymphocytes 0.47 L (1.2-3.4) k/cumm Absolute Monocytes (0.11-0.7) k/cumm Carbon Dioxide 33.4 H (21.0-32.0) mmol/L Anion Gap 0.6 L (3-11) mmol/L BUN (7-18) mg/dL Creatinine (0.70-1.30) mg/dL Glucose 104 H (70-100) mg/dL Lactate 1.9 H (0.6-1.4) mmol/l Calcium 8.0 L (8.5-10.1) mg/dL Magnesium 1.5 L (1.8-2.4) mg/dL Total Protein (6.4-8.2) g/dL Albumin (3.4-5.0) g/dL Vital Signs Temperature 36.5 C 07/19/18 08:15 Temperature Source Tympanic 07/19/18 04:17 Pulse 107 H 07/19/18 10:29 Pulse 68 07/19/18 05:31 Respiratory Rate 14 07/19/18 10:29 Respiratory Effort Non-Labored 07/19/18 08:15 Respiratory Depth Shallow 07/19/18 08:15 Respiratory Pattern Normal 07/19/18 08:15 Blood Pressure 130/81 07/19/18 10:29 Blood Pressure Mean 71 07/19/18 05:00 Blood Pressure Position Supine 07/18/18 17:50 Pulse Oximetry 96 07/19/18 10:38 Oxygen Delivery Method Nasal Cannula 07/19/18 10:38 Oxygen Flow Rate 2 07/19/18 10:38 Pain Level 0 07/19/18 10:29 Comment 07/19/18 06:36 Intake & Output 07/18/18 07/18/18 07/19/18 11:59 23:59 11:59 Intake Total 5105.250 / 5105.250 1638.475 / 1638.475 Output Total 800 / 800 350 / 350 Balance 4305.250 / 4305.250 1288.475 / 1288.475 Weight 59.6 kg 65.1 kg Intake: IV 4985.250 / 4985.250 1278.475 / 1278.475 Oral 120 / 120 360 / 360 Output: Urine 800 / 800 350 / 350 Other: Urine Color Yellow Yellow Urine Appearance Clear Clear Urine Odor None Voiding Methods Urinal Laboratory Results WBC 7.37 k/cumm (4.4-10.8) D 07/19/18 06:34 RBC 3.17 m/cumm (4.50-6.00) L 07/19/18 06:34 Hgb 9.5 g/dL (13.5-17.5) L 07/19/18 06:34 Hct 30.4 % (40.0-50.0) L 07/19/18 06:34 MCV 95.9 fL (80-95) H 07/19/18 06:34 MCH 30.0 pg (27.0-33.0) 07/19/18 06:34 MCHC 31.3 g/dL (32.0-36.0) L 07/19/18 06:34 RDW 15.6 % (11.8-14.1) H 07/19/18 06:34 Plt Count 195 x1000/uL (130-400) 07/19/18 06:34 MPV 9.3 fL (8.0-11.0) 07/19/18 06:34 Immature Gran % 0.3 07/19/18 06:34 Neutrophils % 86.9 07/19/18 06:34 Lymphocytes % 6.4 07/19/18 06:34 Monocytes % 6.4 07/19/18 06:34 Eosinophils % 0.0 07/19/18 06:34 Basophils % 0.0 07/19/18 06:34 Absolute Neutrophils 6.40 k/cumm (1.2-6.7) 07/19/18 06:34 Absolute Lymphocytes 0.47 k/cumm (1.2-3.4) L 07/19/18 06:34 Absolute Monocytes 0.47 k/cumm (0.11-0.7) 07/19/18 06:34 Absolute Eosinophils 0.00 k/cumm (0.0-0.7) 07/19/18 06:34 Absolute Basophils 0.00 k/cumm (0.0-0.2) 07/19/18 06:34 Differential Comment Rbc morph reviewed 07/19/18 06:34 RBC Morphology See below 07/19/18 06:34 Polychromasia Present 07/19/18 06:34 Hypochromasia 1+ 07/19/18 06:34 Poikilocytosis 2+ 07/19/18 06:34 Sodium 140 mmol/L (136-145) 07/19/18 06:34 Potassium 4.1 mmol/L (3.5-5.1) 07/19/18 06:34 Chloride 106 mmol/L (98-107) 07/19/18 06:34 Carbon Dioxide 33.4 mmol/L (21.0-32.0) H 07/19/18 06:34 Anion Gap 0.6 mmol/L (3-11) L 07/19/18 06:34 BUN 14 mg/dL (7-18) 07/19/18 06:34 Creatinine 0.87 mg/dL (0.70-1.30) D 07/19/18 06:34 Estimated GFR/1.73 m2 >= 60.00 (mL/min/1.73m2) 07/19/18 06:34 Glucose 104 mg/dL (70-100) H 07/19/18 06:34 Lactate 1.9 mmol/l (0.6-1.4) H 07/19/18 09:10 Calcium 8.0 mg/dL (8.5-10.1) L 07/19/18 06:34 Magnesium 1.5 mg/dL (1.8-2.4) L 07/19/18 06:34 Total Bilirubin 0.6 mg/dL (0.2-1.0) 07/18/18 14:12 AST 19 U/L (15-37) 07/18/18 14:12 ALT 33 U/L (12-78) 07/18/18 14:12 Alkaline Phosphatase 50 U/L (46-116) 07/18/18 14:12 Troponin I < 0.02 ng/mL (0.00-0.06) 07/18/18 14:12 Total Protein 5.5 g/dL (6.4-8.2) L 07/18/18 14:12 Albumin 2.2 g/dL (3.4-5.0) L 07/18/18 14:12 Urine Color Yellow (Yellow) 07/18/18 18:15 Urine Clarity Clear 07/18/18 18:15 Urine pH 7.0 (5-8) 07/18/18 18:15 Ur Specific Mission 1.010 (1.005-1.025) 07/18/18 18:15 Urine Protein Negative mg/dL (Negative) 07/18/18 18:15 Urine Ketones Negative mg/dL (Negative) 07/18/18 18:15 Urine Blood Negative (Negative) 07/18/18 18:15 Urine Nitrite Negative (Negative) 07/18/18 18:15 Urine Bilirubin Negative (Negative) 07/18/18 18:15 Urine Urobilinogen 0.2 EU/dL (Up TO 0.2) 07/18/18 18:15 Ur Leukocyte Esterase Negative (Negative) 07/18/18 18:15 Urine Glucose Negative mg/dL (Negative) 07/18/18 18:15
[2018-07-19] MEDS: methylPREDNISolone SUCC 40 MG VIAL IVP ×2 (12:11→20:10)
--- NOTE | 2018-07-19 12:48 | PDOC.CMIN ---
- If Service Date Differs Date of service: 07/19/18 Time of Service: 12:49 Care Management Initial Assess REASON FOR HOSPITALIZATION:: HCAP (Healthcare-associated pneumonia) PAST MEDICAL HISTORY/PAST SURGICAL HISTORY:: edical History . Atrial fibrillation (Chronic). BPH (benign prostatic hyperplasia) (Chronic). History of MRSA infection (Chronic). DVT prophylaxis (Chronic). COPD exacerbation (Chronic). Anemia (Chronic). History of depression (Chronic). Essential hypertension (Chronic). Coronary artery disease (Chronic). Bronchiectasis (Chronic). COPD (chronic obstructive pulmonary disease) (Chronic). Anxiety. Atrial fibrillation. BPH (benign prostatic hyperplasia). COPD (chronic obstructive pulmonary disease) with emphysema. Depression. 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 He has a long history of severe COPD and is awaiting a lung transplant. Javier is disabled. He has several children and a strong support system with family and friends. CURRENT FUNCTIONAL STATUS:: Javier was sitting up in bed during CM visit. He was smiling but appeared pale and was noticeably short of breath during conversation. He states he feels much better than he did when first admitted. He states he loves his Trilogy and feels it has helped him a great deal. ADVANCE DIRECTIVES:: [facility] Jeremiah [phone] Has patient been provided with information about the portal?: Yes Did the patient sign up for the portal?: No CODE STATUS:: Full Code INSURANCE COVERAGE / FINANCIAL ISSUES:: Medicare. Medicaid CURRENT HOME/COMMUNITY SERVICES/EQUIPMENT:: Javier has home oxygen and a new Trilogy unit. PRIMARY CARE PHYSICIAN:: Marvin Hallman POTENTIAL DISCHARGE NEEDS:: resumption of services including oxygen and Trilogy unit PATIENT/FAMILY EDUCATION NEEDS:: Discharge plan, limitations, follow up plan of care and Ask Me Three. ANTICIPATED BARRIERS TO DISCHARGE:: None identified TRANSPORTATION:: Via private automobile with nas [facility]angel PLAN:: Javier is receiving IV antibiotics and respiratory support to treat his pneumonia. He will be discharged home when ready with a resumption of current services which include home oxygen and a Trilogy Unit. will continue to offer support to patient, family, care team and discharge plan of care.
--- NOTE | 2018-07-19 13:49 | INITIAL_ITS ---
- If Service Date Differs Date of service: 07/19/18 Time of Service: 12:49 Care Management Initial Assess REASON FOR HOSPITALIZATION:: HCAP (Healthcare-associated pneumonia) PAST MEDICAL HISTORY/PAST SURGICAL HISTORY:: edical History . Atrial fibrillation (Chronic). BPH (benign prostatic hyperplasia) (Chronic). History of MRSA infection (Chronic). DVT prophylaxis (Chronic). COPD exacerbation (Chronic). Anemia (Chronic). History of depression (Chronic). Essential hypertension (Chronic). Coronary artery disease (Chronic). Bronchiectasis (Chronic). COPD (chronic obstructive pulmonary disease) (Chronic). Anxiety. Atrial fibrillation. BPH (benign prostatic hyperplasia). COPD (chronic obstructive pulmonary disease) with emphysema. Depression. 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 He has a long history of severe COPD and is awaiting a lung transplant. Javier is disabled. He has several children and a strong support system with family and friends. CURRENT FUNCTIONAL STATUS:: Javier was sitting up in bed during CM visit. He was smiling but appeared pale and was noticeably short of breath during conversation. He states he feels much better than he did when first admitted. He states he loves his Trilogy and feels it has helped him a great deal. ADVANCE DIRECTIVES:: [facility] Jeremiah [phone] Has patient been provided with information about the portal?: Yes Did the patient sign up for the portal?: No CODE STATUS:: Full Code INSURANCE COVERAGE / FINANCIAL ISSUES:: Medicare. Medicaid CURRENT HOME/COMMUNITY SERVICES/EQUIPMENT:: Javier has home oxygen and a new Trilogy unit. PRIMARY CARE PHYSICIAN:: Marvin Hallman POTENTIAL DISCHARGE NEEDS:: resumption of services including oxygen and Trilogy unit PATIENT/FAMILY EDUCATION NEEDS:: Discharge plan, limitations, follow up plan of care and Ask Me Three. ANTICIPATED BARRIERS TO DISCHARGE:: None identified TRANSPORTATION:: Via private automobile with nas [place]angel PLAN:: Javier is receiving IV antibiotics and respiratory support to treat his pneumonia. He will be discharged home when ready with a resumption of current services which include home oxygen and a Trilogy Unit. will continue to offer support to patient, family, care team and discharge plan of care.
[2018-07-19] MEDS: Normal Saline 1,000 ML 75 ML IV (17:35)
[2018-07-19] MEDS: levoFLOXacin 750 MG/150 ML BAG 100 MG IVPB (17:36)
[2018-07-19] MEDS: Pantoprazole 40 MG VIAL IVP (20:10)
[2018-07-19] MEDS: ROSUVASTATIN 20 MG TAB 40 MG PO (20:12)
[2018-07-19] MEDS: Melatonin 3 MG TAB PO (21:06)
[2018-07-20] VITALS (34 sets, daily range): BP systolic 109–167; BP diastolic 49–73; PULSE 71–105; RESP 13–26; TEMP 35.7–36.8; O2SAT 94–99
[2018-07-20] MEDS: methylPREDNISolone SUCC 40 MG VIAL IVP ×3 (03:05→18:55)
[2018-07-20] MEDS: CEFEPIME 2 GM in Normal Saline 100 ML IVPB ×3 (03:05→20:48)
[2018-07-20] MEDS: Normal Saline Flush 10 ML SYR IVP ×2 (03:06→18:55)
[2018-07-20 03:56] LABS: Vancomycin, Trough 17.8 ug/mL (10.0-20.0)
[2018-07-20] MEDS: Normal Saline 1,000 ML 75 ML IV (04:27)
[2018-07-20 07:02] LABS: Abs Immature Grans 0.02 k/cumm (0.0-0.09); Absolute Lymphocyte Count 0.25 k/cumm (1.2-3.4); Absolute Monocyte Count 0.23 k/cumm (0.11-0.7); Absolute Neutrophil Count 6.53 k/cumm (1.2-6.7); HCT 28.8 % (40.0-50.0); HGB 8.8 g/dL (13.5-17.5); Immature Grans % 0.3; Lymphocytes % 3.6; Mean Corp. HGB Concentration 30.6 g/dL (32.0-36.0); Mean Corpuscular Hemoglobin 29.5 pg (27.0-33.0); Mean Corpuscular Volume 96.6 fL (80-95); Mean Platelet Volume 9.4 fL (8.0-11.0); Monocytes % 3.3; Neutrophils % 92.8; Platelet Count 180 x1000/uL (130-400); RBC 2.98 m/cumm (4.50-6.00); RBC Distribution Width 15.4 % (11.8-14.1); White Blood Cell Count 7.03 k/cumm (4.4-10.8)
[2018-07-20] MEDS: Ipratropium 0.5 MG/2.5 ML UPD VIAL UPD ×3 (07:21→19:56)
[2018-07-20 07:22] LABS: Anion Gap 5.7 mmol/L (3-11); BUN 14 mg/dL (7-18); CO2 29.3 mmol/L (21.0-32.0); CREATININE 0.69 mg/dL (0.70-1.30); Calcium 8.2 mg/dL (8.5-10.1); Chloride 106 mmol/L (98-107); Glucose 143 mg/dL (70-100); Magnesium 2.1 mg/dL (1.8-2.4); Potassium 3.9 mmol/L (3.5-5.1); Sodium 141 mmol/L (136-145)
[2018-07-20] MEDS: Levalbuterol 0.63 MG/3 ML UPD VIAL UPD ×4 (07:22→19:30)
[2018-07-20] MEDS: Budesonide 0.5 MG/2 ML UPD VIAL UPD ×2 (07:46→20:15)
--- NOTE | 2018-07-20 07:57 | PDOC.CMPRO ---
- If Service Date Differs Date of service: 07/20/18 Time of Service: 07:57 Care Management Progress Note S/O:Javier was sitting up in a chair during CM visit. He stated he feels much better but remains short of breath. During a conversation regarding possible home services, he indicated that he is willing to consider home health if it seems warranted at the time of discharge. He was not willing to accept home PT services, as recommended, on his last admission. He indicated that the past few hospitalizations have helped him to understand that it is OK to accept help. A:Javier is a 62 year old male with end stage COPD admitted to [facility] on 07/18/18 with pneumonia. P: Javier is receiving IV antibiotics and respiratory support to treat his pneumonia. He will be discharged home when ready with a resumption of current services which include home oxygen and a Trilogy Unit. will continue to offer support to patient, family, care team and discharge plan of care.
--- NOTE | 2018-07-20 08:03 | CMPROGNOTE_ITS ---
- If Service Date Differs Date of service: 07/20/18 Time of Service: 07:57 Care Management Progress Note S/O:Javier was sitting up in a chair during CM visit. He stated he feels much better but remains short of breath. During a conversation regarding possible home services, he indicated that he is willing to consider home health if it seems warranted at the time of discharge. He was not willing to accept home PT services, as recommended, on his last admission. He indicated that the past few hospitalizations have helped him to understand that it is OK to accept help. A:Javier is a 62 year old male with end stage COPD admitted to [facility] on 07/18/18 with pneumonia. P: Javier is receiving IV antibiotics and respiratory support to treat his pneumonia. He will be discharged home when ready with a resumption of current services which include home oxygen and a Trilogy Unit. will continue to offer support to patient, family, care team and discharge plan of care.
[2018-07-20] MEDS: Pantoprazole 40 MG VIAL IVP ×2 (08:31→19:30)
[2018-07-20] MEDS: Rivaroxaban 10 MG TABLET 20 MG PO (08:32)
[2018-07-20] MEDS: Potassium Chloride 10 MEQ TABCR PO (08:32)
[2018-07-20] MEDS: clonazePAM 1 MG TAB PO ×2 (08:32→19:32)
[2018-07-20] MEDS: predniSONE 10 MG TAB PO (08:32)
[2018-07-20] MEDS: Docusate Sodium 100 MG CAP PO ×2 (08:32→19:31)
[2018-07-20] MEDS: Citalopram 20 MG TAB PO (08:32)
[2018-07-20] MEDS: Tamsulosin 0.4 MG CAPCR PO (08:32)
[2018-07-20] MEDS: Benzonatate 100 MG CAP PO ×3 (08:33→19:31)
[2018-07-20] MEDS: Clopidogrel 75 MG TAB PO (08:33)
[2018-07-20] MEDS: Metoprolol CR 100 MG TABCR PO (08:33)
[2018-07-20] MEDS: Multivitamin TAB 1 TAB PO (08:33)
[2018-07-20 09:03] LABS: Folate 18.3 ng/mL (8.6-20.0); TSH 0.09 uIU/mL (0.358-3.74); Vitamin B12 471 pg/mL (193-986)
[2018-07-20 09:07] LABS: Iron 28 ug/dL (50-175); Total Iron Binding Capacity 191 ug/dL (250-450); Transferrin Sat 15 % (20-55)
[2018-07-20 09:23] LABS: Ferritin 217 ng/mL (8-388)
[2018-07-20] MEDS: Budesonide/Formoterol 160/4.5 6 GM 60 PUFF INH IH ×2 (09:51→19:31)
--- NOTE | 2018-07-20 14:28 | PGE_ITS ---
Date of Service Date of service: 07/20/18 Time of Service: 14:23 Assessment and Plan (1) HCAP (healthcare-associated pneumonia): Current visit: Yes Status: Acute Recent prolonged hospitalization and treatment of COPD exacerbation, during which time he received a course of antibiotic therapy with 7 days of Vancomycin as well as 3 days of Linezolid (MRSA in sputum), but without evidence of infiltrate by imaging. Cover for HCAP with Vancomycin, Cefepime, and Levequin, now day #3. Blood and Sputum Cultures unrevealing at this time. Continue treatment of underlying pulmonary disease as below. (2) Sepsis: Current visit: Yes Status: Acute Based on significant hypotension, leukocytosis, and SHERLYN with pulmonary source, appears to have responded well to IV fluid resuscitation, antibiotics, and initial pressor therapy. Remains off Levophed. Will discontinue IVF's, and continue treatment of underlying infection. Recent ECHO reviewed, and with the exception of noted diastolic dysfunction and PHTN, appears fairly unremarkable. (3) SHERLYN (acute kidney injury): Current visit: Yes Status: Acute In setting of hypotension and illness, likely prerenal in etiology. Resolved with hydration and normalization of blood pressure. (4) COPD exacerbation: Current visit: No Status: Chronic Initially without wheezing, now appears to have an exacerbation of his underlying COPD based on physical exam. Continue antibiotics, nebs with Xopenex due to reported intolence of Albuterol (AFib), inhaled budesonide, Ipratropium, and combination IGC/LABA. Continue but wean Solumedrol as well. Now utilizing Trilogy. (5) Atrial fibrillation: Current visit: No Status: Chronic Continue BB with hold parameters, anticoagulation with rivaroxaban. (6) Coronary artery disease: Current visit: No Status: Chronic Appears quiescent, with ECG non-ischemic and unchanged, with Troponin negative. Patient will be maintained on his chronic cardiac regimen consisting of BB, high potency statin, and Clopidogrel. RADHA-I will be reinitiated tomorrow. (7) BPH (benign prostatic hyperplasia): Current visit: No Status: Chronic Continue alpha-lizet. (8) Anemia: Current visit: No Status: Chronic Chronic anemia, worsened in setting of acute illness. Normocytic, but in patient on chronic anticoagulation. Will check iron studies, B12, Folic Acid, Stool for occult blood. Monitor H/H. (9) DVT prophylaxis: Current visit: No Status: Chronic Currently on chronic anticoagulation with Rivaroxaban. He will also continue PPI therapy for GI prophylaxis. (10) Advance directive on file: Current visit: Yes Status: Acute Full Code. Subjective Interval history since last seen: Very pleasant 62-year-old man with a prior medical history significant for End Stage COPD on home oxygen therapy, admitted from [facility] Emergency Department with a diagnosis of Sepsis with Pulmonary Source. Mr. Bautista has a significant history of Oxygen dependent, end-stage COPD, with prior respiratory distress requiring intubation and mechanical ventilation. Has been trached in the past for this, and [facility]. He also reported an intolerance of albuterol due to severe tachycardia/Afib. Other history includes PAF on AC, CAD, and BPH. He was just hospitalized between 06/23 - 07/05/[address] [facility], and treated for a COPD Exacerbation. At time of discharge he felt vastly improved and at or near his baseline. He was also initiated on NIPPV with Trilogy during his last hospitalization. He had 3 CXRs performed during his hospitalization, the last being on the day prior to his discharge, with all being negative for any acute process. He was feeling well until 2 days prior to his admission when he started to feel some generalized malaise and increase in his cough. On the morning of admission he reported onset of left sided flank/chest wall pain. His work-up in the ED was significant for a mild leukocytosis, mildly elevated Lactic Acid, evidence of SHERLYN, and imaging evidence of a basilar infiltrate, confirmed with a CT of the chest showing a LLL PNA with a small left pleural effusion. CT of his abdomen was negative for acute pathology. He was also found to be significantly hypotensive, with systolic values in the 60's. Following IV Fluid bolus and initiation of antibiotic therapy, the patient was referred for admission for further evaluation and treatment. The patient's blood pressure has normalized since his admission, and he remains off pressor therapy and remains on broad spectrum antibiotics. While his breathing is not at his baseline, he feels vastly improved. He also reports decrease in left lateral chest wall pain. No overnight events were reported. He remains afebrile. Exam Narrative Exam Narrative: General: Patient appears uncomfortable and acutely ill, AAOX3 Neck: Supple CV: Regular, nontachycardic, S1S2, No rubs, murmurs, or gallops. Pulmonary: Diffusely decreased breath sounds, mild wheezing appears. Air entry appears improved. Left basilar crackles continued but improved as well. No rhonchi. Abdomen: + Bowel Sounds, soft, nontender, nondistended Vascular: No lower extremity edema Psych: Normal mood and affect. Objective Objective Clinical Data: Abnormal lab results 07/19/18 07/20/18 07/20/18 Range/Units 06:34 06:10 06:10 RBC 2.98 L (4.50-6.00) m/cumm Hgb 8.8 L (13.5-17.5) g/dL Hct 28.8 L (40.0-50.0) % MCV 96.6 H (80-95) fL MCHC 30.6 L (32.0-36.0) g/dL RDW 15.4 H (11.8-14.1) % Absolute Lymphocytes 0.25 L (1.2-3.4) k/cumm Creatinine 0.69 L (0.70-1.30) mg/dL Glucose 143 H (70-100) mg/dL Calcium 8.2 L (8.5-10.1) mg/dL Iron 28 L (50-175) ug/dL TIBC 191 L (250-450) ug/dL Transferrin % Sat 15 L (20-55) % TSH 0.09 L (0.358-3.74) uIU/mL Vital Signs Temperature 36.8 C 07/20/18 08:00 Temperature Source Tympanic 07/20/18 04:26 Pulse 94 H 07/20/18 12:01 Pulse 98 H 07/20/18 12:01 Respiratory Rate 18 07/20/18 12:01 Respiratory Effort 07/20/18 08:00 Respiratory Depth Normal 07/20/18 08:00 Respiratory Pattern Normal 07/20/18 08:00 Blood Pressure 166/73 H 07/20/18 12:01 Blood Pressure Mean 96 07/20/18 12:01 Blood Pressure Position Sitting 07/19/18 13:17 Pulse Oximetry 97 07/20/18 12:01 Oxygen Delivery Method Cpap 07/20/18 04:17 Oxygen Flow Rate 2 07/19/18 20:24 Pain Level 0 07/20/18 12:57 Comment 07/19/18 06:36 Intake & Output 07/19/18 07/20/18 07/20/18 23:59 11:59 23:59 Intake Total 1392 / 4030.475 1905 / 2487.5 582.5 / 2487.5 Output Total 187 / 2225 700 / 700 Balance -483 / 4165.247 8261 / 1787.5 582.5 / 1787.5 Weight 67.6 kg Intake: IV 460 / 2738.475 1415 / 1996.5 582.5 / 1996.5 Oral 932 / 1292 490 / 490 Output: Urine 1874 / 5 700 / 700 Other: Urine Color Yellow Yellow Urine Appearance Clear Clear Urine Odor None Normal Voiding Methods Urinal Laboratory Results WBC 7.03 k/cumm (4.4-10.8) 07/20/18 06:10 RBC 2.98 m/cumm (4.50-6.00) L 07/20/18 06:10 Hgb 8.8 g/dL (13.5-17.5) L 07/20/18 06:10 Hct 28.8 % (40.0-50.0) L 07/20/18 06:10 MCV 96.6 fL (80-95) H 07/20/18 06:10 MCH 29.5 pg (27.0-33.0) 07/20/18 06:10 MCHC 30.6 g/dL (32.0-36.0) L 07/20/18 06:10 RDW 15.4 % (11.8-14.1) H 07/20/18 06:10 Plt Count 180 x1000/uL (130-400) 07/20/18 06:10 MPV 9.4 fL (8.0-11.0) 07/20/18 06:10 Immature Gran % 0.3 07/20/18 06:10 Neutrophils % 92.8 07/20/18 06:10 Lymphocytes % 3.6 07/20/18 06:10 Monocytes % 3.3 07/20/18 06:10 Eosinophils % 0.0 07/20/18 06:10 Basophils % 0.0 07/20/18 06:10 Absolute Neutrophils 6.53 k/cumm (1.2-6.7) 07/20/18 06:10 Absolute Lymphocytes 0.25 k/cumm (1.2-3.4) L 07/20/18 06:10 Absolute Monocytes 0.23 k/cumm (0.11-0.7) 07/20/18 06:10 Absolute Eosinophils 0.00 k/cumm (0.0-0.7) 07/20/18 06:10 Absolute Basophils 0.00 k/cumm (0.0-0.2) 07/20/18 06:10 Differential Comment Rbc morph reviewed 07/19/18 06:34 RBC Morphology See below 07/19/18 06:34 Polychromasia Present 07/19/18 06:34 Hypochromasia 1+ 07/19/18 06:34 Poikilocytosis 2+ 07/19/18 06:34 Sodium 141 mmol/L (136-145) 07/20/18 06:10 Potassium 3.9 mmol/L (3.5-5.1) 07/20/18 06:10 Chloride 106 mmol/L (98-107) 07/20/18 06:10 Carbon Dioxide 29.3 mmol/L (21.0-32.0) 07/20/18 06:10 Anion Gap 5.7 mmol/L (3-11) 07/20/18 06:10 BUN 14 mg/dL (7-18) 07/20/18 06:10 Creatinine 0.69 mg/dL (0.70-1.30) L 07/20/18 06:10 Estimated GFR/1.73 m2 >= 60.00 (mL/min/1.73m2) 07/20/18 06:10 Glucose 143 mg/dL (70-100) H 07/20/18 06:10 Lactate 1.9 mmol/l (0.6-1.4) H 07/19/18 09:10 Calcium 8.2 mg/dL (8.5-10.1) L 07/20/18 06:10 Magnesium 2.1 mg/dL (1.8-2.4) 07/20/18 06:10 Iron 28 ug/dL (50-175) L 07/19/18 06:34 TIBC 191 ug/dL (250-450) L 07/19/18 06:34 Transferrin % Sat 15 % (20-55) L 07/19/18 06:34 Ferritin 217 ng/mL (8-388) 07/19/18 06:34 Total Bilirubin 0.6 mg/dL (0.2-1.0) 07/18/18 14:12 AST 19 U/L (15-37) 07/18/18 14:12 ALT 33 U/L (12-78) 07/18/18 14:12 Alkaline Phosphatase 50 U/L (46-116) 07/18/18 14:12 Troponin I < 0.02 ng/mL (0.00-0.06) 07/18/18 14:12 Total Protein 5.5 g/dL (6.4-8.2) L 07/18/18 14:12 Albumin 2.2 g/dL (3.4-5.0) L 07/18/18 14:12 Vitamin B12 471 pg/mL (193-986) 07/20/18 06:10 Folate 18.3 ng/mL (8.6-20.0) 07/20/18 06:10 TSH 0.09 uIU/mL (0.358-3.74) L 07/20/18 06:10 Urine Color Yellow (Yellow) 07/18/18 18:15 Urine Clarity Clear 07/18/18 18:15 Urine pH 7.0 (5-8) 07/18/18 18:15 Ur Specific [place] 1.010 (1.005-1.025) 07/18/18 18:15 Urine Protein Negative mg/dL (Negative) 07/18/18 18:15 Urine Ketones Negative mg/dL (Negative) 07/18/18 18:15 Urine Blood Negative (Negative) 07/18/18 18:15 Urine Nitrite Negative (Negative) 07/18/18 18:15 Urine Bilirubin Negative (Negative) 07/18/18 18:15 Urine Urobilinogen 0.2 EU/dL (Up TO 0.2) 07/18/18 18:15 Ur Leukocyte Esterase Negative (Negative) 07/18/18 18:15 Urine Glucose Negative mg/dL (Negative) 07/18/18 18:15 Vancomycin Trough 17.8 ug/mL (10.0-20.0) 07/20/18 02:58 Objective Narrative Objective Narrative: Sputum Culture Preliminary 07/20/18-0938 Day 1 Result ISOLATES BELOW DAY 1 GROWTH MODERATE GROWTH ISOLATE 1 APPEARANCE Normal Jolanta Organism 1 NORMAL JOLANTA GROWTH MODERATE GROWTH Gram Stain Final 07/19/18-1213 GRAM STAIN Rare White Blood Cells Rare Epithelial Cells Rare Gram Positive Brandyn Rare Gram Negative Brandyn Rare Yeast
[2018-07-20] MEDS: levoFLOXacin 750 MG/150 ML BAG 100 MG IVPB (18:54)
[2018-07-20] MEDS: ROSUVASTATIN 20 MG TAB 40 MG PO (19:31)
[2018-07-20] MEDS: Melatonin 3 MG TAB PO (21:12)
[2018-07-21] VITALS (9 sets, daily range): BP systolic 142–177; BP diastolic 66–89; PULSE 77–98; RESP 8–20; TEMP 35.9–36.6; O2SAT 94–98
[2018-07-21] MEDS: CEFEPIME 2 GM in Normal Saline 100 ML IVPB ×3 (04:00→20:28)
[2018-07-21] MEDS: methylPREDNISolone SUCC 40 MG VIAL IVP ×2 (05:13→17:28)
[2018-07-21 06:58] LABS: Abs Immature Grans 0.02 k/cumm (0.0-0.09); Absolute Lymphocyte Count 0.39 k/cumm (1.2-3.4); HCT 29.9 % (40.0-50.0); HGB 9.1 g/dL (13.5-17.5); Immature Grans % 0.3; Lymphocytes % 5.6; Mean Corp. HGB Concentration 30.4 g/dL (32.0-36.0); Mean Corpuscular Hemoglobin 29.4 pg (27.0-33.0); Mean Corpuscular Volume 96.8 fL (80-95); Mean Platelet Volume 9.1 fL (8.0-11.0); Monocytes % 7.2; Neutrophils % 86.9; Platelet Count 202 x1000/uL (130-400); RBC 3.09 m/cumm (4.50-6.00); RBC Distribution Width 15.4 % (11.8-14.1); White Blood Cell Count 6.91 k/cumm (4.4-10.8)
[2018-07-21 07:12] LABS: Anion Gap 5.5 mmol/L (3-11); BUN 15 mg/dL (7-18); CO2 31.5 mmol/L (21.0-32.0); CREATININE 0.76 mg/dL (0.70-1.30); Calcium 8.4 mg/dL (8.5-10.1); Chloride 107 mmol/L (98-107); Glucose 113 mg/dL (70-100); Magnesium 2.1 mg/dL (1.8-2.4); Potassium 4.1 mmol/L (3.5-5.1); Sodium 144 mmol/L (136-145)
[2018-07-21] MEDS: Levalbuterol 0.63 MG/3 ML UPD VIAL UPD ×3 (07:27→19:56)
[2018-07-21] MEDS: Ipratropium 0.5 MG/2.5 ML UPD VIAL UPD ×3 (07:28→19:55)
[2018-07-21] MEDS: Budesonide 0.5 MG/2 ML UPD VIAL UPD ×2 (07:32→20:21)
[2018-07-21] MEDS: Normal Saline Flush 10 ML SYR IVP ×5 (07:36→20:27)
[2018-07-21] MEDS: Lisinopril 20 MG TAB PO (07:37)
[2018-07-21] MEDS: Tamsulosin 0.4 MG CAPCR PO (07:37)
[2018-07-21] MEDS: clonazePAM 1 MG TAB PO ×2 (07:37→19:54)
[2018-07-21] MEDS: predniSONE 10 MG TAB PO (07:37)
[2018-07-21] MEDS: Citalopram 20 MG TAB PO (07:37)
[2018-07-21] MEDS: Pantoprazole 40 MG VIAL IVP ×2 (07:37→20:03)
[2018-07-21] MEDS: Rivaroxaban 10 MG TABLET 20 MG PO (07:37)
[2018-07-21] MEDS: Metoprolol CR 100 MG TABCR PO (07:37)
[2018-07-21] MEDS: Clopidogrel 75 MG TAB PO (07:37)
[2018-07-21] MEDS: Benzonatate 100 MG CAP PO ×3 (07:37→19:54)
[2018-07-21] MEDS: Multivitamin TAB 1 TAB PO (07:38)
[2018-07-21] MEDS: Docusate Sodium 100 MG CAP PO ×2 (07:38→19:54)
[2018-07-21] MEDS: Milk of Magnesia 30 ML CUP PO (07:45)
--- NOTE | 2018-07-21 07:58 | PDOC.CMPRO ---
- If Service Date Differs Date of service: 07/21/18 Time of Service: 07:58 Care Management Progress Note S/O:Javier was sitting up in bed during CM visit. He appeared to be in good spirits and was smiling and talkative. He stated that he had a really good night's sleep which he feels is partly due to his medication schedule since he does not receive any scheduled medications from 8pm to 8am. He did say that he feels a little more short of breath today than yesterday but reports that the doctor told him this is normal during the recovery phase. He also talked about the possibility of receiving a lung transplant and the effect that it will have on his future health and on his family. A:Javier is a 62 year old male with end stage COPD admitted to [facility] on 07/18/18 with pneumonia. P: Javier is receiving IV antibiotics and respiratory support to treat his pneumonia. He will be discharged home when ready with a resumption of current services which include home oxygen and a Trilogy Unit. will continue to offer support to patient, family, care team and discharge plan of care.
--- NOTE | 2018-07-21 08:06 | CMPROGNOTE_ITS ---
- If Service Date Differs Date of service: 07/21/18 Time of Service: 07:58 Care Management Progress Note S/O:Javier was sitting up in bed during CM visit. He appeared to be in good spirits and was smiling and talkative. He stated that he had a really good night's sleep which he feels is partly due to his medication schedule since he does not receive any scheduled medications from 8pm to 8am. He did say that he feels a little more short of breath today than yesterday but reports that the doctor told him this is normal during the recovery phase. He also talked about the possibility of receiving a lung transplant and the effect that it will have on his future health and on his family. A:Javier is a 62 year old male with end stage COPD admitted to [facility] on 07/18/18 with pneumonia. P: Javier is receiving IV antibiotics and respiratory support to treat his pneumonia. He will be discharged home when ready with a resumption of current services which include home oxygen and a Trilogy Unit. will continue to offer support to patient, family, care team and discharge plan of care.
[2018-07-21] MEDS: Budesonide/Formoterol 160/4.5 6 GM 60 PUFF INH IH ×2 (09:03→20:21)
--- NOTE | 2018-07-21 10:49 | PGE_ITS ---
Date of Service Date of service: 07/21/18 Time of Service: 10:43 Assessment and Plan (1) HCAP (healthcare-associated pneumonia): Current visit: Yes Status: Acute Recent prolonged hospitalization and treatment of COPD exacerbation, during which time he received a course of antibiotic therapy with 7 days of Vancomycin as well as 3 days of Linezolid (MRSA in sputum), but without evidence of infiltrate by imaging. Cover for HCAP with Vancomycin, Cefepime, and Levequin, now day #4 of a planned 5 day course. Blood and Sputum Cultures unrevealing at this time. Continue treatment of underlying pulmonary disease as below. (2) Sepsis: Current visit: Yes Status: Acute Based on significant hypotension, leukocytosis, and SHERLYN with pulmonary source, appears to have responded well to IV fluid resuscitation, antibiotics, and initial pressor therapy. Remains off Levophed. Sepsis appears resolved. (3) SHERLYN (acute kidney injury): Current visit: Yes Status: Acute In setting of hypotension and illness, likely prerenal in etiology. Resolved with hydration and normalization of blood pressure. (4) COPD exacerbation: Current visit: No Status: Chronic Continue antibiotics, nebs with Xopenex due to reported intolence of Albuterol (AFib), inhaled budesonide, Ipratropium, and combination IGC/LABA. Continue Solumedrol as well, weaned yesterday. Now utilizing Trilogy. (5) Atrial fibrillation: Current visit: No Status: Chronic Continue BB with hold parameters, anticoagulation with rivaroxaban. (6) Coronary artery disease: Current visit: No Status: Chronic Appears quiescent, with ECG non-ischemic and unchanged, with Troponin negative. Patient will be maintained on his chronic cardiac regimen consisting of BB, high potency statin, and Clopidogrel. RADHA-I restarted this morning. (7) BPH (benign prostatic hyperplasia): Current visit: No Status: Chronic Continue alpha-lizet. (8) Anemia: Current visit: No Status: Chronic Chronic anemia, worsened in setting of acute illness. Normocytic, but in patient on chronic anticoagulation. Iron low, TIBC low, but Ferritin normal, B12 and FA normal, and TSH low (in setting of acute illness) - possible mixed picture. Stool for occult blood is still pending. Will check Free T4. Hemoglobin stable currently. Monitor H/H closely, and await results of above testing. Continue PPI. (9) DVT prophylaxis: Current visit: No Status: Chronic Currently on chronic anticoagulation with Rivaroxaban. He will also continue PPI therapy for GI prophylaxis. (10) Advance directive on file: Current visit: Yes Status: Acute Full Code. Subjective Interval history since last seen: Very pleasant 62-year-old man with a prior medical history significant for End Stage COPD on home oxygen therapy, admitted from [facility] Emergency Department with a diagnosis of Sepsis with Pulmonary Source. Mr. Bautista has a significant history of Oxygen dependent, end-stage COPD, with prior respiratory distress requiring intubation and mechanical ventilation. Has been trached in the past for this, and [facility]. He also reported an intolerance of albuterol due to severe tachycardia/Afib. Other history includes PAF on AC, CAD, and BPH. He was just hospitalized between 06/23 - 07/05/2018 here at [facility], and treated for a COPD Exacerbation. At time of discharge he felt vastly improved and at or near his baseline. He was also initiated on NIPPV with Trilogy during his last hospitalization. He had 3 CXRs performed during his hospitalization, the last being on the day prior to his discharge, with all being negative for any acute process. He was feeling well until 2 days prior to his admission when he started to feel some generalized malaise and increase in his cough. On the morning of admission he reported onset of left sided flank/chest wall pain. His work-up in the ED was significant for a mild leukocytosis, mildly elevated Lactic Acid, evidence of SHERLYN, and imaging evidence of a basilar infiltrate, confirmed with a CT of the chest showing a LLL PNA with a small left pleural effusion. CT of his abdomen was negative for acute pathology. He was also found to be significantly hypotensive, with systolic values in the 60's. Following IV Fluid bolus and initiation of antibiotic therapy, the patient was referred for admission for further evaluation and treatment. Mr. Bautista reports improved breathing, now mobilizing secretions from his cough. He remains on broad spectrum antibiotics. While his breathing is not at his baseline, he continues to feel vastly improved. He also reports decreased to resolved in left lateral chest wall pain. No overnight events were reported. He remains afebrile. Exam Narrative Exam Narrative: General: Patient appears comfortable, NAD, AAOX3 Neck: Supple CV: Regular, nontachycardic, S1S2, No rubs, murmurs, or gallops. Pulmonary: Diffusely decreased breath sounds, mild wheezing appears essentially resolved. Air entry appears improved. Left basilar crackles continued but improved and now minimal. No rhonchi. Abdomen: + Bowel Sounds, soft, nontender, nondistended Vascular: No lower extremity edema Psych: Normal mood and affect. Objective Objective Clinical Data: Abnormal lab results 07/21/18 07/21/18 Range/Units 06:45 06:45 RBC 3.09 L (4.50-6.00) m/cumm Hgb 9.1 L (13.5-17.5) g/dL Hct 29.9 L (40.0-50.0) % MCV 96.8 H (80-95) fL MCHC 30.4 L (32.0-36.0) g/dL RDW 15.4 H (11.8-14.1) % Absolute Lymphocytes 0.39 L (1.2-3.4) k/cumm Glucose 113 H (70-100) mg/dL Calcium 8.4 L (8.5-10.1) mg/dL Vital Signs Temperature 35.9 C L 07/21/18 07:40 Temperature Source Tympanic 07/21/18 07:40 Pulse 98 H 07/21/18 07:53 Pulse Rhythm Regular 07/20/18 19:30 Pulse 98 H 07/20/18 12:01 Respiratory Rate 18 07/21/18 07:40 Respiratory Effort Non-Labored 07/20/18 19:30 Respiratory Depth Normal 07/20/18 19:30 Respiratory Pattern Normal 07/20/18 19:30 Blood Pressure 142/89 H 07/21/18 07:40 Blood Pressure Mean 96 07/20/18 12:01 Blood Pressure Position Sitting 07/19/18 13:17 Pulse Oximetry 98 07/21/18 07:40 Oxygen Delivery Method Nasal Cannula 07/21/18 07:40 Oxygen Flow Rate 2 07/21/18 07:40 Pain Level 0 07/21/18 07:40 Comment 07/20/18 23:00 Intake & Output 07/20/18 07/20/18 07/21/18 11:59 23:59 11:59 Intake Total 1905 / 3817.5 1912.5 / 3817.5 460 / 460 Output Total 700 / 700 Balance 1205 / 3117.5 1912.5 / 3117.5 460 / 460 Weight 67.6 kg Intake: IV 1415 / 2847.5 1432.5 / 2847.5 100 / 100 Oral 490 / 970 480 / 970 360 / 360 Output: Urine 700 / 700 Other: Urine Color Yellow Urine Appearance Clear Urine Odor Normal Laboratory Results WBC 6.91 k/cumm (4.4-10.8) 07/21/18 06:45 RBC 3.09 m/cumm (4.50-6.00) L 07/21/18 06:45 Hgb 9.1 g/dL (13.5-17.5) L 07/21/18 06:45 Hct 29.9 % (40.0-50.0) L 07/21/18 06:45 MCV 96.8 fL (80-95) H 07/21/18 06:45 MCH 29.4 pg (27.0-33.0) 07/21/18 06:45 MCHC 30.4 g/dL (32.0-36.0) L 07/21/18 06:45 RDW 15.4 % (11.8-14.1) H 07/21/18 06:45 Plt Count 202 x1000/uL (130-400) 07/21/18 06:45 MPV 9.1 fL (8.0-11.0) 07/21/18 06:45 Immature Gran % 0.3 07/21/18 06:45 Neutrophils % 86.9 07/21/18 06:45 Lymphocytes % 5.6 07/21/18 06:45 Monocytes % 7.2 07/21/18 06:45 Eosinophils % 0.0 07/21/18 06:45 Basophils % 0.0 07/21/18 06:45 Absolute Neutrophils 6.00 k/cumm (1.2-6.7) 07/21/18 06:45 Absolute Lymphocytes 0.39 k/cumm (1.2-3.4) L 07/21/18 06:45 Absolute Monocytes 0.50 k/cumm (0.11-0.7) 07/21/18 06:45 Absolute Eosinophils 0.00 k/cumm (0.0-0.7) 07/21/18 06:45 Absolute Basophils 0.00 k/cumm (0.0-0.2) 07/21/18 06:45 Differential Comment Rbc morph reviewed 07/19/18 06:34 RBC Morphology See below 07/19/18 06:34 Polychromasia Present 07/19/18 06:34 Hypochromasia 1+ 07/19/18 06:34 Poikilocytosis 2+ 07/19/18 06:34 Sodium 144 mmol/L (136-145) 07/21/18 06:45 Potassium 4.1 mmol/L (3.5-5.1) 07/21/18 06:45 Chloride 107 mmol/L (98-107) 07/21/18 06:45 Carbon Dioxide 31.5 mmol/L (21.0-32.0) 07/21/18 06:45 Anion Gap 5.5 mmol/L (3-11) 07/21/18 06:45 BUN 15 mg/dL (7-18) 07/21/18 06:45 Creatinine 0.76 mg/dL (0.70-1.30) 07/21/18 06:45 Estimated GFR/1.73 m2 >= 60.00 (mL/min/1.73m2) 07/21/18 06:45 Glucose 113 mg/dL (70-100) H 07/21/18 06:45 Lactate 1.9 mmol/l (0.6-1.4) H 07/19/18 09:10 Calcium 8.4 mg/dL (8.5-10.1) L 07/21/18 06:45 Magnesium 2.1 mg/dL (1.8-2.4) 07/21/18 06:45 Iron 28 ug/dL (50-175) L 07/19/18 06:34 TIBC 191 ug/dL (250-450) L 07/19/18 06:34 Transferrin % Sat 15 % (20-55) L 07/19/18 06:34 Ferritin 217 ng/mL (8-388) 07/19/18 06:34 Total Bilirubin 0.6 mg/dL (0.2-1.0) 07/18/18 14:12 AST 19 U/L (15-37) 07/18/18 14:12 ALT 33 U/L (12-78) 07/18/18 14:12 Alkaline Phosphatase 50 U/L (46-116) 07/18/18 14:12 Troponin I < 0.02 ng/mL (0.00-0.06) 07/18/18 14:12 Total Protein 5.5 g/dL (6.4-8.2) L 07/18/18 14:12 Albumin 2.2 g/dL (3.4-5.0) L 07/18/18 14:12 Vitamin B12 471 pg/mL (193-986) 07/20/18 06:10 Folate 18.3 ng/mL (8.6-20.0) 07/20/18 06:10 TSH 0.09 uIU/mL (0.358-3.74) L 07/20/18 06:10 Urine Color Yellow (Yellow) 07/18/18 18:15 Urine Clarity Clear 07/18/18 18:15 Urine pH 7.0 (5-8) 07/18/18 18:15 Ur Specific [place] 1.010 (1.005-1.025) 07/18/18 18:15 Urine Protein Negative mg/dL (Negative) 07/18/18 18:15 Urine Ketones Negative mg/dL (Negative) 07/18/18 18:15 Urine Blood Negative (Negative) 07/18/18 18:15 Urine Nitrite Negative (Negative) 07/18/18 18:15 Urine Bilirubin Negative (Negative) 07/18/18 18:15 Urine Urobilinogen 0.2 EU/dL (Up TO 0.2) 07/18/18 18:15 Ur Leukocyte Esterase Negative (Negative) 07/18/18 18:15 Urine Glucose Negative mg/dL (Negative) 07/18/18 18:15 Vancomycin Trough 17.8 ug/mL (10.0-20.0) 07/20/18 02:58
[2018-07-21 11:29] LABS: Vancomycin, Trough 24.9 ug/mL (10.0-20.0)
--- NOTE | 2018-07-21 15:46 | CHAPLAIN ---
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 Elliott, from the [facility] in [place], when I stopped in. Javier has mentioned before that he feels very supported by his uatsdin and especially . He began attending after his starting going there. Javier was recently hospitalized and then home for a few days before being readmitted. I will continue to visit him.
[2018-07-21] MEDS: levoFLOXacin 750 MG/150 ML BAG 100 MG IVPB (17:29)
[2018-07-21] MEDS: ROSUVASTATIN 20 MG TAB 40 MG PO (19:53)
[2018-07-21] MEDS: Melatonin 3 MG TAB PO (21:19)
[2018-07-21] MEDS: Senna TAB 2 TAB PO (21:19)
[2018-07-22] VITALS (9 sets, daily range): BP systolic 175–186; BP diastolic 79–96; PULSE 72–91; RESP 7–22; TEMP 35.6–37; O2SAT 96–97
[2018-07-22] MEDS: CEFEPIME 2 GM in Normal Saline 100 ML IVPB ×3 (04:33→20:38)
[2018-07-22] MEDS: methylPREDNISolone SUCC 40 MG VIAL IVP ×4 (05:37→21:19)
[2018-07-22] MEDS: Normal Saline Flush 10 ML SYR IVP ×5 (05:37→23:48)
[2018-07-22 07:11] LABS: Anion Gap 3.4 mmol/L (3-11); BUN 16 mg/dL (7-18); CO2 31.6 mmol/L (21.0-32.0); CREATININE 0.71 mg/dL (0.70-1.30); Chloride 106 mmol/L (98-107); Glucose 106 mg/dL (70-100); Potassium 4.2 mmol/L (3.5-5.1); Sodium 141 mmol/L (136-145)
[2018-07-22 07:16] LABS: Calcium 8.3 mg/dL (8.5-10.1)
[2018-07-22 07:20] LABS: FREE T4 0.88 ng/dL (0.76-1.46); Magnesium 2.3 mg/dL (1.8-2.4)
[2018-07-22] MEDS: Levalbuterol 0.63 MG/3 ML UPD VIAL UPD ×4 (07:29→20:37)
[2018-07-22] MEDS: Ipratropium 0.5 MG/2.5 ML UPD VIAL UPD ×3 (07:30→20:37)
[2018-07-22] MEDS: Budesonide 0.5 MG/2 ML UPD VIAL UPD ×2 (07:45→20:37)
--- NOTE | 2018-07-22 08:08 | PDOC.CMPRO ---
- If Service Date Differs Date of service: 07/22/18 Time of Service: 08:08 Care Management Progress Note S/O:Javier was sitting up in bed using his Trilogy unit during CM visit. He states he is not feeling as well today as he did yesterday. His breathing appeared more labored. He was expecting his to visit shortly and was looking forward to the time with her. He remains pleasant and engaged. CM will continue to follow. A:Javier is a 62 year old male with end stage COPD admitted to [facility] on 07/18/18 with pneumonia. P: Javier is receiving IV antibiotics and respiratory support to treat his pneumonia. He will be discharged home when ready with a resumption of current services which include home oxygen and a Trilogy Unit. CM will continue to offer support to patient, family, care team and discharge plan of care.
[2018-07-22] MEDS: Pantoprazole 40 MG VIAL IVP ×2 (08:50→20:38)
[2018-07-22] MEDS: Rivaroxaban 10 MG TABLET 20 MG PO (08:50)
[2018-07-22] MEDS: clonazePAM 1 MG TAB PO ×2 (08:50→20:39)
[2018-07-22] MEDS: Metoprolol CR 100 MG TABCR PO (08:50)
[2018-07-22] MEDS: Multivitamin TAB 1 TAB PO (08:51)
[2018-07-22] MEDS: predniSONE 10 MG TAB PO (08:51)
[2018-07-22] MEDS: Lisinopril 20 MG TAB PO (08:51)
[2018-07-22] MEDS: Citalopram 20 MG TAB PO (08:51)
[2018-07-22] MEDS: Clopidogrel 75 MG TAB PO (08:51)
[2018-07-22] MEDS: Benzonatate 100 MG CAP PO ×3 (08:51→20:39)
[2018-07-22] MEDS: Tamsulosin 0.4 MG CAPCR PO (08:51)
[2018-07-22] MEDS: Docusate Sodium 100 MG CAP PO ×2 (08:51→20:39)
[2018-07-22 09:05] LABS: Absolute Lymphocyte Count 0.41 k/cumm (1.2-3.4); Absolute Monocyte Count 0.32 k/cumm (0.11-0.7); Absolute Neutrophil Count 5.99 k/cumm (1.2-6.7); HCT 33.9 % (40.0-50.0); HGB 10.4 g/dL (13.5-17.5); Immature Grans % 1.5; Mean Corp. HGB Concentration 30.7 g/dL (32.0-36.0); Mean Corpuscular Hemoglobin 29.7 pg (27.0-33.0); Mean Corpuscular Volume 96.9 fL (80-95); Mean Platelet Volume 9.2 fL (8.0-11.0); Monocytes % 4.7; Neutrophils % 87.8; Platelet Count 246 x1000/uL (130-400); RBC Distribution Width 15.6 % (11.8-14.1); White Blood Cell Count 6.82 k/cumm (4.4-10.8)
[2018-07-22] MEDS: Budesonide/Formoterol 160/4.5 6 GM 60 PUFF INH IH ×2 (09:22→20:38)
[2018-07-22] MEDS: Furosemide 20 MG/2 ML VIAL IVP (10:09)
[2018-07-22] MEDS: LORazepam 1 MG TAB PO (10:09)
--- NOTE | 2018-07-22 10:53 | DI.RAD_ITS ---
SYMPTOMS/DIAGNOSIS: INCREASE WORK OF BREATHING PORTABLE AP CHEST: Recent chest radiographs and CT showed some consolidation at the left lung base on 07/18. On today's examination these findings are slightly less prominent, but there is minimal obscuration of the diaphragm on the left indicating incomplete resolution. Otherwise the lungs are clear. The heart is not enlarged. CONCLUSION: Findings suggesting improving left basilar consolidation.
--- NOTE | 2018-07-22 11:33 | NUR.NOTE ---
Nursing Note: 1130: pt requests his , Claire, be called with an update. RN reports to pt's his current status, changes in medications and treatments. pt's states she will be up in 30 minutes to see pt. RN reports to pt that his will come to see pt within the hour.
[2018-07-22] MEDS: VANCOMYCIN 500 MG in Normal Saline 100 ML 133.33 MG IVPB (12:09)
--- NOTE | 2018-07-22 15:40 | PGE_ITS ---
Date of Service Date of service: 07/22/18 Time of Service: 15:26 Assessment and Plan (1) HCAP (healthcare-associated pneumonia): Current visit: Yes Status: Acute Recent prolonged hospitalization and treatment of COPD exacerbation, during which time he received a course of antibiotic therapy with 7 days of Vancomycin as well as 3 days of Linezolid (MRSA in sputum), but without evidence of infiltrate by repeat imaging. Cover for HCAP with Vancomycin, Cefepime, and Levequin, now day #5 of a planned 5 day course. Blood and Sputum Cultures unrevealing at this time. Continue treatment of underlying pulmonary disease as below. (2) COPD exacerbation: Current visit: No Status: Chronic With worsening tachypnea and increased work of breathing, but with an overall exam that has not changed significantly. Mr. Bautista appears volume overloaded and required initial fluid resuscitation - although CXR read does not support CHF will attempt trial of IV Diuretic therapy. Also increase IV steroids again, and continue aggressive nebulizer therapy. Continue antibiotics as above, nebs with Xopenex due to reported intolence of Albuterol (AFib), inhaled budesonide, Ipratropium, and combination IGC/LABA. Utilize NIPPV as needed. (3) Atrial fibrillation: Current visit: No Status: Chronic Paroxysmal. Continue BB with hold parameters, anticoagulation with rivaroxaban. (4) Sepsis: Current visit: Yes Status: Acute Based on significant hypotension, leukocytosis, and SHERLYN with pulmonary source, appears to have responded well to IV fluid resuscitation, antibiotics, and initial pressor therapy. Remains off Levophed. Sepsis appears resolved. (5) SHERLYN (acute kidney injury): Current visit: Yes Status: Acute In setting of hypotension and illness, likely prerenal in etiology. Resolved with hydration and normalization of blood pressure. (6) Coronary artery disease: Current visit: No Status: Chronic Appears quiescent, with ECG non-ischemic and unchanged, with Troponin negative. Patient will be maintained on his chronic cardiac regimen consisting of BB, high potency statin, and Clopidogrel. RADHA-I restarted previously. (7) BPH (benign prostatic hyperplasia): Current visit: No Status: Chronic Continue alpha-lizet. (8) Anemia: Current visit: No Status: Chronic Chronic anemia, worsened in setting of acute illness. Normocytic, but in patient on chronic anticoagulation. Iron low, TIBC low, but Ferritin normal, B12 and FA normal, and TSH low (in setting of acute illness, and with normal FT4) - possible mixed picture. Stool for occult blood checked and negative. WMonitor H/H closely, and await results of above testing. Continue PPI. Hemoglobin currently stable and improving. (9) DVT prophylaxis: Current visit: No Status: Chronic On chronic anticoagulation with Rivaroxaban. He will also continue PPI therapy for GI prophylaxis. (10) Advance directive on file: Current visit: Yes Status: Acute Full Code. Subjective Interval history since last seen: Very pleasant 62-year-old man with a prior medical history significant for End Stage COPD on home oxygen therapy, admitted from [facility] Emergency Department with a diagnosis of Sepsis with Pulmonary Source. Mr. Bautista has a significant history of Oxygen dependent, end-stage COPD, with prior respiratory distress requiring intubation and mechanical ventilation. Has been trached in the past for this, and [facility]. He also reported an intolerance of albuterol due to severe tachycardia/Afib. Other history includes PAF on AC, CAD, and BPH. He was just hospitalized between 06/23 - 07/05/2018 here at [facility], and treated for a COPD Exacerbation. At time of discharge he felt vastly improved and at or near his baseline. He was also initiated on NIPPV with Trilogy during his last hospitalization. He had 3 CXRs performed during his hospitalization, the last being on the day prior to his discharge, with all being negative for any acute process. He was feeling well until 2 days prior to his admission when he started to feel some generalized malaise and increase in his cough. On the morning of admission he reported onset of left sided flank/chest wall pain. His work-up in the ED was significant for a mild leukocytosis, mildly elevated Lactic Acid, evidence of SHERLYN, and imaging evidence of a basilar infiltrate, confirmed with a CT of the chest showing a LLL PNA with a small left pleural effusion. CT of his abdomen was negative for acute pathology. He was also found to be significantly hypotensive, with systolic values in the 60's. Following IV Fluid bolus and initiation of antibiotic therapy, the patient was referred for admission for further evaluation and treatment. Mr. Bautista remains on broad spectrum antibiotics. He had reported improvement over the first 3 days of his admission, but today has regressed and reports worsening breathing overall. He does however report decreased to resolved in left lateral chest wall pain. No overnight events were reported. He remains afebrile. Exam Narrative Exam Narrative: General: Patient appears uncomfortable, with tachypnea and increased work of breathing. AAOX3 Neck: Supple CV: Regular, tachycardic, S1S2, No rubs, murmurs, or gallops. Pulmonary: Diffusely decreased breath sounds but with improved air entry today, mild wheezing appears essentially resolved. Left basilar crackles improved and now minimal. No rhonchi. Abdomen: + Bowel Sounds, soft, nontender, nondistended Vascular: No lower extremity edema Psych: Normal mood and affect. Objective Objective Clinical Data: Abnormal lab results 07/22/18 07/22/18 Range/Units 06:40 08:53 RBC 3.50 L (4.50-6.00) m/cumm Hgb 10.4 L (13.5-17.5) g/dL Hct 33.9 L (40.0-50.0) % MCV 96.9 H (80-95) fL MCHC 30.7 L (32.0-36.0) g/dL RDW 15.6 H (11.8-14.1) % Absolute Lymphocytes 0.41 L (1.2-3.4) k/cumm Glucose 106 H (70-100) mg/dL Calcium 8.3 L (8.5-10.1) mg/dL Vital Signs Temperature 36.7 C 07/22/18 07:05 Temperature Source Tympanic 07/22/18 07:05 Pulse 76 07/22/18 11:30 Pulse Rhythm Regular 07/22/18 10:15 Pulse 98 H 07/20/18 12:01 Respiratory Rate 22 07/22/18 14:31 Respiratory Effort Incrsd Work of Breathing 07/22/18 10:15 Respiratory Depth Normal 07/22/18 10:15 Respiratory Pattern Normal 07/22/18 10:15 Blood Pressure 177/79 H 07/22/18 10:31 Blood Pressure Mean 96 07/20/18 12:01 Blood Pressure Position Sitting 07/19/18 13:17 Pulse Oximetry 97 07/22/18 11:30 Oxygen Delivery Method Nasal Cannula 07/22/18 14:31 Oxygen Flow Rate 3 07/22/18 14:31 Pain Level 0 07/22/18 07:05 Comment 07/22/18 07:05 Intake & Output 07/21/18 07/22/18 07/22/18 23:59 11:59 23:59 Intake Total 1200 / 1660 885 / 1445 560 / 1445 Output Total 400 / 400 1150 / 2275 1125 / 2275 Balance 800 / 1260 -265 / -830 -565 / -830 Intake: IV 600 / 700 525 / 725 200 / 725 Oral 600 / 960 360 / 720 360 / 720 Output: Urine 400 / 400 1150 / 2275 1125 / 2275 Other: Urine Color Yellow Yellow Yellow Urine Appearance Clear Clear Clear Urine Odor Strong Strong Normal Comment post IV lasix administration Stool Occult Blood Negative Stool Size Small Stool Characteristics Hard Brown Voiding Methods Urinal Urinal Urinal Laboratory Results WBC 6.82 k/cumm (4.4-10.8) 07/22/18 08:53 RBC 3.50 m/cumm (4.50-6.00) L 07/22/18 08:53 Hgb 10.4 g/dL (13.5-17.5) L 07/22/18 08:53 Hct 33.9 % (40.0-50.0) L 07/22/18 08:53 MCV 96.9 fL (80-95) H 07/22/18 08:53 MCH 29.7 pg (27.0-33.0) 07/22/18 08:53 MCHC 30.7 g/dL (32.0-36.0) L 07/22/18 08:53 RDW 15.6 % (11.8-14.1) H 07/22/18 08:53 Plt Count 246 x1000/uL (130-400) 07/22/18 08:53 MPV 9.2 fL (8.0-11.0) 07/22/18 08:53 Immature Gran % 1.5 07/22/18 08:53 Neutrophils % 87.8 07/22/18 08:53 Lymphocytes % 6.0 07/22/18 08:53 Monocytes % 4.7 07/22/18 08:53 Eosinophils % 0.0 07/22/18 08:53 Basophils % 0.0 07/22/18 08:53 Absolute Neutrophils 5.99 k/cumm (1.2-6.7) 07/22/18 08:53 Absolute Lymphocytes 0.41 k/cumm (1.2-3.4) L 07/22/18 08:53 Absolute Monocytes 0.32 k/cumm (0.11-0.7) 07/22/18 08:53 Absolute Eosinophils 0.00 k/cumm (0.0-0.7) 07/22/18 08:53 Absolute Basophils 0.00 k/cumm (0.0-0.2) 07/22/18 08:53 Differential Comment Rbc morph reviewed 07/19/18 06:34 RBC Morphology See below 07/19/18 06:34 Polychromasia Present 07/19/18 06:34 Hypochromasia 1+ 07/19/18 06:34 Poikilocytosis 2+ 07/19/18 06:34 Sodium 141 mmol/L (136-145) 07/22/18 06:40 Potassium 4.2 mmol/L (3.5-5.1) 07/22/18 06:40 Chloride 106 mmol/L (98-107) 07/22/18 06:40 Carbon Dioxide 31.6 mmol/L (21.0-32.0) 07/22/18 06:40 Anion Gap 3.4 mmol/L (3-11) 07/22/18 06:40 BUN 16 mg/dL (7-18) 07/22/18 06:40 Creatinine 0.71 mg/dL (0.70-1.30) 07/22/18 06:40 Estimated GFR/1.73 m2 >= 60.00 (mL/min/1.73m2) 07/22/18 06:40 Glucose 106 mg/dL (70-100) H 07/22/18 06:40 Lactate 1.9 mmol/l (0.6-1.4) H 07/19/18 09:10 Calcium 8.3 mg/dL (8.5-10.1) L 07/22/18 06:40 Magnesium 2.3 mg/dL (1.8-2.4) 07/22/18 06:40 Iron 28 ug/dL (50-175) L 07/19/18 06:34 TIBC 191 ug/dL (250-450) L 07/19/18 06:34 Transferrin % Sat 15 % (20-55) L 07/19/18 06:34 Ferritin 217 ng/mL (8-388) 07/19/18 06:34 Total Bilirubin 0.6 mg/dL (0.2-1.0) 07/18/18 14:12 AST 19 U/L (15-37) 07/18/18 14:12 ALT 33 U/L (12-78) 07/18/18 14:12 Alkaline Phosphatase 50 U/L (46-116) 07/18/18 14:12 Troponin I < 0.02 ng/mL (0.00-0.06) 07/18/18 14:12 Total Protein 5.5 g/dL (6.4-8.2) L 07/18/18 14:12 Albumin 2.2 g/dL (3.4-5.0) L 07/18/18 14:12 Vitamin B12 471 pg/mL (193-986) 07/20/18 06:10 Folate 18.3 ng/mL (8.6-20.0) 07/20/18 06:10 TSH 0.09 uIU/mL (0.358-3.74) L 07/20/18 06:10 Free T4 0.88 ng/dL (0.76-1.46) 07/22/18 06:40 Urine Color Yellow (Yellow) 07/18/18 18:15 Urine Clarity Clear 07/18/18 18:15 Urine pH 7.0 (5-8) 07/18/18 18:15 Ur Specific [place] 1.010 (1.005-1.025) 07/18/18 18:15 Urine Protein Negative mg/dL (Negative) 07/18/18 18:15 Urine Ketones Negative mg/dL (Negative) 07/18/18 18:15 Urine Blood Negative (Negative) 07/18/18 18:15 Urine Nitrite Negative (Negative) 07/18/18 18:15 Urine Bilirubin Negative (Negative) 07/18/18 18:15 Urine Urobilinogen 0.2 EU/dL (Up TO 0.2) 07/18/18 18:15 Ur Leukocyte Esterase Negative (Negative) 07/18/18 18:15 Urine Glucose Negative mg/dL (Negative) 07/18/18 18:15 Vancomycin Trough 24.9 ug/mL (10.0-20.0) H* 07/21/18 10:55
[2018-07-22] MEDS: levoFLOXacin 750 MG/150 ML BAG 100 MG IVPB (18:37)
[2018-07-22] MEDS: ROSUVASTATIN 20 MG TAB 40 MG PO (20:39)
[2018-07-22] MEDS: Melatonin 3 MG TAB PO (21:20)
[2018-07-23] VITALS (18 sets, daily range): BP systolic 139–148; BP diastolic 74–79; PULSE 73–106; RESP 4–21; TEMP 36.2–37.8; O2SAT 91–98
[2018-07-23] MEDS: CEFEPIME 2 GM in Normal Saline 100 ML IVPB ×3 (03:34→20:31)
[2018-07-23] MEDS: methylPREDNISolone SUCC 40 MG VIAL IVP ×3 (03:34→20:31)
[2018-07-23 07:00] LABS: Abs Immature Grans 0.07 k/cumm (0.0-0.09); Absolute Eosinophil Count 0.02 k/cumm (0.0-0.7); Absolute Lymphocyte Count 0.33 k/cumm (1.2-3.4); Absolute Monocyte Count 0.51 k/cumm (0.11-0.7); Absolute Neutrophil Count 6.79 k/cumm (1.2-6.7); Eosinophils % 0.3; HCT 30.5 % (40.0-50.0); HGB 9.5 g/dL (13.5-17.5); Immature Grans % 0.9; Lymphocytes % 4.3; Mean Corp. HGB Concentration 31.1 g/dL (32.0-36.0); Mean Corpuscular Volume 96.2 fL (80-95); Mean Platelet Volume 9.3 fL (8.0-11.0); Monocytes % 6.6; Neutrophils % 87.9; Platelet Count 260 x1000/uL (130-400); RBC 3.17 m/cumm (4.50-6.00); RBC Distribution Width 15.5 % (11.8-14.1); White Blood Cell Count 7.72 k/cumm (4.4-10.8)
[2018-07-23 07:15] LABS: Anion Gap 2.7 mmol/L (3-11); BUN 18 mg/dL (7-18); CO2 34.3 mmol/L (21.0-32.0); CREATININE 0.74 mg/dL (0.70-1.30); Chloride 106 mmol/L (98-107); Glucose 142 mg/dL (70-100); Magnesium 2.3 mg/dL (1.8-2.4); Potassium 3.8 mmol/L (3.5-5.1); Sodium 143 mmol/L (136-145)
[2018-07-23] MEDS: Ipratropium 0.5 MG/2.5 ML UPD VIAL UPD ×3 (07:50→20:32)
[2018-07-23] MEDS: Levalbuterol 0.63 MG/3 ML UPD VIAL (07:56)
[2018-07-23] MEDS: Levalbuterol 0.63 MG/3 ML UPD VIAL UPD ×4 (08:01→20:32)
[2018-07-23] MEDS: Budesonide 0.5 MG/2 ML UPD VIAL (08:05)
[2018-07-23] MEDS: Budesonide/Formoterol 160/4.5 6 GM 60 PUFF INH IH ×2 (08:11→20:33)
[2018-07-23] MEDS: Lisinopril 20 MG TAB PO (08:19)
[2018-07-23] MEDS: clonazePAM 1 MG TAB PO ×2 (08:19→20:30)
[2018-07-23] MEDS: Normal Saline Flush 10 ML SYR IVP ×5 (08:19→23:35)
[2018-07-23] MEDS: Pantoprazole 40 MG VIAL IVP ×2 (08:19→20:31)
[2018-07-23] MEDS: Rivaroxaban 10 MG TABLET 20 MG PO (08:19)
[2018-07-23] MEDS: Clopidogrel 75 MG TAB PO (08:20)
[2018-07-23] MEDS: Benzonatate 100 MG CAP PO ×3 (08:20→20:30)
[2018-07-23] MEDS: Tamsulosin 0.4 MG CAPCR PO (08:20)
[2018-07-23] MEDS: predniSONE 10 MG TAB PO (08:20)
[2018-07-23] MEDS: Docusate Sodium 100 MG CAP PO ×2 (08:20→20:30)
[2018-07-23] MEDS: Multivitamin TAB 1 TAB PO (08:20)
[2018-07-23] MEDS: Citalopram 20 MG TAB PO (08:20)
[2018-07-23] MEDS: Metoprolol CR 100 MG TABCR PO (08:20)
[2018-07-23] MEDS: Budesonide 0.5 MG/2 ML UPD VIAL UPD ×2 (09:23→20:32)
--- NOTE | 2018-07-23 11:06 | PDOC.CMPRO ---
- If Service Date Differs Date of service: 07/23/18 Time of Service: 11:06 Care Management Progress Note S/O:Javier remains on IV antibiotics every 8 hours, and receiving respiratory support. His trilogy is at the bedside. No change in status today. A:Javier is a 62 year old male with end stage COPD admitted to [facility] on 07/18/18 with pneumonia. Javier has a history of COPD with emphysema, coronary artery disease, Afib and anxiety. P: Javier is receiving IV antibiotics and respiratory support to treat his pneumonia. He will be discharged home when ready with a resumption of current services which include home oxygen, Trilogy Unit, [facility] will continue to offer support to patient, family, care team and discharge plan of care.
--- NOTE | 2018-07-23 11:09 | CMPROGNOTE_ITS ---
- If Service Date Differs Date of service: 07/23/18 Time of Service: 11:06 Care Management Progress Note S/O:Javier remains on IV antibiotics every 8 hours, and receiving respiratory support. His trilogy is at the bedside. No change in status today. A:Javier is a 62 year old male with end stage COPD admitted to [facility] on 07/18/18 with pneumonia. Javier has a history of COPD with emphysema, coronary artery disease, Afib and anxiety. P: Javier is receiving IV antibiotics and respiratory support to treat his pneumonia. He will be discharged home when ready with a resumption of current services which include home oxygen, Trilogy Unit, and outpatient supports [facility] the [place]. will continue to offer support to patient, family, care team and discharge plan of care.
[2018-07-23] MEDS: Acetaminophen 325 MG TAB PO (15:59)
[2018-07-23] MEDS: Furosemide 20 MG/2 ML VIAL IVP (17:01)
--- NOTE | 2018-07-23 17:08 | PGE_ITS ---
Date of Service Date of service: 07/23/18 Time of Service: 17:02 Assessment and Plan (1) HCAP (healthcare-associated pneumonia): Current visit: Yes Status: Acute Continue Vancomycin, Cefepime, and Levaquin, now day #6. I feel the patient could use at least 7 days, given the history of his chronic pulmonary disease. (2) COPD exacerbation: Current visit: No Status: Chronic As above. Treat fluid overload. Start to decrease steroids. (3) Atrial fibrillation: Current visit: No Status: Chronic Paroxysmal. Continue BB with hold parameters, anticoagulation with rivaroxaban. (4) Sepsis: Current visit: Yes Status: Acute Based on significant hypotension, leukocytosis, and SHERLYN with pulmonary source, appears to have responded well to IV fluid resuscitation, antibiotics, and initial pressor therapy. Remains off Levophed. Sepsis appears resolved. (5) SHERLYN (acute kidney injury): Current visit: Yes Status: Acute In setting of hypotension and illness, likely prerenal in etiology. Resolved with hydration and normalization of blood pressure. (6) Coronary artery disease: Current visit: No Status: Chronic No ACS on this admission. Continuef BB, high potency statin, and Clopidogrel. RADHA-I restarted previously. (7) BPH (benign prostatic hyperplasia): Current visit: No Status: Chronic Continue alpha-lizet. (8) Anemia: Current visit: No Status: Chronic Chronic anemia, worsened in setting of acute illness. Normocytic, but in patient on chronic anticoagulation. Iron low, TIBC low, but Ferritin normal, B12 and FA normal, and TSH low (in setting of acute illness, and with normal FT4) - possible mixed picture. Stool for occult blood checked and negative. H/H slightly lower today - ?dilutional - recheck in am. No evidence of active bleeding (9) DVT prophylaxis: Current visit: No Status: Chronic On chronic anticoagulation with Rivaroxaban. He will also continue PPI therapy for GI prophylaxis. (10) Advance directive on file: Current visit: Yes Status: Acute Full Code. Subjective Interval history since last seen: Mr Bautista states that he is having another rough day, but today is better than yesterday. He denies dizziness, chest pain, reports occasional flutter in his chest - like what he gets with Afib or anxiety - but his rate was controlled at that time. Denies nausea, vomiting. Exam Narrative Exam Narrative: General: Very pleasant middle-aged male, in bed, using the [employer] machine, NAD, speaking in 4-5 word phrases. HEENT: EOMI, MMM Heart: RRR, no m/r/g Lungs: very diminished breath sounds with expiratory wheezing L>R Abdomen: nondistended Extremities: trace edema BLE's, no clubbing/cyanosis Objective Objective Clinical Data: Abnormal lab results 07/23/18 07/23/18 Range/Units 06:30 06:30 RBC 3.17 L (4.50-6.00) m/cumm Hgb 9.5 L (13.5-17.5) g/dL Hct 30.5 L (40.0-50.0) % MCV 96.2 H (80-95) fL MCHC 31.1 L (32.0-36.0) g/dL RDW 15.5 H (11.8-14.1) % Absolute Neutrophils 6.79 H (1.2-6.7) k/cumm Absolute Lymphocytes 0.33 L (1.2-3.4) k/cumm Carbon Dioxide 34.3 H (21.0-32.0) mmol/L Anion Gap 2.7 L (3-11) mmol/L Glucose 142 H (70-100) mg/dL Calcium 8.0 L (8.5-10.1) mg/dL Vital Signs Temperature 36.2 C L 07/23/18 16:37 Temperature Source Tympanic 07/23/18 16:37 Pulse 84 07/23/18 16:03 Pulse Rhythm Regular 07/23/18 16:49 Pulse 98 H 07/20/18 12:01 Respiratory Rate 18 07/23/18 16:03 Respiratory Effort Labored 07/23/18 16:49 Respiratory Depth Shallow 07/23/18 16:49 Respiratory Pattern Tachypnea 07/23/18 16:49 Blood Pressure 139/79 07/23/18 15:55 Blood Pressure Mean 96 07/20/18 12:01 Blood Pressure Position Sitting 07/19/18 13:17 Pulse Oximetry 98 07/23/18 16:03 Oxygen Delivery Method Nasal Cannula 07/23/18 16:03 Oxygen Flow Rate 2 07/23/18 15:55 Pain Level 0 07/22/18 07:05 Comment 07/23/18 03:40 Intake & Output 07/22/18 07/23/18 07/23/18 23:59 11:59 23:59 Intake Total 1540 / 2550 950 / 1540 590 / 1540 Output Total 1125 / 2275 500 / 500 Balance 415 / 275 450 / 1040 590 / 1040 Intake: IV 700 / 1350 600 / 740 140 / 740 Oral 840 / 1200 350 / 800 450 / 800 Output: Urine 1125 / 2275 500 / 500 Other: Urine Color Yellow Yellow Urine Appearance Clear Clear Clear Urine Odor Normal Normal Stool Size Large Stool Characteristics Formed Brown Voiding Methods Urinal Urinal Laboratory Results WBC 7.72 k/cumm (4.4-10.8) 07/23/18 06:30 RBC 3.17 m/cumm (4.50-6.00) L 07/23/18 06:30 Hgb 9.5 g/dL (13.5-17.5) L 07/23/18 06:30 Hct 30.5 % (40.0-50.0) L 07/23/18 06:30 MCV 96.2 fL (80-95) H 07/23/18 06:30 MCH 30.0 pg (27.0-33.0) 07/23/18 06:30 MCHC 31.1 g/dL (32.0-36.0) L 07/23/18 06:30 RDW 15.5 % (11.8-14.1) H 07/23/18 06:30 Plt Count 260 x1000/uL (130-400) 07/23/18 06:30 MPV 9.3 fL (8.0-11.0) 07/23/18 06:30 Immature Gran % 0.9 07/23/18 06:30 Neutrophils % 87.9 07/23/18 06:30 Lymphocytes % 4.3 07/23/18 06:30 Monocytes % 6.6 07/23/18 06:30 Eosinophils % 0.3 07/23/18 06:30 Basophils % 0.0 07/23/18 06:30 Absolute Neutrophils 6.79 k/cumm (1.2-6.7) H 07/23/18 06:30 Absolute Lymphocytes 0.33 k/cumm (1.2-3.4) L 07/23/18 06:30 Absolute Monocytes 0.51 k/cumm (0.11-0.7) 07/23/18 06:30 Absolute Eosinophils 0.02 k/cumm (0.0-0.7) 07/23/18 06:30 Absolute Basophils 0.00 k/cumm (0.0-0.2) 07/23/18 06:30 Differential Comment Rbc morph reviewed 07/19/18 06:34 RBC Morphology See below 07/19/18 06:34 Polychromasia Present 07/19/18 06:34 Hypochromasia 1+ 07/19/18 06:34 Poikilocytosis 2+ 07/19/18 06:34 Sodium 143 mmol/L (136-145) 07/23/18 06:30 Potassium 3.8 mmol/L (3.5-5.1) 07/23/18 06:30 Chloride 106 mmol/L (98-107) 07/23/18 06:30 Carbon Dioxide 34.3 mmol/L (21.0-32.0) H 07/23/18 06:30 Anion Gap 2.7 mmol/L (3-11) L 07/23/18 06:30 BUN 18 mg/dL (7-18) 07/23/18 06:30 Creatinine 0.74 mg/dL (0.70-1.30) 07/23/18 06:30 Estimated GFR/1.73 m2 >= 60.00 (mL/min/1.73m2) 07/23/18 06:30 Glucose 142 mg/dL (70-100) H 07/23/18 06:30 Lactate 1.9 mmol/l (0.6-1.4) H 07/19/18 09:10 Calcium 8.0 mg/dL (8.5-10.1) L 07/23/18 06:30 Magnesium 2.3 mg/dL (1.8-2.4) 07/23/18 06:30 Iron 28 ug/dL (50-175) L 07/19/18 06:34 TIBC 191 ug/dL (250-450) L 07/19/18 06:34 Transferrin % Sat 15 % (20-55) L 07/19/18 06:34 Ferritin 217 ng/mL (8-388) 07/19/18 06:34 Total Bilirubin 0.6 mg/dL (0.2-1.0) 07/18/18 14:12 AST 19 U/L (15-37) 07/18/18 14:12 ALT 33 U/L (12-78) 07/18/18 14:12 Alkaline Phosphatase 50 U/L (46-116) 07/18/18 14:12 Troponin I < 0.02 ng/mL (0.00-0.06) 07/18/18 14:12 Total Protein 5.5 g/dL (6.4-8.2) L 07/18/18 14:12 Albumin 2.2 g/dL (3.4-5.0) L 07/18/18 14:12 Vitamin B12 471 pg/mL (193-986) 07/20/18 06:10 Folate 18.3 ng/mL (8.6-20.0) 07/20/18 06:10 TSH 0.09 uIU/mL (0.358-3.74) L 07/20/18 06:10 Free T4 0.88 ng/dL (0.76-1.46) 07/22/18 06:40 Urine Color Yellow (Yellow) 07/18/18 18:15 Urine Clarity Clear 07/18/18 18:15 Urine pH 7.0 (5-8) 07/18/18 18:15 Ur Specific [place] 1.010 (1.005-1.025) 07/18/18 18:15 Urine Protein Negative mg/dL (Negative) 07/18/18 18:15 Urine Ketones Negative mg/dL (Negative) 07/18/18 18:15 Urine Blood Negative (Negative) 07/18/18 18:15 Urine Nitrite Negative (Negative) 07/18/18 18:15 Urine Bilirubin Negative (Negative) 07/18/18 18:15 Urine Urobilinogen 0.2 EU/dL (Up TO 0.2) 07/18/18 18:15 Ur Leukocyte Esterase Negative (Negative) 07/18/18 18:15 Urine Glucose Negative mg/dL (Negative) 07/18/18 18:15 Vancomycin Trough 24.9 ug/mL (10.0-20.0) H* 07/21/18 10:55
[2018-07-23] MEDS: levoFLOXacin 750 MG/150 ML BAG 100 MG IVPB (18:07)
[2018-07-23] MEDS: ROSUVASTATIN 20 MG TAB 40 MG PO (20:30)
[2018-07-23] MEDS: Melatonin 3 MG TAB PO (21:29)
[2018-07-23] MEDS: Senna TAB 2 TAB PO (21:29)
[2018-07-24] VITALS (15 sets, daily range): BP systolic 126–173; BP diastolic 67–91; PULSE 71–100; RESP 1–22; TEMP 36.1–37; O2SAT 94–100
[2018-07-24] MEDS: Normal Saline Flush 10 ML SYR IVP ×6 (03:22→20:39)
[2018-07-24] MEDS: methylPREDNISolone SUCC 40 MG VIAL IVP ×3 (03:23→19:49)
[2018-07-24] MEDS: CEFEPIME 2 GM in Normal Saline 100 ML IVPB ×3 (03:27→19:57)
[2018-07-24 07:25] LABS: Absolute Lymphocyte Count 0.31 k/cumm (1.2-3.4); Absolute Neutrophil Count 6.45 k/cumm (1.2-6.7); HGB 9.5 g/dL (13.5-17.5); Immature Grans % 1.4; Lymphocytes % 4.3; Mean Corp. HGB Concentration 30.6 g/dL (32.0-36.0); Mean Corpuscular Hemoglobin 29.5 pg (27.0-33.0); Mean Corpuscular Volume 96.3 fL (80-95); Mean Platelet Volume 8.9 fL (8.0-11.0); Monocytes % 5.5; Neutrophils % 88.8; Platelet Count 291 x1000/uL (130-400); RBC 3.22 m/cumm (4.50-6.00); RBC Distribution Width 15.4 % (11.8-14.1); White Blood Cell Count 7.26 k/cumm (4.4-10.8)
[2018-07-24 07:39] LABS: Anion Gap 3.2 mmol/L (3-11); BUN 18 mg/dL (7-18); CO2 35.8 mmol/L (21.0-32.0); Calcium 8.2 mg/dL (8.5-10.1); Chloride 105 mmol/L (98-107); Glucose 120 mg/dL (70-100); Magnesium 2.2 mg/dL (1.8-2.4); Potassium 3.9 mmol/L (3.5-5.1); Sodium 144 mmol/L (136-145)
[2018-07-24 07:46] LABS: Vancomycin, Trough 23.9 ug/mL (10.0-20.0)
[2018-07-24] MEDS: Lisinopril 20 MG TAB PO (07:53)
[2018-07-24] MEDS: Tamsulosin 0.4 MG CAPCR PO (07:53)
[2018-07-24] MEDS: Clopidogrel 75 MG TAB PO (07:53)
[2018-07-24] MEDS: Citalopram 20 MG TAB PO (07:53)
[2018-07-24] MEDS: Rivaroxaban 10 MG TABLET 20 MG PO (07:53)
[2018-07-24] MEDS: Pantoprazole 40 MG VIAL IVP ×2 (07:53→19:52)
[2018-07-24] MEDS: LORazepam 1 MG TAB PO (07:54)
[2018-07-24] MEDS: clonazePAM 1 MG TAB PO ×2 (07:54→19:25)
[2018-07-24] MEDS: Metoprolol CR 100 MG TABCR PO (07:54)
[2018-07-24] MEDS: Docusate Sodium 100 MG CAP PO ×2 (07:54→19:25)
[2018-07-24] MEDS: Multivitamin TAB 1 TAB PO (07:54)
[2018-07-24] MEDS: predniSONE 10 MG TAB PO (07:54)
[2018-07-24] MEDS: Benzonatate 100 MG CAP PO ×3 (07:55→19:25)
[2018-07-24] MEDS: Levalbuterol 0.63 MG/3 ML UPD VIAL UPD ×4 (09:42→19:26)
[2018-07-24] MEDS: Ipratropium 0.5 MG/2.5 ML UPD VIAL UPD ×3 (09:46→19:25)
[2018-07-24] MEDS: Budesonide 0.5 MG/2 ML UPD VIAL UPD ×2 (09:55→19:52)
--- NOTE | 2018-07-24 09:58 | PDOC.CMPRO ---
Care Management Progress Note S/O: Javier was reviewed at morning interdisciplinary rounds report; Dr. Martino reports anticipating Javier will remain inpatient for a few more days. IV ABX duration undetermined as per MD, Javier may require 7-10 days instead of the 5 day coverage first anticipated. Javier is sitting up in his chair when CM meets with him. He confirms being agreeable to home health services and provides positive feedback regarding his interactions with Mary Jo LAI. He proudly explains how he encouraged his to participate in a wedding today in [place] that she had been reluctant to go to because of his hospitalization; CM validates his sentiment. Javier is pleasant in interaction. No change to overall plan. A: 62 year old male admitted to [facility] 07/18/18 with Pneumonia, Sepsis P: Javier will be discharged home when ready with a resumption of current services which include home oxygen and a Trilogy Unit. Javier reports he will be agreeable to VNA supports upon discharge as recommended per MD; anticipate RN/PT(including better breathing)/OT and possible FOREST PRODUCTS TEACHER. CM will continue to offer support to patient, family, care team and discharge plan of care.
[2018-07-24] MEDS: Budesonide/Formoterol 160/4.5 6 GM 60 PUFF INH IH ×2 (10:01→19:47)
--- NOTE | 2018-07-24 10:14 | CMPROGNOTE_ITS ---
Care Management Progress Note S/O: Javier was reviewed at morning interdisciplinary rounds report; Dr. Martino reports anticipating Javier will remain inpatient for a few more days. IV ABX duration undetermined as per MD, Javier may require 7-10 days instead of the 5 day coverage first anticipated. Javier is sitting up in his chair when CM meets with him. He confirms being agreeable to home health services and provides positive feedback regarding his interactions with Mary Jo LAI. He proudly explains how he encouraged his to participate in a wedding today in [place] that she had been reluctant to go to because of his hospitalization; CM validates his sentiment. Javier is pleasant in interaction. No change to overall plan. A: 62 year old male admitted to [facility] 07/18/18 with Pneumonia, Sepsis P: Javier will be discharged home when ready with a resumption of current services which include home oxygen and a Trilogy Unit. Javier reports he will be agreeable to VNA supports upon discharge as recommended per MD; anticipate RN/PT(including better breathing)/OT and possible BAR ATTENDANT. CM will continue to offer support to patient, family, care team and discharge plan of care.
[2018-07-24] MEDS: Furosemide 40 MG/4 ML VIAL IVP (10:47)
--- NOTE | 2018-07-24 15:00 | DI.RAD_ITS ---
SYMPTOM/DIAGNOSIS: F/U PNEUMONIA, NEW FEVER PORTABLE AP CHEST: Minimal streaky radiodensities may be present in the left lung base as noted on recent CT. However the findings are less prominent than on previous chest film of 07/22. CONCLUSION: Findings consistent with improving/resolving pneumonia.
--- NOTE | 2018-07-24 16:07 | PGE_ITS ---
Date of Service Date of service: 07/24/18 Time of Service: 16:03 Assessment and Plan (1) HCAP (healthcare-associated pneumonia): Current visit: Yes Status: Acute Continue Vancomycin, Cefepime, and Levaquin, now day #7. Because there was a report of T max of 37.8, I ordered a repeat CXR. Antibiotics will continue until I have results of that CXR - still not done, ordered this am. (2) COPD exacerbation: Current visit: No Status: Chronic As above. Improving. Continue current dose of steroids for today. Treat fluid overload. (3) Acute on chronic diastolic (congestive) heart failure: Current visit: Yes Status: Acute Scheduled IV lasix. Monitor I/O's and daily weights. (4) Atrial fibrillation: Current visit: No Status: Chronic Paroxysmal. Continue BB with hold parameters, anticoagulation with rody aroxaban. (5) Sepsis: Current visit: Yes Status: Acute Based on significant hypotension, leukocytosis, and SHERLYN with pulmonary source, appears to have responded well to IV fluid resuscitation, antibiotics, and initial pressor therapy. Remains off Levophed. Sepsis appears resolved. (6) SHERLYN (acute kidney injury): Current visit: Yes Status: Acute In setting of hypotension and illness, likely prerenal in etiology. Resolved with hydration and normalization of blood pressure. (7) Coronary artery disease: Current visit: No Status: Chronic No ACS on this admission. Continuef BB, high potency statin, and Clopidogrel. RADHA-I restarted previously. (8) BPH (benign prostatic hyperplasia): Current visit: No Status: Chronic Continue alpha-lizet. (9) Anemia: Current visit: No Status: Chronic Chronic anemia, worsened in setting of acute illness. Normocytic, but in patient on chronic anticoagulation. Iron low, TIBC low, but Ferritin normal, B12 and FA normal, and TSH low (in setting of acute illness, and with normal FT4) - possible mixed picture. Stool for occult blood checked and negative. H/H stable - will continue to monitor. No evidence of active bleeding (10) DVT prophylaxis: Current visit: No Status: Chronic On chronic anticoagulation with Rivaroxaban. He will also continue PPI therapy for GI prophylaxis. (11) Advance directive on file: Current visit: Yes Status: Acute Full Code. Subjective Interval history since last seen: Mr Bautista feels better today. He states, however, that his legs are more swollen. He states his cough is nonproductive, he felt warm and out of breath when washing up this morning. Overall, though, he is having a better day. Denies dizziness, chest pain, nausea, vomiting. Had some anxiety this am and did use ativan. Exam Narrative Exam Narrative: General: Very pleasant middle-aged male, sitting up in a chair, completing sentences without problems/need to breathe. I do not see tachypnea/dyspnea today. HEENT: EOMI, MMM Heart: RRR, no m/r/g Lungs: rales in B lungs, but no actual crackles. Abdomen: nondistended Extremities: +1 edema BLE's, no clubbing or cyanosis Objective Objective Clinical Data: Abnormal lab results 07/24/18 07/24/18 07/24/18 Range/Units 06:47 06:47 06:47 RBC 3.22 L (4.50-6.00) m/cumm Hgb 9.5 L (13.5-17.5) g/dL Hct 31.0 L (40.0-50.0) % MCV 96.3 H (80-95) fL MCHC 30.6 L (32.0-36.0) g/dL RDW 15.4 H (11.8-14.1) % Absolute Lymphocytes 0.31 L (1.2-3.4) k/cumm Carbon Dioxide 35.8 H (21.0-32.0) mmol/L Glucose 120 H (70-100) mg/dL Calcium 8.2 L (8.5-10.1) mg/dL Vancomycin Trough 23.9 H* (10.0-20.0) ug/mL Vital Signs Temperature 37.0 C 07/24/18 15:59 Temperature Source Tympanic 07/24/18 15:59 Pulse 83 07/24/18 15:59 Pulse Rhythm Regular 07/24/18 10:59 Pulse 98 H 07/20/18 12:01 Respiratory Rate 20 07/24/18 15:59 Respiratory Effort Labored 07/24/18 10:59 Respiratory Depth Shallow 07/24/18 10:59 Respiratory Pattern Tachypnea 07/24/18 10:59 Blood Pressure 126/67 07/24/18 15:59 Blood Pressure Mean 96 07/20/18 12:01 Blood Pressure Position Sitting 07/19/18 13:17 Pulse Oximetry 97 07/24/18 15:59 Oxygen Delivery Method Nasal Cannula 07/24/18 15:59 Oxygen Flow Rate 2 07/24/18 15:59 Fraction of Inspired Oxygen (FIO2) 30 07/23/18 23:30 Pain Level 0 07/24/18 07:28 Comment 07/24/18 07:28 Intake & Output 07/23/18 07/24/18 07/24/18 23:59 11:59 23:59 Intake Total 1670 / 2620 840 / 1440 600 / 1440 Output Total 1565 / 2065 900 / 1900 1000 / 1900 Balance 105 / 555 -60 / -460 -400 / -460 Intake: IV 740 / 1340 120 / 480 360 / 480 Oral 930 / 1280 720 / 960 240 / 960 Output: Urine 1565 / 2065 900 / 1900 1000 / 1900 Other: Urine Color Yellow Pale Pale Yellow Yellow Urine Appearance Clear Clear Clear Urine Odor None None Normal Voiding Methods Urinal Urinal Urinal Laboratory Results WBC 7.26 k/cumm (4.4-10.8) 07/24/18 06:47 RBC 3.22 m/cumm (4.50-6.00) L 07/24/18 06:47 Hgb 9.5 g/dL (13.5-17.5) L 07/24/18 06:47 Hct 31.0 % (40.0-50.0) L 07/24/18 06:47 MCV 96.3 fL (80-95) H 07/24/18 06:47 MCH 29.5 pg (27.0-33.0) 07/24/18 06:47 MCHC 30.6 g/dL (32.0-36.0) L 07/24/18 06:47 RDW 15.4 % (11.8-14.1) H 07/24/18 06:47 Plt Count 291 x1000/uL (130-400) 07/24/18 06:47 MPV 8.9 fL (8.0-11.0) 07/24/18 06:47 Immature Gran % 1.4 07/24/18 06:47 Neutrophils % 88.8 07/24/18 06:47 Lymphocytes % 4.3 07/24/18 06:47 Monocytes % 5.5 07/24/18 06:47 Eosinophils % 0.0 07/24/18 06:47 Basophils % 0.0 07/24/18 06:47 Absolute Neutrophils 6.45 k/cumm (1.2-6.7) 07/24/18 06:47 Absolute Lymphocytes 0.31 k/cumm (1.2-3.4) L 07/24/18 06:47 Absolute Monocytes 0.40 k/cumm (0.11-0.7) 07/24/18 06:47 Absolute Eosinophils 0.00 k/cumm (0.0-0.7) 07/24/18 06:47 Absolute Basophils 0.00 k/cumm (0.0-0.2) 07/24/18 06:47 Differential Comment Rbc morph reviewed 07/19/18 06:34 RBC Morphology See below 07/19/18 06:34 Polychromasia Present 07/19/18 06:34 Hypochromasia 1+ 07/19/18 06:34 Poikilocytosis 2+ 07/19/18 06:34 Sodium 144 mmol/L (136-145) 07/24/18 06:47 Potassium 3.9 mmol/L (3.5-5.1) 07/24/18 06:47 Chloride 105 mmol/L (98-107) 07/24/18 06:47 Carbon Dioxide 35.8 mmol/L (21.0-32.0) H 07/24/18 06:47 Anion Gap 3.2 mmol/L (3-11) 07/24/18 06:47 BUN 18 mg/dL (7-18) 07/24/18 06:47 Creatinine 0.80 mg/dL (0.70-1.30) 07/24/18 06:47 Estimated GFR/1.73 m2 >= 60.00 (mL/min/1.73m2) 07/24/18 06:47 Glucose 120 mg/dL (70-100) H 07/24/18 06:47 Lactate 1.9 mmol/l (0.6-1.4) H 07/19/18 09:10 Calcium 8.2 mg/dL (8.5-10.1) L 07/24/18 06:47 Magnesium 2.2 mg/dL (1.8-2.4) 07/24/18 06:47 Iron 28 ug/dL (50-175) L 07/19/18 06:34 TIBC 191 ug/dL (250-450) L 07/19/18 06:34 Transferrin % Sat 15 % (20-55) L 07/19/18 06:34 Ferritin 217 ng/mL (8-388) 07/19/18 06:34 Total Bilirubin 0.6 mg/dL (0.2-1.0) 07/18/18 14:12 AST 19 U/L (15-37) 07/18/18 14:12 ALT 33 U/L (12-78) 07/18/18 14:12 Alkaline Phosphatase 50 U/L (46-116) 07/18/18 14:12 Troponin I < 0.02 ng/mL (0.00-0.06) 07/18/18 14:12 Total Protein 5.5 g/dL (6.4-8.2) L 07/18/18 14:12 Albumin 2.2 g/dL (3.4-5.0) L 07/18/18 14:12 Vitamin B12 471 pg/mL (193-986) 07/20/18 06:10 Folate 18.3 ng/mL (8.6-20.0) 07/20/18 06:10 TSH 0.09 uIU/mL (0.358-3.74) L 07/20/18 06:10 Free T4 0.88 ng/dL (0.76-1.46) 07/22/18 06:40 Urine Color Yellow (Yellow) 07/18/18 18:15 Urine Clarity Clear 07/18/18 18:15 Urine pH 7.0 (5-8) 07/18/18 18:15 Ur Specific [place] 1.010 (1.005-1.025) 07/18/18 18:15 Urine Protein Negative mg/dL (Negative) 07/18/18 18:15 Urine Ketones Negative mg/dL (Negative) 07/18/18 18:15 Urine Blood Negative (Negative) 07/18/18 18:15 Urine Nitrite Negative (Negative) 07/18/18 18:15 Urine Bilirubin Negative (Negative) 07/18/18 18:15 Urine Urobilinogen 0.2 EU/dL (Up TO 0.2) 07/18/18 18:15 Ur Leukocyte Esterase Negative (Negative) 07/18/18 18:15 Urine Glucose Negative mg/dL (Negative) 07/18/18 18:15 Vancomycin Trough 23.9 ug/mL (10.0-20.0) H* 07/24/18 06:47
--- NOTE | 2018-07-24 16:57 | DI.VRAD_ITS ---
EXAM: XR Chest, 1 View EXAM DATE/TIME: 07/24/2018 10:12 AM CLINICAL HISTORY: 62 years old, male; Signs and symptoms; Cough and fever; Patient HX: Fu pneumonia, new fever TECHNIQUE: Imaging protocol: XR of the chest, 1 view. COMPARISON: CR XR PORTABLE CHEST AP 07/22/2018 10:39 AM FINDINGS: The lung cortes are clear bilaterally. No focal pulmonary consolidation is present. The cardiac silhouette is within normal limits. The costophrenic angles are sharp. The bony structures appear unremarkable. IMPRESSION: No evidence of acute cardiopulmonary disease. Dictated and Authenticated by: Jatinder Velarde MD. Ordering:FATOUMATA Gonzalez MD
[2018-07-24] MEDS: levoFLOXacin 750 MG/150 ML BAG 100 MG IVPB (18:14)
[2018-07-24] MEDS: ROSUVASTATIN 20 MG TAB 40 MG PO (19:24)
[2018-07-24] MEDS: Senna TAB 2 TAB PO (21:18)
[2018-07-24] MEDS: Melatonin 3 MG TAB PO (21:18)
[2018-07-25] VITALS (12 sets, daily range): BP systolic 102–169; BP diastolic 68–89; PULSE 66–82; RESP 8–20; TEMP 35.8–36.8; O2SAT 95–98
[2018-07-25] MEDS: methylPREDNISolone SUCC 40 MG VIAL IVP ×2 (03:59→11:46)
[2018-07-25] MEDS: Normal Saline Flush 10 ML SYR IVP ×4 (03:59→16:45)
[2018-07-25] MEDS: CEFEPIME 2 GM in Normal Saline 100 ML IVPB (04:04)
[2018-07-25 07:13] LABS: Abs Immature Grans 0.15 k/cumm (0.0-0.09); Absolute Basophil Count 0.01 k/cumm (0.0-0.2); Absolute Lymphocyte Count 0.31 k/cumm (1.2-3.4); Absolute Monocyte Count 0.58 k/cumm (0.11-0.7); Absolute Neutrophil Count 6.01 k/cumm (1.2-6.7); Basophils % 0.1; HCT 29.9 % (40.0-50.0); HGB 9.2 g/dL (13.5-17.5); Immature Grans % 2.1; Lymphocytes % 4.4; Mean Corp. HGB Concentration 30.8 g/dL (32.0-36.0); Mean Corpuscular Hemoglobin 29.8 pg (27.0-33.0); Mean Corpuscular Volume 96.8 fL (80-95); Monocytes % 8.2; Neutrophils % 85.2; Platelet Count 295 x1000/uL (130-400); RBC 3.09 m/cumm (4.50-6.00); RBC Distribution Width 15.6 % (11.8-14.1); White Blood Cell Count 7.06 k/cumm (4.4-10.8)
[2018-07-25 07:18] LABS: Anion Gap 2.1 mmol/L (3-11); BUN 19 mg/dL (7-18); CO2 35.9 mmol/L (21.0-32.0); CREATININE 0.61 mg/dL (0.70-1.30); Chloride 106 mmol/L (98-107); Glucose 121 mg/dL (70-100); Magnesium 2.2 mg/dL (1.8-2.4); Potassium 3.7 mmol/L (3.5-5.1); Sodium 144 mmol/L (136-145)
[2018-07-25] MEDS: Ipratropium 0.5 MG/2.5 ML UPD VIAL UPD ×3 (07:47→20:18)
[2018-07-25] MEDS: Levalbuterol 0.63 MG/3 ML UPD VIAL UPD ×3 (07:48→20:18)
[2018-07-25] MEDS: Budesonide 0.5 MG/2 ML UPD VIAL UPD ×2 (07:49→20:31)
[2018-07-25] MEDS: Furosemide 40 MG/4 ML VIAL IVP ×2 (07:52→16:44)
[2018-07-25] MEDS: Metoprolol CR 100 MG TABCR PO (07:53)
[2018-07-25] MEDS: Pantoprazole 40 MG VIAL IVP ×2 (07:53→20:18)
[2018-07-25] MEDS: predniSONE 10 MG TAB PO (07:53)
[2018-07-25] MEDS: Tamsulosin 0.4 MG CAPCR PO (07:53)
[2018-07-25] MEDS: Clopidogrel 75 MG TAB PO (07:53)
[2018-07-25] MEDS: Rivaroxaban 10 MG TABLET 20 MG PO (07:53)
[2018-07-25] MEDS: Citalopram 20 MG TAB PO (07:53)
[2018-07-25] MEDS: Docusate Sodium 100 MG CAP PO ×2 (07:53→20:17)
[2018-07-25] MEDS: LORazepam 1 MG TAB PO (07:53)
[2018-07-25] MEDS: Multivitamin TAB 1 TAB PO (07:53)
[2018-07-25] MEDS: Benzonatate 100 MG CAP PO ×3 (07:53→20:21)
[2018-07-25] MEDS: clonazePAM 1 MG TAB PO ×2 (07:54→20:17)
[2018-07-25] MEDS: Lisinopril 20 MG TAB PO (07:54)
--- NOTE | 2018-07-25 10:32 | PDOC.CMPRO ---
- If Service Date Differs Date of service: 07/25/18 Time of Service: 10:32 Care Management Progress Note S/O: Javier was sitting up in the chair when CM came to visit. He was smiling and engaged readily in conversation. Javier states that he has a nebulizer at home that he received from the [facility] and he informed me that his Trilogy unit can also be used with his nebulizer. CM will contact the [facility] to facilitate procurement of the medications for the nebulizer. Javier also discussed his weight gain which is secondary to fluid retention but notes that it is improving. He says he is looking forward to discharge but doesn't want to bledsoe things. A: 62 year old male admitted to [facility] 07/18/18 with Pneumonia, Sepsis P: Javier will be discharged home when ready with a resumption of current services which include home oxygen and a Trilogy Unit. Javier reports he will be agreeable to VNA supports upon discharge as recommended per MD; anticipate RN/PT(including better breathing)/OT and possible PRISON GUARD. CM will continue to offer support to patient, family, care team and discharge plan of care.
[2018-07-25] MEDS: Budesonide/Formoterol 160/4.5 6 GM 60 PUFF INH IH ×2 (11:11→20:22)
--- NOTE | 2018-07-25 12:27 | CMPROGNOTE_ITS ---
- If Service Date Differs Date of service: 07/25/18 Time of Service: 10:32 Care Management Progress Note S/O: Javier was sitting up in the chair when CM came to visit. He was smiling and engaged readily in conversation. Javier states that he has a nebulizer at home that he received from the [facility] and he informed me that his Trilogy unit can also be used with his nebulizer. CM will contact the [facility] to facilitate procurement of the medications for the nebulizer. Javier also discussed his weight gain which is secondary to fluid retention but notes that it is improving. He says he is looking forward to discharge but doesn't want to bledsoe things. A: 62 year old male admitted to [facility] 07/18/18 with Pneumonia, Sepsis P: Javier will be discharged home when ready with a resumption of current services which include home oxygen and a Trilogy Unit. Javier reports he will be agreeable to VNA supports upon discharge as recommended per MD; anticipate RN/PT(including better breathing)/OT and possible SOCIAL WORKER PSYCHIATRIC. CM will continue to offer support to patient, family, care team and discharge plan of care.
[2018-07-25 15:54] LABS: Vancomycin, Trough 15.6 ug/mL (10.0-20.0)
--- NOTE | 2018-07-25 16:15 | PGE_ITS ---
Date of Service Date of service: 07/25/18 Time of Service: 16:10 Assessment and Plan (1) HCAP (healthcare-associated pneumonia): Current visit: Yes Status: Resolved Completed 1 week of abx - d/c'ed this am. CXR and clinically better. (2) COPD exacerbation: Current visit: No Status: Acute Much better. Transition to PO steroids today. Antibiotics d/c'ed. (3) Acute on chronic diastolic (congestive) heart failure: Current visit: Yes Status: Acute Continue IV lasix, monitoring I/O's and daily weights. Though probability of DVT in BLE causing edema is low and I do see response to lasix, I will order a doppler of BLE's to r/o DVT. (4) Atrial fibrillation: Current visit: No Status: Chronic Paroxysmal. Continue BB with hold parameters, anticoagulation with rivaroxaban. (5) Sepsis: Current visit: Yes Status: Resolved Based on significant hypotension, leukocytosis, and SHERLYN with pulmonary source, appears to have responded well to IV fluid resuscitation, antibiotics, and initial pressor therapy. Remains off Levophed. Sepsis appears resolved. (6) SHERLYN (acute kidney injury): Current visit: Yes Status: Resolved In setting of hypotension and illness, likely prerenal in etiology. Resolved with hydration and normalization of blood pressure. (7) Coronary artery disease: Current visit: No Status: Chronic No ACS on this admission. Continuef BB, high potency statin, and Clopidogrel. RADHA-I restarted previously. (8) BPH (benign prostatic hyperplasia): Current visit: No Status: Chronic Continue alpha-lizet. (9) Anemia: Current visit: No Status: Chronic Chronic anemia, worsened in setting of acute illness. Normocytic, but in patient on chronic anticoagulation. Iron low, TIBC low, but Ferritin normal, B12 and FA normal, and TSH low (in setting of acute illness, and with normal FT4) - possible mixed picture. Stool for occult blood checked and negative. H/H stable - will continue to monitor. No evidence of active bleeding (10) DVT prophylaxis: Current visit: No Status: Chronic On chronic anticoagulation with Rivaroxaban. He will also continue PPI therapy for GI prophylaxis. (11) Advance directive on file: Current visit: Yes Status: Acute Full Code. Subjective Interval history since last seen: Breathing is getting better and overall Mr Bautista states he feels better. Denies dizziness, chest pain, nausea, vomiting. States his legs and thighs are more swollen - but they actually look better to me. Exam Narrative Exam Narrative: General: Very pleasant middle-aged male, sitting up in a chair, speaking even more fluently than yestereday, comfortable HEENT: EOMI, MMM Heart: RRR, no m/r/g Lungs: Diminished breath sounds B, no wheezing/crackles heard Abdomen: nondistended Extremities: +1 edema BLE's, symmetric, better than yesterday, no clubbing or cyanosis Objective Objective Clinical Data: Abnormal lab results 07/25/18 07/25/18 Range/Units 06:48 06:48 RBC 3.09 L (4.50-6.00) m/cumm Hgb 9.2 L (13.5-17.5) g/dL Hct 29.9 L (40.0-50.0) % MCV 96.8 H (80-95) fL MCHC 30.8 L (32.0-36.0) g/dL RDW 15.6 H (11.8-14.1) % Absolute Lymphocytes 0.31 L (1.2-3.4) k/cumm Carbon Dioxide 35.9 H (21.0-32.0) mmol/L Anion Gap 2.1 L (3-11) mmol/L BUN 19 H (7-18) mg/dL Creatinine 0.61 L (0.70-1.30) mg/dL Glucose 121 H (70-100) mg/dL Calcium 8.0 L (8.5-10.1) mg/dL Vital Signs Temperature 35.8 C L 07/25/18 15:54 Temperature Source Tympanic 07/25/18 15:54 Pulse 80 07/25/18 15:54 Pulse Rhythm Regular 07/25/18 07:37 Pulse 98 H 07/20/18 12:01 Respiratory Rate 18 07/25/18 15:54 Respiratory Effort Short of Breath 07/25/18 07:37 Respiratory Depth Normal 07/25/18 07:37 Respiratory Pattern Normal 07/25/18 07:37 Blood Pressure 169/73 H 07/25/18 15:54 Blood Pressure Mean 96 07/20/18 12:01 Blood Pressure Position Sitting 07/19/18 13:17 Pulse Oximetry 96 07/25/18 15:54 Oxygen Delivery Method Nasal Cannula 07/25/18 15:54 Oxygen Flow Rate 2 07/25/18 15:54 Fraction of Inspired Oxygen (FIO2) 30 07/23/18 23:30 Pain Level 0 07/24/18 07:28 Comment 07/24/18 07:28 Intake & Output 07/24/18 07/25/18 07/25/18 23:59 11:59 23:59 Intake Total 1580 / 2420 1130 / 1515 385 / 1515 Output Total 1600 / 2500 1750 / 1750 Balance -20 / -80 -620 / -235 385 / -235 Weight 64.6 kg Intake: IV 860 / 980 490 / 510 20 / 510 Oral 720 / 1440 640 / 1005 365 / 1005 Output: Urine 1600 / 2500 1750 / 1750 Other: Urine Color Yellow Yellow Yellow Urine Appearance Clear Clear Clear Urine Odor Normal Normal Normal Comment No hat. Pt using urinal alternately with toilet. Denies sx. Stool Size Small Stool Characteristics Formed Voiding Methods Urinal Urinal Toilet Laboratory Results WBC 7.06 k/cumm (4.4-10.8) 07/25/18 06:48 RBC 3.09 m/cumm (4.50-6.00) L 07/25/18 06:48 Hgb 9.2 g/dL (13.5-17.5) L 07/25/18 06:48 Hct 29.9 % (40.0-50.0) L 07/25/18 06:48 MCV 96.8 fL (80-95) H 07/25/18 06:48 MCH 29.8 pg (27.0-33.0) 07/25/18 06:48 MCHC 30.8 g/dL (32.0-36.0) L 07/25/18 06:48 RDW 15.6 % (11.8-14.1) H 07/25/18 06:48 Plt Count 295 x1000/uL (130-400) 07/25/18 06:48 MPV 9.0 fL (8.0-11.0) 07/25/18 06:48 Immature Gran % 2.1 07/25/18 06:48 Neutrophils % 85.2 07/25/18 06:48 Lymphocytes % 4.4 07/25/18 06:48 Monocytes % 8.2 07/25/18 06:48 Eosinophils % 0.0 07/25/18 06:48 Basophils % 0.1 07/25/18 06:48 Absolute Neutrophils 6.01 k/cumm (1.2-6.7) 07/25/18 06:48 Absolute Lymphocytes 0.31 k/cumm (1.2-3.4) L 07/25/18 06:48 Absolute Monocytes 0.58 k/cumm (0.11-0.7) 07/25/18 06:48 Absolute Eosinophils 0.00 k/cumm (0.0-0.7) 07/25/18 06:48 Absolute Basophils 0.01 k/cumm (0.0-0.2) 07/25/18 06:48 Differential Comment Rbc morph reviewed 07/19/18 06:34 RBC Morphology See below 07/19/18 06:34 Polychromasia Present 07/19/18 06:34 Hypochromasia 1+ 07/19/18 06:34 Poikilocytosis 2+ 07/19/18 06:34 Sodium 144 mmol/L (136-145) 07/25/18 06:48 Potassium 3.7 mmol/L (3.5-5.1) 07/25/18 06:48 Chloride 106 mmol/L (98-107) 07/25/18 06:48 Carbon Dioxide 35.9 mmol/L (21.0-32.0) H 07/25/18 06:48 Anion Gap 2.1 mmol/L (3-11) L 07/25/18 06:48 BUN 19 mg/dL (7-18) H 07/25/18 06:48 Creatinine 0.61 mg/dL (0.70-1.30) L 07/25/18 06:48 Estimated GFR/1.73 m2 >= 60.00 (mL/min/1.73m2) 07/25/18 06:48 Glucose 121 mg/dL (70-100) H 07/25/18 06:48 Lactate 1.9 mmol/l (0.6-1.4) H 07/19/18 09:10 Calcium 8.0 mg/dL (8.5-10.1) L 07/25/18 06:48 Magnesium 2.2 mg/dL (1.8-2.4) 07/25/18 06:48 Iron 28 ug/dL (50-175) L 07/19/18 06:34 TIBC 191 ug/dL (250-450) L 07/19/18 06:34 Transferrin % Sat 15 % (20-55) L 07/19/18 06:34 Ferritin 217 ng/mL (8-388) 07/19/18 06:34 Total Bilirubin 0.6 mg/dL (0.2-1.0) 07/18/18 14:12 AST 19 U/L (15-37) 07/18/18 14:12 ALT 33 U/L (12-78) 07/18/18 14:12 Alkaline Phosphatase 50 U/L (46-116) 07/18/18 14:12 Troponin I < 0.02 ng/mL (0.00-0.06) 07/18/18 14:12 Total Protein 5.5 g/dL (6.4-8.2) L 07/18/18 14:12 Albumin 2.2 g/dL (3.4-5.0) L 07/18/18 14:12 Vitamin B12 471 pg/mL (193-986) 07/20/18 06:10 Folate 18.3 ng/mL (8.6-20.0) 07/20/18 06:10 TSH 0.09 uIU/mL (0.358-3.74) L 07/20/18 06:10 Free T4 0.88 ng/dL (0.76-1.46) 07/22/18 06:40 Urine Color Yellow (Yellow) 07/18/18 18:15 Urine Clarity Clear 07/18/18 18:15 Urine pH 7.0 (5-8) 07/18/18 18:15 Ur Specific [place] 1.010 (1.005-1.025) 07/18/18 18:15 Urine Protein Negative mg/dL (Negative) 07/18/18 18:15 Urine Ketones Negative mg/dL (Negative) 07/18/18 18:15 Urine Blood Negative (Negative) 07/18/18 18:15 Urine Nitrite Negative (Negative) 07/18/18 18:15 Urine Bilirubin Negative (Negative) 07/18/18 18:15 Urine Urobilinogen 0.2 EU/dL (Up TO 0.2) 07/18/18 18:15 Ur Leukocyte Esterase Negative (Negative) 07/18/18 18:15 Urine Glucose Negative mg/dL (Negative) 07/18/18 18:15 Vancomycin Trough 15.6 ug/mL (10.0-20.0) 07/25/18 15:30 CXR 07/24/18: Findings consistent with improving/resolving pneumonia.
[2018-07-25] MEDS: ROSUVASTATIN 20 MG TAB 40 MG PO (20:16)
[2018-07-25] MEDS: predniSONE 20 MG TAB 40 MG PO (20:17)
[2018-07-25] MEDS: Melatonin 3 MG TAB PO (21:52)
[2018-07-25] MEDS: Senna TAB 2 TAB PO (21:52)
[2018-07-26] VITALS (11 sets, daily range): BP systolic 111–169; BP diastolic 58–95; PULSE 68–99; RESP 4–20; TEMP 36.3–37.3; O2SAT 93–98
[2018-07-26 07:14] LABS: BUN 24 mg/dL (7-18); CREATININE 0.61 mg/dL (0.70-1.30); Calcium 8.3 mg/dL (8.5-10.1); Chloride 104 mmol/L (98-107); Glucose 132 mg/dL (70-100); Magnesium 2.4 mg/dL (1.8-2.4); Potassium 3.7 mmol/L (3.5-5.1); Sodium 145 mmol/L (136-145)
[2018-07-26] MEDS: Levalbuterol 0.63 MG/3 ML UPD VIAL UPD ×4 (07:43→19:46)
[2018-07-26] MEDS: Ipratropium 0.5 MG/2.5 ML UPD VIAL UPD ×3 (07:44→19:46)
[2018-07-26] MEDS: Budesonide 0.5 MG/2 ML UPD VIAL UPD ×2 (07:51→20:36)
--- NOTE | 2018-07-26 08:20 | PDOC.CMPRO ---
- If Service Date Differs Date of service: 07/26/18 Time of Service: 08:20 Care Management Progress Note S/O: Javier was sitting up in the chair when CM came to visit. He was smiling and engaged readily in conversation. Javier states that he continues to feel better and that he had a great night's sleep. Javier's imminent discharge was discussed and he has agreed to have home health services for PT and OT. He conveyed his determination to utilize whatever resources are needed to prevent readmission. A: 62 year old male admitted to [facility] 07/18/18 with Pneumonia, Sepsis P: Javier will be discharged home when ready with a resumption of current services which include home oxygen and a Trilogy Unit. Javier reports he will be agreeable to home health supports upon discharge. CM will continue to offer support to patient, family, care team and discharge plan of care. cc:
[2018-07-26] MEDS: Metoprolol CR 100 MG TABCR PO (08:52)
[2018-07-26] MEDS: Lisinopril 20 MG TAB PO (08:52)
[2018-07-26] MEDS: Multivitamin TAB 1 TAB PO (08:52)
[2018-07-26] MEDS: Tamsulosin 0.4 MG CAPCR PO (08:53)
[2018-07-26] MEDS: Citalopram 20 MG TAB PO (08:53)
[2018-07-26] MEDS: clonazePAM 1 MG TAB PO ×2 (08:53→19:46)
[2018-07-26] MEDS: Docusate Sodium 100 MG CAP PO ×2 (08:53→19:46)
[2018-07-26] MEDS: predniSONE 10 MG TAB PO (08:54)
[2018-07-26] MEDS: Benzonatate 100 MG CAP PO ×3 (08:54→19:46)
[2018-07-26] MEDS: Rivaroxaban 10 MG TABLET 20 MG PO (08:54)
[2018-07-26] MEDS: Clopidogrel 75 MG TAB PO (08:54)
[2018-07-26] MEDS: Pantoprazole 40 MG VIAL IVP ×2 (08:55→19:45)
[2018-07-26] MEDS: predniSONE 20 MG TAB 40 MG PO ×2 (08:55→19:47)
[2018-07-26] MEDS: Normal Saline Flush 10 ML SYR IVP ×2 (08:56→19:46)
[2018-07-26] MEDS: Furosemide 40 MG/4 ML VIAL IVP (08:56)
[2018-07-26] MEDS: LORazepam 1 MG TAB PO (09:24)
--- NOTE | 2018-07-26 10:26 | DI.US_ITS ---
SYMPTOM/DIAGNOSIS: BILAT LOWER EXTREMITY EDEMA, ? DVT BILATERAL LOWER EXTREMITY ULTRASOUND: The deep veins of the right lower extremity were evaluated sonographically. They show normal compression, augmentation and color flow. No evidence of a deep venous thrombus is seen. The left lower extremity veins were evaluated sonographically. They show normal compression, augmentation and color flow. No evidence of a deep venous thrombus is identified. The saphenofemoral junctions are well maintained without evidence of thrombus. No focal fluid collections are seen in the lower extremities. IMPRESSION: No evidence of a deep venous thrombus in either lower extremity.
[2018-07-26] MEDS: Budesonide/Formoterol 160/4.5 6 GM 60 PUFF INH IH ×2 (10:45→19:45)
--- NOTE | 2018-07-26 11:33 | PGE_ITS ---
Date of Service Date of service: 07/26/18 Time of Service: 11:31 Assessment and Plan (1) HCAP (healthcare-associated pneumonia): Current visit: Yes Status: Resolved Completed 1 week of antibiotics, discontinued yesterday. CXR yesterday improved. Clinically better, on baseline oxygen at 2lpm. Continue to monitor. (2) COPD exacerbation: Current visit: No Status: Acute Improving. Transitioned to oral steroids yesterday. Will need to be discharged home with Xopenex 0.63 mg UPD q4h PRN and atrovent 0.5 mg UPD q6h PRN nebulizer treatments as he is unable to tolerate albuterol due to albuterol causing him to experience rapid atrial fibrillation. He has been on xopenex and atrovent and tolerated them without going into rapid atrial fibrillation. Exercise oximetry test today. Continue trilogy at . (3) Acute on chronic diastolic (congestive) heart failure: Current visit: Yes Status: Acute Continues to have wet cough and lower extremity edema. His weight is down again today. His creatinine is 0.61. Continue IV lasix. Continue to monitor daily weights and intake and output. BLE dopper shows no DVT. (4) Atrial fibrillation: Current visit: No Status: Chronic Paroxysmal. Continue BB with hold parameters, anticoagulation with Xarelto. (5) Sepsis: Current visit: Yes Status: Resolved Resolved. (6) SHERLYN (acute kidney injury): Current visit: Yes Status: Resolved On presentation, in the setting of hypotension, leukocytosis, pulmonary infection. Improved with IV fluid hydration. Creatinine 0.61 in the setting of diuresis with IV lasix. Continue to monitor renal function. (7) Coronary artery disease: Current visit: No Status: Chronic History of CAD. Continue BB, high potency statin, lisinopril and Clopidogrel. (8) Anemia: Current visit: No Status: Chronic Chronic. Hgb and Hct stable. No evidence of active bleeding. Continue to monitor. (9) DVT prophylaxis: Current visit: No Status: Chronic Anticoagulated on Xarelto. Continue PPI for GI prophylaxis. (10) Discharge planning issues: Current visit: No Status: Acute He is a FULL code. He will discharge home when ready, consider home health PT/OT/RN. This case was discussed with Dr. Martino who is in agreement. Subjective Interval history since last seen: Mr. Bautista reports that he is feeling better overall, he reports that his breathing is nearing his baseline, not at baseline yet. He continues to short of breath and wheezy at times. He continues to have a wet cough that is productive of thick sputum. He is on his baseline oxygen at 2lpm. He is using trilogy while asleep. He denies chest pain/pressure. He reports that he still has mild edema in his upper extremities and in his legs up to high thighs, but he notices improvement from yesterday. He denies any other concerns such as headache, dizziness, fevers, nausea, vomiting, diarrhea. He has had small bowel movements, he is voiding without difficulty. Exam Narrative Exam Narrative: General: Very pleasant middle-aged male, sitting up in a chair with legs elevated, speaking in complete sentences without shortness of breath. HEENT: Normocephalic, atraumatic, pupils equal and round, EOMI, mucous membranes moist. Heart: Regular rate and rhythm, no murmur appreciated. Lungs: Diminished breath sounds throughout, faint expiratory rhonchi bilaterally in upper and lower lobes, no rales. Abdomen: normoactive bowel sounds, abdomen thin/flat, non-distended, nontender on palpation. Extremities: +1 pitting edema BLE's, R>L, no clubbing or cyanosis. TEDs on bilaterally. Pedal pulses palpable. Objective Objective Clinical Data: Abnormal lab results 07/26/18 Range/Units 06:20 Carbon Dioxide 38.0 H (21.0-32.0) mmol/L BUN 24 H (7-18) mg/dL Creatinine 0.61 L (0.70-1.30) mg/dL Glucose 132 H (70-100) mg/dL Calcium 8.3 L (8.5-10.1) mg/dL Vital Signs Temperature 36.7 C 07/26/18 09:10 Temperature Source Skin 07/26/18 09:10 Pulse 97 H 07/26/18 09:10 Pulse Rhythm Regular 07/26/18 07:45 Pulse 98 H 07/20/18 12:01 Respiratory Rate 18 07/26/18 09:10 Respiratory Effort Non-Labored 07/26/18 07:45 Respiratory Depth Normal 07/26/18 07:45 Respiratory Pattern Normal 07/26/18 07:45 Blood Pressure 125/60 07/26/18 09:10 Blood Pressure Mean 96 07/20/18 12:01 Blood Pressure Position Sitting 07/19/18 13:17 Pulse Oximetry 94 L 07/26/18 09:10 Oxygen Delivery Method Nasal Cannula 07/26/18 09:10 Oxygen Flow Rate 2 07/26/18 09:10 Fraction of Inspired Oxygen (FIO2) 30 07/23/18 23:30 Pain Level 0 07/26/18 09:10 Comment 07/26/18 09:10 Intake & Output 07/25/18 07/25/18 07/26/18 11:59 23:59 11:59 Intake Total 1130 / 1785 655 / 1785 634 / 634 Output Total 1750 / 2825 1075 / 2825 2100 / 2100 Balance -620 / -1040 -420 / -1040 -1466 / -1466 Weight 64.6 kg 63.9 kg Intake: IV 490 / 540 50 / 540 44 / 44 Oral 640 / 1245 605 / 1245 590 / 590 Output: Urine 1750 / 2825 1075 / 2825 2100 / 2100 Other: Urine Color Yellow Pale Yellow Yellow Urine Appearance Clear Clear Clear Urine Odor Normal Normal None Comment No hat. Pt using urinal alternately with toilet. Denies sx. Stool Size Small Stool Characteristics Formed Voiding Methods Urinal Urinal Urinal Laboratory Results WBC 7.06 k/cumm (4.4-10.8) 07/25/18 06:48 RBC 3.09 m/cumm (4.50-6.00) L 07/25/18 06:48 Hgb 9.2 g/dL (13.5-17.5) L 07/25/18 06:48 Hct 29.9 % (40.0-50.0) L 07/25/18 06:48 MCV 96.8 fL (80-95) H 07/25/18 06:48 MCH 29.8 pg (27.0-33.0) 07/25/18 06:48 MCHC 30.8 g/dL (32.0-36.0) L 07/25/18 06:48 RDW 15.6 % (11.8-14.1) H 07/25/18 06:48 Plt Count 295 x1000/uL (130-400) 07/25/18 06:48 MPV 9.0 fL (8.0-11.0) 07/25/18 06:48 Immature Gran % 2.1 07/25/18 06:48 Neutrophils % 85.2 07/25/18 06:48 Lymphocytes % 4.4 07/25/18 06:48 Monocytes % 8.2 07/25/18 06:48 Eosinophils % 0.0 07/25/18 06:48 Basophils % 0.1 07/25/18 06:48 Absolute Neutrophils 6.01 k/cumm (1.2-6.7) 07/25/18 06:48 Absolute Lymphocytes 0.31 k/cumm (1.2-3.4) L 07/25/18 06:48 Absolute Monocytes 0.58 k/cumm (0.11-0.7) 07/25/18 06:48 Absolute Eosinophils 0.00 k/cumm (0.0-0.7) 07/25/18 06:48 Absolute Basophils 0.01 k/cumm (0.0-0.2) 07/25/18 06:48 Differential Comment Rbc morph reviewed 07/19/18 06:34 RBC Morphology See below 07/19/18 06:34 Polychromasia Present 07/19/18 06:34 Hypochromasia 1+ 07/19/18 06:34 Poikilocytosis 2+ 07/19/18 06:34 Sodium 145 mmol/L (136-145) 07/26/18 06:20 Potassium 3.7 mmol/L (3.5-5.1) 07/26/18 06:20 Chloride 104 mmol/L (98-107) 07/26/18 06:20 Carbon Dioxide 38.0 mmol/L (21.0-32.0) H 07/26/18 06:20 Anion Gap 3.0 mmol/L (3-11) 07/26/18 06:20 BUN 24 mg/dL (7-18) H 07/26/18 06:20 Creatinine 0.61 mg/dL (0.70-1.30) L 07/26/18 06:20 Estimated GFR/1.73 m2 >= 60.00 (mL/min/1.73m2) 07/26/18 06:20 Glucose 132 mg/dL (70-100) H 07/26/18 06:20 Lactate 1.9 mmol/l (0.6-1.4) H 07/19/18 09:10 Calcium 8.3 mg/dL (8.5-10.1) L 07/26/18 06:20 Magnesium 2.4 mg/dL (1.8-2.4) 07/26/18 06:20 Iron 28 ug/dL (50-175) L 07/19/18 06:34 TIBC 191 ug/dL (250-450) L 07/19/18 06:34 Transferrin % Sat 15 % (20-55) L 07/19/18 06:34 Ferritin 217 ng/mL (8-388) 07/19/18 06:34 Total Bilirubin 0.6 mg/dL (0.2-1.0) 07/18/18 14:12 AST 19 U/L (15-37) 07/18/18 14:12 ALT 33 U/L (12-78) 07/18/18 14:12 Alkaline Phosphatase 50 U/L (46-116) 07/18/18 14:12 Troponin I < 0.02 ng/mL (0.00-0.06) 07/18/18 14:12 Total Protein 5.5 g/dL (6.4-8.2) L 07/18/18 14:12 Albumin 2.2 g/dL (3.4-5.0) L 07/18/18 14:12 Vitamin B12 471 pg/mL (193-986) 07/20/18 06:10 Folate 18.3 ng/mL (8.6-20.0) 07/20/18 06:10 TSH 0.09 uIU/mL (0.358-3.74) L 07/20/18 06:10 Free T4 0.88 ng/dL (0.76-1.46) 07/22/18 06:40 Urine Color Yellow (Yellow) 07/18/18 18:15 Urine Clarity Clear 07/18/18 18:15 Urine pH 7.0 (5-8) 07/18/18 18:15 Ur Specific [place] 1.010 (1.005-1.025) 07/18/18 18:15 Urine Protein Negative mg/dL (Negative) 07/18/18 18:15 Urine Ketones Negative mg/dL (Negative) 07/18/18 18:15 Urine Blood Negative (Negative) 07/18/18 18:15 Urine Nitrite Negative (Negative) 07/18/18 18:15 Urine Bilirubin Negative (Negative) 07/18/18 18:15 Urine Urobilinogen 0.2 EU/dL (Up TO 0.2) 07/18/18 18:15 Ur Leukocyte Esterase Negative (Negative) 07/18/18 18:15 Urine Glucose Negative mg/dL (Negative) 07/18/18 18:15 Vancomycin Trough 15.6 ug/mL (10.0-20.0) 07/25/18 15:30
--- NOTE | 2018-07-26 13:55 | CHAPLAIN ---
Javier was sitting up in his chair when I stopped in. He said he was discouraged coming back to the hospital so quickly after being discharged, but he said he feeling better, and slept well last night. He believes this is all in God's hands, he's moving thing all around, and is confident in that belief. 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
[2018-07-26] MEDS: ROSUVASTATIN 20 MG TAB 40 MG PO (19:46)
[2018-07-26] MEDS: Senna TAB 2 TAB PO (21:26)
[2018-07-26] MEDS: Melatonin 3 MG TAB PO (21:27)
[2018-07-27] MEDS: Levalbuterol 0.63 MG/3 ML UPD VIAL UPD ×2 (07:16→11:29)
[2018-07-27] MEDS: Ipratropium 0.5 MG/2.5 ML UPD VIAL UPD ×2 (07:17→13:36)
[2018-07-27 07:20] VITALS: BP 192/94; PULSE 82; RESP 18; TEMP 36.4; O2SAT 99
[2018-07-27] MEDS: Budesonide 0.5 MG/2 ML UPD VIAL UPD (07:20)
[2018-07-27] MEDS: clonazePAM 1 MG TAB PO (08:24)
[2018-07-27] MEDS: Rivaroxaban 10 MG TABLET 20 MG PO (08:24)
[2018-07-27] MEDS: LORazepam 1 MG TAB PO (08:24)
[2018-07-27] MEDS: Benzonatate 100 MG CAP PO (08:25)
[2018-07-27] MEDS: Metoprolol CR 100 MG TABCR PO (08:25)
[2018-07-27] MEDS: Clopidogrel 75 MG TAB PO (08:25)
[2018-07-27] MEDS: predniSONE 20 MG TAB 40 MG PO (08:26)
[2018-07-27] MEDS: Docusate Sodium 100 MG CAP PO (08:26)
[2018-07-27] MEDS: Lisinopril 20 MG TAB PO (08:26)
[2018-07-27] MEDS: Tamsulosin 0.4 MG CAPCR PO (08:27)
[2018-07-27] MEDS: predniSONE 10 MG TAB PO (08:27)
[2018-07-27] MEDS: Multivitamin TAB 1 TAB PO (08:27)
[2018-07-27] MEDS: Citalopram 20 MG TAB PO (08:27)
[2018-07-27] MEDS: Furosemide 40 MG/4 ML VIAL IVP (08:27)
[2018-07-27] MEDS: Pantoprazole 40 MG VIAL IVP (08:29)
[2018-07-27] MEDS: Normal Saline Flush 10 ML SYR IVP (08:29)
[2018-07-27] MEDS: Budesonide/Formoterol 160/4.5 6 GM 60 PUFF INH IH (09:05)
[2018-07-27 09:21] VITALS: BP 154/78
[2018-07-27] MEDS: Milk of Magnesia 30 ML CUP PO (11:08)
[2018-07-27 11:20] VITALS: PULSE 105; PULSE 98; RESP 24; O2SAT 92; O2SAT 95
--- NOTE | 2018-07-27 12:08 | DSE_ITS ---
Date of service: 07/27/18 Time of Service: 11:43 DS: Diagnosis Discharge Diagnosis (1) HCAP (healthcare-associated pneumonia): Status: Resolved (2) COPD exacerbation: Status: Acute (3) Acute on chronic diastolic (congestive) heart failure: Status: Acute (4) Atrial fibrillation: Status: Chronic (5) Sepsis: Status: Resolved (6) SHERLYN (acute kidney injury): Status: Resolved (7) Coronary artery disease: Status: Chronic (8) Anemia: Status: Chronic Discharge Plan Disposition Patient Disposition: HOME W/HOME HEALTH SERVICE Condition: Improving Discharge Details Reason For Visit: PNEUMONIA, SEPSIS Admit Date/Time: 07/18/18 16:37 Admit Provider: Marcelo Vieira Attending Provider: Marcelo Vieria Primary Care Provider: DANITA ROMERO Hospital Course Hospital Course: Gerardo Bautista is a 62 year old man with a past medical history significant for Oxygen dependent, end-stage COPD, with previous history of respiratory distress requiring intubation and mechanical ventilation as well as history of tracheostomy on previous hospitalization. He is reportedly currently on a transplant list through the [facility]. He also reported an intolerance of albuterol due to severe tachycardia/Afib. Other history includes PAF on AC, CAD, and BPH. He was recently hospitalized here at [facility] from 06/23-07/05/18 and treated for COPD exacerbation. He was initiated on trilogy at that time. On presentation to the emergency department, he reported a 2-day history of generalized malaise and increased cough. This progressed to onset of left-sided flank/chest wall pain on the day of admission. In the emergency department he was found to have a mild leukocytosis, mildly elevated lactic acid, evidence of acute kidney injury, and imaging evidence of a basilar infiltrate, confirmed with a CT of the chest showing a LLL PNA with a small left pleural effusion. CT of his abdomen was negative for acute pathology. He was also found to be significantly hypotensive, with systolic values in the 60's. Following IV Fluid bolus and initiation of antibiotic therapy, the patient was referred for admission to the ICU for further evaluation and treatment of sepsis with pulmonary source. Given his recent hospitalization, he was covered for hospital associated pneumonia with vancomycin, cefepime and Levaquin. He was initially on pressor support and received IV fluid resuscitation. His condition improved over the following days, his SHERLYN resolved, he transitioned out of the intensive care unit. He received a full week of antibiotics, they were discontinued after 7 days, 2 days prior to his discharge. He remained afebrile. He was found to be fluid overloaded and received IV Lasix. He diuresed well. At the time of discharge she was noted to have an oxygen saturation of 99% on his baseline of 2 L. His weight was down approximately 5 kg. He had trace edema to bilateral ankles at the time of discharge. His most recent echocardiogram from 07/01/18 shows LVEF 60-65% with diastolic dysfunction with elevated pulmonary systolic pressure in the range of 50-55%. He may benefit from a low dose diuretic, however, it will be important to avoid excessive preload reduction and hypotension in the setting of diastolic dysfunction. On the day of discharge, he ambulated with respiratory therapy for exercise oximetry test. He remained on his baseline 2 L of oxygen via nasal cannula. He had mild shortness of breath with exertion, in the setting of end-stage COPD. His oxygen saturation remained in the 90s. Mr. Bautista is unable to tolerate albuterol updrafts due to significant tachycardia and atrial fibrillation. He has tolerated Xopenex and atrovent nebu lizer treatments without going into rapid atrial fibrillation. Will need to be discharged home with Xopenex 0.63 mg UPD q4h PRN and atrovent 0.5 mg UPD q6h PRN nebulizer treatments given his inability to tolerate albuterol. There was concern for possible DVT due to asymmetrical edema to his lower extremities. He went on to have ultrasound of his bilateral lower extremities which did not show a DVT. He is discharged home today. He is agreeable to home health services including physical therapy, occupational therapy and registered nurse. Will ask home health nursing to monitor fluid status. He will follow-up with his primary care provider in 1 week. Home Meds and New Rx's Prescriptions: New levalbuterol HCl 0.63 mg/3 mL Solution For Nebulization 0.63 mg UPD Q4H 30 Days Qty: 540 RF: 0 benzonatate 100 mg Capsule 100 mg PO TID Qty: 21 RF: 0 ipratropium bromide 0.02 % Solution 0.5 mg UPD Q6H 30 Days Qty: 300 RF: 0 prednisone 10 mg tablet 10 mg PO DAILY Qty: 80 RF: 0 furosemide [Lasix] 20 mg tablet 20 mg PO QAM Qty: 3 RF: 0 Continued multivitamin [Men's Multi-Vitamin] 1 EACH tablet 1 ea PO DAILY RF: 0 citalopram 40 MG tablet 20 mg PO DAILY RF: 0 tamsulosin 0.4 MG capsule 0.4 mg PO DAILY RF: 0 Symbicort 10.2 GM HFA aerosol inhaler 2 puff Inhalation BID RF: 0 metoprolol succinate 100 MG tablet extended release 24 hr 100 mg PO DAILY RF: 0 acetaminophen 325 MG tablet 650 mg PO PRN PRNRF: 0 clonazepam 1 MG tablet 1 mg PO BID RF: 0 melatonin 3 MG tablet 3 mg PO HS RF: 0 docusate sodium [Colace] 100 MG capsule 100 mg PO BID RF: 0 rosuvastatin [Crestor] 20 MG tablet 80 mg PO 1800 RF: 0 lisinopril 10 MG tablet 20 mg PO DAILY RF: 0 Xarelto 20 MG tablet 20 mg PO DAILY Qty: 30 RF: 0 clopidogrel [Plavix] 75 mg Tablet 75 mg PO DAILY RF: 0 levalbuterol HCl 0.63 mg/3 mL Solution For Nebulization 0.63 mg UPD Q4H Qty: 3 RF: 0 budesonide [Pulmicort] 0.5 mg/2 mL Suspension For Nebulization 0.5 mg UPD Q12H Qty: 1 RF: 0 ipratropium bromide 0.02 % Solution 0.5 mg UPD Q6H Qty: 1 RF: 0 pantoprazole 40 mg Tablet,Delayed Release (Dr/Ec) 40 mg PO DAILY Qty: 30 RF: 0 prednisone 10 mg tablet 10 mg PO DAILY Qty: 81 RF: 0 Discontinued guaifenesin [Mucinex] 600 MG tablet extended release 12hr 1,200 mg PO BID Qty: 14 RF: 0 benzonatate 200 mg Capsule 200 mg PO TID Qty: 21 RF: 0 Discharge Instructions Instructions: COPD (Chronic Obstructive Pulmonary Disease) (DC), Pulmonary Arterial Hypertension (DC), Hospital Acquired Pneumonia (DC) Additional Instructions: Taper prednisone as follows: take 6 tablets x4 days, then decrease to 5 tabs x4 days, then decrease to 4 tabs x4 days, then decrease to 3 tabs x4 days, then 2 tabs x4 days then resume 10 mg daily. Take lasix 20 mg/day x3 days. Monitor your weight. Follow up with your PCP as scheduled. Follow up with pulmonology as scheduled. Take care! Stand Alone Forms: Nursing Discharge Form Referrals: Dario Romero [ NON-[facility] STAFF PHYSICIAN] - 08/03/18 11:30 am Activity:: Activity as Tolerated Equipment/Supplies:: No Equipment Needed Diet:: As Tolerated Discharge Orders Discharge Orders: Discharge Order (Routine); Ordered 07/27/18 Ordered By: Leidy Nobles Exam Narrative Exam Narrative: General: Very pleasant middle-aged male, sitting up in a chair with legs elevated, speaking in complete sentences without shortness of breath. HEENT: Normocephalic, atraumatic, pupils equal and round, EOMI, mucous membranes moist. Heart: Regular rate and rhythm, no murmur appreciated. Lungs: Diminished breath sounds throughout, faint expiratory rhonchi bilaterally in upper and lower lobes, no rales. Abdomen: normoactive bowel sounds, abdomen thin/flat, non-distended, nontender on palpation. Extremities: trace pitting edema BLE's, R>L, no clubbing or cyanosis. TEDs on bilaterally. Pedal pulses palpable. DS: Data Vitals/I&O Vitals and I&O: Vital Signs Temperature 36.4 C L 07/27/18 07:20 Temperature Source Tympanic 07/27/18 07:20 Pulse 82 07/27/18 07:20 Pulse Rhythm Regular 07/27/18 07:10 Pulse 98 H 07/20/18 12:01 Respiratory Rate 18 07/27/18 07:20 Respiratory Effort 07/27/18 07:10 Respiratory Depth Normal 07/27/18 07:10 Respiratory Pattern Normal 07/27/18 07:10 Blood Pressure 154/78 H 07/27/18 09:21 Blood Pressure Mean 96 07/20/18 12:01 Blood Pressure Position Sitting 07/19/18 13:17 Pulse Oximetry 99 07/27/18 07:20 Oxygen Delivery Method Nasal Cannula 07/27/18 07:20 Oxygen Flow Rate 2 07/27/18 07:20 Fraction of Inspired Oxygen (FIO2) 30 07/23/18 23:30 Pain Level 0 07/26/18 11:10 Comment 07/26/18 09:10 Intake & Output 07/26/18 07/26/18 07/27/18 11:59 23:59 11:59 Intake Total 634 / 1714 1080 / 1714 750 / 750 Output Total 2099 900 / 900 Balance -1466 / -386 1080 / -386 -150 / -150 Weight 63.9 kg 62.9 kg Intake: IV 44 / 44 Oral 590 / 1670 1080 / 1670 750 / 750 Output: Urine 2099 900 / 900 Other: Urine Color Yellow Yellow Urine Appearance Clear Clear Urine Odor None Normal Voiding Methods Urinal Urinal Completed studies during hospitalization [Text1]: 07/18/2017: CHEST X-RAY, PORTABLE AP VIEW: Comparison is 07/04/18. The heart size and pulmonary vasculature are within normal limits. There is a new infiltrate in the left lower lobe. Pneumonia should be considered. The lungs are otherwise clear. No effusions or pneumothoraces are identified. The lungs appear hyperinflated suggesting underlying COPD. IMPRESSION: Left basilar infiltrate suspicious for pneumonia. CT SCAN OF THE ABDOMEN AND PELVIS: Post contrast examination was performed. The liver is unremarkable. Superior mesenteric, splenic and portal veins are unremarkable. The gallbladder, pancreas, spleen and adrenal glands are unremarkable. The kidneys and ureters are unremarkable. There is mild diffuse thickening of the wall of the urinary bladder. No inflammatory changes are seen. This may represent chronic bladder outlet obstruction or neurogenic bladder. The prostate gland appears mildly enlarged. There is atherosclerosis of the abdominal aorta. There is ectasia of the abdominal aorta, but no aneurysmal dilatation is seen. Note is made of a retroaortic left renal vein. No significant abdominal or pelvic adenopathy, ascites or pneumoperitoneum is present. There is a moderate amount of stool seen in the right colon. There is a normal appendix present. No evidence of bowel obstruction or inflammation is seen. There are degenerative changes seen in the spine. IMPRESSION: No evidence of an acute abdomen. CT SCAN OF THE CHEST: There is atherosclerosis of the thoracic aorta, but no evidence of dissection or aneurysm. The heart size is within normal limits. No significant pericardial effusion is seen. Coronary artery calcifications are present. No significant thoracic adenopathy is identified. There is a small left pleural effusion. No right pleural effusion is seen. There is no evidence of a pneumothorax. The lungs appear hyperinflated with lucent areas suggesting underlying COPD. There is an area of consolidation in the left lower lobe suspicious for pneumonia. The tracheobronchial tree is unremarkable. There are degenerative changes seen in the spine. IMPRESSION: Left lower lobe pneumonia and small left pleural effusion. 07/22/2018: PORTABLE AP CHEST: Recent chest radiographs and CT showed some consolidation at the left lung base on 07/18. On today's examination these findings are slightly less prominent, but there is minimal obscuration of the diaphragm on the left indicating incomplete resolution. Otherwise the lungs are clear. The heart is not enlarged. CONCLUSION: Findings suggesting improving left basilar consolidation. 07/24/2018: PORTABLE AP CHEST: Minimal streaky radiodensities may be present in the left lung base as noted on recent CT. However the findings are less prominent than on previous chest film of 07/22. CONCLUSION: Findings consistent with improving/resolving pneumonia. 07/26/2018: BILATERAL LOWER EXTREMITY ULTRASOUND: The deep veins of the right lower extremity were evaluated sonographically. They show normal compression, augmentation and color flow. No evidence of a deep venous thrombus is seen. The left lower extremity veins were evaluated sonographically. They show normal compression, augmentation and color flow. No evidence of a deep venous thrombus is identified. The saphenofemoral junctions are well maintained without evidence of thrombus. No focal fluid collections are seen in the lower extremities. IMPRESSION: No evidence of a deep venous thrombus in either lower extremity. [facility] Medical History Atrial fibrillation (Chronic) BPH (benign prostatic hyperplasia) (Chronic) History of MRSA infection (Chronic) DVT prophylaxis (Chronic) COPD exacerbation (Acute) Anemia (Chronic) History of depression (Chronic) Essential hypertension (Chronic) Coronary artery disease (Chronic) Bronchiectasis (Chronic) COPD (chronic obstructive pulmonary disease) (Chronic) Anxiety Atrial fibrillation BPH (benign prostatic hyperplasia) COPD (chronic obstructive pulmonary disease) with emphysema Depression Essential hypertension Surgical History Arthroplasty of knee Gastrostomy Tube Placement tracheostomy Social History Smoking/Tobacco Use Status: Former Tobacco Use Alcohol Intake: never Drug use: Never Do you feel safe at home: Yes Do you feel safe in your relationship?: Yes
[2018-07-27 12:26] VITALS: BP 161/81; PULSE 83; RESP 18; TEMP 36.8; O2SAT 97
--- NOTE | 2018-07-27 14:28 | PDOC.HHF2F ---
1. Encounter Date and Reason I certify that NARINDER GUZMAN was seen by Leidy Nobles on 07/27/18 and that I had a [id number] encounter with this patient that meets the physician face to face encounter requirements. 2. Clinical Findings Supporting Skilled Need and Homebound Status I certify that home health services are medically necessary, include either intermittent prison and/or physical/speech therapy, and that this patient is homebound in that absences from the home require considerable and taxing effort and are infrequent or of short duration, or are attributable to the need to receive medical care. [X] (a) Attached documentation from encounter provides clinical findings supporting skilled need and homebound status (including what assistance patient requires to leave the home). The encounter with the patient was in whole, or in part, for the following medical condition, which is the primary reason for home health care: PNEUMONIA, SEPSIS, end stage COPD, diastolic CHF. Usp: Needed to monitor fluid status, respiratory status, weights, lung sounds, vital signs. Assist with medication management as needed. Physical Therapy: Needed to continue to work on strength and endurance after hospitalization. OT: needed to assess/evaluate home setting and make recommendations as needed. Speech Therapy: Homebound:Unable to leave home without assistance. 3. Certification and Authentication I certify that I composed the above information based on my clinical judgement relating to this patient's medical condition and, if applicable, clinical findings communicated to me by the NPP or inpatient physician who performed the Home Health Referral. All further orders will be obtained through Dr. Hallman (Community Based Physician - PCP)
--- NOTE | 2018-07-27 15:17 | PDOC.CMDIS ---
- If Service Date Differs Date of service: 07/27/18 Time of Service: 15:17 LACE Index Scoring Tool - Questions: Length of Stay (in days): 7 - 13 Acuity (Admit via E.D.?): Yes Comorbidities: Chronic Pulmonary Disease E.D. Visits: 5 - Answers: Total Score: 14 Risk of Readmission: High Risk Care Management Discharge Reason for Hospitalization: HCAP (Healthcare-associated pneumonia) Discharge Plan: Javier will be discharged home with new home health services of nursing, OT and PT and a resumption of home oxygen and use of his Trilogy unit. He will follow up with his PCP and prescribed plan of care. Arrangements were made with pharmacy tp provide Javier with enough of his nebulizer medications to last [facility] Javier's Karime will provide transportation via private automobile. Patient/Family Education Needs: Discharge plan, limitations, follow up plan of care and Ask Me Three. Services Needed at Discharge: Home Health Care Services, Physical Therapy
== END 2018-07-27 14:49 | disposition home health service (06) | DRG 193 ==
LOC: ER 17:19 → ICU 17:51 → MS 07-20 12:04
PROVIDERS: Admitting Provider Internal Medicine; Emergency Provider Student in an Organized Health Care Education/Training Program; Visit Provider Internal Medicine
DX: J18.1 Lobar pneumonia, unspecified organism (principal); A41.9 Sepsis, unspecified organism; I50.33 Acute on chronic diastolic (congestive) heart failure; J91.8 Pleural effusion in other conditions classified elsewhere; J44.1 Chronic obstructive pulmonary disease with (acute) exacerbation; N17.9 Acute kidney failure, unspecified; Y95 Nosocomial condition; I48.0 Paroxysmal atrial fibrillation; I25.10 Atherosclerotic heart disease of native coronary artery without angina pectoris; D50.9 Iron deficiency anemia, unspecified; Z99.81 Dependence on supplemental oxygen; N40.0 Benign prostatic hyperplasia without lower urinary tract symptoms; E87.70 Fluid overload, unspecified; I27.20 Pulmonary hypertension, unspecified; Z79.01 Long term (current) use of anticoagulants
CPT/HCPCS: 36415; 36569; 74177; 80048; 80053; 87040; 93005; 94640; 96361; 96365; 96366; 96368; 96375; 99223; 99232; 99233; 99239; 99285; 71045; 71260; 80202; 81003; 82272; 82607; 82728; 82746; 83540; 83550; 83605; 83735; 84439; 84443; 84484; 85025; 87070; 87205; 93010; 93970; J1720; J1940; J1941; J1956; J3370; J3490; J7512; J7614; J7626; J7644

== ENCOUNTER 2018-08-11 08:57 | Emergency (ER) | payer MEDICARE, MEDICAID, SELFPAY ==
[2018-08-11 09:23] VITALS: BP 166/94; PULSE 111; RESP 30; TEMP 37.1; O2SAT 93
--- NOTE | 2018-08-11 09:37 | ED.GENADUL_ITS ---
Discharge Plan Disposition Patient Disposition: HOME Condition: Stable Discharge Details Chief Complaint: SOB Clinical Impression: COPD with exacerbation Primary Care Provider: Dario Hallman ED Provider: Dario Mayers Home Meds and New Rx's Prescriptions: New levofloxacin 750 mg tablet 750 mg PO DAILY Qty: 5 RF: 0 Continued multivitamin [Men's Multi-Vitamin] 1 EACH tablet 1 ea PO DAILY RF: 0 citalopram 40 MG tablet 20 mg PO DAILY RF: 0 tamsulosin 0.4 MG capsule 0.4 mg PO DAILY RF: 0 Symbicort 10.2 GM HFA aerosol inhaler 2 puff Inhalation BID RF: 0 metoprolol succinate 100 MG tablet extended release 24 hr 100 mg PO DAILY RF: 0 acetaminophen 325 MG tablet 650 mg PO PRN PRNRF: 0 clonazepam 1 MG tablet 1 mg PO BID RF: 0 melatonin 3 MG tablet 3 mg PO HS RF: 0 docusate sodium [Colace] 100 MG capsule 100 mg PO BID RF: 0 rosuvastatin [Crestor] 20 MG tablet 80 mg PO 1800 RF: 0 lisinopril 10 MG tablet 20 mg PO DAILY RF: 0 Xarelto 20 MG tablet 20 mg PO DAILY Qty: 30 RF: 0 clopidogrel [Plavix] 75 mg Tablet 75 mg PO DAILY RF: 0 levalbuterol HCl 0.63 mg/3 mL Solution For Nebulization 0.63 mg UPD Q4H Qty: 3 RF: 0 budesonide [Pulmicort] 0.5 mg/2 mL Suspension For Nebulization 0.5 mg UPD Q12H Qty: 1 RF: 0 ipratropium bromide 0.02 % Solution 0.5 mg UPD Q6H Qty: 1 RF: 0 pantoprazole 40 mg Tablet,Delayed Release (Dr/Ec) 40 mg PO DAILY Qty: 30 RF: 0 prednisone 10 mg tablet 10 mg PO DAILY Qty: 81 RF: 0 levalbuterol HCl 0.63 mg/3 mL Solution For Nebulization 0.63 mg UPD Q4H 30 Days Qty: 540 RF: 0 benzonatate 100 mg Capsule 100 mg PO TID Qty: 21 RF: 0 ipratropium bromide 0.02 % Solution 0.5 mg UPD Q6H 30 Days Qty: 300 RF: 0 prednisone 10 mg tablet 10 mg PO DAILY Qty: 80 RF: 0 furosemide [Lasix] 20 mg tablet 20 mg PO QAM Qty: 3 RF: 0 ipratropium-albuterol 0.5 mg-3 mg(2.5 mg base)/3 mL solution for nebulization 3 ml IH Q6H PRN (Reason: shortness of breath or wheezing) Qty: 300 RF: 0 levalbuterol HCl 0.63 mg/3 mL solution for nebulization 0.63 mg IH Q4H PRN (Reason: shortness of breath or wheezing) Qty: 540 RF: 0 Discharge Instructions Instructions: COPD (Chronic Obstructive Pulmonary Disease) (ED) Additional Instructions: follow up with your primary care provider within a week you can take 1000mg tylenol and 600mg ibuprofen every 6 hours for pain as needed if you feel you are becoming more ill, have worsening shortness of breath or pain return to the emergency department Medical Decision Making 62 yo male with hx of end stage copd who states he is on a list for transplant for this on home o2, afib, who comes in with chief complaint of shortness of breath since Wednesday when his home humidifier for his oxygen fell and then this morning since around 3am has had left upper chest pain worse with deep breaths similar to when he was here a few weeks ago with a pna. He denies fevers but has had chills. He states this feels similar to when he was here last and localizes it to the left upper chest over the left anterior brest without rash. Has diminished breath sounds bilaterally and is tachypneic on exam with accessory muscle use. I suspect copd possible pna, will tx with meds and obtain xray. His pain is positional and pleuritic so doubt acs. He has no evience of dvt on exam and had a negative ct within the pas tmonth for PE so doubt this at this time pt feeling much better, wbc of 16 but is on prednisone and otherwise no acute changes on lab work and xray unremarkable. I suspect musculoskeletal chest pain. he is feeling better and declining further nebs and lung exam shows diffuse wheezing with better air movement. He is still declining nebs at this time. his home positive pressure machine has apparently been broke for several days likely contributing to his symptoms, apparently will be fixed today. He is stable for d/c, advised continue predniosne and return precautions given Differential Diagnosis copd, pna, acs Medical Records Medical records reviewed: Yes I reviewed the patient's medical records. Imaging Data Radiologic Study: Attestation: I personally reviewed and interpreted this imaging study as follows: Imaging: X-Ray Radiologist's impression: Exam(s) a RAD:XR portable chest AP SYMPTOM/DIAGNOSIS: COUGH, SOB PORTABLE AP CHEST: The lungs are well expanded and free of infiltrate. The cardiovascular structures appear intact. SUMMARY: No evidence of acute cardiopulmonary disease. Ordered By: Dario Mayers M.D. CC: Dictated By: Roxy Kruger M.D. 08/11/18 1008 Lab Data Lab results reviewed: Yes I reviewed the patient's lab results. ECG Data Attestation: I personally reviewed and interpreted this ECG (s) as follows: Prior ECG tracings: not available for review Interpretation: sinus rhythm, rate of 107, baseline artifact, qtc 432 HPI General Mode of arrival: wheelchair . Date/Time Provider Initiated Documentation: 08/11/18 08:57 . Limitations to Documentation: no limitations . Information obtained by: patient . History of Present Illness 62 year old M presents to the emergency department with the chief complaint of shortness of breath, described as moderate, Patient started experiencing this day(s) (4) and it has been constant. No relieving factors improve symptom(s), No exacerbating factors reported . Patient notes cough. Related Data Home Medications Medication Instructions Recorded Confirmed citalopram 20 mg PO DAILY 05/09/15 07/18/18 multivitamin [Men's Multi-Vitamin] 1 ea PO DAILY 05/09/15 07/18/18 tamsulosin 0.4 mg PO DAILY 05/09/15 07/18/18 Symbicort 2 puff INHALATION BID 11/25/15 07/18/18 acetaminophen 650 mg PO PRN PRN 06/16/17 06/23/18 clonazepam 1 mg PO BID 06/16/17 07/18/18 docusate sodium [Colace] 100 mg PO BID 06/16/17 06/23/18 melatonin 3 mg PO HS 06/16/17 07/18/18 rosuvastatin [Crestor] 80 mg PO 1800 06/16/17 07/18/18 Xarelto 20 mg PO DAILY #30 tablet 06/23/17 07/18/18 lisinopril 20 mg PO DAILY tab 06/23/17 07/18/18 metoprolol succinate 100 mg PO DAILY 09/05/17 07/18/18 clopidogrel [Plavix] 75 mg PO DAILY 02/09/18 07/18/18 budesonide [Pulmicort] 0.5 mg UPD Q12H #1 pkg 07/05/18 ipratropium bromide 0.5 mg UPD Q6H #1 pkg 07/05/18 07/18/18 levalbuterol HCl 0.63 mg UPD Q4H #3 ml 07/05/18 pantoprazole 40 mg PO DAILY #30 tab 07/05/18 prednisone 10 mg PO DAILY #81 tab 07/05/18 07/18/18 benzonatate 100 mg PO TID #21 cap 07/27/18 furosemide [Lasix] 20 mg PO QAM #3 tab 07/27/18 ipratropium bromide 0.5 mg UPD Q6H 30 Days #300 ml 07/27/18 ipratropium-albuterol 3 ml IH Q6H PRN #300 ml 07/27/18 levalbuterol HCl 0.63 mg IH Q4H PRN #540 ml 07/27/18 levalbuterol HCl 0.63 mg UPD Q4H 30 Days #540 ml 07/27/18 prednisone 10 mg PO DAILY #80 tab 07/27/18 levofloxacin 750 mg PO DAILY #5 tab 08/11/18 Previous Rx's Medication Instructions Recorded Xarelto 20 mg PO DAILY #30 tablet 06/23/17 lisinopril 20 mg PO DAILY tab 06/23/17 budesonide [Pulmicort] 0.5 mg UPD Q12H #1 pkg 07/05/18 ipratropium bromide 0.5 mg UPD Q6H #1 pkg 07/05/18 levalbuterol HCl 0.63 mg UPD Q4H #3 ml 07/05/18 pantoprazole 40 mg PO DAILY #30 tab 07/05/18 prednisone 10 mg PO DAILY #81 tab 07/05/18 benzonatate 100 mg PO TID #21 cap 07/27/18 furosemide [Lasix] 20 mg PO QAM #3 tab 07/27/18 ipratropium bromide 0.5 mg UPD Q6H 30 Days #300 ml 07/27/18 ipratropium-albuterol 3 ml IH Q6H PRN #300 ml 07/27/18 levalbuterol HCl 0.63 mg IH Q4H PRN #540 ml 07/27/18 levalbuterol HCl 0.63 mg UPD Q4H 30 Days #540 ml 07/27/18 prednisone 10 mg PO DAILY #80 tab 07/27/18 levofloxacin 750 mg PO DAILY #5 tab 08/11/18 Allergies Allergy/AdvReac Type Severity Reaction Status Date / Time albuterol Allergy Verified 07/18/18 16:15 General Stated Complaint: SOB DANETTE: 2 Review of Systems Review of Systems All systems reviewed & are unremarkable except as noted in HPI and below Constitutional Denies weakness Gastrointestinal Denies abdominal pain, Denies nausea and Denies vomiting Neurologic Denies weakness Endocrine Denies heat intolerance PFS Social History Smoking/Tobacco Use Status: Former Tobacco Use Alcohol Intake: never Drug use: Never Do you feel safe at home: Yes Do you feel safe in your relationship?: Yes Exam Const General: other (tachypnea, respiratory distress) Orientation: alert HENMT Head: normal to inspection Ears: external ears normal General nose exam: external nose normal Mouth: moist mucous membranes Eyes General: appearance normal, both eyes and all related structures Neck Neck: normal visual inspection Resp Effort & Inspection: uses accessory muscles Cardio Rate: regular rate Skin General skin exam: no rashes or lesions noted Neuro General: alert and oriented x3 Extrem General: normal to inspection Psych Mental Status: mental status grossly normal Course Vital Signs Temperature 37.1 C 08/11/18 09:23 Pulse 111 H 08/11/18 09:23 Respiratory Rate 30 H 08/11/18 09:23 Blood Pressure 166/94 H 08/11/18 09:23 Pulse Oximetry 93 L 08/11/18 09:23 Temperature 37.1 C 08/11/18 09:23 Pulse 111 H 08/11/18 09:23 Respiratory Rate 30 H 08/11/18 09:23 Blood Pressure 166/94 H 08/11/18 09:23 Blood Pressure Position Sitting 08/11/18 09:23 Pulse Oximetry 93 L 08/11/18 09:23 Oxygen Delivery Method Nasal Cannula 08/11/18 09:23 Oxygen Flow Rate 2.2 08/11/18 09:23 Pain Level 2 08/11/18 09:23 Comment 08/11/18 09:23
[2018-08-11] MEDS: Levalbuterol 1.25 MG/3 ML UPD VIAL (10:15)
[2018-08-11] MEDS: Normal Saline 1,000 ML 1000 ML IV (10:34)
[2018-08-11 10:36] VITALS: RESP 34
[2018-08-11] MEDS: methylPREDNISolone SUCC 125 MG VIAL IVP (10:49)
[2018-08-11 11:00] LABS: Abs Immature Grans 0.04 k/cumm (0.0-0.09); Absolute Eosinophil Count 0.08 k/cumm (0.0-0.7); Absolute Lymphocyte Count 0.72 k/cumm (1.2-3.4); Basophils % 0.1; Eosinophils % 0.5; HCT 35.6 % (40.0-50.0); HGB 10.8 g/dL (13.5-17.5); Immature Grans % 0.2; Lymphocytes % 4.5; Mean Corp. HGB Concentration 30.3 g/dL (32.0-36.0); Mean Corpuscular Hemoglobin 29.9 pg (27.0-33.0); Mean Corpuscular Volume 98.6 fL (80-95); Mean Platelet Volume 9.1 fL (8.0-11.0); Monocytes % 3.7; Platelet Count 221 x1000/uL (130-400); RBC 3.61 m/cumm (4.50-6.00); RBC Distribution Width 16.5 % (11.8-14.1); White Blood Cell Count 16.11 k/cumm (4.4-10.8)
[2018-08-11 11:01] LABS: Absolute Basophil Count 0.02 k/cumm (0.0-0.2); Absolute Neutrophil Count 14.66 k/cumm (1.2-6.7)
[2018-08-11 11:12] LABS: ALT 41 U/L (12-78); AST 15 U/L (15-37); Albumin 2.8 g/dL (3.4-5.0); Alkaline Phosphatase 71 U/L (46-116); Anion Gap 5.2 mmol/L (3-11); BUN 8 mg/dL (7-18); Bilirubin, Total 0.5 mg/dL (0.2-1.0); CO2 36.8 mmol/L (21.0-32.0); CREATININE 0.66 mg/dL (0.70-1.30); Calcium 9.1 mg/dL (8.5-10.1); Chloride 101 mmol/L (98-107); Glucose 89 mg/dL (70-100); Magnesium 1.8 mg/dL (1.8-2.4); PTT Activated 26.7 sec (21.0-31.4); Potassium 3.4 mmol/L (3.5-5.1); Prothrombin Time 11.5 sec (9.3-11.0); Sodium 143 mmol/L (136-145); Total Protein 6.5 g/dL (6.4-8.2)
[2018-08-11 11:14] LABS: Troponin I < 0.02 ng/mL (0.00-0.06)
[2018-08-11 11:16] LABS: INR 1.1 (0.9-1.1)
[2018-08-11] MEDS: Ketorolac 15 MG/ML VIAL IVP (11:52)
--- NOTE | 2018-08-11 11:58 | NUR.NOTE ---
Nursing Note: Pt requests to go home, resistant to this. Has discussed with MD. To this nurse, pt's states I know you're busy and you're trying to get him out of here and upstairs is full but he can't be alone, can he? Pt is at baseline per MD, understands how to operate his own equipment at home- states feels much improved and would like to be at home. Pt's returned to ED to accompany him home, RT at bedside to help transition to home equipment.
[2018-08-11 12:04] VITALS: BP 155/76; PULSE 97; RESP 28; TEMP 37.1; O2SAT 97
--- NOTE | 2018-08-11 14:49 | PDOC.ERCMPRO ---
Care Management Progress Note 08/11-Dr. Degroot requested assistance with a Palliative Care f/u for end stage COPD and goals of care. Referral faxed to Palliative Care today.
== END 2018-08-11 12:15 | disposition home or self-care (01) ==
PROVIDERS: Emergency Provider Emergency Medicine; PCP Internal Medicine
DX: J44.1 Chronic obstructive pulmonary disease with (acute) exacerbation (principal); I10 Essential (primary) hypertension
CPT/HCPCS: 36415; 80053; 93005; 96361; 96374; 96375; 99285; 71045; 83735; 84484; 85025; 85610; 85730; 93010; 94640; J1885; J2930; J3490; J7614

== ENCOUNTER 2018-10-10 15:35 | Outpatient (RCR) | payer MEDICARE, SELFPAY | END 2018-10-19 23:59 | disposition home or self-care (01) | LOC: PRC 15:35 | PROVIDERS: PCP Internal Medicine; Visit Provider Family Medicine | DX: J44.9 Chronic obstructive pulmonary disease, unspecified (principal); Z51.89 Encounter for other specified aftercare ==

== ENCOUNTER 2018-10-20 09:10 | Outpatient (RCR) | payer MEDICARE, MEDICAID, SELFPAY | END 2018-11-19 23:59 | disposition home or self-care (01) | LOC: PRC 09:10 | PROVIDERS: PCP Internal Medicine; Visit Provider Family Medicine | DX: J44.9 Chronic obstructive pulmonary disease, unspecified (principal); Z51.89 Encounter for other specified aftercare | CPT/HCPCS: G0424 ==

== ENCOUNTER 2018-12-09 14:00 | Outpatient (RCR) | payer MEDICARE, MEDICAID, SELFPAY | END 2018-12-19 23:59 | disposition home or self-care (01) | LOC: PRC 14:00 | PROVIDERS: PCP Internal Medicine; Visit Provider Family Medicine | DX: J44.9 Chronic obstructive pulmonary disease, unspecified (principal); Z51.89 Encounter for other specified aftercare | CPT/HCPCS: G0424 ==

== ENCOUNTER 2018-12-30 13:05 | Inpatient (IN) | payer MEDICARE, MEDICAID, SELFPAY ==
[2018-12-30] VITALS (88 sets, daily range): BP systolic 95–160; BP diastolic 54–98; PULSE 80–120; RESP 8–29; TEMP 35.8–37.1; O2SAT 92–97
--- NOTE | 2018-12-30 13:21 | W.ED.GENAD ---
Discharge Plan Disposition Patient Disposition: [facility] INPATIENT Condition: Stable Discharge Details Chief Complaint: SOB Clinical Impression: Acute exacerbation of chronic obstructive pulmonary disease (COPD) Admit Date/Time: 12/30/18 19:23 Admit Provider: Shane Vieira Attending Provider: Shane Vieira Primary Care Provider: Dario Hallman ED Provider: Joya Degroot Discharge Data Discharge Date/Time-TO BE ENTERED AT DEPARTURE: 12/30/18 21:53 Medical Decision Making 63-year-old male with a history of CHF, COPD, coronary artery disease, with history of previous tracheostomy and who is currently waiting on a lung transplant list presents with shortness of breath, cough for the past week. He also admits to bilateral leg squeezing pain and numbness for the past few days, as well as intermittent right and left arm numbness for the past month. EKG notes a rate of 116, sinus with [address] depression in inferior leads but no acute ST elevation. He has diminished breath sounds throughout. He has minimal scattered wheezing. He is not able to speak in full sentences but I have seen patient several times in the past and this appears to be his baseline. He has no lower extremity swelling. He has no focal deficits on exam. Differential diagnosis includes acute COPD, acute CHF, ACS, pneumonia for his shortness of breath. Differential diagnosis includes CVA, peripheral neuropathy, electrolyte abnormality causing his scattered extremity numbness. Will place an IV, give Xopenex neb, Solu-Medrol, screening labs, chest x-ray and CT head. Labs and imaging reviewed and unremarkable. His white blood cell count is 18 but he is chronically on steroids. Normal electrolytes. Troponin negative. Chest x-ray negative. CT head negative. Patient denies any relief with Xopenex nebulizer so he was given a second neb with his home trilogy machine but he denied any relief with this and is requesting admission to the hospital. Case discussed with Dr. Veronica -accepts patient for admission. Medical Records Medical records reviewed: Yes I reviewed the patient's medical records. Imaging Data Radiologic Study: Radiologist's impression: XR CHEST 2V PA AND LATERAL INDICATION: SOB, h/o COPD, r/o acute disease. COMPARISON: XR PORTABLE CHEST AP from 08/11/2018 TECHNIQUE: 2D digital imaging was performed. FINDINGS: Emphysematous changes are demonstrated in the lungs. There is no infiltrate or evidence of a mass. There is no pleural effusion. The cardiovascular structures are intact. IMPRESSION: No evidence of acute cardiopulmonary disease. CT HEAD WO CLINICAL HISTORY: arm and leg numbness/weakness, r/o CVA. TECHNIQUE: Noncontrast enhanced cranial CT was performed. COMPARISON: No exams were available for comparison FINDINGS: There is no evidence of an intra or extra-axial hemorrhage. There is no evidence of a mass. The vergara-white matter differentiation is preserved. The ventricles are intact. There is no evidence of a skull fracture. Paranasal sinuses are unremarkable. There is no evidence of a mastoid effusion. IMPRESSION: No acute intracranial abnormality is demonstrated. Lab Data Lab results reviewed: Yes I reviewed the patient's lab results. ECG Data Attestation: I personally reviewed and interpreted this ECG (s) as follows: Interpretation: Rate of 116, sinus, [address] depression noted in lead III, aVF, no acute ST elevation. GA 138. QTc 422. HPI General Mode of arrival: ambulatory. Date/Time Provider Initiated Documentation: 12/30/18 13:09. Limitations to Documentation: no limitations. Information obtained by: patient. HPI Narrative: Pt is a 63-year-old male with a history of CHF, COPD, coronary artery disease, with history of previous tracheostomy and who is currently waiting on a lung transplant list presents with shortness of breath, cough for the past week. He states the cough is dry. He also admits to bilateral leg squeezing pain and numbness for the past few days, as well as intermittent right and left arm numbness for the past month. He states the intermittent right and left arm numbness occurs mainly when he is alternating his position from laying on his left or right arm at night. He denies any fever, blurry vision, slurred speech, headache, dizziness, chest pain, nausea, vomiting. He states he is chronically on 10 mg of prednisone. Related Data Home Medications Medication Instructions Recorded Confirmed citalopram 20 mg PO DAILY 05/09/15 12/31/18 multivitamin [Men's Multi-Vitamin] 1 ea PO DAILY 05/09/15 12/31/18 tamsulosin 0.4 mg PO DAILY 05/09/15 12/31/18 acetaminophen 650 mg PO PRN PRN 06/16/17 12/31/18 budesonide [Pulmicort] 0.5 mg UPD Q12H #1 pkg 07/05/18 12/31/18 ipratropium bromide 0.5 mg UPD Q6H #1 pkg 07/05/18 12/31/18 pantoprazole 40 mg PO DAILY #30 tab 07/05/18 12/31/18 prednisone 10 mg PO DAILY #81 tab 07/05/18 12/31/18 furosemide [Lasix] 20 mg PO QAM #3 tab 07/27/18 12/31/18 Xarelto 20 mg PO QACDINNER 12/31/18 12/31/18 atorvastatin 80 mg HS 12/31/18 12/31/18 azithromycin 250 mg DIRECTED PRN 12/31/18 12/31/18 fluticasone propionate 2 spray INTRANASAL DAILY 12/31/18 12/31/18 levalbuterol HCl INHALATION QID 12/31/18 levalbuterol tartrate INHALATION Q4H PRN PRN 12/31/18 lisinopril 10 mg PO DAILY 12/31/18 12/31/18 lorazepam 0.5 mg PO DIRECTED 12/31/18 12/31/18 metoprolol succinate 50 mg PO BID 12/31/18 12/31/18 prednisone 10 mg PO DAILY PRN 12/31/18 12/31/18 tiotropium bromide 2.5 INHALATION 12/31/18 Previous Rx's Medication Instructions Recorded budesonide [Pulmicort] 0.5 mg UPD Q12H #1 pkg 07/05/18 ipratropium bromide 0.5 mg UPD Q6H #1 pkg 07/05/18 pantoprazole 40 mg PO DAILY #30 tab 07/05/18 prednisone 10 mg PO DAILY #81 tab 07/05/18 furosemide [Lasix] 20 mg PO QAM #3 tab 07/27/18 Allergies Allergy/AdvReac Type Severity Reaction Status Date / Time albuterol Allergy Verified 12/30/18 13:16 General Stated Complaint: SOB DANETTE: 2 Review of Systems Review of Systems ROS Unobtainable: All systems reviewed & are unremarkable except as noted in HPI and below Constitutional Constitutional: Reports as per HPI, Denies chills, Denies fever(s) and Reports weakness Eyes Eyes: Denies blurry vision ENT Ears, Nose, Mouth, and Throat: Denies dizziness, Denies sore throat and Denies throat swelling Cardiovascular Cardiovascular: Denies chest pain and Reports dyspnea Respiratory Respiratory: Denies cough and Reports dyspnea Gastrointestinal Gastrointestinal: Denies abdominal pain, Denies diarrhea and Denies vomiting Genitourinary Genitourinary: Denies hematuria and Denies dysuria Musculoskeletal Musculoskeletal: Denies back pain and Reports numbness Integumentary/Breasts Skin/Breast: Denies lesions and Denies rash Neurologic Neurologic: Denies dizziness, Denies focal weakness, Reports numbness, Reports paresthesias and Reports weakness Allergic/Immunologic Allergic/Immunologic: Denies throat swelling [facility] Medical History Anemia (Chronic) Anxiety Atrial fibrillation BPH (benign prostatic hyperplasia) Bronchiectasis (Chronic) COPD (chronic obstructive pulmonary disease) with emphysema Coronary artery disease (Chronic) Depression Essential hypertension History of MRSA infection (Chronic) Surgical History Arthroplasty of knee Gastrostomy Tube Placement tracheostomy Social History Smoking/Tobacco Use Status: Former Tobacco Use Alcohol Intake: never Drug use: Never Do you feel safe at home: Yes Do you feel safe in your relationship?: Yes Exam Const General: cooperative, healthy appearing and no acute distress HENMT Head: normal to inspection Face and sinus: normal facial exam Eyes General: appearance normal, both eyes and all related structures Pupils: PERRL EOM: EOM intact bilaterally Neck Neck: normal visual inspection and No submandibular swelling Lymphatic: no lymphadenopathy noted Chest Chest: normal inspection of the chest and no tenderness Resp Effort & Inspection: normal respiratory effort and not able to speak in complete sentences Auscultation: diminished lung sounds bilaterally throughout Cardio Rate: regular rate Rhythm: regular rhythm GI Inspection: normal to inspection Palpation: soft, not firm, not rigid and nontender Auscultation: normal bowel sounds Male General Exam: Yes normal external exam Skin General skin exam: no rashes or lesions noted Neuro General: alert, awake and oriented x3 Cognition: normal cognition Speech: speech normal Motor: muscle tone normal throughout and strength 5/5 throughout Sensory Exam: no sensory deficits noted Extrem General: normal to inspection, full ROM, normal capillary refill, no calf tenderness bilaterally and no edema Psych Appearance: grossly normal Mental Status: mental status grossly normal Speech and Movement: speech and movement normal Affect: normal affect Course Vital Signs Vital signs: Vital Signs Temperature 98.8 F 12/30/18 13:07 Pulse 120 H 12/30/18 13:07 Respiratory Rate 26 H 12/30/18 13:07 Blood Pressure 160/98 H 12/30/18 13:07 Pulse Oximetry 97 12/30/18 13:07 Temperature 98.8 F 12/30/18 13:07 Temperature Source Skin 12/30/18 13:07 Pulse 120 H 12/30/18 13:07 Respiratory Rate 26 H 12/30/18 13:07 Respiratory Effort Incrsd Work of Breathing 12/30/18 13:16 Blood Pressure 160/98 H 12/30/18 13:07 Pulse Oximetry 97 12/30/18 13:07 Oxygen Delivery Method Nasal Cannula 12/30/18 13:07 Oxygen Flow Rate 3 12/30/18 13:07 Comment 12/30/18 13:07
[2018-12-30 13:34] LABS: Abs Immature Grans 0.04 k/cumm (0.0-0.09); Absolute Lymphocyte Count 0.42 k/cumm (1.2-3.4); Basophils % 0.1; HCT 38.3 % (40.0-50.0); HGB 11.6 g/dL (13.5-17.5); Immature Grans % 0.2; Lymphocytes % 2.3; Mean Corp. HGB Concentration 30.3 g/dL (32.0-36.0); Mean Corpuscular Hemoglobin 26.2 pg (27.0-33.0); Mean Corpuscular Volume 86.7 fL (80-95); Mean Platelet Volume 8.6 fL (8.0-11.0); Monocytes % 5.5; Neutrophils % 91.9; Platelet Count 367 x1000/uL (130-400); RBC 4.42 m/cumm (4.50-6.00); RBC Distribution Width 17.5 % (11.8-14.1); White Blood Cell Count 18.15 k/cumm (4.4-10.8)
[2018-12-30 13:35] LABS: Absolute Basophil Count 0.02 k/cumm (0.0-0.2); Absolute Neutrophil Count 16.68 k/cumm (1.2-6.7)
[2018-12-30 13:51] LABS: ALT 37 U/L (16-63); AST 27 U/L (15-37); Albumin 3.9 g/dL (3.4-5.0); Alkaline Phosphatase 73 U/L (46-116); Anion Gap 11.1 mmol/L (3-11); BUN 14 mg/dL (7-18); Bilirubin, Total 0.5 mg/dL (0.2-1.0); CO2 29.9 mmol/L (21.0-32.0); CREATININE 1.02 mg/dL (0.70-1.30); Calcium 9.6 mg/dL (8.5-10.1); Chloride 99 mmol/L (98-107); Glucose 110 mg/dL (70-100); Magnesium 1.9 mg/dL (1.8-2.4); Potassium 3.7 mmol/L (3.5-5.1); Sodium 140 mmol/L (136-145); Total Protein 7.6 g/dL (6.4-8.2)
[2018-12-30 13:52] LABS: Troponin I < 0.05 ng/mL (0.00-0.06)
--- NOTE | 2018-12-30 13:52 | DI.CT_ITS ---
EXAM: CT HEAD WO CLINICAL HISTORY: arm and leg numbness/weakness, r/o CVA. TECHNIQUE: Noncontrast enhanced cranial CT was performed. COMPARISON: No exams were available for comparison FINDINGS: There is no evidence of an intra or extra-axial hemorrhage. There is no evidence of a mass. The vergara -white matter differentiation is preserved. The ventricles are intact. There is no evidence of a sk ull fracture. Paranasal sinuses are unremarkable. There is no evidence of a mastoid effusion. IMPRESSION: No acute intracranial abnormality is demonstrated.
--- NOTE | 2018-12-30 14:05 | DI.RAD_ITS ---
EXAM: XR CHEST 2V PA AND LATERAL INDICATION: SOB, h/o COPD, r/o acute disease. COMPARISON: XR PORTABLE CHEST AP from 08/11/2018 TECHNIQUE: 2D digital imaging was performed. FINDINGS: Emphysematous changes are demonstrated in the lungs. There is no infiltrate or evidence of a mass. T here is no pleural effusion. The cardiovascular structures are intact. IMPRESSION: No evidence of acute cardiopulmonary disease.
[2018-12-30] MEDS: methylPREDNISolone SUCC 125 MG VIAL IVP (16:01)
[2018-12-30] MEDS: Levalbuterol 1.25 MG/3 ML UPD VIAL UPD ×2 (16:22→17:57)
[2018-12-30] MEDS: LORazepam 1 MG TAB (20:00)
[2018-12-30 20:13] LABS: NT-proBNP 96 pg/mL
[2018-12-30 20:57] LABS: Troponin I < 0.05 ng/mL (0.00-0.06)
[2018-12-30 21:01] LABS: Procalcitonin < 0.1 ng/mL
--- NOTE | 2018-12-30 22:47 | NUR.NOTE ---
Patient was brought to the med-surg unit this night from the ER dept. He gave history of gradually getting sick for the passed 1-2 weeks. Increased SOB, tightness to the skin, feels as if his arms are asleep, tingling sensation to the lower extremities. Patient uses 2L oxygen at home but at [facility] he sate he uses his triology. He has a congested productive cough that produces thickn greenish secretions in the mornings and gets thinner and clearer during the course of the day. He has bilaeral bruises to upper extremities, patient state he is currently taking prednisone and xarelto on a daily bases. He state he does feels out of breathe with activities. Patient made comfortable in bed other assessment done and charted.
--- NOTE | 2018-12-30 23:50 | HPE_ITS ---
Date of service: 12/30/18 Time of Service: 23:50 Assessment and Plan Assessment and plan (1) COPD exacerbation: Status: Acute Assessment and plan: aerosolized bronchodilators, supplemental oxygen/use of BIPAP, iv corticosteroids, begin Levaquin for acute purulent bronchitis (2) Acute purulent bronchitis: Status: Acute Assessment and plan: as above History of Present Illness Narrative: 3-year-old male with a history of CHF, COPD, coronary artery disease, with history of previous tracheostomy and who is currently waiting on a lung transplant list presents with shortness of breath, cough for the past week. He states that he has been short of breath chronically but has gotten worse over the last couple weeks with increased sputum production has become greenish in coloration. 2 weeks ago he started a Z-Maco and a prednisone taper and felt better for a while. Now however he is coughing more and producing greenish sputum. He has no fever or rigors but feels chilled. Workup in the ER included CXR that showed no acute pathology. CT of the head was ordered because of chronic complaints of bilateral arm and leg tingling. CBC demonstrated a leukocytosis of 18,000, however he is chronically on prednisone 10 mg daily and recently came off a steroid burst. he has a stable chronic anemia of 11.6 gm. CMP, bnp, troponin and procalcitonin were all normal. Treatment in the ER included solumedrol 125 mg ivp, xopenex updrafts, lorazepam. He is now admitted to med/surg for evaluation and treatment of acute COPD exacerbation. He has since been started on Levaquin for acute purulent bronchitis. Review of Systems Review of Systems Narrative: 10 systems reviewed and are unremarkable except as noted in HPI and below Constitutional Constitutional: Reports chills, Reports fatigue, Reports headache(s) and Reports malaise Eyes Eyes: Reports system reviewed and no additional complaints, except as docu ENT Ears, Nose, Mouth, and Throat: Reports system reviewed and no additional complaints, except as docu and Reports headache(s) Cardiovascular Cardiovascular: Reports system reviewed and no additional complaints, except as docu Respiratory Respiratory: Reports as per HPI Gastrointestinal Gastrointestinal: Reports system reviewed and no additional complaints, except as docu Genitourinary Genitourinary: Reports system reviewed and no additional complaints, except as docu Musculoskeletal Musculoskeletal: Reports system reviewed and no additional complaints, except as docu and Reports tingling (in both legs and arms) Integumentary/Breasts Skin/Breast: Reports system reviewed and no additional complaints, except as d ocu Neurologic Neurologic: Reports headache(s), Reports tingling (in both legs and arms) and Reports paresthesias Psychiatric Psychiatric: Reports system reviewed and no additional complaints, except as doc u Endocrine Endocrine: Reports fatigue Hematologic/Lymphatic Hematologic/Lymphatic: Reports easy bruising Allergic/Immunologic Allergic/Immunologic: Reports system reviewed and no additional complaints, except as docu PFSH Medical History Anemia (Chronic) Anxiety Atrial fibrillation BPH (benign prostatic hyperplasia) Bronchiectasis (Chronic) COPD (chronic obstructive pulmonary disease) with emphysema Coronary artery disease (Chronic) Depression Essential hypertension History of MRSA infection (Chronic) Surgical History Arthroplasty of knee Gastrostomy Tube Placement tracheostomy Social History Smoking/Tobacco Use Status: Former Tobacco Use Alcohol Intake: never Drug use: Never Do you feel safe at home: Yes Do you feel safe in your relationship?: Yes Meds Home Medications and Allergies Home Medications Medication Instructions Recorded Confirmed Type citalopram 20 mg PO DAILY 05/09/15 12/31/18 History multivitamin [Men's Multi-Vitamin] 1 ea PO DAILY 05/09/15 12/31/18 History tamsulosin 0.4 mg PO DAILY 05/09/15 12/31/18 History acetaminophen 650 mg PO PRN PRN 06/16/17 12/31/18 History budesonide [Pulmicort] 0.5 mg UPD Q12H #1 pkg 07/05/18 12/31/18 Rx ipratropium bromide 0.5 mg UPD Q6H #1 pkg 07/05/18 12/31/18 Rx pantoprazole 40 mg PO DAILY #30 tab 07/05/18 12/31/18 Rx prednisone 10 mg PO DAILY #81 tab 07/05/18 12/31/18 Rx furosemide [Lasix] 20 mg PO QAM #3 tab 07/27/18 12/31/18 Rx Xarelto 20 mg PO QACDINNER 12/31/18 12/31/18 History atorvastatin 80 mg HS 12/31/18 12/31/18 History azithromycin 250 mg DIRECTED PRN 12/31/18 12/31/18 History fluticasone propionate 2 spray INTRANASAL DAILY 12/31/18 12/31/18 History levalbuterol HCl INHALATION QID 12/31/18 History levalbuterol tartrate INHALATION Q4H PRN PRN 12/31/18 History lisinopril 10 mg PO DAILY 12/31/18 12/31/18 History lorazepam 0.5 mg PO DIRECTED 12/31/18 12/31/18 History metoprolol succinate 50 mg PO BID 12/31/18 12/31/18 History prednisone 10 mg PO DAILY PRN 12/31/18 12/31/18 History tiotropium bromide 2.5 INHALATION 12/31/18 History Allergies Allergy/AdvReac Type Severity Reaction Status Date / Time albuterol Allergy Verified 12/30/18 13:16 Exam Const General: cooperative, comfortable, no acute distress, well developed and well groomed Nutritional Appearance: average body habitus Orientation: alert, awake and oriented x3 HENMT Head: normal to inspection, no palpable skull fracture, normocephalic, atraumatic and no acral cyanosis Ears: hearing grossly normal bilaterally, TM's normal bilaterally and EAC's normal General nose exam: external nose normal, nares normal and nasal mucous membranes and turbinates normal Face and sinus: normal facial exam and sinuses nontender Mouth: oral mucosae normal Neck Neck: normal visual inspection, full ROM, no lymphadenopathy, trachea midline, supple and no JVD Thyroid: thyroid normal Carotids: normal carotid upstroke Lymphatic: no lymphadenopathy noted Resp Effort & Inspection: normal respiratory effort and prolonged expiratory phase Auscultation: diminished lung sounds bilaterally throughout, no rales, no rhonchi and no wheezes Percussion: percussion normal Cardio Jugular venous pressure: no JVD Palpation: normal PMI Rate: regular rate Rhythm: regular rhythm Heart Sounds: S1 normal, S2 normal, no gallops, no murmurs and no rubs Bruits: no abdominal aortic bruits and no carotid bruits Pulses: normal peripheral pulses GI Inspection: normal to inspection Palpation: soft and no hepatosplenomegaly Percussion: normal to percussion Rectal Exam: deferred Skin General skin exam: no rashes or lesions noted, elasticity normal and ecchymosis (both arms) Lesions: no lesions Rashes: no rashes Neuro General: alert, awake, oriented x3, moves all extremities and no focal motor deficits Extrem General: normal to inspection, full ROM, normal capillary refill, no joint enlargement, no clubbing, cyanosis or edema and no calf tenderness Results Imaging Chest x-ray: image reviewed (FINDINGS: Emphysematous changes are demons trated in the lungs. There is no infiltrate or evidence of a mass. There is no pleural effusion. The cardiovascular structures are intact. IMPRESSION: No evidence of acute cardiopulmonary disease.) Labs Result diagrams: 12/30/18 13:06 12/30/18 13:06 Labs: Laboratory Results - last 24 hr 12/30/18 12/30/18 12/30/18 13:06 13:06 13:06 WBC 18.15 H RBC 4.42 L Hgb 11.6 L Hct 38.3 L MCV 86.7 MCH 26.2 L MCHC 30.3 L RDW 17.5 H Plt Count 367 MPV 8.6 Immature Gran % 0.2 Neutrophils % 91.9 Lymphocytes % 2.3 Monocytes % 5.5 Eosinophils % 0.0 Basophils % 0.1 Absolute Neutrophils 16.68 H Absolute Lymphocytes 0.42 L Absolute Monocytes 1.00 H Absolute Eosinophils 0.00 Absolute Basophils 0.02 Sodium 140 Potassium 3.7 Chloride 99 Carbon Dioxide 29.9 Anion Gap 11.1 H BUN 14 Creatinine 1.02 Estimated GFR/1.73 m2 >= 60.00 Glucose 110 H Calcium 9.6 Magnesium 1.9 Total Bilirubin 0.5 AST 27 ALT 37 Alkaline Phosphatase 73 Troponin I < 0.05 NT-Pro-B Natriuret Pep 96 Total Protein 7.6 Albumin 3.9 Procalcitonin 12/30/18 12/30/18 13:06 20:10 WBC RBC Hgb Hct MCV MCH MCHC RDW Plt Count MPV Immature Gran % Neutrophils % Lymphocytes % Monocytes % Eosinophils % Basophils % Absolute Neutrophils Absolute Lymphocytes Absolute Monocytes Absolute Eosinophils Absolute Basophils Sodium Potassium Chloride Carbon Dioxide Anion Gap BUN Creatinine Estimated GFR/1.73 m2 Glucose Calcium Magnesium Total Bilirubin AST ALT Alkaline Phosphatase Troponin I < 0.05 NT-Pro-B Natriuret Pep Total Protein Albumin Procalcitonin < 0.1 Last Vital Signs Temp 37.0 C 12/30/18 22:45 Pulse 84 12/30/18 22:45 Resp 28 H 12/30/18 22:45 BP 123/72 12/30/18 22:45 Pulse Ox 95 12/30/18 22:45
[2018-12-30 23:51] LABS: Troponin I < 0.05 ng/mL (0.00-0.06)
[2018-12-31] VITALS (24 sets, daily range): BP systolic 113–167; BP diastolic 73–90; PULSE 79–118; RESP 1–20; TEMP 36.5–37.1; O2SAT 94–100
[2018-12-31] MEDS: Hydrocortisone SOD SUC. 100 MG VIAL 50 MG IVP ×2 (01:51→07:55)
[2018-12-31] MEDS: Normal Saline Flush 10 ML SYR IVP ×4 (01:53→23:36)
[2018-12-31] MEDS: levoFLOXacin 500 MG, levoFLOXacin 250 MG 750 MG PO ×2 (01:54→21:34)
[2018-12-31] MEDS: Levalbuterol 1.25 MG/3 ML UPD VIAL UPD ×6 (04:40→23:35)
[2018-12-31 07:11] LABS: Abs Immature Grans 0.03 k/cumm (0.0-0.09); Absolute Lymphocyte Count 0.28 k/cumm (1.2-3.4); Absolute Monocyte Count 0.64 k/cumm (0.11-0.7); Absolute Neutrophil Count 12.33 k/cumm (1.2-6.7); HCT 34.9 % (40.0-50.0); HGB 10.8 g/dL (13.5-17.5); Immature Grans % 0.2; Lymphocytes % 2.1; Mean Corp. HGB Concentration 30.9 g/dL (32.0-36.0); Mean Corpuscular Hemoglobin 26.7 pg (27.0-33.0); Mean Corpuscular Volume 86.4 fL (80-95); Mean Platelet Volume 8.9 fL (8.0-11.0); Monocytes % 4.8; Neutrophils % 92.9; Platelet Count 336 x1000/uL (130-400); RBC 4.04 m/cumm (4.50-6.00); RBC Distribution Width 17.9 % (11.8-14.1); White Blood Cell Count 13.27 k/cumm (4.4-10.8)
[2018-12-31 07:24] LABS: Anion Gap 9.5 mmol/L (3-11); BUN 19 mg/dL (7-18); CO2 33.5 mmol/L (21.0-32.0); CREATININE 0.85 mg/dL (0.70-1.30); Calcium 9.6 mg/dL (8.5-10.1); Chloride 100 mmol/L (98-107); Glucose 98 mg/dL (70-100); Potassium 4.5 mmol/L (3.5-5.1); Sodium 143 mmol/L (136-145)
[2018-12-31] MEDS: Budesonide 0.5 MG/2 ML UPD VIAL UPD ×2 (09:16→21:34)
[2018-12-31] MEDS: Budesonide/Formoterol 160/4.5 6 GM 60 PUFF INH IH ×2 (10:44→19:49)
[2018-12-31] MEDS: LORazepam 0.5 MG TAB PO (11:10)
--- NOTE | 2018-12-31 11:55 | PHARADMIT ---
Addendum entered by Sasha Garcia 01/02/19 15:47: Pharmacy Note Subjective improving but still tachycardic with movement per morning report Objective HR-96 other VS okay WBC-15.14(up) Assessment methylprednisolone changed to prednisone levofloxacin continues (day 4 tonight) Plan continue to watch VS, labs and for med changes. Original Note: Admission Pharmacy Clinical Review ACUTE COPD EXACERBATION (awaiting Lung transplant) Code Status Full Code Current Weight Wgt-57.6 kg Renally Cleared and Narrow Therapeutic Index Meds CrCl~ 71 mL/min Meds-ok QTc Value / Action QTc-422 na BP Control, Fever BP-147/78 Tmax-36.6C Electrolytes reviewed Na- 143 K+4.5 Mag-2.0 DVT Prophylaxis MD to restart Xarelto Opiate Usage / Scheduled Bowel Regimen Ordered No Yes Plt/SCr for Heparin / Enoxaparin Plts- 336 SCr-0.85 INR for Warfarin NA H/H stable, WBC/Bands H&H- 10.8/34.9 WBC- 13.27 Antibiotic appropriateness Levaquin, Cultures and Sensitivities Sputum-Pending, Flu-neg Surgical ABX d/c within 24 hr na DM control / Insulin Dosing BG- 98 Heart Failure (Check EF%) (RADHA's, B-Block, Diuretics) None IV to PO Switch No Home Meds Reviewed Yes Home Meds Not Ordered Atorvastatin, Celexa, Lasix, Zithromax, Lisinopril, Toprol-XL, M-vites, Flomax, Xarelto Comments
--- NOTE | 2018-12-31 12:36 | W.PM.PROGNOT ---
Date of Service Date of service: 12/31/18 Time of Service: 12:36 Assessment and Plan Assessment and plan (1) COPD exacerbation: Status: Acute Assessment and plan: Appears improved. - Continue IV Steroids, Nebs. Also on NIPPV with Trilogy. - Currently on day #2 of antibiotic therapy with Levofloxacin - sputum culture pending. - Influenza negative. CXR without acute pathology. (2) Atrial fibrillation: Status: Chronic Assessment and plan: Continue BB therapy, anticoagulation with Rivaroxaban. Continue to maintain on telemetry for now. (3) Coronary artery disease: Status: Chronic Assessment and plan: Appears quiescent, with initial Troponin negative. Patient will be maintained on his chronic cardiac regimen consisting of BB and high potency statin. Also on RADHA-I, anticoagulation as above. (4) BPH (benign prostatic hyperplasia): Status: Chronic Assessment and plan: Continue a-lizet. (5) Anemia: Status: Chronic Assessment and plan: Chronic anemia, appears stable. Normocytic, but in patient on chronic anticoagulation. Prior work-up with low iron levels, low TIBC, but normal Ferritin. B12 and FA normal, and TSH low (in setting of acute illness in July) - possible mixed picture. (6) DVT prophylaxis: Status: Chronic Assessment and plan: On chronic anticoagulation with Xarelto. (7) Advance directive on file: Status: Acute Assessment and plan: Full Code. Subjective Subjective Interval history since last seen: Very pleasant 62-year-old man with a prior medical history significant for End Stage COPD on home oxygen therapy, admitted from [facility] Emergency Department on 12/30 with a diagnosis of acute exacerbation of underlying COPD. Mr. Bautista has a significant history of Oxygen dependent, end-stage COPD, with prior respiratory distress requiring intubation and mechanical ventilation. He has been trached in the past for this, and [facility]. He utilized NIPPV in the form of Trilogy at home. He also reported an intolerance of albuterol due to severe tachycardia/Afib. Other history includes PAF on AC, CAD, Diastolic CHF, PHTN with PAPs in the 50's range, and BPH. He was hospitalized here at [facility] both in June and July of this year, and treated for a COPD Exacerbation, Pneumonia, and sepsis. The patient was seen in the ED with reported onset of dyspnea, cough, and sputum production over the course of the past 1-2 weeks. He was initiated on therapy as an outpatient with Azithromycin and a steroid taper, and while temporarily improved he began feeling worse again prior to presenting to the ED. Work-up was significant for a mild leukocytosis, chronic and stable anemia, normal BNP, negative troponin, and essentially normal CMP. Imaging with CXR and CT of the head were negative. She was referred for admission for further evaluation and treatment. This morning Mr. Bautista reports vastly improved symptoms and appears stable, although appears to decompensate with minimal exertion. Rapid Flu was checked and negative. No overnight events reported. Remains afebrile. Exam Narrative Exam Narrative: General: Patient appears comfortable, AAOX3, NAD Neck: Supple CV: Regular, nontachycardic, S1S2, No rubs, murmurs, or gallops. Pulmonary: Clear to auscultation bilaterally with diffusely decreased breath sounds. No wheezing on exam. Abdomen: + Bowel Sounds, soft, nontender, nondistended Vascular: No lower extremity edema Psych: Normal mood and affect. Objective Objective Clinical Data: Abnormal lab results 12/30/18 12/30/18 12/31/18 Range/Units 13:06 13:06 06:35 WBC 18.15 H (4.4-10.8) k/cumm RBC 4.42 L (4.50-6.00) m/cumm Hgb 11.6 L (13.5-17.5) g/dL Hct 38.3 L (40.0-50.0) % MCH 26.2 L (27.0-33.0) pg MCHC 30.3 L (32.0-36.0) g/dL RDW 17.5 H (11.8-14.1) % Absolute Neutrophils 16.68 H (1.2-6.7) k/cumm Absolute Lymphocytes 0.42 L (1.2-3.4) k/cumm Absolute Monocytes 1.00 H (0.11-0.7) k/cumm Carbon Dioxide 33.5 H (21.0-32.0) mmol/L Anion Gap 11.1 H (3-11) mmol/L BUN 19 H (7-18) mg/dL Glucose 110 H (70-100) mg/dL 12/31/18 Range/Units 06:35 WBC 13.27 H (4.4-10.8) k/cumm RBC 4.04 L (4.50-6.00) m/cumm Hgb 10.8 L (13.5-17.5) g/dL Hct 34.9 L (40.0-50.0) % MCH 26.7 L (27.0-33.0) pg MCHC 30.9 L (32.0-36.0) g/dL RDW 17.9 H (11.8-14.1) % Absolute Neutrophils 12.33 H (1.2-6.7) k/cumm Absolute Lymphocytes 0.28 L (1.2-3.4) k/cumm Absolute Monocytes (0.11-0.7) k/cumm Carbon Dioxide (21.0-32.0) mmol/L Anion Gap (3-11) mmol/L BUN (7-18) mg/dL Glucose (70-100) mg/dL Vital Signs Temperature 36.7 C 12/31/18 12:05 Temperature Source Tympanic 12/31/18 12:05 Pulse 118 H 12/31/18 12:05 Pulse Rhythm Regular 12/31/18 08:54 Pulse 83 12/30/18 21:40 Respiratory Rate 18 12/31/18 12:05 Respiratory Effort 12/31/18 08:54 Respiratory Depth Deep 12/31/18 08:54 Respiratory Pattern Normal 12/31/18 08:54 Blood Pressure 167/87 H 12/31/18 12:05 Blood Pressure Mean 81 12/30/18 21:31 Pulse Oximetry 95 12/31/18 12:05 Oxygen Delivery Method Nasal Cannula 12/31/18 12:05 Oxygen Flow Rate 3 12/31/18 12:05 Pain Level 0 12/31/18 07:00 Comment 12/30/18 13:07 Intake & Output 12/30/18 12/31/18 12/31/18 23:59 11:59 23:59 Intake Total Output Total 400 / 400 Balance -380 / -380 Weight 58.967 kg 57.6 kg Intake: IV Output: Urine 400 / 400 Other: Urine Color Yellow Urine Appearance Clear Clear Voiding Methods Urinal Laboratory Results WBC 13.27 k/cumm (4.4-10.8) H 12/31/18 06:35 RBC 4.04 m/cumm (4.50-6.00) L 12/31/18 06:35 Hgb 10.8 g/dL (13.5-17.5) L 12/31/18 06:35 Hct 34.9 % (40.0-50.0) L 12/31/18 06:35 MCV 86.4 fL (80-95) 12/31/18 06:35 MCH 26.7 pg (27.0-33.0) L 12/31/18 06:35 MCHC 30.9 g/dL (32.0-36.0) L 12/31/18 06:35 RDW 17.9 % (11.8-14.1) H 12/31/18 06:35 Plt Count 336 x1000/uL (130-400) 12/31/18 06:35 MPV 8.9 fL (8.0-11.0) 12/31/18 06:35 Immature Gran % 0.2 12/31/18 06:35 Neutrophils % 92.9 12/31/18 06:35 Lymphocytes % 2.1 12/31/18 06:35 Monocytes % 4.8 12/31/18 06:35 Eosinophils % 0.0 12/31/18 06:35 Basophils % 0.0 12/31/18 06:35 Absolute Neutrophils 12.33 k/cumm (1.2-6.7) H 12/31/18 06:35 Absolute Lymphocytes 0.28 k/cumm (1.2-3.4) L 12/31/18 06:35 Absolute Monocytes 0.64 k/cumm (0.11-0.7) 12/31/18 06:35 Absolute Eosinophils 0.00 k/cumm (0.0-0.7) 12/31/18 06:35 Absolute Basophils 0.00 k/cumm (0.0-0.2) 12/31/18 06:35 Sodium 143 mmol/L (136-145) 12/31/18 06:35 Potassium 4.5 mmol/L (3.5-5.1) D 12/31/18 06:35 Chloride 100 mmol/L (98-107) 12/31/18 06:35 Carbon Dioxide 33.5 mmol/L (21.0-32.0) H 12/31/18 06:35 Anion Gap 9.5 mmol/L (3-11) 12/31/18 06:35 BUN 19 mg/dL (7-18) H 12/31/18 06:35 Creatinine 0.85 mg/dL (0.70-1.30) 12/31/18 06:35 Estimated GFR/1.73 m2 >= 60.00 (mL/min/1.73m2) 12/31/18 06:35 Glucose 98 mg/dL (70-100) 12/31/18 06:35 Calcium 9.6 mg/dL (8.5-10.1) 12/31/18 06:35 Magnesium 2.0 mg/dL (1.8-2.4) 12/31/18 06:35 Total Bilirubin 0.5 mg/dL (0.2-1.0) 12/30/18 13:06 AST 27 U/L (15-37) 12/30/18 13:06 ALT 37 U/L (16-63) 12/30/18 13:06 Alkaline Phosphatase 73 U/L (46-116) 12/30/18 13:06 Troponin I < 0.05 ng/mL (0.00-0.06) 12/30/18 23:20 NT-Pro-B Natriuret Pep 96 pg/mL (-299) 12/30/18 13:06 Total Protein 7.6 g/dL (6.4-8.2) 12/30/18 13:06 Albumin 3.9 g/dL (3.4-5.0) 12/30/18 13:06 Procalcitonin < 0.1 ng/mL 12/30/18 13:06
[2018-12-31] MEDS: Tiotropium Bromide-Respimat 10 PUFF INH 2 PUFF IH (14:45)
[2018-12-31] MEDS: Furosemide 20 MG TAB PO (15:15)
[2018-12-31] MEDS: methylPREDNISolone SUCC 40 MG VIAL IVP ×2 (16:29→23:35)
[2018-12-31] MEDS: Rivaroxaban 10 MG TABLET 20 MG PO (16:29)
[2018-12-31] MEDS: Mylanta Suspension 30 ML CUP PO (16:33)
--- NOTE | 2018-12-31 17:30 | PDOC.CMIN ---
- If Service Date Differs Date of service: 12/31/18 Time of Service: 17:30 Care Management Initial Assess REASON FOR HOSPITALIZATION:: COPD and acute purulent bronchitis PAST MEDICAL HISTORY/PAST SURGICAL HISTORY:: Medical History: Anemia (Chronic). Anxiety. Atrial fibrillation. BPH (benign prostatic hyperplasia). Bronchiectasis (Chronic). COPD (chronic obstructive pulmonary disease) with emphysema. Coronary artery disease (Chronic). Depression. Essential hypertension. History of MRSA infection (Chronic). Surgical History: Arthroplasty of knee. Gastrostomy Tube Placement. tracheostomy PREVIOUS FUNCTIONAL STATUS/SOCIAL/FAMILY SUPPORTS:: Javier lives with his Claire and granddaughter in [facility]. He has a long history of severe COPD and is awaiting a lung transplant. Javier is disabled. He has several children and a strong support system with family and friends. CURRENT FUNCTIONAL STATUS:: Javier was sitting up in bed when CM met with him. He was pleasant and smiling and readily engaged in conversation.Javier stated that he had been doing quite well at home until about 2 weeks ago. He stated he came down with a bug and has had increased difficulty breathing since then. Javier has been attending Pulmonary Rehab and stated that it is really helping. Attending the entire program is a pre-requisite for moving forward with a lung transplant. He admitted to getting a little discouraged because he does not seem to be making any progeress on that front. He has been working with [place] [facility] [place] [facility] for about 2 years and is still not approved for the trasnsplant i.e. he is not on the transplant list yet. ADVANCE DIRECTIVES:: On file at [facility] Has patient been provided with information about the portal?: No Did the patient sign up for the portal?: No CODE STATUS:: Full Code INSURANCE COVERAGE / FINANCIAL ISSUES:: Medicare. Medicaid CURRENT HOME/COMMUNITY SERVICES/EQUIPMENT:: Javier attends Pulmonary Rehab at [facility]. He has home oxygen and a Trilogy machine to help him breathe. Javier also has [employer] [facility] through [employer] [facility] and receives respite benefits, care coordination and assistance with equipment. PRIMARY CARE PHYSICIAN:: Dario Hallman POTENTIAL DISCHARGE NEEDS:: Follow up with PCP and discharge plan of care PATIENT/FAMILY EDUCATION NEEDS:: Discharge plan, limitations, follow up plan, Ask Me Three. ANTICIPATED BARRIERS TO DISCHARGE:: none TRANSPORTATION:: via private vehicle with when ready PLAN:: Javier is being treated for COPD and bronchitis. He will be discharged with a resumption of current services which include home oxygen, use of a Trilogy machine and [employer] [facility] which provides respite and assistance with equipment. He will resume Pulmonary rehab. CM will continue to provide support to patient, family and discharge planning needs.
[2018-12-31] MEDS: Metoprolol CR 50 MG TABCR PO (19:48)
[2018-12-31] MEDS: LORazepam 1 MG TAB PO (21:33)
[2018-12-31] MEDS: Atorvastatin 40 MG TAB 80 MG PO (21:33)
[2019-01-01] VITALS (17 sets, daily range): BP systolic 109–154; BP diastolic 61–91; PULSE 72–121; RESP 1–24; TEMP 35.9–37.1; O2SAT 94–100
[2019-01-01] MEDS: Levalbuterol 1.25 MG/3 ML UPD VIAL UPD ×5 (04:09→19:57)
[2019-01-01] MEDS: methylPREDNISolone SUCC 40 MG VIAL IVP ×3 (07:51→19:56)
[2019-01-01] MEDS: Normal Saline Flush 10 ML SYR IVP ×3 (07:51→19:56)
[2019-01-01] MEDS: Furosemide 20 MG TAB PO (07:51)
[2019-01-01] MEDS: Metoprolol CR 50 MG TABCR PO ×2 (07:51→19:57)
[2019-01-01] MEDS: LORazepam 0.5 MG TAB PO (07:52)
[2019-01-01] MEDS: predniSONE 10 MG TAB PO (07:52)
[2019-01-01] MEDS: Tamsulosin 0.4 MG CAPCR PO (07:52)
[2019-01-01] MEDS: Citalopram 20 MG TAB PO (07:52)
[2019-01-01] MEDS: Pantoprazole 40 MG TABCR PO (07:52)
[2019-01-01] MEDS: Multivitamin TAB 1 TAB PO (07:52)
[2019-01-01] MEDS: Lisinopril 10 MG TAB PO (07:52)
[2019-01-01] MEDS: Tiotropium Bromide-Respimat 10 PUFF INH 2 PUFF IH (08:00)
[2019-01-01] MEDS: Budesonide/Formoterol 160/4.5 6 GM 60 PUFF INH IH ×2 (08:08→20:01)
[2019-01-01 08:57] LABS: Abs Immature Grans 0.02 k/cumm (0.0-0.09); Absolute Lymphocyte Count 0.33 k/cumm (1.2-3.4); HCT 34.9 % (40.0-50.0); HGB 10.4 g/dL (13.5-17.5); Immature Grans % 0.2; Lymphocytes % 2.5; Mean Corp. HGB Concentration 29.8 g/dL (32.0-36.0); Mean Corpuscular Hemoglobin 26.1 pg (27.0-33.0); Mean Corpuscular Volume 87.7 fL (80-95); Monocytes % 4.4; Neutrophils % 92.9; Platelet Count 355 x1000/uL (130-400); RBC 3.98 m/cumm (4.50-6.00); RBC Distribution Width 18.4 % (11.8-14.1); White Blood Cell Count 13.32 k/cumm (4.4-10.8)
[2019-01-01 09:04] LABS: Absolute Monocyte Count 0.59 k/cumm (0.11-0.7); Absolute Neutrophil Count 12.37 k/cumm (1.2-6.7)
[2019-01-01 09:09] LABS: Anion Gap 8.4 mmol/L (3-11); BUN 23 mg/dL (7-18); CO2 33.6 mmol/L (21.0-32.0); CREATININE 1.01 mg/dL (0.70-1.30); Calcium 9.2 mg/dL (8.5-10.1); Chloride 102 mmol/L (98-107); Glucose 114 mg/dL (70-100); Magnesium 2.3 mg/dL (1.8-2.4); Potassium 3.9 mmol/L (3.5-5.1); Sodium 144 mmol/L (136-145)
[2019-01-01 09:33] LABS: Anisocytosis 2+; Diff Comment RBC Morph Reviewed; Hypochromasia 1+; Polychromasia Present
[2019-01-01 09:34] LABS: Poikilocytes 2+
[2019-01-01] MEDS: Budesonide 0.5 MG/2 ML UPD VIAL UPD ×2 (09:37→21:28)
--- NOTE | 2019-01-01 10:18 | PDOC.CMPRO ---
- If Service Date Differs Date of service: 01/01/19 Time of Service: 10:18 Care Management Progress Note S/O: Javier was sitting up in bed when CM came to see him. He was pleasant and friendly and readily entered into conversation with CM. His spirits seem good today, although he was woken up a couple of times for neb treatments during the night. On past admissions he has requested not to be awakened. Javier was pleased when he learned that the provider wrote the order today to defer treatments until morning. In the afternoon Javier's family came to visit. A: Javier is a 63 gentleman admitted to [facility] with COPD and end stage lung disease on 12/30/18 P:Javier is being treated for COPD and bronchitis. He will be discharged with a resumption of current services which include home oxygen, use of a Trilogy machine and [employer] which provides respite and assistance with equipment. He will resume Pulmonary rehab. CM will continue to provide support to patient, family and discharge planning needs.
--- NOTE | 2019-01-01 15:54 | W.PM.PROGNOT ---
Date of Service Date of service: 01/01/19 Time of Service: 15:55 Assessment and Plan Assessment and plan (1) COPD exacerbation: Status: Acute Assessment and plan: Appears improved. - Continue IV Steroids but begin weaning today. Continue Nebs. Also on NIPPV with Trilogy. - Currently on day #3 of antibiotic therapy with Levofloxacin - sputum culture not revealing ([place] which is likely colonization). - Influenza negative. CXR without acute pathology. (2) Atrial fibrillation: Status: Chronic Assessment and plan: Continue BB therapy, anticoagulation with Rivaroxaban. Continue to maintain on telemetry for now. Patient remains tachycardic, but reportedly in sinus by telemetry and regular on exam. (3) Coronary artery disease: Status: Chronic Assessment and plan: Appears quiescent, with initial Troponin negative. Patient will be maintained on his chronic cardiac regimen consisting of BB and high potency statin. Also on RADHA-I, anticoagulation as above. (4) BPH (benign prostatic hyperplasia): Status: Chronic Assessment and plan: Continue a-lizet. (5) Anemia: Status: Chronic Assessment and plan: Chronic anemia, appears stable. Normocytic, but in patient on chronic anticoagulation. Prior work-up with low iron levels, low TIBC, but normal Ferritin. B12 and FA normal, and TSH low (in setting of acute illness in July) - possible mixed picture. Hgb remains stable. (6) DVT prophylaxis: Status: Chronic Assessment and plan: On chronic anticoagulation with Xarelto. (7) Advance directive on file: Status: Acute Assessment and plan: Full Code. Subjective Subjective Interval history since last seen: Very pleasant 62-year-old man with a prior medical history significant for End Stage COPD on home oxygen therapy, admitted from [facility] Emergency Department on 12/30 with a diagnosis of acute exacerbation of underlying COPD. Mr. Bautista has a past medical history significant for Oxygen dependent, end-stage COPD, with prior respiratory distress requiring intubation and mechanical ventilation. He has been trached in the past for this, and [facility]. He utilized NIPPV in the form of Trilogy at home. He also reported an intolerance of albuterol due to severe tachycardia/Afib. Other history includes PAF on AC, CAD, Diastolic CHF, PHTN with PAPs in the 50's range, and BPH. He was hospitalized here at [facility] both in June and July of this year, and treated for a COPD Exacerbation, Pneumonia, and sepsis. The patient was seen in the ED with reported onset of dyspnea, cough, and sputum production over the course of the past 1-2 weeks. He was initiated on therapy as an outpatient with Azithromycin and a steroid taper, and while temporarily improved he began feeling worse again prior to presenting to the ED. Work-up was significant for a mild leukocytosis, chronic and stable anemia, normal BNP, negative troponin, and essentially normal CMP. Imaging with CXR and CT of the head were negative. She was referred for admission for further evaluation and treatment. This morning Mr. Bautista reports improved symptoms again, although continues to decompensate easily with minimal exertion. Rapid Flu was checked and negative. No overnight events reported. Remains afebrile. Exam Narrative Exam Narrative: General: Patient appears comfortable, AAOX3, NAD Neck: Supple CV: Regular, tachycardic but normal, S1S2, No rubs, murmurs, or gallops. Pulmonary: Clear to auscultation bilaterally with diffusely decreased breath sounds. No wheezing on exam. Abdomen: + Bowel Sounds, soft, nontender, nondistended Vascular: No lower extremity edema Psych: Normal mood and affect. Objective Objective Clinical Data: Abnormal lab results 01/01/19 01/01/19 Range/Units 08:34 08:34 WBC 13.32 H (4.4-10.8) k/cumm RBC 3.98 L (4.50-6.00) m/cumm Hgb 10.4 L (13.5-17.5) g/dL Hct 34.9 L (40.0-50.0) % MCH 26.1 L (27.0-33.0) pg MCHC 29.8 L (32.0-36.0) g/dL RDW 18.4 H (11.8-14.1) % Absolute Neutrophils 12.37 H (1.2-6.7) k/cumm Absolute Lymphocytes 0.33 L (1.2-3.4) k/cumm Carbon Dioxide 33.6 H (21.0-32.0) mmol/L BUN 23 H (7-18) mg/dL Glucose 114 H (70-100) mg/dL Vital Signs Temperature 37.1 C 01/01/19 15:31 Temperature Source Tympanic 01/01/19 15:31 Pulse 110 H 01/01/19 15:31 Pulse Rhythm Regular 01/01/19 09:21 Pulse 83 12/30/18 21:40 Respiratory Rate 20 01/01/19 15:31 Respiratory Effort 01/01/19 09:21 Respiratory Depth Normal 01/01/19 09:21 Respiratory Pattern Normal 01/01/19 09:21 Blood Pressure 114/63 01/01/19 15:31 Blood Pressure Mean 81 12/30/18 21:31 Pulse Oximetry 98 01/01/19 15:31 Oxygen Delivery Method Nasal Cannula 01/01/19 15:31 Oxygen Flow Rate 2 01/01/19 15:31 Pain Level 0 01/01/19 12:04 Comment 01/01/19 03:45 Intake & Output 12/31/18 01/01/19 01/01/19 23:59 11:59 23:59 Intake Total 360 / 380 560 / 740 180 / 740 Balance 360 / -20 560 / 740 180 / 740 Weight 56.5 kg Intake: IV Oral 360 / 360 550 / 730 180 / 730 Other: Urine Appearance Clear Clear Stool Size Moderate Stool Characteristics Liquid Brown Voiding Methods Toilet Laboratory Results WBC 13.32 k/cumm (4.4-10.8) H 01/01/19 08:34 RBC 3.98 m/cumm (4.50-6.00) L 01/01/19 08:34 Hgb 10.4 g/dL (13.5-17.5) L 01/01/19 08:34 Hct 34.9 % (40.0-50.0) L 01/01/19 08:34 MCV 87.7 fL (80-95) 01/01/19 08:34 MCH 26.1 pg (27.0-33.0) L 01/01/19 08:34 MCHC 29.8 g/dL (32.0-36.0) L 01/01/19 08:34 RDW 18.4 % (11.8-14.1) H 01/01/19 08:34 Plt Count 355 x1000/uL (130-400) 01/01/19 08:34 MPV 9.0 fL (8.0-11.0) 01/01/19 08:34 Immature Gran % 0.2 01/01/19 08:34 Neutrophils % 92.9 01/01/19 08:34 Lymphocytes % 2.5 01/01/19 08:34 Monocytes % 4.4 01/01/19 08:34 Eosinophils % 0.0 01/01/19 08:34 Basophils % 0.0 01/01/19 08:34 Absolute Neutrophils 12.37 k/cumm (1.2-6.7) H 01/01/19 08:34 Absolute Lymphocytes 0.33 k/cumm (1.2-3.4) L 01/01/19 08:34 Absolute Monocytes 0.59 k/cumm (0.11-0.7) 01/01/19 08:34 Absolute Eosinophils 0.00 k/cumm (0.0-0.7) 01/01/19 08:34 Absolute Basophils 0.00 k/cumm (0.0-0.2) 01/01/19 08:34 Differential Comment Rbc morph reviewed 01/01/19 08:34 RBC Morphology See below 01/01/19 08:34 Polychromasia Present 01/01/19 08:34 Hypochromasia 1+ 01/01/19 08:34 Poikilocytosis 2+ 01/01/19 08:34 Anisocytosis 2+ 01/01/19 08:34 Sodium 144 mmol/L (136-145) 01/01/19 08:34 Potassium 3.9 mmol/L (3.5-5.1) 01/01/19 08:34 Chloride 102 mmol/L (98-107) 01/01/19 08:34 Carbon Dioxide 33.6 mmol/L (21.0-32.0) H 01/01/19 08:34 Anion Gap 8.4 mmol/L (3-11) 01/01/19 08:34 BUN 23 mg/dL (7-18) H 01/01/19 08:34 Creatinine 1.01 mg/dL (0.70-1.30) 01/01/19 08:34 Estimated GFR/1.73 m2 >= 60.00 (mL/min/1.73m2) 01/01/19 08:34 Glucose 114 mg/dL (70-100) H 01/01/19 08:34 Calcium 9.2 mg/dL (8.5-10.1) 01/01/19 08:34 Magnesium 2.3 mg/dL (1.8-2.4) 01/01/19 08:34 Total Bilirubin 0.5 mg/dL (0.2-1.0) 12/30/18 13:06 AST 27 U/L (15-37) 12/30/18 13:06 ALT 37 U/L (16-63) 12/30/18 13:06 Alkaline Phosphatase 73 U/L (46-116) 12/30/18 13:06 Troponin I < 0.05 ng/mL (0.00-0.06) 12/30/18 23:20 NT-Pro-B Natriuret Pep 96 pg/mL (-299) 12/30/18 13:06 Total Protein 7.6 g/dL (6.4-8.2) 12/30/18 13:06 Albumin 3.9 g/dL (3.4-5.0) 12/30/18 13:06 Procalcitonin < 0.1 ng/mL 12/30/18 13:06
[2019-01-01] MEDS: Rivaroxaban 10 MG TABLET 20 MG PO (16:50)
[2019-01-01] MEDS: Atorvastatin 40 MG TAB 80 MG PO (21:29)
[2019-01-01] MEDS: LORazepam 1 MG TAB PO (21:29)
[2019-01-01] MEDS: levoFLOXacin 500 MG, levoFLOXacin 250 MG 750 MG PO (21:29)
[2019-01-02] VITALS (12 sets, daily range): BP systolic 119–140; BP diastolic 61–73; PULSE 75–101; RESP 1–20; TEMP 35.2–36.7; O2SAT 94–98
[2019-01-02 06:46] LABS: Abs Immature Grans 0.03 k/cumm (0.0-0.09); Eosinophils % 0.1; HCT 33.2 % (40.0-50.0); HGB 10.1 g/dL (13.5-17.5); Immature Grans % 0.2; Mean Corp. HGB Concentration 30.4 g/dL (32.0-36.0); Mean Corpuscular Hemoglobin 26.5 pg (27.0-33.0); Mean Corpuscular Volume 87.1 fL (80-95); Mean Platelet Volume 8.8 fL (8.0-11.0); Monocytes % 5.9; Neutrophils % 91.8; Platelet Count 339 x1000/uL (130-400); RBC 3.81 m/cumm (4.50-6.00); RBC Distribution Width 18.4 % (11.8-14.1); White Blood Cell Count 15.14 k/cumm (4.4-10.8)
[2019-01-02 06:54] LABS: Anion Gap 7.9 mmol/L (3-11); BUN 25 mg/dL (7-18); CO2 34.1 mmol/L (21.0-32.0); CREATININE 0.89 mg/dL (0.70-1.30); Chloride 102 mmol/L (98-107); Glucose 112 mg/dL (70-100); Magnesium 2.3 mg/dL (1.8-2.4); Sodium 144 mmol/L (136-145)
[2019-01-02 06:58] LABS: Absolute Eosinophil Count 0.02 k/cumm (0.0-0.7); Absolute Monocyte Count 0.89 k/cumm (0.11-0.7)
[2019-01-02 07:10] LABS: Anisocytosis 2+; Diff Comment RBC Morph Reviewed; Hypochromasia 1+; Poikilocytes 1+
[2019-01-02] MEDS: Levalbuterol 1.25 MG/3 ML UPD VIAL UPD ×4 (07:44→20:49)
[2019-01-02] MEDS: Budesonide 0.5 MG/2 ML UPD VIAL UPD ×2 (07:50→21:42)
[2019-01-02] MEDS: Budesonide/Formoterol 160/4.5 6 GM 60 PUFF INH IH ×2 (07:51→20:49)
[2019-01-02] MEDS: Tiotropium Bromide-Respimat 10 PUFF INH 2 PUFF IH (07:55)
[2019-01-02] MEDS: Metoprolol CR 50 MG TABCR PO ×2 (08:23→20:49)
[2019-01-02] MEDS: Pantoprazole 40 MG TABCR PO (08:23)
[2019-01-02] MEDS: Lisinopril 10 MG TAB PO (08:23)
[2019-01-02] MEDS: methylPREDNISolone SUCC 40 MG VIAL IVP (08:23)
[2019-01-02] MEDS: LORazepam 0.5 MG TAB PO (08:23)
[2019-01-02] MEDS: Tamsulosin 0.4 MG CAPCR PO (08:23)
[2019-01-02] MEDS: Normal Saline Flush 10 ML SYR IVP (08:23)
[2019-01-02] MEDS: predniSONE 10 MG TAB PO (08:23)
[2019-01-02] MEDS: Multivitamin TAB 1 TAB PO (08:24)
[2019-01-02] MEDS: Furosemide 20 MG TAB PO (08:24)
[2019-01-02] MEDS: Citalopram 20 MG TAB PO (08:24)
--- NOTE | 2019-01-02 15:06 | W.PM.PROGNOT ---
Date of Service Date of service: 01/02/19 Time of Service: 15:06 Assessment and Plan Assessment and plan (1) COPD exacerbation: Status: Acute Assessment and plan: Appears improved. - Continue Steroids but change to oral formulation. Continue Nebs. Also on NIPPV with Trilogy. - Currently on day #4 of antibiotic therapy with Levofloxacin - sputum culture not revealing ([place] which is likely colonization). - Influenza negative. CXR without acute pathology. (2) Atrial fibrillation: Status: Chronic Assessment and plan: - Continue BB therapy, anticoagulation with Rivaroxaban. - Continue to maintain on telemetry for now - periods of tachycardia with movement is sinus tach by monitor. (3) Coronary artery disease: Status: Chronic Assessment and plan: Appears quiescent, with initial Troponin negative. Patient will be maintained on his chronic cardiac regimen consisting of BB and high potency statin. Also on RADHA-I, anticoagulation as above. (4) BPH (benign prostatic hyperplasia): Status: Chronic Assessment and plan: Continue a-lizet. (5) Anemia: Status: Chronic Assessment and plan: Chronic anemia, appears stable. Normocytic, but in patient on chronic anticoagulation. Prior work-up with low iron levels, low TIBC, but normal Ferritin. B12 and FA normal, and TSH low (in setting of acute illness in July) with normal FT4 - possible mixed picture. Hgb remains stable. (6) DVT prophylaxis: Status: Chronic Assessment and plan: On chronic anticoagulation with Xarelto. Also on PPI therapy chronically. for GI Prophylaxis. (7) Advance directive on file: Status: Acute Assessment and plan: Full Code. Subjective Subjective Interval history since last seen: Very pleasant 62-year-old man with a prior medical history significant for End Stage COPD on home oxygen therapy, admitted from [facility] Emergency Department on 12/30 with a diagnosis of acute exacerbation of underlying COPD. Mr. Bautista has a past medical history significant for Oxygen dependent, end-stage COPD, with prior respiratory distress requiring intubation and mechanical ventilation. He has been trached in the past for this, and is [facility]. He utilized NIPPV in the form of Trilogy at home. He also reported an intolerance of albuterol due to severe tachycardia/Afib. Other history includes PAF on AC, CAD, Diastolic CHF, PHTN with PAPs in the 50's range, and BPH. He was hospitalized here at [facility] both in June and July of this year, and treated for a COPD Exacerbation, Pneumonia, and sepsis. The patient was seen in the ED with reported onset of dyspnea, cough, and sputum production over the course of the past 1-2 weeks. He was initiated on therapy as an outpatient with Azithromycin and a steroid taper, and while temporarily improved he began feeling worse again prior to presenting to the ED. Work-up was significant for a mild leukocytosis, chronic and stable anemia, normal BNP, negative troponin, and essentially normal CMP. Imaging with CXR and CT of the head were negative. She was referred for admission for further evaluation and treatment. This morning Mr. Bautista reports continued improvement in symptoms, and while he continues to decompensate easily with minimal exertion this has improved as well. Rapid Flu was checked and negative. No overnight events reported. Remains afebrile. Exam Narrative Exam Narrative: General: Patient appears comfortable, AAOX3, NAD Neck: Supple CV: Regular, tachycardic but normal, S1S2, No rubs, murmurs, or gallops. Pulmonary: Clear to auscultation bilaterally with diffusely decreased breath sounds - improved air entry noted. No wheezing on exam. Abdomen: + Bowel Sounds, soft, nontender, nondistended Vascular: No lower extremity edema Psych: Normal mood and affect. Objective Objective Clinical Data: Abnormal lab results 01/02/19 01/02/19 Range/Units 06:17 06:17 WBC 15.14 H (4.4-10.8) k/cumm RBC 3.81 L (4.50-6.00) m/cumm Hgb 10.1 L (13.5-17.5) g/dL Hct 33.2 L (40.0-50.0) % MCH 26.5 L (27.0-33.0) pg MCHC 30.4 L (32.0-36.0) g/dL RDW 18.4 H (11.8-14.1) % Absolute Neutrophils 13.90 H (1.2-6.7) k/cumm Absolute Lymphocytes 0.30 L (1.2-3.4) k/cumm Absolute Monocytes 0.89 H (0.11-0.7) k/cumm Carbon Dioxide 34.1 H (21.0-32.0) mmol/L BUN 25 H (7-18) mg/dL Glucose 112 H (70-100) mg/dL Vital Signs Temperature 36.1 C L 01/02/19 07:35 Temperature Source Tympanic 01/02/19 07:35 Pulse 96 H 01/02/19 11:38 Pulse Rhythm Regular 01/02/19 09:52 Pulse 83 12/30/18 21:40 Respiratory Rate 16 01/02/19 11:38 Respiratory Effort Non-Labored 01/02/19 09:52 Respiratory Depth Normal 01/02/19 09:52 Respiratory Pattern Normal 01/02/19 09:52 Blood Pressure 132/73 01/02/19 07:35 Blood Pressure Mean 81 12/30/18 21:31 Pulse Oximetry 98 01/02/19 11:38 Oxygen Delivery Method Nasal Cannula 01/02/19 11:29 Oxygen Flow Rate 2 01/02/19 11:29 Pain Level 0 01/02/19 07:35 Comment 01/02/19 07:35 Intake & Output 01/01/19 01/02/19 01/02/19 23:59 11:59 23:59 Intake Total 430 / 990 360 / 480 120 / 480 Output Total 250 / 250 400 / 400 Balance 180 / 740 -40 / 80 120 / 80 Weight 56 kg Intake: IV Oral 420 / 970 360 / 480 120 / 480 Output: Urine 250 / 250 400 / 400 Other: Urine Color Yellow Yellow Urine Appearance Clear Clear Stool Size Moderate Stool Characteristics Soft Voiding Methods Urinal Laboratory Results WBC 15.14 k/cumm (4.4-10.8) H 01/02/19 06:17 RBC 3.81 m/cumm (4.50-6.00) L 01/02/19 06:17 Hgb 10.1 g/dL (13.5-17.5) L 01/02/19 06:17 Hct 33.2 % (40.0-50.0) L 01/02/19 06:17 MCV 87.1 fL (80-95) 01/02/19 06:17 MCH 26.5 pg (27.0-33.0) L 01/02/19 06:17 MCHC 30.4 g/dL (32.0-36.0) L 01/02/19 06:17 RDW 18.4 % (11.8-14.1) H 01/02/19 06:17 Plt Count 339 x1000/uL (130-400) 01/02/19 06:17 MPV 8.8 fL (8.0-11.0) 01/02/19 06:17 Immature Gran % 0.2 01/02/19 06:17 Neutrophils % 91.8 01/02/19 06:17 Lymphocytes % 2.0 01/02/19 06:17 Monocytes % 5.9 01/02/19 06:17 Eosinophils % 0.1 01/02/19 06:17 Basophils % 0.0 01/02/19 06:17 Absolute Neutrophils 13.90 k/cumm (1.2-6.7) H 01/02/19 06:17 Absolute Lymphocytes 0.30 k/cumm (1.2-3.4) L 01/02/19 06:17 Absolute Monocytes 0.89 k/cumm (0.11-0.7) H 01/02/19 06:17 Absolute Eosinophils 0.02 k/cumm (0.0-0.7) 01/02/19 06:17 Absolute Basophils 0.00 k/cumm (0.0-0.2) 01/02/19 06:17 Differential Comment Rbc morph reviewed 01/02/19 06:17 RBC Morphology See below 01/02/19 06:17 Polychromasia Present 01/01/19 08:34 Hypochromasia 1+ 01/02/19 06:17 Poikilocytosis 1+ 01/02/19 06:17 Anisocytosis 2+ 01/02/19 06:17 Sodium 144 mmol/L (136-145) 01/02/19 06:17 Potassium 4.0 mmol/L (3.5-5.1) 01/02/19 06:17 Chloride 102 mmol/L (98-107) 01/02/19 06:17 Carbon Dioxide 34.1 mmol/L (21.0-32.0) H 01/02/19 06:17 Anion Gap 7.9 mmol/L (3-11) 01/02/19 06:17 BUN 25 mg/dL (7-18) H 01/02/19 06:17 Creatinine 0.89 mg/dL (0.70-1.30) 01/02/19 06:17 Estimated GFR/1.73 m2 >= 60.00 (mL/min/1.73m2) 01/02/19 06:17 Glucose 112 mg/dL (70-100) H 01/02/19 06:17 Calcium 9.0 mg/dL (8.5-10.1) 01/02/19 06:17 Magnesium 2.3 mg/dL (1.8-2.4) 01/02/19 06:17 Total Bilirubin 0.5 mg/dL (0.2-1.0) 12/30/18 13:06 AST 27 U/L (15-37) 12/30/18 13:06 ALT 37 U/L (16-63) 12/30/18 13:06 Alkaline Phosphatase 73 U/L (46-116) 12/30/18 13:06 Troponin I < 0.05 ng/mL (0.00-0.06) 12/30/18 23:20 NT-Pro-B Natriuret Pep 96 pg/mL (-299) 12/30/18 13:06 Total Protein 7.6 g/dL (6.4-8.2) 12/30/18 13:06 Albumin 3.9 g/dL (3.4-5.0) 12/30/18 13:06 Procalcitonin < 0.1 ng/mL 12/30/18 13:06
--- NOTE | 2019-01-02 16:32 | CHAPLAIN ---
Javier was sitting up in bed when I visited. He said he is starting to feel better and he got some good rest last night. Javier is a member of the [employer] in [place], [place], where he attends with his . He was raised Anabaptist and did not attend taoist for many years and with the past few years, joined his at the [employer] [facility] [employer] and explained he has since found that prayer and his graciela in God help sustain his life. He said he prays for God's guidance and believes that what happens to him in his life is determined by God. It's about what He wants, Javier said. Javier is well supported by his job training specialist, , who has visited him here in the past. I will continue to check in with Javier.
--- NOTE | 2019-01-02 16:52 | PDOC.CMPRO ---
Care Management Progress Note S/O: Javier was sitting up in bed when CM came to see him. He was pleasant and friendly and readily entered into conversation with CM. Javier reported he has a new hospital bed in a room downstairs, and Claire filled his room with plants. He reports enjoying the room but feeling removed from Claire. He reports really enjoying skilled services after his last discharge and reports Home Health services were outstanding, especially better breathers. He does not anticipate needing additional services upon discharge. CM continues to follow. A: Javier is a 63 gentleman admitted to [facility] with COPD and end stage lung disease on 12/30/18 P: Javier is being treated for COPD and bronchitis. He will be discharged with a resumption of current services which include home oxygen, use of a Trilogy machine and [facility] which provides respite and assistance with equipment. He will resume Pulmonary rehab. CM will continue to provide support to patient, family and discharge planning needs.
[2019-01-02] MEDS: Rivaroxaban 10 MG TABLET 20 MG PO (17:06)
[2019-01-02] MEDS: predniSONE 20 MG TAB 40 MG PO (20:49)
[2019-01-02] MEDS: levoFLOXacin 500 MG, levoFLOXacin 250 MG 750 MG PO (21:42)
[2019-01-02] MEDS: LORazepam 1 MG TAB PO (21:43)
[2019-01-02] MEDS: Atorvastatin 40 MG TAB 80 MG PO (21:43)
[2019-01-03] VITALS (12 sets, daily range): BP systolic 123–144; BP diastolic 61–72; PULSE 80–101; RESP 1–20; TEMP 36.4–36.6; O2SAT 97–98
[2019-01-03 07:19] LABS: Abs Immature Grans 0.01 k/cumm (0.0-0.09); Absolute Lymphocyte Count 0.33 k/cumm (1.2-3.4); Absolute Monocyte Count 0.67 k/cumm (0.11-0.7); Absolute Neutrophil Count 9.63 k/cumm (1.2-6.7); HCT 31.6 % (40.0-50.0); HGB 9.5 g/dL (13.5-17.5); Immature Grans % 0.1; Lymphocytes % 3.1; Mean Corp. HGB Concentration 30.1 g/dL (32.0-36.0); Mean Corpuscular Hemoglobin 26.5 pg (27.0-33.0); Mean Corpuscular Volume 88.3 fL (80-95); Mean Platelet Volume 9.1 fL (8.0-11.0); Monocytes % 6.3; Neutrophils % 90.5; Platelet Count 297 x1000/uL (130-400); RBC 3.58 m/cumm (4.50-6.00); RBC Distribution Width 18.4 % (11.8-14.1); White Blood Cell Count 10.64 k/cumm (4.4-10.8)
[2019-01-03] MEDS: Levalbuterol 1.25 MG/3 ML UPD VIAL UPD ×3 (07:36→14:55)
[2019-01-03] MEDS: Budesonide/Formoterol 160/4.5 6 GM 60 PUFF INH IH (07:46)
[2019-01-03] MEDS: Budesonide 0.5 MG/2 ML UPD VIAL UPD (07:46)
[2019-01-03 07:49] LABS: Anion Gap 4.6 mmol/L (3-11); BUN 27 mg/dL (7-18); CO2 35.4 mmol/L (21.0-32.0); CREATININE 0.92 mg/dL (0.70-1.30); Calcium 9.1 mg/dL (8.5-10.1); Chloride 104 mmol/L (98-107); Glucose 116 mg/dL (70-100); Magnesium 2.6 mg/dL (1.8-2.4); Potassium 4.4 mmol/L (3.5-5.1); Sodium 144 mmol/L (136-145)
[2019-01-03] MEDS: Tiotropium Bromide-Respimat 10 PUFF INH 2 PUFF IH (07:51)
[2019-01-03] MEDS: Metoprolol CR 50 MG TABCR PO (07:55)
[2019-01-03] MEDS: Pantoprazole 40 MG TABCR PO (07:55)
[2019-01-03] MEDS: predniSONE 10 MG TAB PO (07:56)
[2019-01-03] MEDS: Tamsulosin 0.4 MG CAPCR PO (07:56)
[2019-01-03] MEDS: predniSONE 20 MG TAB 40 MG PO (07:56)
[2019-01-03] MEDS: Citalopram 20 MG TAB PO (07:56)
[2019-01-03] MEDS: Furosemide 20 MG TAB PO (07:56)
[2019-01-03] MEDS: Multivitamin TAB 1 TAB PO (07:56)
[2019-01-03] MEDS: Lisinopril 10 MG TAB PO (07:56)
[2019-01-03] MEDS: LORazepam 0.5 MG TAB PO (07:56)
--- NOTE | 2019-01-03 10:00 | PDOC.CMPRO ---
Care Management Progress Note S/O: Javier was sitting up in bed when CM came to see him. He remains pleasant in interaction. He does not anticipate needing additional services upon discharge. CM continues to follow. A: Javier is a 63 gentleman admitted to [facility] with COPD and end stage lung disease on 12/30/18 P: Javier is being treated for COPD and bronchitis. He will be discharged with a resumption of current services which include home oxygen, Trilogy machine and [facility] which provides respite and assistance with equipment. He will also resume Pulmonary rehab at [facility]. CM will continue to provide support to patient, family and discharge planning needs.
--- NOTE | 2019-01-03 12:34 | W.PM.DS.N ---
Date of service: 01/03/19 Time of Service: 12:34 DS: Diagnosis Discharge Diagnosis (1) COPD exacerbation: Status: Acute Discharge Plan Disposition Patient Disposition: HOME Condition: Stable Discharge Details Chief Complaint: SOB Clinical Impression: Acute exacerbation of chronic obstructive pulmonary disease (COPD) Reason For Visit: ACUTE COPD EXACERBATION Admit Date/Time: 01/01/19 16:04 Admit Provider: Shane Vieira Attending Provider: Shane Vieira Primary Care Provider: Dario Hallman ED Provider: Joya Degroot Hospital Course Hospital Course: Chief Complaint: Dyspnea HPI: Very pleasant 62-year-old man with a prior medical history significant for End Stage COPD on home oxygen therapy, admitted from [facility] Emergency Department on 12/30 with a diagnosis of acute exacerbation of underlying COPD. Mr. Bautista has a past medical history significant for Oxygen dependent, end-stage COPD, with prior respiratory distress requiring intubation and mechanical ventilation. He has been trached in the past for this, and [facility]. He utilized NIPPV in the form of Trilogy at home. He also reported an intolerance of albuterol due to severe tachycardia/Afib. Other history includes PAF on AC, CAD, Diastolic CHF, PHTN with PAPs in the 50's range, and BPH. He was hospitalized here at [facility] both in June and July of this year, and treated for a COPD Exacerbation, Pneumonia, and sepsis. The patient was seen in the ED with reported onset of dyspnea, cough, and sputum production over the course of the past 1-2 weeks. He also reported sensation of numbness in his hands and lower extremities, ongoing for a number of weeks. He was initiated on therapy as an outpatient with Azithromycin and a steroid taper, and while temporarily improved he began feeling worse again prior to presenting to the ED. Work-up was significant for a mild leukocytosis, chronic and stable anemia, normal BNP, negative troponin, and essentially normal CMP. Imaging with CXR and CT of the head were negative. He was referred for admission for further evaluation and treatment. This morning Mr. Bautista reports continued improvement in symptoms, and also states that he is not quite as short of breath after exertion and that he appears to be recovering faster. Rapid Flu was checked and negative. No overnight events reported. Remains afebrile. Hospital Course: (1) COPD exacerbation: Appears improved. - Continue a slow steroid taper. Continue Nebs at home with Budesonide & Levalbuterol. Also on NIPPV with Trilogy. - Currently on day #4 of antibiotic therapy with high dose Levofloxacin - sputum culture not revealing ([place] which is likely colonization). - Influenza negative. CXR without acute pathology. (2) Atrial fibrillation: - Continue BB therapy, anticoagulation with Rivaroxaban. - Patient was maintained on telemetry - periods of tachycardia with movement was sinus tachcardia by monitor as opposed to AFib. (3) Coronary artery disease: Appears quiescent, with initial Troponin negative. Patient will be maintained on his chronic cardiac regimen consisting of BB and high potency statin. Also on RADHA-I, anticoagulation as above. (4) BPH (benign prostatic hyperplasia): Continue a-lizet. (5) Anemia: Chronic anemia, appears stable. Normocytic, but in patient on chronic anticoagulation. Prior work-up in July of this year with low iron levels, low TIBC, but normal Ferritin. B12 and FA normal, and TSH low (in setting of acute illness) with normal FT4 - possible mixed picture. Hgb remains stable. (6) Advance directive on file: Full Code. Home Meds and New Rx's Prescriptions: New levofloxacin [Levaquin] 750 mg Tablet 750 mg PO HS Qty: 2 RF: 0 prednisone 20 mg tablet 20 mg PO DAILY Qty: 20 RF: 0 Continued multivitamin [Men's Multi-Vitamin] 1 EACH tablet 1 ea PO DAILY RF: 0 citalopram 40 MG tablet 20 mg PO DAILY RF: 0 tamsulosin 0.4 MG capsule 0.4 mg PO DAILY RF: 0 acetaminophen 325 MG tablet 650 mg PO PRN PRNRF: 0 budesonide [Pulmicort] 0.5 mg/2 mL Suspension For Nebulization 0.5 mg UPD Q12H Qty: 1 RF: 0 ipratropium bromide 0.02 % Solution 0.5 mg UPD Q6H Qty: 1 RF: 0 pantoprazole 40 mg Tablet,Delayed Release (Dr/Ec) 40 mg PO DAILY Qty: 30 RF: 0 furosemide [Lasix] 20 mg tablet 20 mg PO QAM Qty: 3 RF: 0 atorvastatin 80 mg Tablet 80 mg HS RF: 0 lorazepam 0.5 mg Tablet 0.5 mg PO DIRECTED RF: 0 metoprolol succinate 50 mg Tablet Extended Release 24 Hr 50 mg PO BID RF: 0 fluticasone propionate 50 mcg/actuation [place],Suspension 2 spray INTRANASAL DAILY RF: 0 levalbuterol HCl 0.31 mg/3 mL Solution For Nebulization INHALATION QID RF: 0 tiotropium bromide 2.5 mcg/actuation Mist 2.5 INHALATION RF: 0 levalbuterol tartrate 45 mcg/actuation Hfa Aerosol Inhaler INHALATION Q4H PRN PRNRF: 0 prednisone 10 mg tablet 10 mg PO DAILY PRNRF: 0 lisinopril 10 MG tablet 10 mg PO DAILY RF: 0 Xarelto 20 MG tablet 20 mg PO QACDINNER RF: 0 prednisone 10 mg tablet 10 mg PO DAILY Qty: 30 RF: 0 Discontinued azithromycin 250 mg Tablet 250 mg DIRECTED PRN (Reason: copd exacerbation) RF: 0 Discharge Instructions Stand Alone Forms: Nursing Discharge Form Referrals: Dario Hallman [Primary Care Provider] - Activity:: No strenuous activity Equipment/Supplies:: No Equipment Needed Diet:: As Tolerated Discharge Orders Discharge Orders: Discharge Order (Routine); Ordered 01/03/19 Ordered By: Marcelo Vieira DS: Summary Status at Discharge Functional status at discharge: independent ambulation Overall status at discharge: patient is back to baseline Mental Status: mental status grossly normal Speech and Movement: speech and movement normal Mood: congruent mood Affect: normal affect Exam Narrative Exam Narrative: General: Patient appears comfortable, AAOX3, NAD Neck: Supple CV: Regular, nontachycardic but normal, S1S2, No rubs, murmurs, or gallops. Pulmonary: Clear to auscultation bilaterally with diffusely decreased breath sounds - improved air entry noted. No wheezing on exam. Abdomen: + Bowel Sounds, soft, nontender, nondistended Vascular: No lower extremity edema Psych: Normal mood and affect. Psych Mental Status: mental status grossly normal Speech and Movement: speech and movement normal Mood: congruent mood Affect: normal affect DS: Data Vitals/I&O Vitals and I&O: Vital Signs Temperature 36.4 C L 01/03/19 11:31 Temperature Source Tympanic 01/03/19 11:31 Pulse 88 01/03/19 11:36 Pulse Rhythm Regular 01/03/19 09:04 Pulse 83 12/30/18 21:40 Respiratory Rate 18 01/03/19 11:36 Respiratory Effort Non-Labored 01/03/19 09:04 Respiratory Depth Normal 01/03/19 09:04 Respiratory Pattern Normal 01/03/19 09:04 Blood Pressure 123/61 01/03/19 11:31 Blood Pressure Mean 81 12/30/18 21:31 Pulse Oximetry 97 01/03/19 11:31 Oxygen Delivery Method Nasal Cannula 01/03/19 11:34 Oxygen Flow Rate 2 01/03/19 11:34 Pain Level 0 01/03/19 11:31 Comment 01/03/19 04:04 Intake & Output 01/02/19 01/03/19 01/03/19 23:59 11:59 23:59 Intake Total 360 / 720 380 / 380 Balance 360 / 320 380 / 380 Weight 56.8 kg Intake: IV Oral 360 / 720 370 / 370 Other: Urine Color Pale Yellow Urine Appearance Clear Clear Urine Odor None Stool Size Moderate Stool Characteristics Soft Brown Voiding Methods Toilet Urinal Data Completed and Pending Completed studies during hospitalization [Text1]: Exam(s) 12/30/[address]:CT head wo EXAM: CT HEAD WO CLINICAL HISTORY: arm and leg numbness/weakness, r/o CVA. TECHNIQUE: Noncontrast enhanced cranial CT was performed. COMPARISON: No exams were available for comparison FINDINGS: There is no evidence of an intra or extra-axial hemorrhage. There is no evidence of a mass. The vergara-white matter differentiation is preserved. The ventricles are intact. There is no evidence of a skull fracture. Paranasal sinuses are unremarkable. There is no evidence of a mastoid effusion. IMPRESSION: No acute intracranial abnormality is demonstrated. ------ Exam(s) 12/30/2018 a RAD:XR chest 2V PA & lateral EXAM: XR CHEST 2V PA AND LATERAL INDICATION: SOB, h/o COPD, r/o acute disease. COMPARISON: XR PORTABLE CHEST AP from 08/11/2018 TECHNIQUE: 2D digital imaging was performed. FINDINGS: Emphysematous changes are demonstrated in the lungs. There is no infiltrate or evidence of a mass. There is no pleural effusion. The cardiovascular structures are intact. IMPRESSION: No evidence of acute cardiopulmonary disease. Labs on day of discharge: Labs from last 24 hours 01/03/19 01/03/19 06:40 06:40 WBC 10.64 RBC 3.58 L Hgb 9.5 L Hct 31.6 L MCV 88.3 MCH 26.5 L MCHC 30.1 L RDW 18.4 H Plt Count 297 MPV 9.1 Immature Gran % 0.1 Neutrophils % 90.5 Lymphocytes % 3.1 Monocytes % 6.3 Eosinophils % 0.0 Basophils % 0.0 Absolute Neutrophils 9.63 H Absolute Lymphocytes 0.33 L Absolute Monocytes 0.67 Absolute Eosinophils 0.00 Absolute Basophils 0.00 Sodium 144 Potassium 4.4 Chloride 104 Carbon Dioxide 35.4 H Anion Gap 4.6 BUN 27 H Creatinine 0.92 Estimated GFR/1.73 m2 >= 60.00 Glucose 116 H Calcium 9.1 Magnesium 2.6 H PFSH Medical History Anemia (Chronic) Anxiety Atrial fibrillation BPH (benign prostatic hyperplasia) Bronchiectasis (Chronic) COPD (chronic obstructive pulmonary disease) with emphysema Coronary artery disease (Chronic) Depression Essential hypertension History of MRSA infection (Chronic) Surgical History Arthroplasty of knee Gastrostomy Tube Placement tracheostomy Social History Smoking/Tobacco Use Status: Former Tobacco Use Alcohol Intake: never Drug use: Never Do you feel safe at home: Yes Do you feel safe in your relationship?: Yes
--- NOTE | 2019-01-03 14:30 | PDOC.CMDIS ---
LACE Index Scoring Tool - Questions: Length of Stay (in days): 2 Acuity (Admit via E.D.?): Yes Comorbidities: Chronic Pulmonary Disease E.D. Visits: 9 - Answers: Total Score: 11 Risk of Readmission: High Risk Care Management Discharge Reason for Hospitalization: COPD and acute purulent bronchitis Discharge Plan: Javier will resume home oxygen, Trilogy machine and [facility] which provides respite and assistance with equipment. He will also resume Pulmonary rehab at [facility]. He will transport via private vehicle with his family. Patient/Family Education Needs: Review discharge instructions, discuss Ask Me Three. Services Needed at Discharge: DME Agency, Home Health Care Services ([facility]), Oxygen Therapy
== END 2019-01-03 15:12 | disposition home or self-care (01) | DRG 191 ==
LOC: ER 19:18 → MS 12-31 07:32
PROVIDERS: Admitting Provider Internal Medicine; Emergency Provider Physician Assistant; PCP Internal Medicine; Visit Provider Internal Medicine
DX: J44.1 Chronic obstructive pulmonary disease with (acute) exacerbation (principal); I50.32 Chronic diastolic (congestive) heart failure; J20.9 Acute bronchitis, unspecified; J44.0 Chronic obstructive pulmonary disease with (acute) lower respiratory infection; Z99.81 Dependence on supplemental oxygen; I48.0 Paroxysmal atrial fibrillation; Z79.01 Long term (current) use of anticoagulants; I25.10 Atherosclerotic heart disease of native coronary artery without angina pectoris; I27.22 Pulmonary hypertension due to left heart disease; N40.0 Benign prostatic hyperplasia without lower urinary tract symptoms; D53.9 Nutritional anemia, unspecified; Z23 Encounter for immunization
CPT/HCPCS: 36415; 80048; 80053; 84145; 87449; 94640; 99220; 99232; 99239; 70450; 71046; 83735; 83880; 84484; 85025; 87070; 87205; 94664; 99225; G0378; J1720; J2930; J7512; J7614; J7626

== ENCOUNTER 2019-01-16 14:00 | Outpatient (RCR) | payer MEDICARE, MEDICAID, SELFPAY | END 2019-01-19 23:59 | disposition home or self-care (01) | LOC: PRC 14:00 | PROVIDERS: PCP Internal Medicine; Visit Provider Family Medicine | DX: J44.9 Chronic obstructive pulmonary disease, unspecified (principal); Z51.89 Encounter for other specified aftercare | CPT/HCPCS: G0424 ==

== ENCOUNTER 2019-02-15 14:00 | Outpatient (RCR) | payer MEDICARE, MEDICAID, SELFPAY | END 2019-02-18 23:59 | disposition home or self-care (01) | LOC: PRC 14:00 | PROVIDERS: PCP Internal Medicine; Visit Provider Family Medicine | DX: J44.9 Chronic obstructive pulmonary disease, unspecified (principal); Z51.89 Encounter for other specified aftercare | CPT/HCPCS: G0424 ==

== ENCOUNTER 2019-02-22 14:00 | Outpatient (RCR) | payer MEDICARE, MEDICAID, SELFPAY | END 2019-03-21 23:59 | disposition home or self-care (01) | LOC: PRC 14:00 | PROVIDERS: PCP Internal Medicine; Visit Provider Family Medicine | DX: J44.9 Chronic obstructive pulmonary disease, unspecified (principal); Z51.89 Encounter for other specified aftercare | CPT/HCPCS: G0424 ==

== ENCOUNTER 2019-04-22 04:22 | Outpatient (RCR) | payer MEDICARE, SELFPAY | END 2019-05-20 23:59 | disposition home or self-care (01) | LOC: PRC 04:22 | PROVIDERS: PCP Internal Medicine; Visit Provider Family Medicine | DX: J44.9 Chronic obstructive pulmonary disease, unspecified (principal); Z51.89 Encounter for other specified aftercare ==

== ENCOUNTER 2019-08-18 12:46 | Emergency (ER) | payer MEDICARE, MEDICAID, SELFPAY ==
[2019-08-18 12:57] VITALS: BP 199/61; PULSE 93; RESP 36; TEMP 36.8; O2SAT 92
--- NOTE | 2019-08-18 13:16 | ED.GENADUL_ITS ---
Discharge Plan Disposition Patient Disposition: HOME Condition: Fair Discharge Details Chief Complaint: SOB Clinical Impression: Compression fracture, COPD exacerbation Primary Care Provider: Dario Hallman ED Provider: Donna Green Home Meds and New Rx's Prescriptions: New oxycodone 5 mg tablet 5 mg PO Q8H PRN (Reason: pain) Qty: 7 RF: 0 azithromycin 250 mg tablet 250 mg PO DAILY 4 Days Qty: 4 RF: 0 Continued multivitamin [Men's Multi-Vitamin] 1 EACH tablet 1 ea PO DAILY RF: 0 citalopram 40 MG tablet 20 mg PO DAILY RF: 0 tamsulosin 0.4 MG capsule 0.4 mg PO DAILY RF: 0 acetaminophen 325 MG tablet 650 mg PO PRN PRNRF: 0 budesonide [Pulmicort] 0.5 mg/2 mL Suspension For Nebulization 0.5 mg UPD Q12H Qty: 1 RF: 0 ipratropium bromide 0.02 % Solution 0.5 mg UPD Q6H Qty: 1 RF: 0 pantoprazole 40 mg Tablet,Delayed Release (Dr/Ec) 40 mg PO DAILY Qty: 30 RF: 0 furosemide [Lasix] 20 mg tablet 20 mg PO QAM Qty: 3 RF: 0 atorvastatin 80 mg Tablet 80 mg HS RF: 0 lorazepam 0.5 mg Tablet 0.5 mg PO DIRECTED RF: 0 metoprolol succinate 50 mg Tablet Extended Release 24 Hr 50 mg PO BID RF: 0 fluticasone propionate 50 mcg/actuation [place],Suspension 2 spray INTRANASAL DAILY RF: 0 levalbuterol HCl 0.31 mg/3 mL Solution For Nebulization INHALATION QID RF: 0 tiotropium bromide 2.5 mcg/actuation Mist 2.5 INHALATION RF: 0 levalbuterol tartrate 45 mcg/actuation Hfa Aerosol Inhaler INHALATION Q4H PRN PRNRF: 0 prednisone 10 mg tablet 10 mg PO DAILY PRNRF: 0 lisinopril 10 MG tablet 10 mg PO DAILY RF: 0 Xarelto 20 MG tablet 20 mg PO QACDINNER RF: 0 levofloxacin [Levaquin] 750 mg Tablet 750 mg PO HS Qty: 2 RF: 0 prednisone 20 mg tablet 20 mg PO DAILY Qty: 20 RF: 0 prednisone 10 mg tablet 10 mg PO DAILY Qty: 30 RF: 0 Discharge Instructions Instructions: Thoracolumbar Fracture (ED) Additional Instructions: Encourage water intake. You may continue to use Tylenol to help with discomfort. [id number]-[id number] topical options such as lidocaine patches may also be of benefit. If these options are not sufficient for your discomfort, please use the oxycodone as prescribed. Take this medication only as prescribed. Please separate from when you take your Ativan at night. This medication can use your respiratory drive as we discussed. Please do not drive while taking this medication. Please call orthopedics Wednesday morning to schedule follow-up appointment. A referral for palliative care has been sent to discuss your discomfort and help to manage your current pain with your comorbidities. If you develop fever/chills, increased pain, weakness or other new/worsening symptoms please seek care urgently once again. Referrals: Quentin Pritchett MD [ [facility] STAFF PHYSICIAN] - Dario Hallman [Primary Care Provider] - Discharge Data Discharge Date/Time-TO BE ENTERED AT DEPARTURE: 08/18/19 17:36 Medical Decision Making <MARILEE Quintanilla - Last Filed: 08/18/19 19:15> Patient is a pleasant 63-year-old gentleman presenting today with chief complaint of lower back pain. He reports that 9 days ago he attempted to open a window while his arms were reached out behind him, when he felt a sudden onset of severe back pain. Describes the pain as sharp and stabbing. States the pain can radiate down the left lower extremity and endorses tingling in the left leg. Denies any fall. He does have a history of compression fractures in the lumbar spine. He states that this pain is different than the pain he is experienced with those fractures historically. States that he has been using Tylenol with minimal relief. This has made it difficult for him to ambulate and perform his ADLs. Patient has multiple comorbidities most notably which is end-stage COPD. Patient states that now he feels like he may be developing a COPD exacerbation. He has standing orders through his primary care provider for prednisone taper as well as azithromycin in the event that he feels exacerbation coming on. [facility]. He did have prednisone at home which she began today. However, he does not have his azithromycin as of yet, they are in the mail. He feels like his shortness of breath is otherwise at baseline. He denies any cough or fevers. He has not had any COVID-19 exposure that he is aware of. He denies any weakness in his lower extremities. He denies any change in his bowel or bladder habits. Denies any abdominal pain. No nausea or vomiting. Has not noted any rash. Patient's blood pressure was initially noted to be 199/61 by nursing staff. However, when I was examining the patient it was down to 121/63. On exam, patient does appear uncomfortable particular with movements. 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 His lungs are otherwise clear, normal cardiac rhythm. Abdominal exam is benign, no pulsatile masses palpable. No tenderness. On exam the spine, patient has slight lower thoracic discomfort at midline as well as maximal tenderness just right of midline of the lumbar spine. It is this area where he indicates the most pain, he feels like the pain radiates down from this area. No midline tenderness of the lumbar spine. No step-off. No change in the skin. This area does have palpable spasm. His movements are limited. He does have a positive straight leg on the left side. He has 2+ distal pulses, 5 out of 5 strength bilaterally, normal Babinski, normal reflexes equal bilaterally. No saddle paresthesias. EKG was reviewed by Dr. Benton. Patient is in a normal sinus rhythm with a rate of 87. No acute ischemic changes noted. Patient's history and exam is most consistent with muscular spasm of the lumbar spine. Plan to treat with Valium, Tylenol and Lidoderm patch. However, with the patient's midline tenderness of the lower thoracic spine, I do feel that imaging is appropriate. As he has had multiple compression fractures historically, I am concerned that an x-ray will not be appropriate testing and that CT scan should be ordered. I discussed this plan with the patient. He tolerates laying flat well. He is in agreement with this plan. We will also begin the patient's azithromycin as he typically would at home. CT reviewed by radiologist: FINDINGS: CT of the lumbar spine: There is a mild compression fracture of the superior endplate of L2. There is no evidence of retropulsion. The remaining vertebral bodies appear intact. There are small endplate osteophytes. There is mild disc bulging. Vacuum disc phenomenon is seen at L5-S1. There are mild facet joint degenerative changes. Atherosclerotic changes are noted in the abdominal aorta. There is a 2.8 cm distal aortic aneurysm with mural thrombus, unchanged. Emphysematous changes are seen at the lung bases. CT of the thoracic spine: There is mild loss of vertebral body height of T6 and T7 which appear unchanged from the previous CT. There is now moderate to severe compression of the T8 vertebral body. There is no retropulsion. There is stable mild loss of vertebral body height at T 9 and T11. No posterior element abnormalities are seen. Emphysematous changes are noted in the lungs. There is aortic and coronary artery calcification. IMPRESSION: Mild compression of the superior endplate of L2 without retropulsion, new when compared with the previous exam. Moderate to severe compression the T8 vertebral body, new since the previous exam. Stable mild loss of vertebral body height at T6, T7, T9 and T11.. Consulted with Dr. Pritchett. He advised that the thoracic spine may require surgical intervtion. However, given patients comorbidities he may not be a surgical candidate. He will see patient on Wednesday in f/u to discuss routes of treatment. If none surgical, patient may benefit from bracing. However, I am concerned given the patietns breathing habits that he may also have difficulty with this. I discussed these results with the patient. He continues to have discomfort in the above was augmented with 5 mg of oxycodone. Discussed Dr. Walker's recommendations. We did discuss the potential recommendation for surgical intervention. I did express my concern about him being a appropriate surgical candidate and advised that he should discuss this further with Dr. Walker on Wednesday.. We also discussed Dr. Walker's recommendations. I advised that he may ambulate about the house and actually encouraged him to do so particularly given his respiratory status. However, I advised against any heavy lifting as this would likely increased his discomfort. Patient and I also discussed palliative care. Feel that palliative care would be appropriate with the patient chronic comorbidities as well as his acute discomfort. I do worry that the patient's discomfort will be hard to manage and may exacerbate his underlying chronic comorbidities. He is agreeable to this and a referral has been sent. Patient is feeling improved after 5 mg oral oxycodone. He has tolerated this well. We did discuss sleeping positions and advised that a more upright position may be more tolerable for him. I did encourage water intake. We discussed nonnarcotic options to help with discomfort. I encouraged her to try these first and if unsuccessful he may augment with the oxycodone. Advise he not take his oxycodone with his Ativan. I am concerned regarding the patient's respiratory status and taking these medications particular with his underlying disease. He was given strict return precautions. All of his questions and concerns were addressed and he is in agreement with this plan. <Bhupendra Benton MD - Last Filed: 08/18/19 17:32> Patient seen, examined, and discussed with MARILEE Green. Pain ECG was reviewed and interpreted by me: Sinus rhythm 87 bpm, normal axis, no STEMI, nondiagnostic. I agree with treatment plan as discussed/documented. HPI <MARILEE Quintanilla - Last Filed: 08/18/19 19:15> General Mode of arrival: ambulatory . Date/Time Provider Initiated Documentation: 08/18/19 12:58 . Limitations to Documentation: no limitations . Information obtained by: patient and RN notes reviewed . History of Present Illness 63 year old M presents to the emergency department with the chief complaint of lower back pain, described as moderate, with intensity rated at 4. Quality is described as stabbing, and is localized to the back. Patient extremity (LLE). Patient started experiencing this day(s) (9) and it has been constant. Immobilization improves symptom(s), Movement worsens symptoms . Patient notes cough (baseline associated iwth chronic disease, no acute change in this) and shortness of breath (baseline associated iwth chronic disease, no acute change in this); denies chest pain, diaphoresis, fever/chills, loss of appetite, nausea/vomiting, rash, syncope and weakness. Patient did receive the following treatments prior to arrival, other (APAP) Related Data Home Medications Medication Instructions Recorded Confirmed citalopram 20 mg PO DAILY 05/09/15 08/18/19 multivitamin [Men's Multi-Vitamin] 1 ea PO DAILY 05/09/15 08/18/19 tamsulosin 0.4 mg PO DAILY 05/09/15 08/18/19 acetaminophen 650 mg PO PRN PRN 06/16/17 08/18/19 budesonide [Pulmicort] 0.5 mg UPD Q12H #1 pkg 07/05/18 08/18/19 ipratropium bromide 0.5 mg UPD Q6H #1 pkg 07/05/18 08/18/19 pantoprazole 40 mg PO DAILY #30 tab 07/05/18 08/18/19 furosemide [Lasix] 20 mg PO QAM #3 tab 07/27/18 08/18/19 Xarelto 20 mg PO QACDINNER 12/31/18 08/18/19 atorvastatin 80 mg HS 12/31/18 08/18/19 fluticasone propionate 2 spray INTRANASAL DAILY 12/31/18 08/18/19 levalbuterol HCl INHALATION QID 12/31/18 levalbuterol tartrate INHALATION Q4H PRN PRN 12/31/18 lisinopril 10 mg PO DAILY 12/31/18 08/18/19 lorazepam 0.5 mg PO DIRECTED 12/31/18 08/18/19 metoprolol succinate 50 mg PO BID 12/31/18 08/18/19 prednisone 10 mg PO DAILY PRN 12/31/18 08/18/19 tiotropium bromide 2.5 INHALATION 12/31/18 levofloxacin [Levaquin] 750 mg PO HS #2 tab 01/03/19 08/18/19 prednisone 10 mg PO DAILY #30 tab 01/03/19 08/18/19 prednisone 20 mg PO DAILY #20 tab 01/03/19 08/18/19 azithromycin 250 mg PO DAILY 4 Days #4 tab 08/18/19 oxycodone 5 mg PO Q8H PRN #7 tab 08/18/19 Previous Rx's Medication Instructions Recorded budesonide [Pulmicort] 0.5 mg UPD Q12H #1 pkg 07/05/18 ipratropium bromide 0.5 mg UPD Q6H #1 pkg 07/05/18 pantoprazole 40 mg PO DAILY #30 tab 07/05/18 furosemide [Lasix] 20 mg PO QAM #3 tab 07/27/18 levofloxacin [Levaquin] 750 mg PO HS #2 tab 01/03/19 prednisone 10 mg PO DAILY #30 tab 01/03/19 prednisone 20 mg PO DAILY #20 tab 01/03/19 azithromycin 250 mg PO DAILY 4 Days #4 tab 08/18/19 oxycodone 5 mg PO Q8H PRN #7 tab 08/18/19 Allergies Allergy/AdvReac Type Severity Reaction Status Date / Time albuterol Allergy Verified 08/18/19 13:01 General Stated Complaint: SOB DANETTE: 2 Review of Systems <MARILEE Quintanilla - Last Filed: 08/18/19 19:15> Constitutional Constitutional: Reports as per HPI, Denies chills, Reports fatigue (States difficulty sleeping since injury), Denies fever(s), Denies frequent falls and Denies headache(s) Eyes Eyes: Denies change in vision ENT Ears, Nose, Mouth, and Throat: Denies headache(s) Cardiovascular Cardiovascular: Denies chest pain, Reports dyspnea and Reports dyspnea on exertion Respiratory Respiratory: Reports cough (all respiratory issues are chronic), Reports dyspnea and Reports dyspnea on exertion Gastrointestinal Gastrointestinal: Denies abdominal pain, Denies change in bowel habits and Denies fecal incontinence Genitourinary Genitourinary: Reports as per HPI, Denies oliguria, Denies urinary hesitancy and Denies urinary incontinence Musculoskeletal Musculoskeletal: Reports as per HPI, Reports back pain, Denies muscle weakness, Denies numbness, Reports radiating pain into limb, Reports stiffness and Reports tingling Integumentary/Breasts Skin/Breast: Reports as per HPI and Denies rash Neurologic Neurologic: Reports as per HPI, Denies frequent falls, Denies headache(s), Denies localized weakness, Denies numbness, Denies radicular pain, Denies sensory deficit, Reports tingling and Denies paresthesias Endocrine Endocrine: Reports fatigue (States difficulty sleeping since injury) PFSH <MARILEE Quintanilla - Last Filed: 08/18/19 19:15> Medical History Anemia (Chronic) Anxiety Atrial fibrillation BPH (benign prostatic hyperplasia) Bronchiectasis (Chronic) COPD (chronic obstructive pulmonary disease) with emphysema Coronary artery disease (Chronic) Depression Essential hypertension History of MRSA infection (Chronic) Surgical History Arthroplasty of knee Gastrostomy Tube Placement tracheostomy Social History Smoking/Tobacco Use Status: Former Tobacco Use Alcohol Intake: never Drug use: Never Do you feel safe at home: Yes Do you feel safe in your relationship?: Yes Exam <MARILEE Quintanilla - Last Filed: 08/18/19 19:15> Const General: cooperative, not healthy appearing, uncomfortable, no acute distress, well developed, well groomed and ill appearing chronically Nutritional Appearance: well nourished and thin Orientation: alert and awake Eyes General: appearance normal, both eyes and all related structures Neck Neck: normal visual inspection, full ROM, no lymphadenopathy and no meningeal signs Resp Effort & Inspection: no audible wheezes, no cough, labored (patient has work of breathing, reported by patient and respiratory to be ba), no pursed lip breathing, no respiratory distress, uses accessory muscles and prolonged expiratory phase Auscultation: clear to auscultation bilaterally, no rales, no rhonchi and no wheezes Cardio Rate: regular rate Rhythm: regular rhythm Heart Sounds: S1 normal and S2 normal GI Inspection: normal to inspection Palpation: soft, no hepatosplenomegaly, not firm, no guarding, no masses, no pulsatile masses, not rigid and nontender Back/Spine/Pelvis Back: no CVA tenderness Cervical Spine: normal cervical lordosis and cervical ROM normal Thoracic/Lumbar Spine: thoracic and lumbar spine normal to inspection, No thoraco-lumbar ROM normal (limited in all directions secondary to pain), No straight leg raise negative bilaterally (positive on left side), paraspinal tenderness (right lumbar with palpable spasm), thoracic spinal tenderness (low thoracic mild midline tenderness, no step off or deformity noted) and straight leg raise positive Pelvis: no pain with anterior-posterior compression and no pain with lateral compression Sacroiliac joints: bilaterally nontender Sacrum: no ecchymosis Coccyx: no swelling Skin General skin exam: no rashes or lesions noted Neuro General: patient alert and patient awake Cognition: normal cognition Speech: speech normal Gait: normal gait Motor: muscle tone normal throughout, strength 5/5 throughout, no movement abnormalities noted and no fasciculations Sensory Exam: no sensory deficits noted (no saddle paresthesias) DTR's: Rt Patellar: 2+, Lt Patellar: 2+, Rt Ankle: 2+ and Lt Ankle: 2+ Plantar Reflexes: Downgoing: bilateral Extrem General: normal to inspection (2+ distal pulses BLE), full ROM, capillary refill normal, no joint enlargement, no pedal edema and no calf tenderness Psych Appearance: grossly normal and well kempt Mental Status: mental status grossly normal Speech and Movement: speech and movement normal Course <MARILEE Quintanilla - Last Filed: 08/18/19 19:15> Vital Signs Vital signs: Vital Signs Temperature 36.8 C 08/18/19 12:57 Pulse 93 H 08/18/19 12:57 Respiratory Rate 36 H 08/18/19 12:57 Blood Pressure 199/61 H 08/18/19 12:57 Pulse Oximetry 92 L 08/18/19 12:57 Temperature 36.8 C 08/18/19 12:57 Temperature Source Skin 08/18/19 12:57 Pulse 93 H 08/18/19 12:57 Respiratory Rate 36 H 08/18/19 12:57 Blood Pressure 199/61 H 08/18/19 12:57 Pulse Oximetry 92 L 08/18/19 12:57 Oxygen Delivery Method Nasal Cannula 08/18/19 12:57 Oxygen Flow Rate 2.5 08/18/19 12:57 Pain Level 4 08/18/19 12:57 Comment 08/18/19 12:57
[2019-08-18 13:43] VITALS: O2SAT 94
[2019-08-18] MEDS: diazePAM 2 MG TAB PO (13:51)
[2019-08-18] MEDS: Lidocaine 5% Patch 1 PATCH TP (13:52)
[2019-08-18] MEDS: Acetaminophen 500 MG TAB 1000 MG PO (13:52)
[2019-08-18 13:58] VITALS: BP 121/63; PULSE 84; RESP 30; O2SAT 95
--- NOTE | 2019-08-18 14:07 | NUR.NOTE ---
pt in CT
[2019-08-18] MEDS: Azithromycin 250 MG TAB 500 MG PO (14:12)
--- NOTE | 2019-08-18 14:12 | DI.CT_ITS ---
EXAM: CT THORACIC LUMBAR SPINE WO TECHNIQUE: Imaging Protocol: Axial computed tomography images with coronal and sagittal reformatted images were created and reviewed CONTRAST MATERIAL: Noncontrast COMPARISON: CT CT CHEST/ABD/PEL W from 07/18/2018 CR XR PORTABLE CHEST AP from 07/22/2018 CR XR PORTABLE CHEST AP from 07/24/2018 CR XR PORTABLE CHEST AP from 08/11/2018 CR XR CHEST 2V PA LATERAL from 12/30/2018 FINDINGS: CT of the lumbar spine: There is a mild compression fracture of the superior endplate of L2. There is no evidence of retropulsion. The remaining vertebral bodies appear intact. There are small endpl ate osteophytes. There is mild disc bulging. Vacuum disc phenomenon is seen at L5-S1. There are mi ld facet joint degenerative changes. Atherosclerotic changes are noted in the abdominal aorta. Ther e is a 2.8 cm distal aortic aneurysm with mural thrombus, unchanged. Emphysematous changes are seen at the lung bases. CT of the thoracic spine: There is mild loss of vertebral body height of T6 and T7 which appear uncha nged from the previous CT. There is now moderate to severe compression of the T8 vertebral body. Ther e is no retropulsion. There is stable mild loss of vertebral body height at T 9 and T11. No posterior element abnormalities are seen. Emphysematous changes are noted in the lungs. There is aortic and co ronary artery calcification. IMPRESSION: Mild compression of the superior endplate of L2 without retropulsion, new when compared with the prev ious exam. Moderate to severe compression the T8 vertebral body, new since the previous exam. Stable mild loss of vertebral body height at T6, T7, T9 and T11.. RADIATION DOSE DELIVERED: 714.27mGy.cm Total DLP DATA REPOSITORY: All CT scans at this facility are submitted to the National Radiology Data Registry (NRDR) Dose Index Registry (DIR) with the [employer] (A[employer]). RADIATION OPTIMIZATION: All CT scans at this facility use at least one of these dose optimization te chniques: automated exposure control; mA and/or kV adjustment per patient size (includes targeted exa ms where dose is matched to clinical indication); or iterative reconstruction.
--- NOTE | 2019-08-18 14:25 | NUR.NOTE ---
on 2L [place] oxygen
--- NOTE | 2019-08-18 14:59 | RESPIRATORY ---
08/18/2019-Pt here for lower right sided back pain. Pt is tolerating his baseline home o2 regimen. This RT set up the pt's Home [facility] bedside for his use and does appear to be in good shape. Pt does state he may be at the early stage of a COPD exacerbation as he feels his breathing has been a little harder to breathe. He had taken his emergency dosage of 60mg of steroids. He would like to start his abx but, it has not arrived in the mail, yet. Otherwise, Pt states his home regimen is working well for him. [facility] DME: [facility].
[2019-08-18 15:35] VITALS: BP 119/70; PULSE 68; RESP 18; O2SAT 98
[2019-08-18] MEDS: oxyCODONE 5 MG TAB PO (16:05)
[2019-08-18 17:22] VITALS: BP 125/69; PULSE 65; RESP 18; TEMP 36.2; O2SAT 98
--- NOTE | 2019-08-21 09:32 | PDOC.ERCMPRO ---
- If Service Date Differs Date of service: 08/21/19 Time of Service: 09:32 Care Management Progress Note At the request of ED provider, CM coordinates a referral for outpatient palliative care.
== END 2019-08-18 17:36 | disposition home or self-care (01) ==
PROVIDERS: Emergency Provider Physician Assistant; PCP Internal Medicine
DX: J44.1 Chronic obstructive pulmonary disease with (acute) exacerbation (principal); S22.060A Wedge compression fracture of T7-T8 vertebra, initial encounter for closed fracture; S32.020A Wedge compression fracture of second lumbar vertebra, initial encounter for closed fracture; X50.9XXA Other and unspecified overexertion or strenuous movements or postures, initial encounter; M62.830 Muscle spasm of back; Z99.81 Dependence on supplemental oxygen; Z79.51 Long term (current) use of inhaled steroids; I10 Essential (primary) hypertension
CPT/HCPCS: 93005; 99285; 72128; 72131; 93010

== ENCOUNTER 2019-10-04 12:10 | Emergency (ER) | payer MEDICARE, MEDICAID, SELFPAY ==
[2019-10-04 12:19] VITALS: BP 159/70; PULSE 110; RESP 20; TEMP 36.8; O2SAT 99
--- NOTE | 2019-10-04 12:40 | W.ED.GENAD ---
Discharge Plan Disposition Patient Disposition: HOME Condition: Improving Discharge Details Chief Complaint: RashLesion Clinical Impression: Herpes zoster Primary Care Provider: Dario Hallman ED Provider: Joss Martell Home Meds and New Rx's Prescriptions: New prednisone 10 mg tablet 10 mg PO DAILY Qty: 60 RF: 0 Continued azithromycin 250 mg tablet See Rx Instructions PO .COMPLEX RF: 0 multivitamin [Men's Multi-Vitamin] 1 EACH tablet 1 ea PO DAILY RF: 0 citalopram 40 MG tablet 20 mg PO DAILY RF: 0 tamsulosin 0.4 MG capsule 0.4 mg PO DAILY RF: 0 oxycodone 5 mg tablet 5 mg PO Q8H PRN (Reason: pain) Qty: 7 RF: 0 acyclovir 800 mg tablet 800 mg PO 5X/DAY RF: 0 acetaminophen 325 MG tablet 650 mg PO PRN PRNRF: 0 budesonide [Pulmicort] 0.5 mg/2 mL Suspension For Nebulization 0.5 mg UPD Q12H Qty: 1 RF: 0 ipratropium bromide 0.02 % Solution 0.5 mg UPD Q6H Qty: 1 RF: 0 pantoprazole 40 mg Tablet,Delayed Release (Dr/Ec) 40 mg PO DAILY Qty: 30 RF: 0 furosemide [Lasix] 20 mg tablet 20 mg PO QAM Qty: 3 RF: 0 atorvastatin 80 mg Tablet 80 mg HS RF: 0 lorazepam 0.5 mg Tablet 0.5 mg PO DIRECTED RF: 0 metoprolol succinate 50 mg Tablet Extended Release 24 Hr 50 mg PO BID RF: 0 fluticasone propionate 50 mcg/actuation [employer],Suspension 2 spray INTRANASAL DAILY RF: 0 levalbuterol HCl 0.31 mg/3 mL Solution For Nebulization INHALATION QID RF: 0 tiotropium bromide 2.5 mcg/actuation Mist 2.5 mcg INHALATION DAILY RF: 0 levalbuterol tartrate 45 mcg/actuation Hfa Aerosol Inhaler INHALATION Q4H PRN PRNRF: 0 prednisone 10 mg tablet 10 mg PO DAILY PRNRF: 0 lisinopril 10 MG tablet 10 mg PO DAILY RF: 0 Xarelto 20 MG tablet 20 mg PO QACDINNER RF: 0 prednisone 20 mg tablet 20 mg PO DAILY Qty: 20 RF: 0 prednisone 10 mg tablet 10 mg PO DAILY Qty: 30 RF: 0 Discharge Instructions Instructions: Hayley (ED) Additional Instructions: Continue the previously prescribed acyclovir. Please follow-up with Dr. Hallman for recheck in the next 5 to 7 days time. As we discussed I will place you on a burst and subsequent taper of prednisone over 15 days and then you will resume your normal 10 mg/day dosing. May use your prescribed oxycodone as well as Tylenol as needed for pain. May use the prescription provided for mupirocin ointment as a barrier cream 3 times per day. Return to the ER for any acute concern. Medical Decision Making 63-year-old male presents from home with days of right posterior painful vesicular rash. He was diagnosed with shingles and placed on acyclovir 800 mg 5 times daily which he is now on day 3. He is followed by Dr. Hallman of the [place] [facility] in [place]. He was asked to follow-up the local emergency room if not improved in 2 days time. He does have a history of using for steroids for his lungs and as well oxycodone daily for chronic back pain. Patient's exam is reassuring, he is slightly hypertensive and has a pulse approximately 100. He has chronic dyspnea and home oxygen which is unchanged. Exam is consistent with herpetic zoster eruption. I will place him on a burst and subsequent taper of prednisone. He is given additional oxycodone in the ER and we will trial mupirocin ointment as a topical barrier cream. He will follow-up with the [place] clinic for recheck. HPI General Mode of arrival: ambulatory. Date/Time Provider Initiated Documentation: 10/04/19 12:29. Limitations to Documentation: no limitations. Information obtained by: patient. History of Present Illness 63 year old M presents to the emergency department with the chief complaint of Right neck zoster and pain, described as moderate, Quality is described as dull and constant, and is localized to the neck and right. Patient reports no radiation. Patient started experiencing this day(s) and it has been constant. No relieving factors improve symptom(s), No exacerbating factors reported . Patient notes shortness of breath and other (Chronic shortness of breath, unchanged); denies fever/chills. Patient did receive the following treatments prior to arrival, other (Acyclovir 800 mg 5 times daily, day #2) Related Data Home Medications Medication Instructions Recorded Confirmed citalopram 20 mg PO DAILY 05/09/15 10/04/19 multivitamin [Men's Multi-Vitamin] 1 ea PO DAILY 05/09/15 10/04/19 tamsulosin 0.4 mg PO DAILY 05/09/15 10/04/19 acetaminophen 650 mg PO PRN PRN 06/16/17 10/04/19 budesonide [Pulmicort] 0.5 mg UPD Q12H #1 pkg 07/05/18 10/04/19 ipratropium bromide 0.5 mg UPD Q6H #1 pkg 07/05/18 09/01/19 pantoprazole 40 mg PO DAILY #30 tab 07/05/18 10/04/19 furosemide [Lasix] 20 mg PO QAM #3 tab 07/27/18 10/04/19 Xarelto 20 mg PO QACDINNER 12/31/18 10/04/19 atorvastatin 80 mg HS 12/31/18 10/04/19 fluticasone propionate 2 spray INTRANASAL DAILY 12/31/18 10/04/19 levalbuterol HCl INHALATION QID 12/31/18 09/01/19 levalbuterol tartrate INHALATION Q4H PRN PRN 12/31/18 09/01/19 lisinopril 10 mg PO DAILY 12/31/18 10/04/19 lorazepam 0.5 mg PO DIRECTED 12/31/18 10/04/19 metoprolol succinate 50 mg PO BID 12/31/18 10/04/19 prednisone 10 mg PO DAILY PRN 12/31/18 10/04/19 tiotropium bromide 2.5 mcg INHALATION DAILY 12/31/18 10/04/19 prednisone 10 mg PO DAILY #30 tab 01/03/19 10/04/19 prednisone 20 mg PO DAILY #20 tab 01/03/19 10/04/19 oxycodone 5 mg PO Q8H PRN #7 tab 08/18/19 10/04/19 azithromycin 250 mg tablet See Rx Instructions PO .COMPLEX 09/01/19 10/04/19 acyclovir 800 mg PO 5X/DAY 10/04/19 10/04/19 prednisone 10 mg PO DAILY #60 tab 10/04/19 Previous Rx's Medication Instructions Recorded budesonide [Pulmicort] 0.5 mg UPD Q12H #1 pkg 07/05/18 ipratropium bromide 0.5 mg UPD Q6H #1 pkg 07/05/18 pantoprazole 40 mg PO DAILY #30 tab 07/05/18 furosemide [Lasix] 20 mg PO QAM #3 tab 07/27/18 prednisone 10 mg PO DAILY #30 tab 01/03/19 prednisone 20 mg PO DAILY #20 tab 01/03/19 oxycodone 5 mg PO Q8H PRN #7 tab 08/18/19 prednisone 10 mg PO DAILY #60 tab 10/04/19 Allergies Allergy/AdvReac Type Severity Reaction Status Date / Time albuterol Allergy Verified 08/18/19 13:01 General Stated Complaint: RashLesion DANETTE: 3 Review of Systems Narrative: On acyclovir, day 2, [facility] No visual changes. No anterior face rash. Chronic shortness of breath that is unchanged. 6 systems reviewed and otherwise negative [facility] Medical History Anemia (Chronic) Anxiety Atrial fibrillation BPH (benign prostatic hyperplasia) Bronchiectasis (Chronic) COPD (chronic obstructive pulmonary disease) with emphysema Coronary artery disease (Chronic) Depression Essential hypertension History of MRSA infection (Chronic) Weight loss (Acute) Surgical History Arthroplasty of knee Gastrostomy Tube Placement tracheostomy Social History Smoking/Tobacco Use Status: Former Tobacco Use Alcohol Intake: never Drug use: Never Do you feel safe at home: Yes Do you feel safe in your relationship?: Yes Exam Narrative Exam Narrative: GEN: awake, alert, oriented 3. Pleasant, well groomed, interactive. HEAD: Normocephalic, atraumatic ENT: Mucous membranes moist, oropharynx unremarkable, External ear exam unremarkable EYES: PERRL, EOMI NECK: Vesicular rash on the right side of the posterior neck and scalp CHEST/RESP: Nontender, diminished throughout CARDIOVASCULAR: RRR, no murmur, rub sandra. 2+ Rad pulse bilateral EXT: Full ROM, no edema, no rash Neuro: Grossly normal neurologic exam, conversant, interactive. Psych: Speech fluent, thoughts congruent, affect normal Course Vital Signs Vital signs: Vital Signs Temperature 36.8 C 10/04/19 12:19 Pulse 110 H 10/04/19 12:19 Respiratory Rate 20 10/04/19 12:19 Blood Pressure 159/70 H 10/04/19 12:19 Pulse Oximetry 99 10/04/19 12:19 Temperature 36.8 C 10/04/19 12:19 Temperature Source Temporal Artery Scan 10/04/19 12:19 Pulse 110 H 10/04/19 12:19 Respiratory Rate 20 10/04/19 12:19 Blood Pressure 159/70 H 10/04/19 12:19 Blood Pressure Position Sitting 10/04/19 12:19 Pulse Oximetry 99 10/04/19 12:19 Oxygen Delivery Method Nasal Cannula 10/04/19 12:19 Oxygen Flow Rate 2.5 10/04/19 12:19 Pain Level 3 10/04/19 12:19
[2019-10-04] MEDS: Acetaminophen 500 MG TAB 1000 MG PO (12:49)
[2019-10-04] MEDS: oxyCODONE 10 MG TAB PO (12:49)
[2019-10-04] MEDS: predniSONE 20 MG TAB 60 MG PO (12:49)
[2019-10-04 13:13] VITALS: BP 157/77; PULSE 106; RESP 18; TEMP 36.8; O2SAT 98
== END 2019-10-04 13:09 | disposition home or self-care (01) ==
PROVIDERS: Emergency Provider Emergency Medicine; PCP Internal Medicine
DX: B02.9 Zoster without complications (principal); J44.9 Chronic obstructive pulmonary disease, unspecified; Z87.891 Personal history of nicotine dependence; I10 Essential (primary) hypertension
CPT/HCPCS: 99283; J7512

== ENCOUNTER 2020-01-16 12:59 | Emergency (ER) | payer MEDICARE, MEDICAID, SELFPAY ==
[2020-01-16] VITALS (53 sets, daily range): BP systolic 60–180; BP diastolic 25–101; PULSE 82–112; RESP 1–44; TEMP 36.7; O2SAT 89–100
--- NOTE | 2020-01-16 13:15 | DI.CT_ITS ---
EXAM: CT CHEST W CLINICAL HISTORY: hemoptysis TECHNIQUE: COMPARISON: CT CT CHEST/ABD/PEL W from 07/18/2018 CR XR PORTABLE CHEST AP from 07/22/2018 FINDINGS: CT examination of the chest was performed with bolus infusion 70 cc of Omnipaque 350. Images obtained through lung bases show borderline aneurysmal abdominal aorta 29 millimeters. Visual ized portions of the liver, spleen pancreas, adrenals, kidneys are unremarkable. Gallbladder is dist ended. There is no significant mediastinal or hilar adenopathy. Largest lymph node is 12 millimeter in diam eter right hilar node. There is no evidence of pulmonary embolic disease. No thoracic aortic aneury sm or dissection. There are predominantly reticulo nodular areas of increased radiodensity involving much of the right upper pulmonary lobe. There are some consolidative opacities as well, underlying mass not excluded, follow-up chest CT requested following treatment. Otherwise lungs are generally clear. No pleural effusion. Tracheobronchial tree appears intact. Incidental T8 compression fracture not present on prior scan of June 2018, this is of uncertain age. . IMPRESSION: Findings as described above consistent with right upper lobe infectious process, some presumably cons olidative opacities could obscure or represent underlying mass, follow-up chest CT requested followin g treatment. RADIATION DOSE DELIVERED: 364.88mGy.cm Total DLP
[2020-01-16] MEDS: Albuterol/Ipratropium 3 ML UPD VIAL ×2 (13:25→13:50)
--- NOTE | 2020-01-16 13:45 | RT.EKG_ITS ---
APPROVED REPORT Exam: Resting ECG Patient Location: E HR:93 bpm ECG Measurements Heart Rate 93 AXIS NV [id number] P [id number] QRSd 89 QRS 79 QT 374 T 57 QTc 467 Conclusion Atrial flutter with predominant 3:1 AV block...A-rate 268, multiple Ps Borderline ST elevation, lateral leads...ST >0.06mV, I aVL V5 V6. Question A flutter vs sinus w/ artifact with poor baseline. No STEMI.
--- NOTE | 2020-01-16 14:00 | W.ED.GENAD ---
Discharge Plan Disposition Patient Disposition: [facility] Condition: Fair Discharge Details Clinical Impression: Pneumonia, Acute on chronic anemia, Hemoptysis, COPD with acute exacerbation, On home oxygen therapy Primary Care Provider: Dario Hallman ED Provider: Joya Degroot Home Meds and New Rx's Prescriptions: No Action azithromycin 250 mg tablet See Rx Instructions PO .COMPLEX RF: 0 morphine concentrate 100 mg/5 mL (20 mg/mL) solution 10 mg PO Q2H PRN MDD 120 mg PRN (Reason: SOB r/t end stage COPD) Qty: 30 RF: 0 multivitamin [Men's Multi-Vitamin] 1 EACH tablet 1 ea PO DAILY RF: 0 citalopram 40 MG tablet 20 mg PO DAILY RF: 0 tamsulosin 0.4 MG capsule 0.4 mg PO DAILY RF: 0 acetaminophen 325 MG tablet 650 mg PO PRN PRNRF: 0 budesonide [Pulmicort] 0.5 mg/2 mL Suspension For Nebulization 0.5 mg UPD Q12H Qty: 1 RF: 0 ipratropium bromide 0.02 % Solution 0.5 mg UPD Q6H Qty: 1 RF: 0 pantoprazole 40 mg Tablet,Delayed Release (Dr/Ec) 40 mg PO DAILY Qty: 30 RF: 0 furosemide [Lasix] 20 mg tablet 20 mg PO QAM Qty: 3 RF: 0 atorvastatin 80 mg Tablet 80 mg HS RF: 0 lorazepam 0.5 mg Tablet 0.5 mg PO DIRECTED RF: 0 metoprolol succinate 50 mg Tablet Extended Release 24 Hr 50 mg PO BID RF: 0 levalbuterol HCl 0.31 mg/3 mL Solution For Nebulization INHALATION QID RF: 0 tiotropium bromide 2.5 mcg/actuation Mist 2.5 mcg INHALATION DAILY RF: 0 levalbuterol tartrate 45 mcg/actuation Hfa Aerosol Inhaler INHALATION Q4H PRN PRNRF: 0 lisinopril 10 MG tablet 10 mg PO DAILY RF: 0 Xarelto 20 MG tablet 20 mg PO QACDINNER RF: 0 prednisone 10 mg tablet 10 mg PO DAILY Qty: 30 RF: 0 Discharge Data Discharge Date/Time-TO BE ENTERED AT DEPARTURE: 01/16/20 17:50 Medical Decision Making <Jacklyn Benton MD - Last Filed: 02/05/20 08:31> Javier Bautista is a 64 y/o man with h/o COPD on 2L home O2 daytime and trilogy at night who presented to the emergency department with worsening SOB over past few days, coughing up blood tinged sputum. On exam Pt in mild resp distress, speaking in short sentences with diminished breath sounds throughout. Concern for COPD exacerbation, PNA, covid, CHF, ACS, pulm embolism, hemoptysis, other. Exam/hx at this time not c/w acute aortic process, sepsis. Plan for EKG, CT chest, screening labs, duoneb. Respiratory therapy at bedside, Pt with 90% O2 sat on RA, improved to 95% on trilogy. Pt signed out to Dr. Joya Degroot at time of shift change with labs, imaging, dispo pending. Medical Records Medical records reviewed: Yes I reviewed the patient's medical records. ECG Data Attestation: I personally reviewed and interpreted this ECG (s) as follows: Interpretation: EKG shows sinus rhythm at 93, normal axis, no STEMI, nondiagnostic EKG <Joya Degroot, - Last Filed: 01/16/20 17:14> 1400 --please see Dr. Jacklyn Benton's note for initial presentation, exam and plan. Labs and CT chest ordered. 3 duo nebs and IV Solu-Medrol ordered. 64-year-old male with a history of COPD chronically on 2 L of home O2 and trilogy at nighttime presents for worsening of his chronic shortness of breath and hemoptysis for the past week. Patient has thus far been given 2 duo nebs and denies any improvement. He has diminished breath sounds throughout. He is speaking in broken sentences. His oxygen saturation was 90% on 2 L of his trilogy and this was increased to 3 L and his O2 sat is now 97% and he feels slightly better. Will give Xopenex/Atrovent which he uses at home. EKG notes a rate of 93 question a flutter versus sinus with poor baseline but no STEMI. He denies any complaint of chest pain, fever, or travel. His is his primary cleaning and maintenance worker at home and she is currently sick with respiratory symptoms and awaiting a Covid test result. Patient feels that he likely cannot go home due to his increasing shortness of breath and his 's inability to help with him at home. Labs reviewed and note a normal white blood cell count. Hemoglobin 7.8. Last result from December 2018 was 9.5. Troponin negative. Patient to go for CT chest. 1500 --CT chest notes right upper lobe pneumonia but no evidence of PE. No recent hospital admissions or IV antibiotics. We will treat with Rocephin and doxycycline. Patient reassessed and he feels somewhat better. He appears more comfortable. Oxygen saturation 95% on 2 L on his trilogy. Case discussed with hospitalist and nursing supervisor fleshing and there is no bed availability here. Discussed with patient he would prefer [facility] if possible. 1630 --discussed with [facility] - Dr Brooks accepts pt for transfer. Discussed with over the phone and she is agreeable with plan. Medical Records Medical records reviewed: Yes I reviewed the patient's medical records. Imaging Data Radiologic Study: Radiologist's impression: CT CHEST W CLINICAL HISTORY: hemoptysis TECHNIQUE: COMPARISON: CT CT CHEST/ABD/PEL W from 07/18/2018 CR XR PORTABLE CHEST AP from 07/22/2018 FINDINGS: CT examination of the chest was performed with bolus infusion 70 cc of Omnipaque 350. Images obtained through lung bases show borderline aneurysmal abdominal aorta 29 millimeters. Visualized portions of the liver, spleen pancreas, adrenals, kidneys are unremarkable. Gallbladder is distended. There is no significant mediastinal or hilar adenopathy. Largest lymph node is 12 millimeter in diameter right hilar node. There is no evidence of pulmonary embolic disease. No thoracic aortic aneurysm or dissection. There are predominantly reticulo nodular areas of increased radiodensity involving much of the right upper pulmonary lobe. There are some consolidative opacities as well, underlying mass not excluded, follow-up chest CT requested following treatment. Otherwise lungs are generally clear. No pleural effusion. Tracheobronchial tree appears intact. Incidental T8 compression fracture not present on prior scan of June 2018, this is of uncertain age.. IMPRESSION: Findings as described above consistent with right upper lobe infectious process, some presumably consolidative opacities could obscure or represent underlying mass, follow-up chest CT requested following treatment. Lab Data Lab results reviewed: Yes I reviewed the patient's lab results. Labs: Laboratory Tests Range/Units 01/16/20 01/16/20 01/16/20 14:02 14:02 14:02 WBC (4.4-10.8) 10^3/uL 7.91 RBC (4.36-5.78) 10^6/uL 2.88 L Hgb (13.5-17.5) g/dL 7.8 L Hct (40.0-50.0) % 26.3 L MCV (80-95) fL 91.3 MCH (27.0-33.0) pg 27.1 MCHC (32.0-36.0) % 29.7 L RDW (11.8-14.1) % 16.0 H Plt Count (130-400) 10^3/uL 410 H MPV (8.0-11.0) fL 9.2 Immature Gran % 0.4 Neutrophils % 87.5 Lymphocytes % 7.1 Monocytes % 4.9 Eosinophils % 0.0 Basophils % 0.1 Nucleated RBC % % 0 Absolute Neutrophils (1.2-6.7) 10^3/uL 6.92 H Absolute Lymphocytes (1.2-3.4) 10^3/uL 0.56 L Absolute Monocytes (0.1-0.8) 10^3/uL 0.39 Absolute Eosinophils (0.0-0.7) 10^3/uL 0.00 Absolute Basophils (0.0-0.2) 10^3/uL 0.01 RBC Morphology See below Polychromasia Present Hypochromasia 2+ Poikilocytosis 1+ Anisocytosis 1+ Microcytosis 1+ PT (9.3-11.0) sec 13.1 H INR (0.9-1.1) 1.3 H APTT (21.0-31.4) sec 25.0 Sodium (136-145) mmol/L 136 Potassium (3.5-5.1) mmol/L 3.9 Chloride (98-107) mmol/L 98 Carbon Dioxide (21.0-32.0) mmol/L 35.0 H Anion Gap (3-11) mmol/L 3.0 BUN (7-18) mg/dL 15 Creatinine (0.70-1.30) mg/dL 0.90 Estimated GFR/1.73 m2 (mL/min/1.73m2) >= 60.00 Glucose (74-106) mg/dL 110 H Calcium (8.5-10.1) mg/dL 9.2 Total Bilirubin (0.2-1.0) mg/dL 0.5 AST (15-37) U/L 25 ALT (16-63) U/L 25 Alkaline Phosphatase (46-116) U/L 82 Troponin I (<0.06) ng/mL < 0.05 Total Protein (6.4-8.2) g/dL 6.8 Albumin (3.4-5.0) g/dL 3.1 L Patient ABO/Rh Antibody Screen Range/Units 01/16/20 14:02 WBC (4.4-10.8) 10^3/uL RBC (4.36-5.78) 10^6/uL Hgb (13.5-17.5) g/dL Hct (40.0-50.0) % MCV (80-95) fL MCH (27.0-33.0) pg MCHC (32.0-36.0) % RDW (11.8-14.1) % Plt Count (130-400) 10^3/uL MPV (8.0-11.0) fL Immature Gran % Neutrophils % Lymphocytes % Monocytes % Eosinophils % Basophils % Nucleated RBC % % Absolute Neutrophils (1.2-6.7) 10^3/uL Absolute Lymphocytes (1.2-3.4) 10^3/uL Absolute Monocytes (0.1-0.8) 10^3/uL Absolute Eosinophils (0.0-0.7) 10^3/uL Absolute Basophils (0.0-0.2) 10^3/uL RBC Morphology Polychromasia Hypochromasia Poikilocytosis Anisocytosis Microcytosis PT (9.3-11.0) sec INR (0.9-1.1) APTT (21.0-31.4) sec Sodium (136-145) mmol/L Potassium (3.5-5.1) mmol/L Chloride (98-107) mmol/L Carbon Dioxide (21.0-32.0) mmol/L Anion Gap (3-11) mmol/L BUN (7-18) mg/dL Creatinine (0.70-1.30) mg/dL Estimated GFR/1.73 m2 (mL/min/1.73m2) Glucose (74-106) mg/dL Calcium (8.5-10.1) mg/dL Total Bilirubin (0.2-1.0) mg/dL AST (15-37) U/L ALT (16-63) U/L Alkaline Phosphatase (46-116) U/L Troponin I (<0.06) ng/mL Total Protein (6.4-8.2) g/dL Albumin (3.4-5.0) g/dL Patient ABO/Rh O Positive Antibody Screen Negative ECG Data Attestation: I personally reviewed and interpreted this ECG (s) as follows: HPI <Jacklyn Benton MD - Last Filed: 02/05/20 08:31> General Date/Time Provider Initiated Documentation: 01/16/20 13:23. Limitations to Documentation: no limitations. Information obtained by: patient, RN notes reviewed and old records reviewed. HPI Narrative: Javier Bautista is a 64 y/o man with a h/o anemia, COPD, CHF, afib, HTN, CAD presenting to the emergency department with SOB, coughing up blood. Pt reports that he has significant SOB at baseline, worse in the past 5 days at home despite his usual home interventions. Pt also reports that he has been coughing up mucous tinged with blood over the past few days. Pt reports that this has happened sporadically in the past, but now more consistent. He denies fever, vomiting, diarrhea, black or bloody stool, rash, numbness, weakness, pain. He reports cough increased from baseline. Related Data Home Medications Medication Instructions Recorded Confirmed citalopram 20 mg PO DAILY 05/09/15 01/16/20 multivitamin [Men's Multi-Vitamin] 1 ea PO DAILY 05/09/15 01/16/20 tamsulosin 0.4 mg PO DAILY 05/09/15 01/16/20 acetaminophen 650 mg PO PRN PRN 06/16/17 01/16/20 budesonide [Pulmicort] 0.5 mg UPD Q12H #1 pkg 07/05/18 01/16/20 ipratropium bromide 0.5 mg UPD Q6H #1 pkg 07/05/18 01/16/20 pantoprazole 40 mg PO DAILY #30 tab 07/05/18 01/16/20 furosemide [Lasix] 20 mg PO QAM #3 tab 07/27/18 01/16/20 Xarelto 20 mg PO QACDINNER 12/31/18 01/16/20 atorvastatin 80 mg HS 12/31/18 01/16/20 levalbuterol HCl INHALATION QID 12/31/18 01/05/20 levalbuterol tartrate INHALATION Q4H PRN PRN 12/31/18 01/05/20 lisinopril 10 mg PO DAILY 12/31/18 01/16/20 lorazepam 0.5 mg PO DIRECTED 12/31/18 01/16/20 metoprolol succinate 50 mg PO BID 12/31/18 01/16/20 tiotropium bromide 2.5 mcg INHALATION DAILY 12/31/18 01/16/20 prednisone 10 mg PO DAILY #30 tab 01/03/19 01/16/20 azithromycin 250 mg tablet See Rx Instructions PO .COMPLEX 12/01/19 01/16/20 morphine concentrate 100 mg/5 mL 10 mg PO Q2H PRN PRN #30 ml MDD 01/05/20 01/16/20 (20 mg/mL) oral solution 120 mg Previous Rx's Medication Instructions Recorded budesonide [Pulmicort] 0.5 mg UPD Q12H #1 pkg 07/05/18 ipratropium bromide 0.5 mg UPD Q6H #1 pkg 07/05/18 pantoprazole 40 mg PO DAILY #30 tab 07/05/18 furosemide [Lasix] 20 mg PO QAM #3 tab 07/27/18 prednisone 10 mg PO DAILY #30 tab 01/03/19 morphine concentrate 100 mg/5 mL 10 mg PO Q2H PRN PRN #30 ml MDD 01/05/20 (20 mg/mL) oral solution 120 mg Allergies Allergy/AdvReac Type Severity Reaction Status Date / Time albuterol Allergy Verified 01/16/20 13:25 General Stated Complaint: SOB DANETTE: 2 Review of Systems <Jacklyn Benton MD - Last Filed: 02/05/20 08:31> Narrative: Constitutional: denies fevers Eyes: denies eye pain ENT: denies ear pain, dental pain, sore throat Cardiovascular: denies chest pain, edema Respiratory:reports SOB, cough, hemoptysis GI: denies abdominal pain, vomiting, diarrhea, melena : denies flank pain MSK: denies back pain, neck pain, arthralgias, myalgias Skin: denies rash Neuro: denies headaches, numbness, weakness PFSH <Jacklyn Benton MD - Last Filed: 02/05/20 08:31> Medical History Anemia Anxiety Atrial fibrillation BPH (benign prostatic hyperplasia) Bronchiectasis COPD (chronic obstructive pulmonary disease) with emphysema Coronary artery disease Depression Essential hypertension History of MRSA infection Weight loss Surgical History Arthroplasty of knee Gastrostomy Tube Placement tracheostomy Social History Smoking/Tobacco Use Status: Former Tobacco Use Smoking risk assessment performed?: Yes Alcohol Intake: never Drug use: Never Do you feel safe at home: Yes Do you feel safe in your relationship?: Yes Exam <Jacklyn Benton MD - Last Filed: 02/05/20 08:31> Narrative Exam Narrative: Constitutional: chronically ill appearing, pleasant, conversing in short sentences HENT: head atraumatic/normocephalic/normal inspection, mucous membranes moist Eyes: conjunctiva normal, sclera normal, pupils 3mm b/l Neck: no stridor, normal ROM, trachea midline Chest: normal inspection Resp: inc work of breathing without extremis, diminished breath sounds thoughout Cardio: normal rate, irregular rhythm, no murmur appreciated GI: abdomen soft, non-tender, non-distended Back: normal inspection, no rash Skin: warm, dry, normal color, no rash Neuro: alert, not altered, grossly non-focal, normal tone Ext: moving all extremities equally Psych: normal mood, normal affect, normal behavior Course <Jacklyn Benton MD - Last Filed: 02/05/20 08:31> Vital Signs Vital signs: Vital Signs Temperature 36.7 C 01/16/20 13:19 Pulse 86 01/16/20 13:19 Respiratory Rate 44 H 01/16/20 13:19 Blood Pressure 180/81 H 01/16/20 13:19 Pulse Oximetry 96 01/16/20 13:19 Temperature 36.7 C 01/16/20 13:19 Temperature Source Temporal Artery Scan 01/16/20 13:19 Pulse 83 01/16/20 13:50 Respiratory Rate 20 01/16/20 13:50 Respiratory Effort Labored 01/16/20 13:40 Respiratory Depth Shallow 01/16/20 13:40 Respiratory Pattern Tachypnea 01/16/20 13:40 Blood Pressure 180/81 H 01/16/20 13:19 Blood Pressure Position Sitting 01/16/20 13:19 Pulse Oximetry 93 01/16/20 13:50 Oxygen Delivery Method Nasal Cannula 01/16/20 13:50 Oxygen Flow Rate 2 01/16/20 13:50 Pain Level 0 01/16/20 13:19 Comment 01/16/20 13:40 Sign Out <Jacklyn Benton MD - Last Filed: 02/05/20 08:31> Sign Out Data: Sign Out Comment: Patient signed out to Dr. Degroot at time of shift change with labs, imaging, dispo pending. Last updated by Jacklyn Benton MD at 01/16/20 14:01
[2020-01-16] MEDS: methylPREDNISolone SUCC 125 MG VIAL IVP (14:22)
[2020-01-16 14:23] LABS: Abs Immature Grans 0.03 10^3/uL (0.0-0.06); Absolute Basophil Count 0.01 10^3/uL (0.0-0.2); Absolute Lymphocyte Count 0.56 10^3/uL (1.2-3.4); Absolute Monocyte Count 0.39 10^3/uL (0.1-0.8); Absolute Neutrophil Count 6.92 10^3/uL (1.2-6.7); Basophils % 0.1; HCT 26.3 % (40.0-50.0); HGB 7.8 g/dL (13.5-17.5); Immature Grans % 0.4; Lymphocytes % 7.1; MCH 27.1 pg (27.0-33.0); MCHC 29.7 % (32.0-36.0); MCV 91.3 fL (80-95); MPV 9.2 fL (8.0-11.0); Monocytes % 4.9; Neutrophils % 87.5; Nucleated RBC 0 %; Platelet Count 410 10^3/uL (130-400); RBC 2.88 10^6/uL (4.36-5.78); RDW-SD 53.2 fL; WBC 7.91 10^3/uL (4.4-10.8)
[2020-01-16 14:35] LABS: INR 1.3 (0.9-1.1); Prothrombin Time 13.1 sec (9.3-11.0)
[2020-01-16 14:38] LABS: ALT 25 U/L (16-63); AST 25 U/L (15-37); Albumin 3.1 g/dL (3.4-5.0); Alkaline Phosphatase 82 U/L (46-116); BUN 15 mg/dL (7-18); Bilirubin, Total 0.5 mg/dL (0.2-1.0); Calcium 9.2 mg/dL (8.5-10.1); Chloride 98 mmol/L (98-107); Glucose 110 mg/dL (74-106); Potassium 3.9 mmol/L (3.5-5.1); Sodium 136 mmol/L (136-145); Total Protein 6.8 g/dL (6.4-8.2); Troponin I < 0.05 ng/mL (<0.06)
[2020-01-16 14:39] LABS: Anisocytosis 1+; Diff Comment RBC Morph Reviewed; Hypochromasia 2+; Microcytosis 1+; Poikilocytes 1+; Polychromasia Present
[2020-01-16] MEDS: Ipratropium 0.5 MG/2.5 ML UPD VIAL UPD (14:43)
[2020-01-16] MEDS: Levalbuterol 1.25 MG/3 ML UPD VIAL (14:44)
[2020-01-16] MEDS: Omnipaque 350 MG/ML 100 ML BTL IV (15:18)
[2020-01-16] MEDS: cefTRIAXone 1 GM/50 ML BAG IVPB (15:57)
--- NOTE | 2020-01-16 16:30 | RESPIRATORY ---
RT called to assist patient in setting up Trilogy to use while in ER. Patient SOB and coughing up blood for a few days per ER visit. Patient was givien two duonebs with little relief and encourage to use Trilogy to ease SOB. Patient used Trilogy for 30mins then came off to do another Duoneb and have a CT done of chest. Pt sustained SpO2 sat throughout procedure on 2-3L NC, then transported back to CT and placed on Trilogy. RT left Pt on Trilogy resting comfortably.
[2020-01-16] MEDS: DOXYCYCLINE 100 MG in Normal Saline 100 ML 75 MG IVPB (16:48)
[2020-01-17 00:45] LABS: COVID-19 RT-PCR UVMMC Result Negative (Negative)
--- NOTE | 2020-01-17 09:11 | NUR.NOTE ---
called and left message for patient to return call for test results. 01/17/20 @ 0909.
--- NOTE | 2020-01-19 09:55 | NUR.NOTE ---
Nursing Note: Negative result given to by phone, as pt is an inpatient at [facility]. Called [facility] clinical finishing room supervisor, who transferred to COVID hotline. Negative COVID result given to Elana, who states she will update floor.
== END 2020-01-16 17:50 | disposition short-term general hospital (02) ==
PROVIDERS: Student in an Organized Health Care Education/Training Program; Emergency Provider Physician Assistant; PCP Internal Medicine
DX: J18.9 Pneumonia, unspecified organism (principal); D64.9 Anemia, unspecified; R04.2 Hemoptysis; J44.1 Chronic obstructive pulmonary disease with (acute) exacerbation; Z99.81 Dependence on supplemental oxygen; Z87.891 Personal history of nicotine dependence; I11.0 Hypertensive heart disease with heart failure; I50.9 Heart failure, unspecified; Z03.818 Encounter for observation for suspected exposure to other biological agents ruled out
CPT/HCPCS: 80053; 86850; 86900; 86901; 93005; 94640; 96365; 96366; 96375; 99285; U0003; 71260; 84484; 85025; 85610; 85730; 93010; J0696; J2930; J3490; J7614; J7620; J7644